=== PATIENT | female | born 1950 | race Caucasian/White ===

== ENCOUNTER → 2016-12-04 | Outpatient (CLI) | payer OTHER ==
[~2016-12-04] MED LIST: ATOR10TA88 PO; CALC600T9 PO; FLVHFA110 INH; GLIM2TAB2 PO; LOSA50TA6 PO; METF-384 PO; OXYC1TAB3 PO; PRLSR20 PO; TRAM-10 PO; VOLTAREN GEL TOP
[2016-12-04 12:40] LABS: ESTIMATED AVERAGE GLUCOSE 166 mg/dl; HA1C FLAG Normal (Normal)
[2016-12-04 12:48] LABS: CHOLESTEROL/HDL RATIO 3.1
== END | disposition home or self-care (01) ==
LOC: C.LABBFT 09:33
PROVIDERS: ATTEND Internal Medicine
DX: E11.9 Type 2 diabetes mellitus without complications (principal); E78.5 Hyperlipidemia, unspecified

== ENCOUNTER 2017-03-27 18:40 | Emergency (ER) | payer OTHER ==
[~2017-03-27 18:40] MED LIST changes: +ATOR10TA82 PO; -ATOR10TA88 PO; -OXYC1TAB3 PO
[2017-03-27 18:45] VITALS: TEMP 36.5
[2017-03-27] MEDS ORDERED: MoRPHine SULFATE 10 MG/ML CARP/VIAL IM STA (19:02)
[2017-03-27] MEDS ORDERED: ONDANSETRON 4MG OD TAB PO ONE (19:15)
--- NOTE | 2017-03-27 19:55 | DIAGNOSTIC IMAGING REPORT ---
LUMBAR SPINE 5 VIEWS CLINICAL HISTORY: Low back pain. FINDINGS: 5 views of the lumbar spine are correlated with MRI of the lumbar spine dated 10/23/2010. The skeletal structures are osteopenic. There is no radiographic evidence of fracture or malalignment. Vertebral body height and alignment are maintained throughout the lumbar spine. The transverse and spinous processes appear intact. There is no evidence of spondylolysis. Small anterior osteophytes are seen in the lower lumbar region. Mild facet arthropathy is present in the lower lumbar spine. Mild multilevel degenerative disc space narrowing is noted. The bony pelvis is intact as imaged. Mild sclerotic change is noted in the sacroiliac joints. There is a nonobstructed abdominal bowel gas pattern. IMPRESSION: 1. No acute bony abnormality is seen involving the lumbosacral spine. 2. Osteopenia and mild spondylotic change as above. Dictated: 03/27/2017 7:52 PM Transcribed: 03/27/2017 7:55 PM ALAYNA_Alcira Electronically signed by: Joseph Dong M.D. 03/27/2017 7:55 PM Dictated Date/Time: 03/27/2017 7:52 PM
[2017-03-27] MEDS ORDERED: OXYC1TAB3 PO (20:37)
[2017-03-27 20:57] VITALS: BP 146/94; PULSE 73; O2SAT 96
[2017-03-27] MEDS ORDERED: OXYCODONE IR HOME PACK PO ONE (21:00)
--- NOTE | 2017-03-27 22:05 | EMERGENCY ROOM VISIT NOTE ---
History Report prepared by Hamzah: Eliseo Garces Under the Supervision of: Dr. Yung Mattson D.O. First contact with patient: 18:51 Chief Complaint: BACK PAIN Stated Complaint: PAIN FROM MIDDLE OF BACK TO FOOT History of Present Illness The patient is a 66 year old female who presents to the Emergency Room with complaints of constant right lower back pain beginning two days ago. She has a history of back pain. She has a history of two back injuries and spinal stenosis. She states that her right leg feels like it's twisting outward. She describes her current pain as feeling "sharp" and states that it radiates down her right leg. She states the pain in her right leg is a "burning" pain. The patient states that her right knee feels numb as well and she describes the sensation as "a pins and needles" feeling. She denies any recent falls or trauma. She denies any loss of continence, fevers, chest pain, SOB, abdominal pain, pelvic numbness, or urinary symptoms. The patient has taken ibuprofen for her pain. She does have a history of hypertension and states that she took her antihypertensive medications this morning. She states that her blood pressures normally read very high when an automatic cuff was used. She states that her doctor says she should only have manual pressures done. Source of History: patient Onset: two days ago Position: back (right lower) Quality: sharp Timing: constant Modifying Factors (Worsening): movement Associated Symptoms: + numbness ("pins and needles" in the right knee), No SOB, No abdominal pain, No chest pain, No fevers, No urinary symptoms Note: The patient denies any loss of continence, or numbness in her pelvis. Review of Systems See HPI for pertinent positives & negatives. A total of 10 systems reviewed and were otherwise negative. Past Medical & Surgical Medical Problems: (1) Diab Izabel Wo Compl, Type Ii Or Unspec Type, Not Uncntrld (2) Hyperlipidemia Nec/Nos (3) Hypertension Nos (4) Hypothyroidism Nos (5) Obesity, Nos (6) Osteoarthro Nos-Oth Site Family History No pertinent family history stated. Social History Smoking Status: Never Smoker Alcohol Use: none Marital Status: Current/Historical Medications Scheduled Atorvastatin (Lipitor), 10 MG PO QPM Calcium Carbonate-Vitamin D (Calcium + D), 1 TAB PO QAM Glimepiride (Glimepiride), 1 TAB PO QAM Losartan Potassium (Cozaar), 50 MG PO QAM Metformin Hcl (Glucophage), 1,000 MG PO BID Omeprazole (Prilosec), 20 MG PO QAM Scheduled PRN Fluticasone Propionate (Flovent Hfa), 2 PUFFS INH BID PRN for PRN Oxycodone Ir (Roxicodone Ir), 5 MG PO Q4H PRN for Pain Allergies Coded Allergies: Triamcinolone (Verified Allergy, Severe, DIFFICULTY BREATHING W/ KENALOG, 03/27/17) Flu Virus Vaccine (Verified Allergy, Unknown, DUE TO HX SARCOIDOSIS TOLD TO AVOID FLU VACCINE, 03/27/17) Food (Verified Allergy, Unknown, PEPPERS (HOT, CAYENNE, BLACK)-SWELLING THROAT,SOB, RED NOSE, 03/27/17) Pravastatin (Verified Allergy, Unknown, URINARY RETENTION,SOB, 03/27/17) Physical Exam Vital Signs Date Time Temp Pulse Resp B/P Pulse Ox O2 Delivery O2 Flow Rate FiO2 03/27/17 20:57 73 16 146/94 96 03/27/17 19:16 160/90 NIBP 03/27/17 18:45 36.5 80 20 202/98 96 Room Air Physical Exam Constitutional: Vital signs reviewed. Eyes: Pupils are equal round reactive to light. Conjunctiva are noninjected. ENT: Pharynx is clear without erythema or exudate. Mucous membranes are moist. Neck supple without meningeal signs. Respiratory: Clear to auscultation bilaterally. Breath sounds are equal bilaterally. Cardiovascular: Regular rate and rhythm. No rubs or gallops. GI: Soft, nondistended and nontender. Bowel sounds are present. Musculoskeletal: No peripheral edema. No lower extremity tenderness. No CVA tenderness. Integumentary: No cyanosis. Neurological: The patient is awake and alert. No focal deficits. Motor and sensation are intact in the lower extremities bilaterally. Proprioception is intact bilaterally. Positive straight leg raise at 30 on the right side. Negative on the left side. Psychiatric: Normal affect. Medical Decision & Procedures ER Provider Diagnostic Interpretation: X-ray results as stated below per interpretation by me and the radiologist: LUMBAR SPINE 5 VIEWS FINDINGS: 5 views of the lumbar spine are correlated with MRI of the lumbar spine dated 10/23/2010. The skeletal structures are osteopenic. There is no radiographic evidence of fracture or malalignment. Vertebral body height and alignment are maintained throughout the lumbar spine. The transverse and spinous processes appear intact. There is no evidence of spondylolysis. Small anterior osteophytes are seen in the lower lumbar region. Mild facet arthropathy is present in the lower lumbar spine. Mild multilevel degenerative disc space narrowing is noted. The bony pelvis is intact as imaged. Mild sclerotic change is noted in the sacroiliac joints. There is a nonobstructed abdominal bowel gas pattern. IMPRESSION: 1. No acute bony abnormality is seen involving the lumbosacral spine. 2. Osteopenia and mild spondylotic change as above. Dictated: 03/27/2017 7:52 PM Transcribed: 03/27/2017 7:55 PM ALAYNA_Alcira Electronically signed by: Joseph Dong M.D. Medications Administered Medications (Trade) Dose Ordered Sig/Jorge Luis Route Start Time Stop Time Status Last Admin Dose Admin Morphine Sulfate (MoRPHine SULFATE INJ) 6 mg NOW STAT IM 03/27/17 19:02 03/27/17 19:04 DC 03/27/17 19:16 6 MG Ondansetron HCl (Zofran Odt) 4 mg ONE ONCE PO 03/27/17 19:15 03/27/17 19:16 DC 03/27/17 19:16 4 MG Oxycodone HCl (Roxicodone Immediate Rel 5MG Home Pack) 1 homepack UD ONCE PO 03/27/17 21:00 03/27/17 21:01 DC 03/27/17 20:58 1 HOMEPACK ED Course 1854: The patient was evaluated in room A9. A complete history and physical exam was performed. 1901: Ordered Morphine Sulfate 6 mg IM. 1914: Ordered Zofran 4 mg PO. 2030: Upon reevaluation, the patient appeared to have improvement of her symptoms. She is feeling better. I discussed tonight's findings with her. She verbalized agreement of the treatment plan. The patient will follow up with her PCP. She was discharged home. Medical Decision This is a 66-year-old female who presents with back pain. Differential diagnosis includes lumbar disc disease, spinal stenosis, radiculopathy, strain, compression fracture. I did perform a limited focused review of portions of the patient's old chart on the electronic medical record. The patient had an MRI of the lumbar spine in 2009 which showed degenerative disc disease with disc bulging in multiple levels. I did evaluate the patient as noted above. The patient is presenting with low back pain radiating down her right leg. She is neurologically intact and has no signs of spinal cord injury. I did treat her with IM morphine and Zofran ODT. I did order and personally review the patient's lumbar spine x-rays as described above. I did reassess the patient. She is feeling better. I did discuss the test results with her. I did recommend she follow closely with her doctor. I did give her a prescription for OxyIR for breakthrough pain. She was given precautions regarding this medication. She was given return instructions as outlined below and discharged in good condition. [place] Drug Monitoring Program Search Results: patient reviewed within database, no issues identified Impression Primary Impression: Low back pain Scribe Attestation The scribe's documentation has been prepared under my direct and personally reviewed by me in its entirety. I confirm that the note above accurately reflects all work, treatment, procedures, and medical decision making performed by me. Departure Information Dispostion Home / Self-Care Prescriptions Oxycodone Ir (Roxicodone Ir) 5 Mg Tab 5 MG PO Q4H Y for Pain, #14 TAB Prov: Patrick Cowan M.D. 03/27/17 Referrals Gucci Vallceillo M.D. (PCP) Forms HOME CARE DOCUMENTATION FORM, IMPORTANT VISIT INFORMATION Patient Instructions ED Back Pain Acute Chronic, My [facility] Additional Instructions You have been examined and treated today on an emergency basis only. This is not a substitute for, or an effort to provide, complete comprehensive medical care. It is impossible to recognize and treat all injuries or illnesses in a single emergency department visit. It is therefore important that you follow up closely with your physician. Call as soon as possible for an appointment. Return for worsening symptoms or if you develop fever, vomiting, abdominal pain , loss of control of your bowel or bladder, numbness or weakness to your legs, numbness to your private area, difficulty urinating, or any other concerning symptoms. Problem Qualifiers Primary Impression: Low back pain Chronicity: acute Back pain laterality: right Sciatica presence: with sciatica Sciatica laterality: sciatica of right side Qualified Codes: M54.41 - Lumbago with sciatica, right side
== END 2017-03-27 20:58 | disposition home or self-care (01) ==
LOC: C.EDB 18:40 → C.EDA 20:58
DX: M54.41 Lumbago with sciatica, right side (principal); M79.671 Pain in right foot; R20.0 Anesthesia of skin; E11.9 Type 2 diabetes mellitus without complications; I10 Essential (primary) hypertension; E78.5 Hyperlipidemia, unspecified; E03.9 Hypothyroidism, unspecified; Z79.84 Long term (current) use of oral hypoglycemic drugs; Z79.899 Other long term (current) drug therapy; Z87.828 Personal history of other (healed) physical injury and trauma

== ENCOUNTER → 2017-10-18 | Outpatient (CLI) | payer OTHER ==
[~2017-10-18] MED LIST changes: -TRAM-10 PO; -VOLTAREN GEL TOP
[2017-10-18 12:57] LABS: BASO % 0.4 %; BASO ABS # 0.03 K/uL (0-0.2); COMPLETE YES; EOS % 1.6 %; HEMATOCRIT 36.3 % (37-47); IG% 0.2 %; LYMPH % 32.2 %; LYMPH ABS # 2.66 K/uL (1.2-3.4); MEAN CELL VOLUME 84.4 fL (80-100); MEAN CORPUSCULAR HEMOGLOBIN 26.7 pg (25-34); MEAN CORPUSCULAR HGB CONC 31.7 g/dl (32-36); MEAN PLATELET VOLUME 10.7 fL (7.4-10.4); MONO % 9.2 %; NEUT % 56.4 %; PLATELET COUNT 240 K/uL (130-400); WHITE BLOOD COUNT 8.25 K/uL (4.8-10.8)
[2017-10-18 14:07] LABS: ALT/SGPT 30 U/L (12-78); AST/SGOT 24 U/L (15-37); BLOOD UREA NITROGEN 16 mg/dl (7-18); BUN/CREATININE RATIO 22.6 (10-20); CALCIUM 9.2 mg/dl (8.5-10.1); CARBON DIOXIDE 29 mmol/L (21-32); CHLORIDE 103 mmol/L (98-107); CREATININE 0.71 mg/dl (0.60-1.20); GLUCOSE 127 mg/dl (70-99); HDL CHOLESTEROL 52 mg/dl; POTASSIUM 4.3 mmol/L (3.5-5.1); SODIUM 136 mmol/L (136-145)
[2017-10-18 14:23] LABS: ALKALINE PHOSPHATASE 51 U/L (45-117); CHOLESTEROL 173 mg/dl (0-200); CHOLESTEROL/HDL RATIO 3.3; LDL CHOLESTEROL CALCULATED 94 mg/dl; TRIGLYCERIDES 137 mg/dl (0-150); VERY LOW DENSITY LIPOPROT CALC 27 mg/dl
[2017-10-19 07:05] LABS: ESTIMATED AVERAGE GLUCOSE 163 mg/dl; HA1C FLAG Normal (Normal)
== END | disposition home or self-care (01) ==
LOC: C.LABBFT 10:33
PROVIDERS: ATTEND Internal Medicine
DX: Z00.00 Encounter for general adult medical examination without abnormal findings (principal); E78.5 Hyperlipidemia, unspecified; E11.9 Type 2 diabetes mellitus without complications; M17.10 Unilateral primary osteoarthritis, unspecified knee; K52.9 Noninfective gastroenteritis and colitis, unspecified

== ENCOUNTER → 2017-12-15 | Day surgery (SDC) | payer OTHER ==
[2017-12-07 13:50] VITALS: BMI 47.0
[~2017-12-15] VITALS: Ht 167.6 cm; Wt 131.8 kg
[~2017-12-15] MED LIST changes: -CALC600T9 PO; +CHOL100010 PO; +CYAN100020 PO; -FLVHFA110 INH; -GLIM2TAB2 PO; +LIDOCAINE HCL 2% 2 ML VIAL (20MG/ML) ONE; +LOSA1TAB38 PO; -LOSA50TA6 PO; +MELO15TA4 PO; +MULTTAB58 PO; +PROPOFOL IV EMULSION 10 MG/ML 20 ML VIAL IV ONE; +SODIUM CHLORIDE 0.9% 500ML 500 ML IV ONE; +TRAM-10 PO
[2017-12-15 09:27] VITALS: Ht 167.6 cm; Wt 131.8 kg
--- NOTE | 2017-12-15 09:40 | Endo History and Physical ---
History & Physical Date of Service: Dec 15, 2017. Chief Complaint: SCREENING/ANEMIA HX OF DUODENAL AND GASTRIC POLYPS Referring Physician: DR CERDA History of Present Illness chronic diarrhea; dysphagia Past Surgical History Hx Cardiac Surgery: No Hx Internal Defibrillator: No Hx Pacemaker: No Hx Abdominal Surgery: Yes (TUBAL LIGATION, HYSTERECTOMY AND REPAIR OF URETHRA) Hx of Implantable Prosthesis: No Hx Post-Op Nausea and Vomiting: No Hx Cancer Surgery: No Hx Thoracic Surgery: Yes (LUNG BIOPSY/BRONCHOSCOPY) Hx Orthopedic: Yes (LEFT HAND TRIGGER FINGER ) Hx Urinary Tract Surgery: No Family History Colon CA Social History Smoking Status: Never Smoker Hx Substance Use: No Hx Alcohol Use: Yes (RARELY) Allergies Coded Allergies: Triamcinolone (Verified Allergy, Severe, DIFFICULTY BREATHING W/ KENALOG, 12/15/17) Flu Virus Vaccine (Verified Allergy, Unknown, DUE TO HX SARCOIDOSIS TOLD TO AVOID FLU VACCINE, 12/15/17) Food (Verified Allergy, Unknown, PEPPERS (HOT, CAYENNE, BLACK)-SWELLING THROAT,SOB, RED NOSE, 12/15/17) Pravastatin (Verified Allergy, Unknown, URINARY RETENTION,SOB, 12/15/17) Current Medications Reported Home Medications Medications Dose Route/Sig Max Daily Dose Days Date Category Ultram (Tramadol HCl) 50 Mg Tab 50 Mg PO Q8H PRN 12/07/17 Reported Multivitamin (Multiple Vitamin) 1 Tab Tab 1 Tab PO QAM 12/07/17 Reported Vitamin D (Cholecalciferol) 1,000 Unit Tab 1 Tab PO QAM 12/07/17 Reported Vitamin B12 (Cyanocobalamin) 1,000 Mcg Tab 1 Tab PO QAM 12/07/17 Reported Cozaar (Losartan Potassium) 100 Mg Tab 100 Mg PO QAM 12/07/17 Reported Mobic (Meloxicam) 15 Mg Tab 15 Mg PO DAILY WITH FOOD 12/07/17 Reported Prilosec (Omeprazole) 20 Mg Capcr 20 Mg PO QAM 08/18/16 Reported Lipitor (Atorvastatin Calcium) 10 Mg Tab 10 Mg PO QPM 08/18/16 Reported Glucophage (Metformin Hcl) 1,000 Mg Tab 1,000 Mg PO BID 11/25/13 Reported Vital Signs Weight (Kilograms): 131.82 Height (Feet): 5 Height (Inches): 6 Physical Exam General Appearance: WD/WN, no apparent distress Assessment and Plan EGD and colonoscopy today
--- NOTE | 2017-12-15 10:27 | GI REPORT ---
Procedure Date: 12/15/2017 9:28 AM Procedure: Upper GI endoscopy Indications: Dysphagia Medicines: Propofol per Anesthesia Complications: No immediate complications. Estimated blood loss: None. Estimated Blood Loss: Estimated blood loss: none. Procedure: Pre-Anesthesia Assessment: - Prior to the procedure, a History and Physical was performed, and patient medications, allergies and sensitivities were reviewed. The patient's tolerance of previous anesthesia was reviewed. - The risks and benefits of the procedure and the sedation options and risks were discussed with the patient. All questions were answered and informed consent was obtained. - Patient identification and proposed procedure were verified prior to the procedure by the physician and the nurse. The procedure was verified in the pre-procedure area in the procedure room. - Mental Status Examination: alert and oriented. Airway Examination: normal oropharyngeal airway and neck mobility. Respiratory Examination: clear to auscultation. CV Examination: normal. Abdominal Examination: bowel sounds present, abdomen soft and non-tender, no masses or organomegaly noted. - ASA Grade Assessment: III - A patient with severe systemic disease. After obtaining informed consent, the endoscope was passed under direct vision. Throughout the procedure, the patient's blood pressure, pulse, and oxygen saturations were monitored continuously. The scope was introduced through the mouth, and advanced to the second part of duodenum. The upper GI endoscopy was accomplished without difficulty. The patient tolerated the procedure well. Findings: The examined esophagus was normal. A guidewire was placed and the scope was withdrawn. Dilation was performed with a Savary dilator with mild resistance at 54 Fr. The stomach was normal. The examined duodenum was normal. Impression: - Normal esophagus. Dilated. - Normal stomach. - Normal examined duodenum. - No specimens collected. Recommendation: - Follow an antireflux regimen. - Continue present medications. - Return to primary care physician as previously scheduled. - Discharge patient to home. Eliza Sousa D.O. Eliza Sousa, 12/15/2017 10:27:08 AM This report has been signed electronically. Note Initiated On: 12/15/2017 9:28 AM I attest to the content of the Intraoperative Record and orders documented therein, exceptions below
--- NOTE | 2017-12-15 10:28 | Anesthesiology Progress Note ---
Anesthesia Post Op Note Date & Time Dec 15, 2017 at 10:28 Vital Signs Vital Signs Past 12 Hours Date Time Temp Pulse Resp B/P (MAP) Pulse Ox O2 Delivery O2 Flow Rate FiO2 12/15/17 09:34 36.6 78 22 188/77 (114) 96 Room Air Notes Mental Status: alert / awake / arousable, participated in evaluation Pt Amnestic to Procedure: Yes Nausea / Vomiting: adequately controlled Pain: adequately controlled Airway Patency, RR, SpO2: stable & adequate BP & HR: stable & adequate Hydration State: stable & adequate Anesthetic Complications: no major complications apparent
--- NOTE | 2017-12-15 10:29 | GI REPORT ---
Procedure Date: 12/15/2017 9:28 AM Procedure: Colonoscopy Indications: Screening patient at increased risk: Family history of 1st-degree relative with colorectal cancer at age 60 years (or older) Medicines: Propofol per Anesthesia Complications: No immediate complications. Estimated blood loss: Minimal. Estimated Blood Loss: Estimated blood loss was minimal. Procedure: Pre-Anesthesia Assessment: - Prior to the procedure, a History and Physical was performed, and patient medications, allergies and sensitivities were reviewed. The patient's tolerance of previous anesthesia was reviewed. - The risks and benefits of the procedure and the sedation options and risks were discussed with the patient. All questions were answered and informed consent was obtained. - Patient identification and proposed procedure were verified prior to the procedure by the physician and the nurse. The procedure was verified in the pre-procedure area in the procedure room. - Mental Status Examination: alert and oriented. Airway Examination: normal oropharyngeal airway and neck mobility. Respiratory Examination: clear to auscultation. CV Examination: normal. Abdominal Examination: bowel sounds present, abdomen soft and non-tender, no masses or organomegaly noted. - ASA Grade Assessment: III - A patient with severe systemic disease. After I obtained informed consent, the scope was passed under direct vision. Throughout the procedure, the patient's blood pressure, pulse, and oxygen saturations were monitored continuously. The scope was introduced through the anus and advanced to the terminal ileum. The colonoscopy was performed without difficulty. The patient tolerated the procedure well. The quality of the bowel preparation was good. Findings: The perianal and digital rectal examinations were normal. Pertinent negatives include normal sphincter tone and no palpable rectal lesions. The terminal ileum appeared normal. The colon (entire examined portion) appeared normal. Biopsies for histology were taken with a cold forceps from the right colon and left colon for evaluation of microscopic colitis. Verification of patient identification for the specimen was done by the physician and nurse using the patient's name and date. Estimated blood loss was minimal. The retroflexed view of the distal rectum and anal verge was normal and showed no anal or rectal abnormalities. Impression: - The examined portion of the ileum was normal. - The entire examined colon is normal. Biopsied. - The distal rectum and anal verge are normal on retroflexion view. Recommendation: - Await pathology results. - Repeat colonoscopy in 5 years for screening purposes. - Return to referring physician. - Discharge patient to home. ElizaIan Schrader, 12/15/2017 10:28:52 AM This report has been signed electronically. Note Initiated On: 12/15/2017 9:28 AM I attest to the content of the Intraoperative Record and orders documented therein, exceptions below
--- NOTE | 2017-12-15 10:41 | Discharge Instructions ---
Endoscopy Patient Instructions Date / Procedure(s) Performed Dec 15, 2017. Colonoscopy, EGD Allergy Information Coded Allergies: Triamcinolone (Verified Allergy, Severe, DIFFICULTY BREATHING W/ KENALOG, 12/15/17) Flu Virus Vaccine (Verified Allergy, Unknown, DUE TO HX SARCOIDOSIS TOLD TO AVOID FLU VACCINE, 12/15/17) Food (Verified Allergy, Unknown, PEPPERS (HOT, CAYENNE, BLACK)-SWELLING THROAT,SOB, RED NOSE, 12/15/17) Pravastatin (Verified Allergy, Unknown, URINARY RETENTION,SOB, 12/15/17) Discharge Date / Findings Dec 15, 2017. normal EGD and colonoscopy Medication Instructions Stopped Medication(s): METFORMIN Restart Stopped Medication(s): OK to resume home medications as above Provider Instructions Activity Restrictions - No exercising or heavy lifting for 24 hours. - Do not drink alcohol the day of the procedure. - Do not drive a car or operate machinery until the day after the procedure. - Do not make any important decisions or sign important papers in 24 hours after the procedure. Following Day: - Return to full activity which may include returning to work/school. Diet Start your diet with liquids and light foods (jello, soup, juice, toast). Then eat your usual diet if not nauseated. Treatment For Common After Affects For mild abdominal pain, bloating, or excessive gas: - Rest - Eat lightly - Lie on right side Follow-Up Information Follow-up with DR CERDA as scheduled Anesthesia Information What You Should Know You have had a procedure that required some medicine to reduce anxiety and discomfort. This treatment is called moderate sedation. After receiving the treatment, you may be sleepy, but you will be able to breathe on your own. The effects of the treatment may last for several hours. Follow these instructions along with Activity/Diet recommendations noted above: * Do NOT do anything where dizziness or clumsiness would be dangerous. * Rest quietly at home today, then you can be up and about tomorrow. * Have a responsible person stay with you the rest of today. * You may have had an I.V. today. If so, you may take the dressing off later today. Recommendations Call your doctor if: * Trouble breathing * Continuous vomiting for more than 24 hours * Temperature above 101 degrees * Severe abdominal pain or bloating * Pain not relieved by pain medicine ordered * There is increased drainage or redness from any incision * A large amount of rectal bleeding greater than 2-3 tablespoons. (If you had a polyp/s removed or have hemorrhoids, a small amount of blood - from the rectum is to be expected.) * You have any unanswered questions or concerns. IN THE EVENT OF A SERIOUS EMERGENCY, GO TO THE NEAREST EMERGENCY ROOM Your discharge instructions were prepared by provider Eliza Sousa. Patient Instructions Signature Page Aminah Klein Patient (or Guardian) Signature/Date: I have read and understand the instructions given to me by my caregivers. Caregiver/RN/Doctor Signature/Date: The above-named patient and/or guardian has received patient instructions on this date. + Original Patient Signature Page (only) stays with chart. Please make copy for patient.
[2017-12-15 11:05] VITALS: BP 164/64; PULSE 74; O2SAT 98
== END | disposition home or self-care (01) ==
LOC: C.GI 08:39
PROVIDERS: ATTEND Internal Medicine
DX: Z12.11 Encounter for screening for malignant neoplasm of colon (principal); K64.8 Other hemorrhoids; Z86.018 Personal history of other benign neoplasm; Z80.0 Family history of malignant neoplasm of digestive organs; Z79.84 Long term (current) use of oral hypoglycemic drugs; Z79.899 Other long term (current) drug therapy

== ENCOUNTER 2020-08-21 06:13 | Inpatient (IN) ==
--- NOTE | 2020-08-07 19:54 | PAT Medication Instructions ---
Medication Instructions Date of Service August 07, 2020 Home Medications Medication Instructions Recorded losartan 100 mg tablet 100 mg PO QAM #90 tab 07/12/19 CPAP Machine #1 ea 10/05/19 compress.stocking,knee,reg,med #2 ea 12/06/19 CPAP Machine #1 ea 12/28/19 pen needle, diabetic 32 gauge x #100 ea 03/05/20 1/6" metformin 1,000 mg tablet 1,000 mg PO BID #180 tab 04/22/20 omeprazole 20 mg capsule,delayed 20 mg PO QAM #30 cap 05/28/20 release tramadol 50 mg tablet 50 mg PO Q8H PRN #90 tab 05/28/20 blood sugar diagnostic #100 ea 05/30/20 cyclobenzaprine 5 mg tablet 5 mg PO TID PRN #30 tab 05/30/20 gabapentin 300 mg capsule 300 mg PO .COMPLEX #90 cap 07/15/20 insulin human U-100 NPH-regulr 40 unit SUBCUT BID #30 ml 08/07/20 70-30 mix 100 unit/mL subcutaneous susp insulin syringe-needle U-100 0.5 #100 ea 08/07/20 mL 31 gauge x 03/30" cyanocobalamin (vitamin B-12) [Vitamin B-12] 1,000 mcg PO QAM multivitamin 1 tab PO QAM acetaminophen 650 mg tablet,extended release 650 mg PO BID PRN losartan 100 mg tablet 100 mg PO QAM metformin 1,000 mg tablet 1,000 mg PO BID pentoxifylline 400 mg tablet,extended release 400 mg PO Q2D cholecalciferol (vitamin D3) [Vitamin D3] 125 mcg PO QAM qvgcqusy-phjtq-pwzjx-CF borate [[facility]] 2 tab PO QAM omeprazole 20 mg capsule,delayed release 20 mg PO QAM tramadol 50 mg tablet 50 mg PO Q8H PRN vitamin B complex 1 tab PO QAM cyclobenzaprine 5 mg tablet 5 mg PO TID PRN gabapentin 300 mg capsule 300 mg PO .COMPLEX ascorbic acid (vitamin C) [Vitamin C] 1 g PO QAM atorvastatin 10 mg PO HS chlorthalidone 25 mg PO QAM diclofenac sodium [Voltaren] 2 g TOPICAL HS diltiazem HCl [Tiadylt ER] 240 mg PO QPM fluocinonide 1 applic TOPICAL BID insulin human U-100 NPH-regulr 70-30 mix 100 unit/mL subcutaneous susp 40 unit SUBCUT BID ASK your prescriber and surgeon pentoxifylline 400 mg tablet,extended release 400 mg PO Q2D STOP taking 2 weeks before surgery (or as soon as possible if surgery is within 2 weeks) kpmrymqd-igobs-zuhgm-CF borate [[facility]] 2 tab PO QAM STOP taking 24 hours before surgery diclofenac sodium [Voltaren] 2 g TOPICAL HS fluocinonide 1 applic TOPICAL BID DO NOT take the morning of surgery cyanocobalamin (vitamin B-12) [Vitamin B-12] 1,000 mcg PO QAM multivitamin 1 tab PO QAM losartan 100 mg tablet 100 mg PO QAM metformin 1,000 mg tablet 1,000 mg PO BID cholecalciferol (vitamin D3) [Vitamin D3] 125 mcg PO QAM vitamin B complex 1 tab PO QAM cyclobenzaprine 5 mg tablet 5 mg PO TID PRN ascorbic acid (vitamin C) [Vitamin C] 1 g PO QAM chlorthalidone 25 mg PO QAM Take morning of surgery With a small sip of water, OTHERWISE NOTHING TO EAT OR DRINK AFTER MIDNIGHT: acetaminophen 650 mg tablet,extended release 650 mg PO BID PRN (okay to take up to 4 hours prior to surgery if needed) omeprazole 20 mg capsule,delayed release 20 mg PO QAM tramadol 50 mg tablet 50 mg PO Q8H PRN (okay to take up to 4 hours prior to surgery if needed) gabapentin 300 mg capsule 300 mg PO .COMPLEX Take evening before surgery acetaminophen 650 mg tablet,extended release 650 mg PO BID PRN (if needed) metformin 1,000 mg tablet 1,000 mg PO BID tramadol 50 mg tablet 50 mg PO Q8H PRN (if needed) cyclobenzaprine 5 mg tablet 5 mg PO TID PRN (if needed) gabapentin 300 mg capsule 300 mg PO .COMPLEX atorvastatin 10 mg PO HS diltiazem HCl [Tiadylt ER] 240 mg PO QPM insulin human U-100 NPH-regulr 70-30 mix 100 unit/mL subcutaneous susp 40 unit SUBCUT BID Insulin Dependent Diabetic Patients * Test your blood sugar the morning of surgery * If Blood Sugar is GREATER THAN 150, take HALF of your regular dose of: insulin human U-100 NPH-regulr 70-30 mix 100 unit/mL subcutaneous susp take 20 units * If Blood Sugar is LESS THAN 150, DO NOT TAKE ANY: insulin human U-100 NPH- regulr 70-30 mix 100 unit/mL subcutaneous susp Other Notes If you have any questions please call us at [phone] or [phone] or [phone] or [phone]
--- NOTE | 2020-08-08 15:07 | Anesthesiology Consultation ---
Date of Service August 08, 2020 Assessment & Plan (1) Encounter for pre-operative examination: - Per assessment on 08/08: Travel screen negative. No known COVID-19 positive contacts or current COVID-19 related symptoms. Surgeon arranging preop COVID testing (scheduled 08/16; [facility]). Awaiting results. - Check BSG AM DOS (patient was given specific perioperative instructions regarding long-acting insulin from endocrinology. Patient advised to follow endocrine instructions) Chart Review Chart Review: Acceptable Risk for Surgery (pending surgeon-ordered PCP clearance) and Patient seen in Pre Admission Testing Teaching & Discussion Pre-Anesthesia Teaching/Discussion Notes: Instructed NPO after midnight before surgery,except medications with 15 cc of water. Medication instructions pro vided according to the PAT guidelines. History Surgery Operation Date: 08/21/20 07:45 Proposed Procedures p L2-S1 Decompression and Fusion, Spinal Cord Monitoring - Julio Rapp, Height/Weight Height: 5 ft 6 in Weight: 132 kg Allergies Allergy/AdvReac Type Severity Reaction Status Date / Time pravastatin Allergy Severe urinary Verified 08/08/20 16:04 retention, SOB triamcinolone Allergy Severe anaphylaxis Verified 08/08/20 16:04 turmeric Allergy Severe throat Verified 08/08/20 16:04 swelling, SOB, red nose Food Allergy Severe Peppers Uncoded 08/08/20 16:04 (hot,cayenne,black)- throat swelling, SOB, red nose Flu Virus Vaccine Allergy Unknown told to Uncoded 08/08/20 16:04 avoid (d/t hx sarcoidosis) Medications Home Medications Medication Instructions Recorded Confirmed Last Taken cyanocobalamin (vitamin B-12) 1,000 mcg PO QAM 03/27/19 08/01/20 05/28/20 [Vitamin B-12] multivitamin 1 tab PO QAM 03/27/19 08/01/20 05/28/20 acetaminophen 650 mg 650 mg PO BID PRN tab 04/26/19 08/01/20 05/28/20 tablet,extended release losartan 100 mg tablet 100 mg PO QAM #90 tab 07/12/19 08/01/20 05/28/20 CPAP Machine #1 ea 10/05/19 07/15/20 Unknown compress.stocking,knee,reg,med #2 ea 12/06/19 07/15/20 Unknown CPAP Machine #1 ea 12/28/19 07/15/20 Unknown pen needle, diabetic 32 gauge x #100 ea 03/05/20 07/15/20 Unknown /" metformin 1,000 mg tablet 1,000 mg PO BID #180 tab 04/22/20 08/01/20 05/28/20 08:00 pentoxifylline 400 mg 400 mg PO Q2D tab 05/08/20 08/01/20 05/28/20 08:00 tablet,extended release cholecalciferol (vitamin D3) 125 mcg PO QAM 05/28/20 08/01/20 05/28/20 [Vitamin D3] lyhkbsfr-blfvi-ydbvb-CF borate 2 tab PO QAM 05/28/20 08/01/20 05/28/20 [[facility]] omeprazole 20 mg capsule,delayed 20 mg PO QAM #30 cap 05/28/20 08/01/20 05/28/20 release tramadol 50 mg tablet 50 mg PO Q8H PRN #90 tab 05/28/20 08/01/20 Unknown vitamin B complex 1 tab PO QAM 05/28/20 08/01/20 05/28/20 blood sugar diagnostic #100 ea 05/30/20 07/15/20 Unknown cyclobenzaprine 5 mg tablet 5 mg PO TID PRN #30 tab 05/30/20 08/01/20 Unknown gabapentin 300 mg capsule 300 mg PO .COMPLEX #90 cap 07/15/20 08/01/20 Unknown ascorbic acid (vitamin C) [Vitamin 1 g PO QAM 08/01/20 08/01/20 Unknown C] atorvastatin 10 mg PO HS 08/01/20 08/01/20 Unknown chlorthalidone 25 mg PO QAM 08/01/20 08/01/20 Unknown diclofenac sodium [Voltaren] 2 g TOPICAL HS 08/01/20 08/01/20 Unknown diltiazem HCl [Tiadylt ER] 240 mg PO QPM 08/01/20 08/01/20 Unknown fluocinonide 1 applic TOPICAL BID 08/01/20 08/01/20 Unknown insulin human U-100 NPH-regulr 40 unit SUBCUT BID #30 ml 08/07/20 Unknown 70-30 mix 100 unit/mL subcutaneous susp insulin syringe-needle U-100 0.5 #100 ea 08/07/20 Unknown mL 31 gauge x 5/16" Past Medical History Medical History Anemia baseline hgb in the 11-12 range per chart review Chronic diarrhea Diabetes mellitus, type 2 IDDM Diabetic neuropathy Esophageal reflux controlled Fatty liver disease, nonalcoholic Fibromyalgia Frequent UTI most recent 05/2020, currently asymptomatic Gout Hyperlipidemia Hypertension Lipodermatosclerosis Lumbar spinal stenosis Severe at L3-S1 Morbid obesity Obstructive sleep apnea CPAP Osteoarthritis PAD (peripheral artery disease) Peptic ulcer hx Periodic limb movement disorder Sarcoidosis controlled, monitored by PCP Temporomandibular joint disorder left side occasional clicking, no locking Exercise / Class Metabolic Activity III < 4 Walking/Shop/Light housework Past Family History Family History Father , age 86 - infection after heart surgery. GENEVIEVE. Diabetes Coronary heart disease Mother , age 82 - CHF Diabetes Aunt Family hx of colon cancer Past Surgical History Surgical History H/O tubal ligation H/O vaginal hysterectomy History of bladder surgery urethral repair History of colonoscopy History of esophagogastroduodenoscopy (EGD) History of hand surgery left trigger finger History of neck surgery biopsy- dx sarcoidosis Past Anesthesia History No Hx of Anesthesia Complications and No Family Hx of Anesthesia Complications History of PONV No Hx of PONV and Hx of Motion Sickness (remote hx) Social History Smoking Status: Never smoker Do You Dip or Chew Tobacco: No Hx Alcohol Use: Yes Alcohol type: wine alcohol intake frequency: holidays/special occasions only Hx Substance Use: No substance use type: painkillers and prescription drug Review of Systems Patient denies chest pain, shortness of breath, fever, chills, cough, wheezing, palpitations. Physical Exam Vital Signs VITALS BP 142/63 P 69 TEMP 98.0 SP02 96%RA RESP 16 PHYSICAL Full neck and c-spine range of motion (mild cervicalgia with extension). Full TMJ range of motion. TMD 3 finger breaths Mallampati Score 2 Dentition: upper right canine tooth chipped Lungs: clear throughout to auscultation Cardiac: regular rate and rhythm, no murmurs noted Spine: normal Carotid arteries: negative bruit Extremities: no edema Testing Laboratory Results 08/08/20 15:37 08/08/20 15:37 PT 10.9 Seconds (9.0-12.0) 08/08/20 15:37 INR 1.0 (0.9-1.1) 08/08/20 15:37 APTT 29.6 Seconds (21.0-31.0) 08/08/20 15:37 Hemoglobin A1c 7.2 % (4.5-5.6) H 08/08/20 15:37 Urine Color Dark Yellow 08/08/20 15:37 Urine Appearance Clear (Clear) 08/08/20 15:37 Urine pH 5.0 (4.5-7.5) 08/08/20 15:37 Ur Specific [place] 1.011 (1.000-1.030) 08/08/20 15:37 Urine Protein Negative (Negative) 08/08/20 15:37 Urine Glucose (UA) Negative (Negative) 08/08/20 15:37 Urine Ketones Negative (Negative) 08/08/20 15:37 Urine Nitrite Negative (Negative) 08/08/20 15:37 Ur Leukocyte Esterase 1+ (Negative) H 08/08/20 15:37 Urine WBC (Auto) >30 /hpf (0-5) H 08/08/20 15:37 Urine RBC (Auto) 0-4 /hpf (0-4) 08/08/20 15:37 U Hyaline Cast (Auto) 1-5 /lpf (0-5) 08/08/20 15:37 U Epithel Cells (Auto) 5-10 /lpf (0-5) H 08/08/20 15:37 Urine Bacteria (Auto) 3+ (Negative) H 08/08/20 15:37 Blood Type O Positive 08/08/20 15:37 Antibody Screen NEGATIVE 08/08/20 15:37 08/08/20 15:37 Urine Culture - Preliminary Urine,Clean Catch Gram negative bacilli Surgeon's office made aware of elevated WBC and abnormal UA* Electrocardiogram Date: 08/08/20 NSR at 65bpm. unconfirmed report. Chest X-Ray Date: 08/08/20 FINDINGS: Cardiomediastinal and hilar silhouettes are within normal limits. Calcified plaque of the thoracic aortic arch. There is no pneumothorax, pleural effusion, airspace consolidation or overt pulmonary edema. Mild mid thoracic dextroscoliosis. Degenerative changes of the shoulders and spine. IMPRESSION: No acute process. Stress Test Date: 06/17/20 Type: exercise Negative exercise stress echo/ekg for ischemia at 99% MPHR. No chest pain. METS 4.6. LVEF 60%. Mild cLVH. Mild LAD. Mild RAD. No significant valvular disease.
--- NOTE | 2020-08-08 16:29 | XRay Report ---
XR chest Pre-admission PA/Lat HISTORY: 70 years-old Female pat preoperative exam. No acute chest complaints COMPARISON: Chest and rib radiographs 06/23/2019 TECHNIQUE: PA and lateral views of the chest FINDINGS: Cardiomediastinal and hilar silhouettes are within normal limits. Calcified plaque of the thoracic ao rtic arch. There is no pneumothorax, pleural effusion, airspace consolidation or overt pulmonary osman a. Mild mid thoracic dextroscoliosis. Degenerative changes of the shoulders and spine. IMPRESSION: No acute process. ACT 112: Negative or not required by law. The above report was generated using voice recognition software. It may contain grammatical, syntax o r spelling errors. Electronically signed by: Michael Romano M.D. 08/08/2020 4:28 PM
[2020-08-08 16:33] LABS: Basophils # (auto) 0.02 K/uL (0-0.2); Basophils % (auto) 0.2 %; Eosinophils # (auto) 0.16 K/uL (0-0.5); Eosinophils % (auto) 1.3 %; Hematocrit (blood only) 35.2 % (37-47); Hemoglobin 11.2 g/dL (12.0-16.0); Immature Granulocytes # (auto) 0.05 K/uL (0.00-0.02); Immature Granulocytes % (auto) 0.4 %; Lymphocytes # (auto) 3.64 K/uL (1.2-3.4); Lymphocytes % (auto) 30.1 %; Mean Corpuscular Hemoglobin 26.9 pg (25-34); Mean Corpuscular Hgb Conc 31.8 g/dL (32-36); Mean Corpuscular Volume 84.6 fL (80-100); Mean Platelet Volume 10.4 fL (7.4-10.4); Monocytes # (auto) 0.84 K/uL (0.11-0.59); Neutrophils # (auto) 7.37 K/uL (1.4-6.5); Platelet Count 311 K/uL (130-400); RDW Coefficient of Variation 14.5 % (11.5-14.5); RDW Standard Deviation 44.7 fL (36.4-46.3); Red Blood Count 4.16 M/uL (4.2-5.4); White Blood Count 12.08 K/uL (4.8-10.8)
[2020-08-08 16:37] LABS: Appearance Urine Clear (Clear); Bacteria Urine Automated 3+ (Negative); Bilirubin Urine Negative (Negative); Blood Urine Negative (Negative); Color Urine Dark Yellow; Glucose Urine UA Negative (Negative); Ketones Urine Negative (Negative); Leukocyte Esterase Urine 1+ (Negative); Nitrite Urine Negative (Negative); Protein Urine Negative (Negative); RBC Urine Automated 0-4 /hpf (0-4); Specific Gravity Urine 1.011 (1.000-1.030); Urobilinogen Urine Negative (Negative); WBC Urine Automated >30 /hpf (0-5)
[2020-08-08 16:40] LABS: Calcium 9.8 mg/dl (8.5-10.1); Creatinine Clr Calc Pharmacy 79.9 ml/min; Est GFR (African American) 72.2; Est GFR (Non-African American) 62.3; Potassium 4.3 mmol/L (3.5-5.1)
[2020-08-08 16:44] LABS: Partial Thromboplastin Ratio 1.1; Partial Thromboplastin Time 29.6 Seconds (21.0-31.0); Prothrombin Time 10.9 Seconds (9.0-12.0)
[2020-08-09 07:53] LABS: Estimated Average Glucose 160 mg/dl; Hemoglobin A1C 7.2 % (4.5-5.6)
--- NOTE | 2020-08-09 13:02 | Electrocardiogram Report ---
Test Reason : Blood Pressure : / mmHG Vent. Rate : 065 BPM Atrial Rate : 065 BPM P-R Int : 122 ms QRS Dur : 102 ms QT Int : 412 ms P-R-T Axes : 036 056 053 degrees QTc Int : 428 ms Normal sinus rhythm Normal ECG When compared with ECG of 30-MAR-2019 10:10, No significant change was found Confirmed by Zachary Elliott ([id number]) on 08/09/2020 1:01:56 PM Referred By: Julio Rapp Confirmed By:Zachary Elliott
[~2020-08-21 06:13] MED LIST changes: +ACETAMINOPHEN 500 MG TAB PO SCH; -ATOR10TA82 PO; -CHOL100010 PO; -CYAN100020 PO; +CeleBREX 200 MG CAP PO SCH; +GABAPENTIN 300 MG CAP PO SCH; -LIDOCAINE HCL 2% 2 ML VIAL (20MG/ML) ONE; -LOSA1TAB38 PO; +LR 15ML/HR IV SCH; -MELO15TA4 PO; -METF-384 PO; -MULTTAB58 PO; -PRLSR20 PO; -PROPOFOL IV EMULSION 10 MG/ML 20 ML VIAL IV ONE; -SODIUM CHLORIDE 0.9% 500ML 500 ML IV ONE; -TRAM-10 PO
[2020-08-21] MEDS ORDERED: NEOSTIGMINE METHYLSULFATE 1 MG/ML 10ML VIAL ONE (06:51)
[2020-08-21] MEDS ORDERED: ONDANSETRON INJ 2 MG/ML 2 ML VIAL ONE (06:51)
[2020-08-21] MEDS ORDERED: LIDOCAINE HCL 2% 2 ML VIAL/AMP(20MG/ML) INFIL ONE (06:51)
[2020-08-21] MEDS ORDERED: GLYCOPYRROLATE 0.2 MG/ML VIAL ONE ×2 (06:51→09:39)
[2020-08-21] MEDS ORDERED: PROPOFOL IV EMULSION 10 MG/ML 20 ML VIAL IV ONE (06:51)
[2020-08-21] MEDS ORDERED: DEXAMETHASONE SOD INJ 4 MG/ML VIAL ONE (06:51)
[2020-08-21] MEDS ORDERED: MIDAZOLAM HCL 1 MG/ML 2ML VIAL ONE (06:51)
[2020-08-21] MEDS ORDERED: fentaNYL citrate 100 MCG/2 ML VIAL ONE ×2 (06:51→10:31)
[2020-08-21] MEDS ORDERED: BUPIVACAINE/EPINEPHRINE 0.25% 1:200,000 30 ML VIAL ONE (06:59)
[2020-08-21] MEDS ORDERED: BACITRACIN INJ 50,000 UNIT VIAL ONE (06:59)
[2020-08-21] MEDS ORDERED: ROCURONIUM BROMIDE 10 MG/ML 5 ML VIAL IV ONE ×4 (07:05→09:39)
--- NOTE | 2020-08-21 07:34 | History & Physical Bridge Note ---
Date of Service August 21, 2020 History & Physical Bridge Note I have examined the patient, reviewed the History & Physical and in the interval since the performance of the History & Physical I have noted the following changes of clinical significance: no changes noted
--- NOTE | 2020-08-21 07:35 | History & Physical Report ---
Date of Service August 21, 2020 Assessment & Plan (1) Neurogenic claudication due to lumbar spinal stenosis: Admission and Anticipated Discharge Date Admission Date: L2-S1 decompression fusion History of Present Illness Chief Complaint: Back and bilateral leg pain Primary Care Provider: Jade Owusu MD This is a 70-year-old female who presents with chronic persistent back and bilateral leg pain. After failing course of nonoperative care is here for surgical invention. Allergies Allergy/AdvReac Type Severity Reaction Status Date / Time pravastatin Allergy Severe urinary Verified 08/21/20 07:01 retention, SOB triamcinolone Allergy Severe anaphylaxis Verified 08/21/20 07:01 turmeric Allergy Severe throat Verified 08/21/20 07:01 swelling, SOB, red nose Food Allergy Severe Peppers Uncoded 08/21/20 07:01 (hot,cayenne,black)- throat swelling, SOB, red nose Flu Virus Vaccine Allergy Unknown told to Uncoded 08/21/20 07:01 avoid (d/t hx sarcoidosis) Home Medications Home Medications Medication Instructions Recorded Confirmed Type cyanocobalamin (vitamin B-12) 1,000 mcg PO QAM 03/27/19 08/21/20 History [Vitamin B-12] multivitamin 1 tab PO QAM 03/27/19 08/21/20 History acetaminophen 650 mg 650 mg PO BID PRN tab 04/26/19 08/21/20 History tablet,extended release CPAP Machine #1 ea 10/05/19 08/14/20 Rx compress.stocking,knee,reg,med #2 ea 12/06/19 08/14/20 Rx CPAP Machine #1 ea 12/28/19 08/14/20 Rx pen needle, diabetic 32 gauge x #100 ea 03/05/20 08/14/20 Rx 1/6" metformin 1,000 mg tablet 1,000 mg PO BID #180 tab 04/22/20 08/21/20 Rx pentoxifylline 400 mg 400 mg PO Q2D tab 05/08/20 08/21/20 History tablet,extended release cholecalciferol (vitamin D3) 125 mcg PO QAM 05/28/20 08/21/20 History [Vitamin D3] tmuzymfa-oxdpu-snsrf-CF borate 2 tab PO QAM 05/28/20 08/21/20 History [[facility]] omeprazole 20 mg capsule,delayed 20 mg PO QAM #30 cap 05/28/20 08/21/20 Rx release tramadol 50 mg tablet 50 mg PO Q8H PRN #90 tab 05/28/20 08/21/20 Rx vitamin B complex 1 tab PO QAM 05/28/20 08/21/20 History blood sugar diagnostic #100 ea 05/30/20 08/14/20 Rx cyclobenzaprine 5 mg tablet 5 mg PO TID PRN #30 tab 05/30/20 08/21/20 Rx ascorbic acid (vitamin C) [Vitamin 1 g PO QAM 08/01/20 08/21/20 History C] atorvastatin 10 mg PO HS 08/01/20 08/21/20 History diclofenac sodium [Voltaren] 2 g TOPICAL HS 08/01/20 08/21/20 History fluocinonide 1 applic TOPICAL BID 08/01/20 08/21/20 History insulin human U-100 NPH-regulr 40 unit SUBCUT BID #30 ml 08/07/20 08/21/20 Rx 70-30 mix 100 unit/mL subcutaneous susp insulin syringe-needle U-100 0.5 #100 ea 08/07/20 08/14/20 Rx mL 31 gauge x 5/16" chlorthalidone 25 mg tablet 25 mg PO DAILY #90 tab 08/12/20 08/21/20 Rx diltiazem HCl 240 mg capsule,24 240 mg PO DAILY #90 cap 08/12/20 08/21/20 Rx hr,extended release losartan 100 mg tablet 100 mg PO QAM #90 tab 08/12/20 08/21/20 Rx gabapentin 300 mg capsule 300 mg PO HS #90 cap 08/14/20 08/21/20 Rx Past Med/Surg History Medical History Anemia baseline hgb in the 11-12 range per chart review Chronic diarrhea Diabetes mellitus, type 2 IDDM Diabetic neuropathy Esophageal reflux controlled Fatty liver disease, nonalcoholic Fibromyalgia Frequent UTI most recent 05/2020, currently asymptomatic Gout Hyperlipidemia Hypertension Lipodermatosclerosis Lumbar spinal stenosis Severe at L3-S1 Morbid obesity Obstructive sleep apnea CPAP Osteoarthritis PAD (peripheral artery disease) Peptic ulcer hx Periodic limb movement disorder Sarcoidosis controlled, monitored by PCP Temporomandibular joint disorder left side occasional clicking, no locking Surgical History H/O tubal ligation H/O vaginal hysterectomy History of bladder surgery urethral repair History of colonoscopy History of esophagogastroduodenoscopy (EGD) History of hand surgery left trigger finger History of neck surgery biopsy- dx sarcoidosis Family History Father , age 86 - infection after heart surgery. GENEVIEVE. Diabetes Coronary heart disease Mother , age 82 - CHF Diabetes Aunt Family hx of colon cancer Social History Smoking Status: Never smoker Second Hand Exposure: Yes (SPOUSE USED TO SMOKE); Do You Dip or Chew Tobacco: No; Hx Alcohol Use: No Hx Substance Use: No Preferred Language: American Communication Ability: Effective Hearing Ability: Normal Geodetic Engineer Required: No Beliefs That Will Affect Care: None marital status: Current Living Situation: Spouse and Family current occupational status: retired Other Information That Helps Us Care for You: No Feels Safe at Home: Yes Safety Concerns: Feels Safe At This Time Seatbelt Use: always Sunscreen Use: No Assistive Devices: Cane and Glasses Assistive Devices Comment: CANE PRN Physical Exam Physical Exam: Patient is alert and oriented Heart regular rate and rhythm Lungs clear to auscultation Results & Data ([facility]) Vital Signs (Past 12 Hours) Vital Signs Temp Pulse Resp BP Pulse Ox 08/21/20 06:40 36.6 C 88 20 194/88 H 96
[2020-08-21] MEDS ORDERED: ePHEDrine sulfate 50 MG/ML AMP IV PRN (07:38)
[2020-08-21] MEDS ORDERED: ATROPINE SULFATE 0.1 MG/ML 10ML SYR IV PRN (07:38)
[2020-08-21] MEDS ORDERED: ONDANSETRON INJ 2 MG/ML 2 ML VIAL IV PRN ×2 (07:38→12:29)
[2020-08-21] MEDS ORDERED: FLOSEAL HEMOSTATIC MATRIX 10ML TOP ONE (10:39)
--- NOTE | 2020-08-21 10:43 | Operative Report ---
Post Operative Report Pre & Post Diagnosis Operation Date: 08/21/20 07:45 Pre-Op Diagnosis: Neurogenic claudication due to lumbar spinal stenosis Post-Op Diagnosis: Neurogenic claudication due to lumbar spinal stenosis I identified the patient and participated in the time-out.: Yes Procedure 1. Operation Date: 08/21/20 07:45 Actual Procedures #1 lumbar decompression with bilateral medial facetectomies and foraminotomies L2-3, L3-4, L4-5 and L5-S1. #2 posterior spinal fusion L2-3, L3-4, L4-5 and L5- S1. #3 placement posterior segmental instrumentation L2-S1. #4 interbody fusion L4-5 per #5 placement peek cage 12 x 26 mm at L4-5. #6 placement locally harvested morselized autograft in the posterior lateral gutters. #7 placement infuse collagen sponge, master graft in the posterior lateral gutters and ostial amp and interbody space. Surgeon Julio Rapp, Charter Coach Driver Leticia Noe Estimated Blood Loss 800 Findings See Below The patient is 5 foot 6 inches tall weighing over 130 kg with a BMI in excess of 46. This combined with an EBL of greater than 800 cc created significant technical difficulty adding at least 50% increase to the operative time. Specimens None Indications This is a 62-year-old female presents above-mentioned diagnosis after failing course of nonoperative care is here for the above-mentioned procedure. Description of Procedure Patient was met with identified informed consent obtained. Patient was then taken to the operative suite underwent intubation placed in a prone position the Fabian table on top Jose frame. All bony prominences well-padded eyes inspected to ensure no external pressure placed upon the. This point the lumbar spine was prepped and draped in normal sterile fashion. Sharp dissection with the assistance of Bovie cautery was performed until exposing the lamina and transverse processes of L2 L3-L4-L5 and sacral ala bilaterally. From a caudal cephalad fashion complete laminectomy of L5 L4 L3 and L2 was performed including bilateral medial facetectomies and foraminotomies addressing severe spinal stenosis. Pedicle screws were then placed in L2 L3-L4-L5 and the S1 levels bilaterally with assistance of fluoroscopy and appropriate size paradise placed. By way of a transforaminal approach on the right complete discectomy of L4-5 was performed endplates curetted to subcortical bleeding bone and a 12 x 26 mm peek cage filled osteo-bone graft tapped in position. The rods were then locked into final position bilaterally. A cross-link was locked into position. The transverse processes of L2 L3-L4-L5 and sacral ala burred to subcortical bleeding bone. Infuse collagen sponge master graft local autograft was placed in the posterior lateral gutters. 15 round SUSHILA drain inserted. The incision was then closed with 1 Vicryl in the fascia 2-0 Vicryl subcutaneously and 4 Monocryl for final skin closure. Steri-Strip sterile dressings placed. Patient waken taken PACU stable condition. Please note spinal cord monitoring was last that the procedure no changes noted. Lastly Leticia Noe was present at the entire surgery involved the patient positioning complex portions of the surgery and final skin closure. I attest to the content of the Intraoperative Record and any orders documented therein. Any exceptions are noted below.
--- NOTE | 2020-08-21 10:58 | Fluoroscopy Report ---
FL lumbar spine 2-3V HISTORY: 70 years-old Female L2-S1 DECOMP/FUSION chronic low back pain with fusion COMPARISON: MRI lumbar spine 06/13/2020 TECHNIQUE: 4 spot fluoroscopic images of the lumbar spine were obtained utilizing 54.4 seconds fluoro scopy time FINDINGS: Posterior interbody paradise and screw fusion is noted at what appears to be the L2-S1 levels. Discectomy changes at L4-L5. The hardware appears intact. Alignment appears satisfactory. No opaque foreign bodi es identified. Mild multilevel spondylitic spurring. IMPRESSION: Fluoroscopic assistance as above. ACT 112: Negative or not required by law. The above report was generated using voice recognition software. It may contain grammatical, syntax o r spelling errors. Electronically signed by: Michael Romano M.D. 08/21/2020 10:57 AM
[2020-08-21] MEDS: fentaNYL citrate 100 MCG/2 ML VIAL IV PRN ×2 (11:13→11:18)
[2020-08-21] MEDS ORDERED: HYDROmorphone INJ 0.5 MG/0.5 ML SYR ONE (11:13)
[2020-08-21] MEDS: HYDROmorphone INJ 1 MG/ML SYRINGE IV PRN ×3 (11:23→11:38)
[2020-08-21] MEDS ORDERED: FAMOTIDINE 20 MG TAB PO PRN (12:29)
[2020-08-21] MEDS ORDERED: LORazepam 0.5 MG/1 ML VIAL IV PRN (12:29)
[2020-08-21] MEDS ORDERED: NALOXONE HCL 0.4 MG/1 ML VIAL/CARP IV PRN (12:29)
[2020-08-21] MEDS ORDERED: CYCLOBENZAPRINE HCL 5 MG TAB PO PRN (12:29)
[2020-08-21] MEDS ORDERED: diphenhydrAMINE Capsule 25 MG CAP PO PRN (12:29)
[2020-08-21] MEDS ORDERED: PROMETHAZINE HCL 12.5 MG in SODIUM CHLORIDE 0.9% 50 ML IV PRN (12:29)
[2020-08-21] MEDS ORDERED: MAGNESIUM HYDROXIDE SUSP 30 ML UDC PO PRN (12:29)
[2020-08-21] MEDS ORDERED: ONDANSETRON 4 MG OD TAB PO PRN (12:29)
[2020-08-21] MEDS ORDERED: SOD PHOSPHATE/SOD BIPHOSPHATE ENEMA 132 ML BTL PR PRN (12:29)
[2020-08-21] MEDS ORDERED: NON-FORMULARY MEDICATION (Acetaminophen 650 MG) PO PRN (12:29)
[2020-08-21] MEDS ORDERED: bisacodyL 10 MG SUPP PR PRN (12:29)
[2020-08-21] MEDS ORDERED: HYDROmorphone INJ 1 MG/ML SYRINGE IV PRN (12:29)
[2020-08-21] MEDS ORDERED: ALUMINUM/MAGNESIUM SUSP 30 ML UDC PO PRN (12:29)
[2020-08-21] MEDS ORDERED: hydrOXYzine HCl 25 MG TAB PO PRN (12:29)
[2020-08-21] MEDS ORDERED: METOCLOPRAMIDE HCL INJ 5 MG/ML 2 ML VIAL IV PRN (12:29)
[2020-08-21] MEDS ORDERED: LORazepam 0.5 MG TAB PO PRN (12:29)
[2020-08-21] MEDS ORDERED: ACETAMINOPHEN 1,000 MG/100 ML VIAL IV PRN (12:29)
[2020-08-21] MEDS ORDERED: ACETAMINOPHEN 500 MG TAB PO PRN (12:29)
[2020-08-21] MEDS ORDERED: DO NOT ADMINISTER PNEUMOCOCCAL VACCINE PRN (12:29)
[2020-08-21] MEDS ORDERED: DO NOT ADMINISTER FLU VACCINE PRN (12:29)
[2020-08-21] MEDS ORDERED: ePHEDrine sulfate 50 MG/ML SYR ONE (12:34)
[2020-08-21] MEDS ORDERED: PHENYLEPHRINE 100MCG/ML 5ML SYR ONE (12:34)
[2020-08-21] MEDS: SODIUM CHLORIDE 0.9% 1000ML 1,000 ML IV SCH ×2 (12:47→19:27)
--- NOTE | 2020-08-21 12:57 | Consultation ---
Date of Consultation August 21, 2020 Assessment & Plan (1) Neurogenic claudication due to lumbar spinal stenosis: s/p extensive lumbar decompression/fusion procedure today by Dr Rapp. see operative note for full details. significant blood loss (800cc) per operative note. expect that BPs may trend lower thus will adjust BP meds - see below. defer pain management, disposition, etc to orthopedics. (2) Diabetes mellitus, type 2: hold 70/30 insulin. convert to lantus / novolog. lantus 25 units BID. novolog correction factor 15; carb ratio 1:5. DM diet. BSGs ac/hs. most recent a1c 7.2% late July. insulins to likely need adjustment due to dexamethasone administration this am. (3) Moderate obstructive sleep apnea: use home CPAP machine, [id number]. (4) Sarcoidosis: history of such about 15-20 years ago. in remission. (5) Urinary tract infection: prior to admission. treated & clinically resolved. (6) Lipodermatosclerosis: cont pentoxifylline q48hr as previous (7) Diabetic neuropathy: cont gabapentin HS (8) Hypertension: given the significant acute blood loss and anticipation of low BPs will hold thiazide diuretic and ARB follow BPs and obtain BMP in am restart these meds as necessary continue diltiazem (9) Esophageal reflux: cont PPI (10) Hyperlipidemia: cont statin (11) Periodic limb movement disorder: cont gabapentin with acute blood loss her symptoms may be much worse may need adjustment in gabapentin dose (12) Morbid obesity with BMI of 45.0-49.9, adult: BMI 46 (13) Acute blood loss anemia: anticipation of such given her EBL of 800cc CBC in am likely to need Fe supplementation (14) DVT prophylaxis: SCDs chemical means contraindication in the face of lumbar spine surgery Thank you for the consult. We will follow with you. History of Present Illness Requesting Physician: Grover Rapp DO Reason for Consultation: post-operative medical management, DM management Attending Physician: Ena Mccall History of Present Illness 70yo female with morbid obesity, GENEVIEVE, T2DM on insulin, and HTN who presented today for elective lumbar back surgery with Dr Rapp. She underwent the following --- lumbar decompression with bilateral medial facetectomies and foraminotomies at L2-3, L3-4, L4-5 and L5-S1 along with posterior spinal fusion L2-3, L3-4, L4-5 and L5-S1. EBL was ~800cc according to the operative note. I saw the patient post-op on the orthopedic floor. She was resting comfortably. She tolerated a clear liquid diet for lunch. Denied any dyspnea, chest pain, abd pain, nausea, vomiting. She mentioned she did bring her CPAP unit from home (records indicate she is on [id number]). She also reports BSGs of "about 200" at home on consistent basis. Prior to the operation denies any COVID symptoms (no cough, change or loss of taste/smell, dyspnea, fevers, etc). Allergies Allergy/AdvReac Type Severity Reaction Status Date / Time pravastatin Allergy Severe urinary Verified 08/21/20 07:01 retention, SOB triamcinolone Allergy Severe anaphylaxis Verified 08/21/20 07:01 turmeric Allergy Severe throat Verified 08/21/20 07:01 swelling, SOB, red nose black pepper Allergy Difficulty Verified 08/21/20 19:40 Breathing cayenne pepper fruits Allergy Swelling Verified 08/21/20 19:40 of Lip/Tongue/Throat pepper (genus Capsicum) Allergy Swelling Verified 08/21/20 19:40 of Lip/Tongue/Throat Food Allergy Severe Peppers Uncoded 08/21/20 07:01 (hot,cayenne,black)- throat swelling, SOB, red nose Flu Virus Vaccine Allergy Unknown told to Uncoded 08/21/20 07:01 avoid (d/t hx sarcoidosis) Home Medications Home Medications Medication Instructions Recorded Confirmed Type cyanocobalamin (vitamin B-12) 1,000 mcg PO QAM 03/27/19 08/21/20 History [Vitamin B-12] multivitamin 1 tab PO QAM 03/27/19 08/21/20 History acetaminophen 650 mg 650 mg PO BID PRN tab 04/26/19 08/21/20 History tablet,extended release CPAP Machine #1 ea 10/05/19 08/14/20 Rx compress.stocking,knee,reg,med #2 ea 12/06/19 08/14/20 Rx CPAP Machine #1 ea 12/28/19 08/14/20 Rx pen needle, diabetic 32 gauge x #100 ea 03/05/20 08/14/20 Rx 1/6" metformin 1,000 mg tablet 1,000 mg PO BID #180 tab 04/22/20 08/21/20 Rx pentoxifylline 400 mg 400 mg PO Q2D tab 05/08/20 08/21/20 History tablet,extended release cholecalciferol (vitamin D3) 125 mcg PO QAM 05/28/20 08/21/20 History [Vitamin D3] ersgpxjs-yolot-fzfqv-CF borate 2 tab PO QAM 05/28/20 08/21/20 History [[facility]] omeprazole 20 mg capsule,delayed 20 mg PO QAM #30 cap 05/28/20 08/21/20 Rx release tramadol 50 mg tablet 50 mg PO Q8H PRN #90 tab 05/28/20 08/21/20 Rx vitamin B complex 1 tab PO QAM 05/28/20 08/21/20 History blood sugar diagnostic #100 ea 05/30/20 08/14/20 Rx cyclobenzaprine 5 mg tablet 5 mg PO TID PRN #30 tab 05/30/20 08/21/20 Rx ascorbic acid (vitamin C) [Vitamin 1 g PO QAM 08/01/20 08/21/20 History C] atorvastatin 10 mg PO HS 08/01/20 08/21/20 History diclofenac sodium [Voltaren] 2 g TOPICAL HS 08/01/20 08/21/20 History fluocinonide 1 applic TOPICAL BID 08/01/20 08/21/20 History insulin human U-100 NPH-regulr 40 unit SUBCUT BID #30 ml 08/07/20 08/21/20 Rx 70-30 mix 100 unit/mL subcutaneous susp insulin syringe-needle U-100 0.5 #100 ea 08/07/20 08/14/20 Rx mL 31 gauge x 5/16" chlorthalidone 25 mg tablet 25 mg PO DAILY #90 tab 08/12/20 08/21/20 Rx diltiazem HCl 240 mg capsule,24 240 mg PO DAILY #90 cap 08/12/20 08/21/20 Rx hr,extended release losartan 100 mg tablet 100 mg PO QAM #90 tab 08/12/20 08/21/20 Rx gabapentin 300 mg capsule 300 mg PO HS #90 cap 08/14/20 08/21/20 Rx Patient History Medical History Anemia baseline hgb in the 11-12 range per chart review Chronic diarrhea Diabetic neuropathy Esophageal reflux Fatty liver disease, nonalcoholic Fibromyalgia Gout Hyperlipidemia Hypertension Lipodermatosclerosis Lumbar spinal stenosis Severe at L3-S1 Morbid obesity Obstructive sleep apnea CPAP Osteoarthritis Peptic ulcer hx Periodic limb movement disorder Sarcoidosis controlled, monitored by PCP Temporomandibular joint disorder left side occasional clicking, no locking Surgical History H/O tubal ligation H/O vaginal hysterectomy History of bladder surgery urethral repair History of colonoscopy History of esophagogastroduodenoscopy (EGD) History of hand surgery left trigger finger History of neck surgery biopsy- dx sarcoidosis Family History (Updated 08/22/20 @ 06:47 by Aidan Mcgee) Father , age 86 - infection after heart surgery. GENEVIEVE. Diabetes Coronary heart disease Mother , age 82 - CHF Heart disease CHF (congestive heart failure) Aunt Family hx of colon cancer Social History Smoking Status: Never smoker Second Hand Exposure: Yes (SPOUSE USED TO SMOKE); Do You Dip or Chew Tobacco: No; Hx Alcohol Use: No Hx Substance Use: No Preferred Language: Italian Communication Ability: Effective Hearing Ability: Normal Glue Clamp Operator Required: No Beliefs That Will Affect Care: None marital status: Current Living Situation: Spouse and Family current occupational status: retired Other Information That Helps Us Care for You: No Feels Safe at Home: Yes Safety Concerns: Feels Safe At This Time Seatbelt Use: always Sunscreen Use: No Assistive Devices: Walker Assistive Devices Comment: CANE PRN Review of Systems Constitutional: no fever, no chills, no fatigue and no anorexia Eyes: no worsening vision Ear, Nose, Mouth, Throat: no nasal congestion, no sore throat and no dysphagia Respiratory: no cough and no dyspnea Cardiovascular: no chest pain Gastrointestinal: no abdominal pain, no nausea, no vomiting and no blood in stools Genitourinary: no dysuria recent UTI seen on preop labs -- never had symptoms of UTI, however. Musculoskeletal: + back pain and + neck pain Integumentary: no rash Neurologic: no localized weakness Psychiatric: + anxiety Endocrine: diabetes - uncontrolled Hematologic / Lymphatic: no easy bruising Physical Exam Constitutional: well developed, well nourished and + morbidly obese; no acute distress and no altered mental status Eyes: PERRL ENMT: Mouth: + dry oral mucous membranes Neck: trachea midline, no thyromegaly Respiratory: no respiratory distress Auscultation: + diminished lung sounds (Bases ); no crackles (Scant course BS bases ) and no wheezes Cardiovascular: Rate/Rhythm: regular rate and regular rhythm Heart Sounds: normal S1 and normal S2; no murmur Vessels: posterior tibial pulses present and dorsalis pedis pulses present; no JVD Extremities: no edema Gastrointestinal (Abdomen): normal bowel sounds, soft, nontender, no hepatosplenomegaly Musculoskeletal: no cyanosis or clubbing, extremities motor strength 5/5 Skin: + pallor Neurologic: deep tendon reflexes 2+ bilaterally and moves all extremities Psychiatric: A+Ox3, euthymic affect Lymphatic: no cervical lymphadenopathy Results & Data ([facility]) Vital Signs (Past 12 Hours) Vital Signs Temp Pulse Resp BP BP Pulse Ox 08/21/20 12:48 65 18 145/61 H 100 08/21/20 12:12 36.7 C 66 16 167/75 H 95 08/21/20 11:50 36.6 C 71 16 152/71 H 99 08/21/20 11:40 66 16 153/61 H 98 08/21/20 11:30 72 16 159/68 H 98 08/21/20 11:20 69 16 145/71 H 98 08/21/20 11:10 73 16 137/58 L 100 08/21/20 11:03 36.6 C 85 16 143/70 H 99 08/21/20 06:40 36.6 C 88 20 194/88 H 96 Laboratory Results pre-op labs reviewed pre-op urine cx reviewed and noted pre-op cxr wnl pre-op EKG w/o ischemic changes PG Care Time/CCT Total # of Minutes Spent Total Time Spent with Patient: Total time spent is greater than 50% in coordination of care (as documented) at patient's floor/unit and/or counseling patient: Coding Level of Care Code 78225 Subseq Hosp Care Lvl 3 Diagnoses Neurogenic claudication due to lumbar spinal stenosis M48.062 Diabetes mellitus, type 2 E11.9 Moderate obstructive sleep apnea G47.33 Sarcoidosis D86.9 Urinary tract infection N39.0 Lipodermatosclerosis I83.10 Diabetic neuropathy E11.40 Hypertension I10 Esophageal reflux K21.9 Hyperlipidemia E78.5 Periodic limb movement disorder G47.61 Morbid obesity with BMI of 45.0-49.9, adult E66.01; Z68.42 Acute blood loss anemia D62 DVT prophylaxis Z29.9
[2020-08-21] MEDS: oxyCODONE HCL IR 5 MG TAB (IMMEDIATE RELEASE) PO PRN ×2 (13:02→17:54)
[2020-08-21] MEDS ORDERED: DEXTROSE 50% 50 ML SYRINGE IV PRN (13:15)
[2020-08-21] MEDS ORDERED: CARBOHYDRATES FOR HYPOGLYCEMIA PO PRN (13:15)
[2020-08-21] MEDS ORDERED: GLUCOSE 10 TABS/TUBE PO PRN (13:15)
[2020-08-21] MEDS ORDERED: GLUCOSE 40% GEL 15 GM TUBE PO PRN (13:15)
[2020-08-21] MEDS ORDERED: GLUCAGON FOR INJ 1 MG VIAL IM PRN (13:15)
[2020-08-21] MEDS: INSULIN ASPART 100 UNITS/ML 3 ML PEN SC SCH ×3 (13:21→20:51)
--- NOTE | 2020-08-21 14:39 | Anesthesiology Progress Note ---
Date of Service August 21, 2020 Anesthesia Post Procedure Vital Signs Vital Signs: Temp Pulse Resp BP BP Pulse Ox 08/21/20 14:08 36.3 C L 67 18 151/78 H 100 08/21/20 12:48 65 18 145/61 H 100 08/21/20 12:12 36.7 C 66 16 167/75 H 95 08/21/20 11:50 36.6 C 71 16 152/71 H 99 08/21/20 11:40 66 16 153/61 H 98 08/21/20 11:30 72 16 159/68 H 98 08/21/20 11:20 69 16 145/71 H 98 08/21/20 11:10 73 16 137/58 L 100 08/21/20 11:03 36.6 C 85 16 143/70 H 99 08/21/20 06:40 36.6 C 88 20 194/88 H 96 Pain Intensity Lower Back: Pain Intensity: 6 Transfer of Care Handoff Completed per policy Notes Mental Status: alert / awake / arousable and participated in evaluation Patient Amnestic to Procedure: Yes Nausea / Vomiting: adequately controlled Pain: adequately controlled Airway Patency, RR, SpO2: stable & adequate BP & HR: stable & adequate Hydration State: stable & adequate Anesthetic Complications: no major complications apparent and Pt Satisfied with anesthetic care
[2020-08-21] MEDS: ceFAZolin 2000MG 2,000 MG/15 ML SYR IV SCH ×2 (15:28→23:29)
[2020-08-21] MEDS: HYDROmorphone INJ 0.5 MG/0.5 ML SYR IV PRN ×2 (15:31→20:49)
[2020-08-21] MEDS: traMADol HCL 50 MG TABLET PO PRN (19:28)
[2020-08-21] MEDS: GABAPENTIN 300 MG CAP PO SCH (20:35)
[2020-08-21] MEDS: ATORVASTATIN 10 MG TAB PO SCH (20:35)
[2020-08-21] MEDS: DOCUSATE SODIUM/SENNA 50/8.6MG TAB PO SCH (20:36)
[2020-08-21] MEDS ORDERED: INSULIN GLARGINE SOLOSTAR 100 UNITS/ML 3 ML PEN SC SCH (21:00)
[2020-08-22] MEDS: SODIUM CHLORIDE 0.9% 1000ML 1,000 ML IV SCH ×2 (02:14→08:45)
[2020-08-22] MEDS: POLYETHYLENE (MIRALAX) 17 GM PACK PO SCH ×3 (05:46→17:36)
[2020-08-22] MEDS: oxyCODONE HCL IR 5 MG TAB (IMMEDIATE RELEASE) PO PRN ×4 (06:05→19:40)
[2020-08-22 06:38] LABS: Basophils # (auto) 0.01 K/uL (0-0.2); Basophils % (auto) 0.1 %; Eosinophils # (auto) 0.15 K/uL (0-0.5); Eosinophils % (auto) 1.4 %; Hematocrit (blood only) 27.7 % (37-47); Hemoglobin 8.7 g/dL (12.0-16.0); Immature Granulocytes # (auto) 0.04 K/uL (0.00-0.02); Immature Granulocytes % (auto) 0.4 %; Lymphocytes # (auto) 2.29 K/uL (1.2-3.4); Lymphocytes % (auto) 21.2 %; Mean Corpuscular Hemoglobin 27.1 pg (25-34); Mean Corpuscular Hgb Conc 31.4 g/dL (32-36); Mean Corpuscular Volume 86.3 fL (80-100); Mean Platelet Volume 10.2 fL (7.4-10.4); Monocytes # (auto) 0.93 K/uL (0.11-0.59); Monocytes % (auto) 8.6 %; Neutrophils # (auto) 7.39 K/uL (1.4-6.5); Neutrophils % (auto) 68.3 %; Platelet Count 241 K/uL (130-400); RDW Standard Deviation 47.4 fL (36.4-46.3); Red Blood Count 3.21 M/uL (4.2-5.4); White Blood Count 10.81 K/uL (4.8-10.8)
[2020-08-22 07:09] LABS: BUN Creatinine Ratio 20.4 (10-20); Calcium 8.8 mg/dl (8.5-10.1); Creatinine Clr Calc Pharmacy 95.7 ml/min; Est GFR (African American) 90.5; Est GFR (Non-African American) 78.1; Magnesium 1.6 mg/dl (1.8-2.4); Potassium 4.8 mmol/L (3.5-5.1)
[2020-08-22] MEDS: MAGNESIUM SULFATE / D5W 1 GM/100 ML BAG IV SCH ×2 (08:33→10:54)
[2020-08-22] MEDS ORDERED: CHLORTHALIDONE 25 MG TAB PO SCH (09:00)
--- NOTE | 2020-08-22 09:08 | Hospitalist Progress Note ---
Date of Service August 22, 2020 Assessment & Plan (1) Neurogenic claudication due to lumbar spinal stenosis: * POD #1 s/p extensive L2-S1 lumbar decompression/fusion by Dr Rapp. EBL 800cc. Pre-op h/h 11.2/35 * H/h dropped to 8.7/27 on AM labs -- combination of acute blood anemia from surgery (800mL EBL and 350mL from SUSHILA) in addition to fluids that had been running at 150cc/hr * PT/OT/pain management/DVT prophylaxis per primary service * Resumed losartan for BP 160/77 this morning, improved to 138/78 and will continue to hold chlorthalidone as with constipation and acceptable BP * Patient planning on rehab at discharge in next 1-2 days (2) Diabetes mellitus, type 2: * A1c 7.2 Jul 2020 * hold 70/30 insulin. * Utilizing lantus / novolog -- lantus 25 units BID. Novolog CF 15, CR1:5 * Did not receive morning insulin and to cover just carbs at lunch, although bsg controlled and 140 at lunch * BSG AC/HS * Diabetic diet * Will likely need further adjustments due to dexamethasone administration * Continue to monitor and adjust as needed (3) Moderate obstructive sleep apnea: * use home CPAP machine, [id number]. (4) Sarcoidosis: * history of such about 15-20 years ago. In remission (5) Urinary tract infection: * Noted prior to admission and treated. Clinically without symptoms (6) Lipodermatosclerosis: * Continue pentoxifylline q48hr as previous (7) Diabetic neuropathy: * Continue gabapentin HS (8) Hypertension: * Lower BPs and significant blood loss following surgery, but increased to 162/79 this morning and lisinopril was resumed * Continue diltiazem 240mg po daily * BP currently 138/78 * Will continue to hold thiazide for now * Continue to monitor (9) Esophageal reflux: * Continue protonix (10) Hyperlipidemia: * Last lipid panel Dec 2019 -- Cholesterol 190, LDL 107, HDL 49, Triglycerides elevated at 172 * Continue atorvastatin * Encourage diet/exercise. Possible benefit from gemfibrozil or similar at discretion of PCP outpatient (11) Periodic limb movement disorder: * Continue gabapentin * with acute blood loss her symptoms may be much worse but none reported today --> if increased would adjust gabapentin dose (12) Morbid obesity with BMI of 45.0-49.9, adult: * BMI 46 (13) Acute blood loss anemia: * As above * Started on once daily ferrous sulfate for now (14) Hypomagnesemia: * Mag 1.6 -- ordered 2gm * Repeat in AM (15) DVT prophylaxis: * SCDs * chemical means contraindication in the face of lumbar spine surgery Dispo: rehab at discharge per patient and primary service. additional 1-2 days inpatient Thank you for allowing medicine team to participate in the care of Ms Klein. medicine will follow along. Admission and Anticipated Discharge Date Admission Date: August 21, 2020 Supervising Physician Co-Signing Physician Notes PA Supervision Note: I did not personally see or examine the patient today, but I verified all diaz points of RAFAEL Castor's assessment and plan with the following exceptions/additions: None Subjective Patient evaluated this morning. Worked with therapy but was only able to walk up half the hallway with walker and therapy. No numbness/tingling. Eating/drinking without difficulty. Gas earlier but no BM. She states had issues with constipation in the past with her chlorthalidone but once she holds it at home for a couple days she then has a bowel movement. With regards to a different BP agent, she notes adverse reaction and inflammation in tissues to her R leg, followed with Dr. Ty, after amlodipine and this has resolved since discontinuation. Did have significant blood loss during surgery but denies any chest pain, shortness of breath, or increased fatigue. Will only utilize once daily iron to boost stores given constipation but that she also had fluids running at 150cc/hr and some dilutional effect. No fever, chills, nausea, vomiting. Does have some pain to back of left thigh in the wheelchair sitting eating lunch, but on a towel as placed by therapy and will ask nursing to adjust/grab blanket for comfort. Plans for additional 1-2 days in the hospital prior to rehab for a week. Review of Systems Review of Systems: All systems reviewed & are unremarkable except as noted in HPI & below Physical Exam Constitutional: well developed, well nourished and + morbidly obese; no acute distress and no altered mental status Eyes: PERRL ENMT: Mouth: + dry oral mucous membranes Neck: trachea midline, no thyromegaly Respiratory: no respiratory distress Auscultation: + diminished lung sounds (Bases ); no crackles and no wheezes Cardiovascular: Rate/Rhythm: regular rate and regular rhythm Heart Sounds: normal S1 and normal S2; no murmur Vessels: posterior tibial pulses present and dorsalis pedis pulses present; no JVD Extremities: no edema Gastrointestinal (Abdomen): normal bowel sounds, soft, nontender, no hepatosplenomegaly Musculoskeletal: no cyanosis or clubbing, extremities motor strength 5/5 dressing to lumbar spine c/d/i drain in place with bloody drainage NVI 2+ dp, pt pulses bilaterally strength 5/5 with dorsiflexion/plantar flexion calves non-tender to palpation Skin: + pallor Neurologic: deep tendon reflexes 2+ bilaterally and moves all extremities Psychiatric: A+Ox3, euthymic affect Genitourinary: herron draining light yellow urine Lymphatic: no cervical lymphadenopathy Results & Data Results & Data ([facility]) Vital Signs (Past 12 Hours) Vital Signs Temp Pulse Pulse Resp BP Pulse Ox 08/22/20 07:30 36.7 C 97 H 18 135/73 94 08/22/20 02:17 36.4 C L 84 18 116/57 L 98 08/21/20 23:50 36.5 C 66 16 131/73 97 Laboratory Results 08/22/20 08/22/20 08/22/20 Range/Units 08:27 05:41 05:41 WBC 10.81 H (4.8-10.8) K/uL RBC 3.21 L (4.2-5.4) M/uL Hgb 8.7 L (12.0-16.0) g/dL Hct 27.7 L (37-47) % MCV 86.3 (80-100) fL MCH 27.1 (25-34) pg MCHC 31.4 L (32-36) g/dL RDW Std Deviation 47.4 H (36.4-46.3) fL RDW Coeff of Cecile 15.0 H (11.5-14.5) % Plt Count 241 (130-400) K/uL MPV 10.2 (7.4-10.4) fL Immature Gran % (Auto) 0.4 % Neut % (Auto) 68.3 % Lymph % (Auto) 21.2 % Cross % (Auto) 8.6 % Eos % (Auto) 1.4 % Baso % (Auto) 0.1 % Neut # (Auto) 7.39 H (1.4-6.5) K/uL Lymph # (Auto) 2.29 (1.2-3.4) K/uL Cross # (Auto) 0.93 H (0.11-0.59) K/uL Eos # (Auto) 0.15 (0-0.5) K/uL Baso # (Auto) 0.01 (0-0.2) K/uL Immature Gran # (Auto) 0.04 H (0.00-0.02) K/uL Sodium 137 (136-145) mmol/L Potassium 4.8 (3.5-5.1) mmol/L Chloride 106 (98-107) mmol/L Carbon Dioxide 30 (21-32) mmol/L Anion Gap 2.0 L (3-11) BUN 16 (7-18) mg/dl Creatinine 0.78 (0.6-1.2) mg/dl Est Cr Clr Drug Dosing 95.7 ml/min Est GFR ( Amer) 90.5 Est GFR (Non-Af Amer) 78.1 BUN/Creatinine Ratio 20.4 H (10-20) Glucose 120 H (70-99) mg/dl POC Glucose 142 H (70-99) mg/dl Calcium 8.8 (8.5-10.1) mg/dl Magnesium 1.6 L (1.8-2.4) mg/dl 08/21/20 08/21/20 08/21/20 Range/Units 20:41 17:21 12:50 WBC (4.8-10.8) K/uL RBC (4.2-5.4) M/uL Hgb (12.0-16.0) g/dL Hct (37-47) % MCV (80-100) fL MCH (25-34) pg MCHC (32-36) g/dL RDW Std Deviation (36.4-46.3) fL RDW Coeff of Cecile (11.5-14.5) % Plt Count (130-400) K/uL MPV (7.4-10.4) fL Immature Gran % (Auto) % Neut % (Auto) % Lymph % (Auto) % Cross % (Auto) % Eos % (Auto) % Baso % (Auto) % Neut # (Auto) (1.4-6.5) K/uL Lymph # (Auto) (1.2-3.4) K/uL Cross # (Auto) (0.11-0.59) K/uL Eos # (Auto) (0-0.5) K/uL Baso # (Auto) (0-0.2) K/uL Immature Gran # (Auto) (0.00-0.02) K/uL Sodium (136-145) mmol/L Potassium (3.5-5.1) mmol/L Chloride (98-107) mmol/L Carbon Dioxide (21-32) mmol/L Anion Gap (3-11) BUN (7-18) mg/dl Creatinine (0.6-1.2) mg/dl Est Cr Clr Drug Dosing ml/min Est GFR ( Amer) Est GFR (Non-Af Amer) BUN/Creatinine Ratio (10-20) Glucose (70-99) mg/dl POC Glucose 205 H 146 H 191 H (70-99) mg/dl Calcium (8.5-10.1) mg/dl Magnesium (1.8-2.4) mg/dl 08/21/20 Range/Units 11:07 WBC (4.8-10.8) K/uL RBC (4.2-5.4) M/uL Hgb (12.0-16.0) g/dL Hct (37-47) % MCV (80-100) fL MCH (25-34) pg MCHC (32-36) g/dL RDW Std Deviation (36.4-46.3) fL RDW Coeff of Cecile (11.5-14.5) % Plt Count (130-400) K/uL MPV (7.4-10.4) fL Immature Gran % (Auto) % Neut % (Auto) % Lymph % (Auto) % Cross % (Auto) % Eos % (Auto) % Baso % (Auto) % Neut # (Auto) (1.4-6.5) K/uL Lymph # (Auto) (1.2-3.4) K/uL Cross # (Auto) (0.11-0.59) K/uL Eos # (Auto) (0-0.5) K/uL Baso # (Auto) (0-0.2) K/uL Immature Gran # (Auto) (0.00-0.02) K/uL Sodium (136-145) mmol/L Potassium (3.5-5.1) mmol/L Chloride (98-107) mmol/L Carbon Dioxide (21-32) mmol/L Anion Gap (3-11) BUN (7-18) mg/dl Creatinine (0.6-1.2) mg/dl Est Cr Clr Drug Dosing ml/min Est GFR ( Amer) Est GFR (Non-Af Amer) BUN/Creatinine Ratio (10-20) Glucose (70-99) mg/dl POC Glucose 187 H (70-99) mg/dl Calcium (8.5-10.1) mg/dl Magnesium (1.8-2.4) mg/dl PG Care Time/CCT Total # of Minutes Spent Total Time Spent with Patient: Total time spent is greater than 50% in coordination of care (as documented) at patient's floor/unit and/or counseling patient: Coding Level of Care Code 09254 Subseq Hosp Care Lvl 3 Diagnoses Neurogenic claudication due to lumbar spinal stenosis M48.062 Diabetes mellitus, type 2 E11.9 Moderate obstructive sleep apnea G47.33 Sarcoidosis D86.9 Urinary tract infection N39.0 Lipodermatosclerosis I83.10 Diabetic neuropathy E11.40 Hypertension I10 Esophageal reflux K21.9 Hyperlipidemia E78.5 Periodic limb movement disorder G47.61 Morbid obesity with BMI of 45.0-49.9, adult E66.01; Z68.42 Acute blood loss anemia D62 Hypomagnesemia E83.42 DVT prophylaxis Z29.9
[2020-08-22] MEDS: PENTOXIFYLLINE 400MG EXT REL TAB PO SCH (09:19)
[2020-08-22] MEDS: PANTOprazole 40 MG TAB PO SCH (09:19)
[2020-08-22] MEDS: MULTIVITAMIN TAB PO SCH (09:19)
[2020-08-22] MEDS: dilTIAZem ER 120 MG CAPCR PO SCH (09:20)
[2020-08-22] MEDS: VITAMIN B COMPLEX TAB PO SCH (09:20)
[2020-08-22] MEDS: CYANOCOBALAMIN 500 MCG TABLET (VITAMIN B-12) PO SCH (09:21)
[2020-08-22] MEDS: CHOLECALCIFEROL 1,000 UNITS 25 MCG TAB PO SCH (09:22)
[2020-08-22] MEDS: ASCORBIC ACID 500 MG TAB PO SCH (09:23)
[2020-08-22] MEDS: INSULIN GLARGINE SOLOSTAR 100 UNITS/ML 3 ML PEN SC SCH ×2 (09:25→21:08)
[2020-08-22] MEDS: FERROUS SULFATE 325 MG TAB PO SCH (09:28)
--- NOTE | 2020-08-22 10:22 | Orthopedic Progress Note ---
Date of Service August 22, 2020 Assessment & Plan (1) Neurogenic claudication due to lumbar spinal stenosis: Admission and Anticipated Discharge Date Admission Date: August 21, 2020 This time continue physical therapy occupational therapy assess her progress con cash office worker possible rehab placement pending her progress. Subjective Back pain controlled leg symptoms improved. Physical Exam Physical Exam: Patient is in the chair at the bedside. Appears comfortable. Is good strength testing. Results & Data ([facility]) Vital Signs (Past 12 Hours) Vital Signs Temp Pulse Pulse Resp BP Pulse Ox 08/22/20 09:16 97 H 160/77 H 08/22/20 07:30 36.7 C 97 H 18 135/73 94 08/22/20 02:17 36.4 C L 84 18 116/57 L 98 08/21/20 23:50 36.5 C 66 16 131/73 97
[2020-08-22] MEDS: INSULIN ASPART 100 UNITS/ML 3 ML PEN SC SCH ×4 (10:45→21:08)
[2020-08-22] MEDS: DOCUSATE SODIUM/SENNA 50/8.6MG TAB PO SCH (17:36)
[2020-08-22] MEDS: GABAPENTIN 300 MG CAP PO SCH (19:41)
[2020-08-22] MEDS: ATORVASTATIN 10 MG TAB PO SCH (19:41)
[2020-08-23] MEDS: POLYETHYLENE (MIRALAX) 17 GM PACK PO SCH ×4 (00:16→18:41)
[2020-08-23] MEDS: traMADol HCL 50 MG TABLET PO PRN (00:16)
[2020-08-23 07:07] LABS: Basophils # (auto) 0.03 K/uL (0-0.2); Basophils % (auto) 0.2 %; Eosinophils # (auto) 0.36 K/uL (0-0.5); Eosinophils % (auto) 2.7 %; Hematocrit (blood only) 27.6 % (37-47); Hemoglobin 8.4 g/dL (12.0-16.0); Immature Granulocytes # (auto) 0.05 K/uL (0.00-0.02); Immature Granulocytes % (auto) 0.4 %; Lymphocytes # (auto) 3.02 K/uL (1.2-3.4); Lymphocytes % (auto) 22.4 %; Mean Corpuscular Hemoglobin 26.3 pg (25-34); Mean Corpuscular Hgb Conc 30.4 g/dL (32-36); Mean Corpuscular Volume 86.3 fL (80-100); Monocytes # (auto) 1.29 K/uL (0.11-0.59); Monocytes % (auto) 9.6 %; Neutrophils # (auto) 8.72 K/uL (1.4-6.5); Neutrophils % (auto) 64.7 %; Platelet Count 261 K/uL (130-400); RDW Coefficient of Variation 14.9 % (11.5-14.5); RDW Standard Deviation 47.3 fL (36.4-46.3); White Blood Count 13.47 K/uL (4.8-10.8)
[2020-08-23 07:32] LABS: BUN Creatinine Ratio 14.8 (10-20); Calcium 8.7 mg/dl (8.5-10.1); Creatinine Clr Calc Pharmacy 84.8 ml/min; Est GFR (African American) 78.2; Est GFR (Non-African American) 67.5; Magnesium 1.8 mg/dl (1.8-2.4); Potassium 4.4 mmol/L (3.5-5.1)
[2020-08-23] MEDS: oxyCODONE HCL IR 5 MG TAB (IMMEDIATE RELEASE) PO PRN ×2 (07:43→17:20)
[2020-08-23] MEDS: LOSARTAN POTASSIUM 50 MG TAB PO SCH (08:52)
[2020-08-23] MEDS: FERROUS SULFATE 325 MG TAB PO SCH (08:53)
[2020-08-23] MEDS: MULTIVITAMIN TAB PO SCH (08:54)
[2020-08-23] MEDS: PANTOprazole 40 MG TAB PO SCH (08:54)
[2020-08-23] MEDS: dilTIAZem ER 120 MG CAPCR PO SCH (08:54)
[2020-08-23] MEDS: CHOLECALCIFEROL 1,000 UNITS 25 MCG TAB PO SCH (08:55)
[2020-08-23] MEDS: VITAMIN B COMPLEX TAB PO SCH (08:55)
[2020-08-23] MEDS: ASCORBIC ACID 500 MG TAB PO SCH (08:55)
[2020-08-23] MEDS: CYANOCOBALAMIN 500 MCG TABLET (VITAMIN B-12) PO SCH (08:55)
[2020-08-23] MEDS: INSULIN GLARGINE SOLOSTAR 100 UNITS/ML 3 ML PEN SC SCH ×2 (08:57→20:56)
[2020-08-23] MEDS: INSULIN ASPART 100 UNITS/ML 3 ML PEN SC SCH ×4 (08:59→20:54)
[2020-08-23] MEDS ORDERED: DEXAMETHASONE SOD PHOSPHATE 8 MG in SYRINGE 0 ML IV SCH (09:00)
[2020-08-23] MEDS: [UNRECOGNIZED DRUG - REMARK] TOP SCH ×2 (09:04→20:41)
--- NOTE | 2020-08-23 10:36 | Orthopedic Progress Note ---
Date of Service August 23, 2020 Assessment & Plan (1) Neurogenic claudication due to lumbar spinal stenosis: Admission and Anticipated Discharge Date Admission Date: August 21, 2020 Continue physical therapy monitor SUSHILA output anticipate discharge to rehab in the next day or so. Subjective Back pain controlled leg pain improving Physical Exam Physical Exam: Patient is ambulating halls appears comfortable. Results & Data ([facility]) Vital Signs (Past 12 Hours) Vital Signs Temp Pulse Pulse Resp BP Pulse Ox 08/23/20 08:51 97 H 135/84 08/23/20 07:10 36.7 C 91 H 16 149/76 H 95 08/22/20 23:28 36.6 C 89 20 146/73 H 96
--- NOTE | 2020-08-23 12:57 | Hospitalist Progress Note ---
Date of Service August 23, 2020 Assessment & Plan (1) Neurogenic claudication due to lumbar spinal stenosis: * POD #2 s/p extensive L2-S1 lumbar decompression/fusion by Dr Rapp. EBL 800cc. Pre-op h/h 11.2/35 * H/h dropped slightly further to 8.4/27.6 from 8.7. SUSHILA also with 180cc output -- acute blood loss anemia as combination of acute blood anemia from surgery (800mL EBL and 350mL from SUSHILA) in addition to fluids that had been running at 150cc/hr * PT/OT/pain management/DVT prophylaxis per primary service * Discontinued dexamethasone per conversation with Dr. Rapp * Patient planning on [facility] at discharge (already accepted, CM following) in next day or so per primary service, possibly tomorrow (2) Diabetes mellitus, type 2: * A1c 7.2 Jul 2020 * hold 70/30 insulin. * Utilizing lantus / novolog -- lantus 25 units BID. Novolog CF 15, CR1:5 * BSG AC/HS * Diabetic diet * Will likely need further adjustments due to dexamethasone administration * --> adjustments made for today to SSI but will likely need adjusted tomorrow as we are discontinuing her dexamethasone as she had felt clammy after administration * Continue to monitor (3) Moderate obstructive sleep apnea: * use home CPAP machine, [id number]. (4) Sarcoidosis: * history of such about 15-20 years ago. In remission (5) Urinary tract infection: * Noted prior to admission and treated. Clinically without symptoms (6) Lipodermatosclerosis: * Continue pentoxifylline q48hr as previous (7) Diabetic neuropathy: * Continue gabapentin HS (8) Hypertension: * Continue diltiazem 240mg po daily, losartan 100mg * Will resume chlorthalidone as with constipation and acceptable BP currently, BP 131/72 * Continue to monitor (9) Esophageal reflux: * Continue protonix (10) Hyperlipidemia: * Last lipid panel Dec 2019 -- Cholesterol 190, LDL 107, HDL 49, Triglycerides elevated at 172 * Continue atorvastatin * Encourage diet/exercise. Possible benefit from gemfibrozil or similar at discretion of PCP outpatient (11) Periodic limb movement disorder: * Continue gabapentin * with acute blood loss her symptoms may be much worse but none reported today --> if increased would adjust gabapentin dose (12) Morbid obesity with BMI of 45.0-49.9, adult: * BMI 46 (13) Acute blood loss anemia: * As above * Started on once daily ferrous sulfate for now (14) Hypomagnesemia: * Mag 1.6 -- ordered 2gm * Repeat 1.8, resolved (15) DVT prophylaxis: * SCDs * chemical means contraindication in the face of lumbar spine surgery Dispo: rehab at discharge per patient and primary service. possible discharge tomorrow Thank you for allowing medicine team to participate in the care of Ms Klein. medicine will follow along. Admission and Anticipated Discharge Date Admission Date: August 21, 2020 Supervising Physician Co-Signing Physician Notes PA Supervision Note: I did not personally see or examine the patient today, but I verified all diaz points of RAFAEL Castro's assessment and plan with the following exceptions/additions: Noted severe hyperglycemia here. Dexamethasone stopped and will adjust insulin Subjective Patient evaluated this morning. [place] out last evening, voiding without difficulty since. Back pain controlled with ordered medications. States she was able to ambulate twice as far today with therapy. Eating/drinking without difficulty. Did feel a little clammy this morning after getting her steroid injection as ordered. No fever. BSG wnl. Discussed with Dr. Rapp and we will discontinue this moving forward. Patient noted she is planning for discharge with rehab this weekend; she has been accepted to [facility]. Denies fever, chills, chest pain, shortness of breath, cough, sputum production, nausea, vomiting or abdominal pain, dysuria at this time. Now is passing gas, but no BM yet. Encouraged more frequent ambulation Slightly sore throat this afternoon and was ordered cough drops prn. Review of Systems Review of Systems: All systems reviewed & are unremarkable except as noted in HPI & below Physical Exam Constitutional: well developed, well nourished and + morbidly obese; no acute distress and no altered mental status Eyes: PERRL ENMT: mmm Neck: trachea midline, no thyromegaly Respiratory: no respiratory distress Auscultation: + diminished lung sounds (Bases ); no crackles and no wheezes Cardiovascular: Rate/Rhythm: regular rate and regular rhythm Heart Sounds: normal S1 and normal S2; no murmur Vessels: posterior tibial pulses present and dorsalis pedis pulses present; no JVD Extremities: no edema Gastrointestinal (Abdomen): normal bowel sounds, soft, nontender, no hepatosplenomegaly Musculoskeletal: no cyanosis or clubbing, extremities motor strength 5/5 dressing c/d/i with SUSHILA with bloody drainage NVI 2+ dp, pt bilaterally calves non-tender to palpation Skin: + pallor Neurologic: deep tendon reflexes 2+ bilaterally and moves all extremities Psychiatric: A+Ox3, euthymic affect Lymphatic: no cervical lymphadenopathy Results & Data Results & Data ([facility]) Vital Signs (Past 12 Hours) Vital Signs Temp Pulse Pulse Resp BP Pulse Ox 08/23/20 11:26 36.5 C 80 18 138/79 97 08/23/20 08:51 97 H 135/84 08/23/20 07:10 36.7 C 91 H 16 149/76 H 95 Laboratory Results 08/23/20 08/23/20 08/23/20 Range/Units 12:13 11:30 08:14 WBC (4.8-10.8) K/uL RBC (4.2-5.4) M/uL Hgb (12.0-16.0) g/dL Hct (37-47) % MCV (80-100) fL MCH (25-34) pg MCHC (32-36) g/dL RDW Std Deviation (36.4-46.3) fL RDW Coeff of Cecile (11.5-14.5) % Plt Count (130-400) K/uL MPV (7.4-10.4) fL Immature Gran % (Auto) % Neut % (Auto) % Lymph % (Auto) % [place] % (Auto) % Eos % (Auto) % Baso % (Auto) % Neut # (Auto) (1.4-6.5) K/uL Lymph # (Auto) (1.2-3.4) K/uL [place] # (Auto) (0.11-0.59) K/uL Eos # (Auto) (0-0.5) K/uL Baso # (Auto) (0-0.2) K/uL Immature Gran # (Auto) (0.00-0.02) K/uL Sodium (136-145) mmol/L Potassium (3.5-5.1) mmol/L Chloride (98-107) mmol/L Carbon Dioxide (21-32) mmol/L Anion Gap (3-11) BUN (7-18) mg/dl Creatinine (0.6-1.2) mg/dl Est Cr Clr Drug Dosing ml/min Est GFR ( Amer) Est GFR (Non-Af Amer) BUN/Creatinine Ratio (10-20) Glucose (70-99) mg/dl POC Glucose 200 H 177 H 141 H (70-99) mg/dl Calcium (8.5-10.1) mg/dl Magnesium (1.8-2.4) mg/dl 08/23/20 08/23/20 08/22/20 Range/Units 06:24 06:24 20:31 WBC 13.47 H (4.8-10.8) K/uL RBC 3.20 L (4.2-5.4) M/uL Hgb 8.4 L (12.0-16.0) g/dL Hct 27.6 L (37-47) % MCV 86.3 (80-100) fL MCH 26.3 (25-34) pg MCHC 30.4 L (32-36) g/dL RDW Std Deviation 47.3 H (36.4-46.3) fL RDW Coeff of Cecile 14.9 H (11.5-14.5) % Plt Count 261 (130-400) K/uL MPV 10.0 (7.4-10.4) fL Immature Gran % (Auto) 0.4 % Neut % (Auto) 64.7 % Lymph % (Auto) 22.4 % [place] % (Auto) 9.6 % Eos % (Auto) 2.7 % Baso % (Auto) 0.2 % Neut # (Auto) 8.72 H (1.4-6.5) K/uL Lymph # (Auto) 3.02 (1.2-3.4) K/uL [place] # (Auto) 1.29 H (0.11-0.59) K/uL Eos # (Auto) 0.36 (0-0.5) K/uL Baso # (Auto) 0.03 (0-0.2) K/uL Immature Gran # (Auto) 0.05 H (0.00-0.02) K/uL Sodium 136 (136-145) mmol/L Potassium 4.4 (3.5-5.1) mmol/L Chloride 102 (98-107) mmol/L Carbon Dioxide 31 (21-32) mmol/L Anion Gap 3.0 (3-11) BUN 13 (7-18) mg/dl Creatinine 0.88 (0.6-1.2) mg/dl Est Cr Clr Drug Dosing 84.8 ml/min Est GFR ( Amer) 78.2 Est GFR (Non-Af Amer) 67.5 BUN/Creatinine Ratio 14.8 (10-20) Glucose 99 (70-99) mg/dl POC Glucose 144 H (70-99) mg/dl Calcium 8.7 (8.5-10.1) mg/dl Magnesium 1.8 (1.8-2.4) mg/dl 08/22/20 Range/Units 17:18 WBC (4.8-10.8) K/uL RBC (4.2-5.4) M/uL Hgb (12.0-16.0) g/dL Hct (37-47) % MCV (80-100) fL MCH (25-34) pg MCHC (32-36) g/dL RDW Std Deviation (36.4-46.3) fL RDW Coeff of Cecile (11.5-14.5) % Plt Count (130-400) K/uL MPV (7.4-10.4) fL Immature Gran % (Auto) % Neut % (Auto) % Lymph % (Auto) % [place] % (Auto) % Eos % (Auto) % Baso % (Auto) % Neut # (Auto) (1.4-6.5) K/uL Lymph # (Auto) (1.2-3.4) K/uL [place] # (Auto) (0.11-0.59) K/uL Eos # (Auto) (0-0.5) K/uL Baso # (Auto) (0-0.2) K/uL Immature Gran # (Auto) (0.00-0.02) K/uL Sodium (136-145) mmol/L Potassium (3.5-5.1) mmol/L Chloride (98-107) mmol/L Carbon Dioxide (21-32) mmol/L Anion Gap (3-11) BUN (7-18) mg/dl Creatinine (0.6-1.2) mg/dl Est Cr Clr Drug Dosing ml/min Est GFR ( Amer) Est GFR (Non-Af Amer) BUN/Creatinine Ratio (10-20) Glucose (70-99) mg/dl POC Glucose 115 H (70-99) mg/dl Calcium (8.5-10.1) mg/dl Magnesium (1.8-2.4) mg/dl PG Care Time/CCT Total # of Minutes Spent Total Time Spent with Patient: Total time spent is greater than 50% in coordinat ion of care (as documented) at patient's floor/unit and/or counseling patient: Coding Level of Care Code 09625 Subseq Hosp Care Lvl 2 Diagnoses Neurogenic claudication due to lumbar spinal stenosis M48.062 Diabetes mellitus, type 2 E11.9 Moderate obstructive sleep apnea G47.33 Sarcoidosis D86.9 Urinary tract infection N39.0 Lipodermatosclerosis I83.10 Diabetic neuropathy E11.40 Hypertension I10 Esophageal reflux K21.9 Hyperlipidemia E78.5 Periodic limb movement disorder G47.61 Morbid obesity with BMI of 45.0-49.9, adult E66.01; Z68.42 Acute blood loss anemia D62 Hypomagnesemia E83.42 DVT prophylaxis Z29.9
[2020-08-23] MEDS ORDERED: Nursing to Pharmacy Communication SCH (14:30)
[2020-08-23] MEDS ORDERED: COUGH DROP (SUGAR FREE) LOZ 24 LOZ/1 BOX BUCCAL PRN (14:32)
[2020-08-23 20:16] LABS: Appearance Urine Clear (Clear); Bilirubin Urine Negative (Negative); Blood Urine Negative (Negative); Color Urine Yellow; Glucose Urine UA 2+ (Negative); Ketones Urine Negative (Negative); Leukocyte Esterase Urine Negative (Negative); Nitrite Urine Negative (Negative); Protein Urine Negative (Negative); Specific Gravity Urine 1.014 (1.000-1.030); Urobilinogen Urine Negative (Negative)
[2020-08-23] MEDS: DOCUSATE SODIUM/SENNA 50/8.6MG TAB PO SCH (20:41)
[2020-08-23] MEDS: GABAPENTIN 300 MG CAP PO SCH (20:41)
[2020-08-23] MEDS: ATORVASTATIN 10 MG TAB PO SCH (20:41)
[2020-08-24] MEDS: oxyCODONE HCL IR 5 MG TAB (IMMEDIATE RELEASE) PO PRN ×2 (00:11→08:22)
[2020-08-24] MEDS: POLYETHYLENE (MIRALAX) 17 GM PACK PO SCH ×2 (00:11→06:23)
[2020-08-24 06:15] LABS: Hematocrit (blood only) 25.3 % (37-47); Hemoglobin 8.2 g/dL (12.0-16.0); Mean Corpuscular Hemoglobin 27.3 pg (25-34); Mean Corpuscular Hgb Conc 32.4 g/dL (32-36); Mean Corpuscular Volume 84.3 fL (80-100); Platelet Count 295 K/uL (130-400); RDW Coefficient of Variation 14.7 % (11.5-14.5); RDW Standard Deviation 45.3 fL (36.4-46.3); White Blood Count 16.85 K/uL (4.8-10.8)
[2020-08-24 06:46] LABS: BUN Creatinine Ratio 21.7 (10-20); Creatinine Clr Calc Pharmacy 88.8 ml/min; Est GFR (African American) 82.8; Est GFR (Non-African American) 71.4; Potassium 4.8 mmol/L (3.5-5.1)
--- NOTE | 2020-08-24 08:00 | Hospitalist Progress Note ---
Date of Service August 24, 2020 Assessment & Plan (1) Neurogenic claudication due to lumbar spinal stenosis: * POD #3 s/p extensive L2-S1 lumbar decompression/fusion by Dr Rapp. EBL 800cc. Pre-op h/h 11.2/35 * H/h dropped slightly further to 8.4/27.6 from 8.7. SUSHILA also with 180cc output -- acute blood loss anemia as combination of acute blood anemia from surgery (800mL EBL and 350mL from SUSHILA) in addition to fluids that had been running at 150cc/hr. * SUSHILA output slowed to 15cc. Came out this morning. * h/h 8.2/25.3 * PT/OT/pain management/DVT prophylaxis per primary service * Discontinued dexamethasone per conversation with Dr. Rapp * Patient planning on [facility] at discharge (already accepted, CM following) later this afternoon (2) Diabetes mellitus, type 2: * A1c 7.2 Jul 2020 * hold 70/30 insulin. * Utilizing lantus / novolog -- lantus 25 units BID. Novolog CF 15, CR1:5 * BSG AC/HS * Diabetic diet * BSGs elevated last evening and adjustments made to SSI (received dexamethasone yesterday morning)-- BSG 169 on last check. * Resume home medications at discharge (3) Moderate obstructive sleep apnea: * use home CPAP machine, [id number]. (4) Sarcoidosis: * history of such about 15-20 years ago. In remission (5) Urinary tract infection: * Noted prior to admission and treated. Clinically without symptoms (6) Lipodermatosclerosis: * Continue pentoxifylline q48hr as previous (7) Diabetic neuropathy: * Continue gabapentin HS (8) Hypertension: * Continue diltiazem 240mg po daily, losartan 100mg * Resume chlorthalidone tomorrow * BP 119/74 (9) Esophageal reflux: * Continue protonix (10) Hyperlipidemia: * Last lipid panel Dec 2019 -- Cholesterol 190, LDL 107, HDL 49, Triglycerides elevated at 172 * Continue atorvastatin * Encourage diet/exercise. Possible benefit from gemfibrozil or similar at discretion of PCP outpatient (11) Periodic limb movement disorder: * Continue gabapentin * with acute blood loss her symptoms may be much worse but none reported today --> if increased would adjust gabapentin dose (12) Morbid obesity with BMI of 45.0-49.9, adult: * BMI 46 (13) Acute blood loss anemia: * As above * Started on once daily ferrous sulfate (14) Hypomagnesemia: * Mag 1.6 -- ordered 2gm * Repeat 1.8, resolved (15) DVT prophylaxis: * SCDs * chemical means contraindication in the face of lumbar spine surgery Dispo: discharge to [facility] planned for this afternoon. Thank you for allowing medicine team to participate in the care of Ms Klein. Medicine will sign off. Admission and Anticipated Discharge Date Admission Date: August 21, 2020 Supervising Physician Co-Signing Physician Notes PA Supervision Note: I did not personally see or examine the patient today, but I verified all diaz points of RAFAEL Castro's assessment and plan with the following exceptions/additions: None Subjective Patient evaluated this morning. Up to restroom and had successful BM following suppository and enema. SUSHILA drain dislodged and removed this morning as she was getting up and moving around. Drainage had slowed and already evaluated this morning by Dr. Rapp. Patient feeling much better after discontinuation of the dexamethasone. Eating/drinking without issue. No fever, chills, clamminess, chest pain, shortness of breath, numbness/tingling, abdominal pain, nausea or vomiting. Plans for discharge to [facility] later today but requesting ride after 2 as her son is to be bringing in her belongings prior to discharge. Review of Systems Review of Systems: All systems reviewed & are unremarkable except as noted in HPI & below Physical Exam Constitutional: well developed, well nourished and + morbidly obese; no acute distress and no altered mental status Eyes: PERRL ENMT: mmm Neck: trachea midline, no thyromegaly Respiratory: no respiratory distress Auscultation: + diminished lung sounds (Bases ); no crackles and no wheezes Cardiovascular: Rate/Rhythm: regular rate and regular rhythm Heart Sounds: normal S1 and normal S2; no murmur Vessels: posterior tibial pulses present and dorsalis pedis pulses present; no JVD Extremities: no edema Gastrointestinal (Abdomen): normal bowel sounds, soft, nontender, no hepatosplenomegaly Musculoskeletal: no cyanosis or clubbing, extremities motor strength 5/5 Skin: dressing to lumbar spine c/d/i minimally tender around incision Neurologic: deep tendon reflexes 2+ bilaterally and moves all extremities Psychiatric: A+Ox3, euthymic affect Lymphatic: no cervical lymphadenopathy Results & Data Results & Data ([facility]) Vital Signs (Past 12 Hours) Vital Signs Temp Pulse Resp BP Pulse Ox 08/24/20 06:36 36.4 C L 79 16 119/74 96 08/23/20 23:04 36.5 C 74 16 113/65 98 Laboratory Results 08/24/20 08/24/20 08/24/20 Range/Units 06:22 05:18 05:18 WBC 16.85 H (4.8-10.8) K/uL RBC 3.00 L (4.2-5.4) M/uL Hgb 8.2 L (12.0-16.0) g/dL Hct 25.3 L (37-47) % MCV 84.3 (80-100) fL MCH 27.3 (25-34) pg MCHC 32.4 (32-36) g/dL RDW Std Deviation 45.3 (36.4-46.3) fL RDW Coeff of Cecile 14.7 H (11.5-14.5) % Plt Count 295 (130-400) K/uL MPV 10.0 (7.4-10.4) fL Sodium 134 L (136-145) mmol/L Potassium 4.8 (3.5-5.1) mmol/L Chloride 100 (98-107) mmol/L Carbon Dioxide 29 (21-32) mmol/L Anion Gap 5.0 (3-11) BUN 18 (7-18) mg/dl Creatinine 0.84 (0.6-1.2) mg/dl Est Cr Clr Drug Dosing 88.8 ml/min Est GFR ( Amer) 82.8 Est GFR (Non-Af Amer) 71.4 BUN/Creatinine Ratio 21.7 H (10-20) Glucose 149 H (70-99) mg/dl POC Glucose 169 H (70-99) mg/dl Calcium 9.0 (8.5-10.1) mg/dl Urine Color Urine Appearance (Clear) Urine pH (4.5-7.5) Ur Specific [place] (1.000-1.030) Urine Protein (Negative) Urine Glucose (UA) (Negative) Urine Ketones (Negative) Urine Blood (Negative) Urine Nitrite (Negative) Urine Bilirubin (Negative) Urine Urobilinogen (Negative) Ur Leukocyte Esterase (Negative) 08/23/20 08/23/20 08/23/20 Range/Units 20:49 19:49 17:10 WBC (4.8-10.8) K/uL RBC (4.2-5.4) M/uL Hgb (12.0-16.0) g/dL Hct (37-47) % MCV (80-100) fL MCH (25-34) pg MCHC (32-36) g/dL RDW Std Deviation (36.4-46.3) fL RDW Coeff of Cecile (11.5-14.5) % Plt Count (130-400) K/uL MPV (7.4-10.4) fL Sodium (136-145) mmol/L Potassium (3.5-5.1) mmol/L Chloride (98-107) mmol/L Carbon Dioxide (21-32) mmol/L Anion Gap (3-11) BUN (7-18) mg/dl Creatinine (0.6-1.2) mg/dl Est Cr Clr Drug Dosing ml/min Est GFR ( Amer) Est GFR (Non-Af Amer) BUN/Creatinine Ratio (10-20) Glucose (70-99) mg/dl POC Glucose 298 H 249 H (70-99) mg/dl Calcium (8.5-10.1) mg/dl Urine Color Yellow Urine Appearance Clear (Clear) Urine pH 5.0 (4.5-7.5) Ur Specific [place] 1.014 (1.000-1.030) Urine Protein Negative (Negative) Urine Glucose (UA) 2+ H (Negative) Urine Ketones Negative (Negative) Urine Blood Negative (Negative) Urine Nitrite Negative (Negative) Urine Bilirubin Negative (Negative) Urine Urobilinogen Negative (Negative) Ur Leukocyte Esterase Negative (Negative) 08/23/20 08/23/20 08/23/20 Range/Units 12:13 11:30 08:14 WBC (4.8-10.8) K/uL RBC (4.2-5.4) M/uL Hgb (12.0-16.0) g/dL Hct (37-47) % MCV (80-100) fL MCH (25-34) pg MCHC (32-36) g/dL RDW Std Deviation (36.4-46.3) fL RDW Coeff of Cecile (11.5-14.5) % Plt Count (130-400) K/uL MPV (7.4-10.4) fL Sodium (136-145) mmol/L Potassium (3.5-5.1) mmol/L Chloride (98-107) mmol/L Carbon Dioxide (21-32) mmol/L Anion Gap (3-11) BUN (7-18) mg/dl Creatinine (0.6-1.2) mg/dl Est Cr Clr Drug Dosing ml/min Est GFR ( Amer) Est GFR (Non-Af Amer) BUN/Creatinine Ratio (10-20) Glucose (70-99) mg/dl POC Glucose 200 H 177 H 141 H (70-99) mg/dl Calcium (8.5-10.1) mg/dl Urine Color Urine Appearance (Clear) Urine pH (4.5-7.5) Ur Specific [place] (1.000-1.030) Urine Protein (Negative) Urine Glucose (UA) (Negative) Urine Ketones (Negative) Urine Blood (Negative) Urine Nitrite (Negative) Urine Bilirubin (Negative) Urine Urobilinogen (Negative) Ur Leukocyte Esterase (Negative) PG Care Time/CCT Total # of Minutes Spent Total Time Spent with Patient: Total time spent is greater than 50% in coordina tion of care (as documented) at patient's floor/unit and/or counseling patient: Coding Level of Care Code 72704 Subseq Hosp Care Lvl 2 Diagnoses Neurogenic claudication due to lumbar spinal stenosis M48.062 Diabetes mellitus, type 2 E11.9 Moderate obstructive sleep apnea G47.33 Sarcoidosis D86.9 Urinary tract infection N39.0 Lipodermatosclerosis I83.10 Diabetic neuropathy E11.40 Hypertension I10 Esophageal reflux K21.9 Hyperlipidemia E78.5 Periodic limb movement disorder G47.61 Morbid obesity with BMI of 45.0-49.9, adult E66.01; Z68.42 Acute blood loss anemia D62 Hypomagnesemia E83.42 DVT prophylaxis Z29.9
[2020-08-24] MEDS: [UNRECOGNIZED DRUG - REMARK] TOP SCH (08:12)
[2020-08-24] MEDS: CHOLECALCIFEROL 1,000 UNITS 25 MCG TAB PO SCH (08:13)
[2020-08-24] MEDS: CYANOCOBALAMIN 500 MCG TABLET (VITAMIN B-12) PO SCH (08:13)
[2020-08-24] MEDS: MULTIVITAMIN TAB PO SCH (08:13)
[2020-08-24] MEDS: PENTOXIFYLLINE 400MG EXT REL TAB PO SCH (08:13)
[2020-08-24] MEDS: ASCORBIC ACID 500 MG TAB PO SCH (08:13)
[2020-08-24] MEDS: PANTOprazole 40 MG TAB PO SCH (08:13)
[2020-08-24] MEDS: VITAMIN B COMPLEX TAB PO SCH (08:14)
[2020-08-24] MEDS: dilTIAZem ER 120 MG CAPCR PO SCH (08:14)
[2020-08-24] MEDS: FERROUS SULFATE 325 MG TAB PO SCH (08:14)
[2020-08-24] MEDS: LOSARTAN POTASSIUM 50 MG TAB PO SCH (08:14)
[2020-08-24] MEDS: INSULIN GLARGINE SOLOSTAR 100 UNITS/ML 3 ML PEN SC SCH (08:18)
[2020-08-24] MEDS: INSULIN ASPART 100 UNITS/ML 3 ML PEN SC SCH ×2 (08:19→12:58)
[2020-08-24 08:44] LABS: Magnesium 2.1 mg/dl (1.8-2.4)
--- NOTE | 2020-08-24 10:42 | Discharge Summary ---
Date of Service August 24, 2020 Admission HPI Per Admitting Provider This is a 70-year-old female who presents with chronic persistent back and bilateral leg pain. After failing course of nonoperative care is here for surgical invention. Principal Diagnosis Lumbar spinal stenosis with neurogenic claudication Discharge Data Allergies Allergy/AdvReac Type Severity Reaction Status Date / Time pravastatin Allergy Severe urinary Verified 08/21/20 07:01 retention, SOB triamcinolone Allergy Severe anaphylaxis Verified 08/21/20 07:01 turmeric Allergy Severe throat Verified 08/21/20 07:01 swelling, SOB, red nose black pepper Allergy Difficulty Verified 08/21/20 19:40 Breathing cayenne pepper fruits Allergy Swelling Verified 08/21/20 19:40 of Lip/Tongue/Throat pepper (genus Capsicum) Allergy Swelling Verified 08/21/20 19:40 of Lip/Tongue/Throat Food Allergy Severe Peppers Uncoded 08/21/20 07:01 (hot,cayenne,black)- throat swelling, SOB, red nose Flu Virus Vaccine Allergy Unknown told to Uncoded 08/21/20 07:01 avoid (d/t hx sarcoidosis) Consultations 08/21/20 12:29 Consult Case Management - Discharge Planning Routine Consult Hospitalist Routine Procedures Performed Operation Date: 08/21/20 07:45 Actual Procedures p L2-S1 Decompression and Fusion, Interbody cage L4-L5, application of Infuse, Spinal Cord Monitoring(Not Applicable) - Julio Rapp, Ordered Studies 08/21/20 07:45 FL fluoroscopy <1hr Routine FL lumbar spine 2-3V Routine Hospital Course (1) Neurogenic claudication due to lumbar spinal stenosis: Patient went multilevel lumbar decompression fusion tolerated this well was taken to orthopedic for postoperative. Postop day 1 she was up and ambulating progressed approximately postop day 2 and 3 SUSHILA drain decreasing probably. Strength improving. Pain well controlled. Strength intact to testing. Subsequently discharged to inpatient rehab. Discharge orders and instructions were on the chart for further review. Total Time Total Time Spent Total Time Spent (In Minutes): 20 minutes Discharge Plan Discharge Items Patient Disposition: Transfer Inpatient Rehab Fac Reason For Visit: Low Back Pain Discharge Diagnosis: Lumbar spinal stenosis with neurogenic claudication Activity: As commented below Non-emergency contact: Primary Care Provider Call non-emergency contact if: you have any medication questions Follow-up/Referrals: Jade Owusu MD [Primary Care Provider] - Diet: Regular Addtl Attending Provider Instructions: ACTIVITY RECOMMENDATIONS: SELF CARE INSTRUCTIONS AFTER THORACIC/LUMBAR FUSIONS 1. You may walk to your tolerance. It is good exercise for your legs and back. Expect some back and intermittent leg aches and pains. 2. You may perform "counter-top" level activities (make a sandwich, baljit with a project, etc.). 3. No bending or lifting of more than 10 pounds or back twisting of any nature (roll like a log when turning in bed). 4. You may ride in a car for 20-30 minutes at a time. No driving until after your first visit with your doctor. 5. Frequent changes of position and restricting sitting to 30 minutes at a time will help limit the amount of back spasms and stiffness you may experience. 6. You may discontinue the use of ambulatory aids (cane, crutches, etc.) once your strength and confidence allow. 7. You may television schedule coordinator the shower and let water strike your incision when you arrive home at least once daily. Do not take a tub bath, sit in a hot tub or go into a swimming pool until after your first recheck in the office. SPECIAL CARE INSTRUCTIONS: VERY IMPORTANT TO READ AND REVIEW A. Your surgical incision has been closed with a cosmetic suture under the skin that will dissolve in about 6 weeks. In 14 days, you can use a pair of clean scissors and cut the suture that is left outside of the skin at the ends of your incision. 1. The small skin tapes can be removed 7 days after surgery if they have not fallen off by that point. 2. You may keep the wound open to air as much as possible to promote healing after post-op day number 5 unless told otherwise by your doctor. 3. If you think the wound looks like it is becoming infected (redness or worsening drainage) and/or you are experiencing fever, chill or worsening back pain and muscle spasms, contact the office so that we may evaluate you as soon as possible. B. Complications are uncommon, but please contact us if you have any signs or symptoms of: 1. wound infection (fever higher than 102.5 degrees F, redness, separation of wound, drainage, or increasing pain from the incision) 2. blood clots in legs (pain, swelling, redness and warmth in legs) 3. urinary tract infection (fever higher than 102.5 degrees F, burning upon urination or increased frequency of urination) 4. nerve problems (inability to walk on your toes or heels, numbness, loss of bowel or bladder control) 5. any other symptoms that concern you C. Please call the office at if you have any concerns or questions about your operation or recovery. D. No smoking! Smoking drastically decreases the chance of a solid fusion. E. Do not take any anti-inflammatory medications (Indocin, Advil, Motrin, Aspirin, Naprosyn, etc.) as these may inhibit the chance of a solid fusion. Tylenol is okay to take for pain. MANAGING PAIN AFTER SPINAL SURGERY 1. Narcotic medication is intended for short-term use and will be provided for surgical pain. Surgical pain usually lasts for a period of 4-6 weeks. Narcotic medication includes Percocet, Vicodin, Darvocet, Tylenol #3 or Lortab. 2. Longer-term pain is more appropriately treated with non-narcotic medication such as Tylenol ES. 3. Muscle spasm is not appropriately treated with narcotics. Muscle relaxers such as Soma, Flexeril or Skelaxin can be used along with Tylenol ES. 4. Remember that we all live with some "aches and pains". This is not unusual or uncommon after an injury or as we get older. a. Back pain is expected and may include muscle spasms for 4 to 6 weeks after surgery. The pain should gradually improve. If the pain worsens for no apparent reason, please contact the office. b. Intermittent leg pain may also be experienced and should not be concerned about unless it worsens for no apparent reason. If so, please contact the office. 5. We will provide appropriate medication within the normal guidelines of their prescribed use. We will also be very cautious and aware of potential abuse and extended duration of patients' medication needs. a. Pain medications are for your comfort and to assist with sleep and rest so that the tissue can heal. They are not provided in order to return to normal activity and should not be used through the day. To do so or worsening pain at night can result from ongoing tissue damage and development of tolerance to the prescribed medicine. 6. Please allow 2-3 days to process refills. Prescriptions will not be mailed but must be picked up at the office. FOLLOW UP VISIT: Keep your scheduled follow-up appointment. Any questions, please call the office at . Pending Studies at Discharge: No Stand-Alone Forms: My [facility] Skilled Items Patient informed of condition?: Yes DNR: No Discharge Level of Care: Acute rehab Communicable Disease: No Discharge Prognosis: Improving Lines: None Urinary Catheter: No Medications and DC Order Prescriptions: New oxycodone 5 mg tablet 5 mg PO Q6H PRN (Reason: pain, severe) Qty: 30 RF: 0 tramadol 50 mg tablet 50 mg PO Q6H PRN (Reason: pain, moderate) Qty: 30 RF: 0 Continued (DME) NovoFine Plus 32 gauge x 1/6" needle See Rx Instructions .ROUTE .MEDSUPPLY Qty: 100 RF: 3 metformin 1,000 mg tablet 1,000 mg PO BID Qty: 180 RF: 3 omeprazole 20 mg capsule,delayed release(DR/EC) 20 mg PO QAM Qty: 30 RF: 11 tramadol 50 mg tablet 50 mg PO Q8H PRN (Reason: pain) Qty: 90 RF: 1 Novolin 70/30 U-100 Insulin 100 unit/mL (70-30) suspension 40 unit subcut BID Qty: 30 RF: 5 (DME) insulin syringe-needle U-100 [BD Insulin Syringe Ultra-Fine] 0.5 mL 31 gauge x 5/16" syringe See Rx Instructions .ROUTE .MEDSUPPLY Qty: 100 RF: 3 chlorthalidone 25 mg tablet 25 mg PO DAILY Qty: 90 RF: 3 diltiazem HCl [Tiadylt ER] 240 mg capsule,extended release 24 hr 240 mg PO DAILY Qty: 90 RF: 3 losartan 100 mg tablet 100 mg PO QAM Qty: 90 RF: 3 acetaminophen 650 mg tablet extended release 650 mg PO BID PRN (Reason: Pain) RF: 0 (DME) CPAP Machine Misc See Rx Instructions .ROUTE .MEDSUPPLY Qty: 1 RF: 0 pentoxifylline 400 mg tablet extended release 400 mg PO Q2D RF: 0 cyclobenzaprine 5 mg tablet 5 mg PO TID PRN (Reason: muscle spasm) Qty: 30 RF: 0 (DME) OneTouch Ultra Blue Test Strip Strip See Dose Instructions .ROUTE .MEDSUPPLY Qty: 100 RF: 3 (DME) compress.stocking,knee,reg,med Misc See Rx Instructions .ROUTE .MEDSUPPLY Qty: 2 RF: 1 (DME) CPAP Machine Misc See Rx Instructions .ROUTE .MEDSUPPLY Qty: 1 RF: 0 gabapentin 300 mg capsule 300 mg PO HS Qty: 90 RF: 0 vitamin B complex Tablet 1 tab PO QAM RF: 0 cholecalciferol (vitamin D3) [Vitamin D3] 125 mcg (5,000 unit) Tablet 125 mcg PO QAM RF: 0 [facility] 750 mg-100 mg- 1.65 mg-108 mg Tablet 2 tab PO QAM RF: 0 multivitamin Tablet 1 tab PO QAM RF: 0 cyanocobalamin (vitamin B-12) [Vitamin B-12] 1,000 mcg Tablet 1,000 mcg PO QAM RF: 0 atorvastatin 10 mg tablet 10 mg PO HS RF: 0 ascorbic acid (vitamin C) [Vitamin C] 1,000 mg Tablet 1 g PO QAM RF: 0 fluocinonide 0.05 % Gel 1 applic TOPICAL BID RF: 0 diclofenac sodium [Voltaren] 1 % Gel 2 g TOPICAL HS RF: 0 Discharge Orders: Discharge Order (Routine); Ordered 08/24/20 Ordered By: Julio Perez/Other Patient Handouts: Managing Type 2 Diabetes, Managing Diabetes: The A1C Test Admission Data Admit Date/Time: 08/21/20 11:20 Attending Provider: Julio Rapp Admit Provider: Julio Rapp Primary Care Provider: Jade Owusu Other Providers: Alicia May ; [facility]
== END 2020-08-24 16:08 | DRG 454 ==
LOC: ASU 06:13 → 3E 11:20

== ENCOUNTER 2022-06-03 17:26 | Inpatient (IN) ==
[2022-06-03] MEDS ORDERED: HYDROmorphone INJ 1 MG/ML SYRINGE IV STA (17:30)
[2022-06-03] MEDS ORDERED: ONDANSETRON INJ 2 MG/ML 2 ML VIAL IV STA ×2 (17:30→20:05)
--- NOTE | 2022-06-03 17:36 | ED Triage Note ---
Date of Service June 03, 2022 History of Present Illness This patient was briefly evaluated while in triage. An abbreviated physical exam was performed. This patient is a 71-year-old Female who presents to the ED for evaluation of a kidney stone. Patient has had pain intermittently for 1 month. She had a CT scan this morning that showed a kidney stone. For the past 2 hours, she has had severe pain in the left side of the abdomen and back with vomiting. Physical Exam VITALS: Vitals are noted on the nurse's note and reviewed by myself. GENERAL: This is a 71-year-old female, uncomfortable appearing, vomiting into an emesis bag. SKIN: The skin was without rashes. LUNGS: Clear to auscultation bilaterally without wheezes, rales or rhonchi. ABDOMEN: Tenderness in the left lower quadrant and left CVA tenderness. NEURO: Patient was alert and oriented to person place and time. Initial orders for labs and / or imaging were placed and patient was placed in the waiting area until a bed is available. Please see further documentation for the full ED course.
[2022-06-03] MEDS ORDERED: SODIUM CHLORIDE 0.9% 500 ML IV ONE (18:30)
[2022-06-03 18:33] LABS: Basophils # (auto) 0.03 K/uL (0-0.2); Basophils % (auto) 0.3 %; Eosinophils # (auto) 0.08 K/uL (0-0.50); Eosinophils % (auto) 0.7 %; Hematocrit (blood only) 35.7 % (34.1-44.9); Hemoglobin 11.1 g/dl (12.0-16.0); Immature Granulocytes # (auto) 0.06 K/uL (0.00-0.02); Immature Granulocytes % (auto) 0.5 %; Lymphocytes % (auto) 17.2 %; Mean Corpuscular Hemoglobin 26.4 pg (25.0-34.0); Mean Corpuscular Hgb Conc 31.1 g/dL (32.0-36.0); Mean Platelet Volume 10.5 fL (9.4-12.3); Monocytes # (auto) 0.82 K/uL (0.24-0.82); Monocytes % (auto) 7.1 %; Neutrophils # (auto) 8.61 K/uL (1.4-6.5); Neutrophils % (auto) 74.2 %; Platelet Count 262 K/uL (130-400); RDW Coefficient of Variation 14.6 % (11.5-14.5); RDW Standard Deviation 45.2 fL (36.4-46.3)
--- NOTE | 2022-06-03 18:34 | Emergency Department Note ---
Impression & Plan Kidney stone on left side, Nausea, Type 2 diabetes mellitus, Hypertension ED Provider Note Provider: Gato Musa MD DATE OF SERVICE: 06/03/2022 CHIEF COMPLAINT: Left flank pain. HISTORY OF PRESENT ILLNESS: Patient is a 71-year-old female history of fibromyalgia, fatty liver, diabetic neuropathy with history of type 2 diabetes, hypertension, and sarcoidosis presenting here today after imaging today showed a 6 mm left-sided kidney stone. Significantly worsened pain since around 3 PM th is evening. She is intermittently been having some left flank pain for some time. Saw her PCP several weeks ago and had basic blood work obtained. Some renal dysfunction noted at that time and urinalysis were concerning for resistant infection. She is been on a course of Levaquin finishing her last dose this morning. Patient states he been having significant pain more recently in the left flank as well as nausea and vomiting. Patient has tried some home medications for pain [id number] without significant improvement. No trauma reported. Denies fever or chills. REVIEW OF SYSTEMS: A total of 10 review of systems was obtained and negative except as stated above in the HPI. PAST MEDICAL HISTORY: As noted above and prior back surgery. MEDICATIONS: Reviewed home medications daily gabapentin and tramadol to help with sleep SOCIAL HISTORY: Recently PHYSICAL EXAM: GENERAL: alert and oriented uncomfortable appearing and at times dry heaving Head: normocephalic and atraumatic EYES: No injection, discharge or icterus. NECK: Trachea midline. ENT: Mucous membranes pink and moist. LUNGS: Airway patent. No retractions but occasionally tachypneic with dry heaving. HEART: Regular rate and rhythm. ABDOMEN: Soft and non-tender, without guarding or rebound. Minimal left flank tenderness. SKIN: Acyanotic, warm, dry, without rashes EXTREMITIES: Without swelling, tenderness or deformity NEUROLOGICAL: No focal deficits. No aphasia. No facial droop or slurred speech. Ambulatory. PDMP was checked without noted issue. Patient's laboratory studies and imaging reviewed. Differential includes Renal colic, UTI, appendicitis, diverticulitis, mesenteric ischemia, aortic pathology, infections, inflammatory bowel disease, PUD, biliary pathology, as well as other pathologies. IMPRESSION/MEDICAL DECISION MAKING: Reviewed prior medical records and abdominal CT from this morning with mild left hydronephrosis with 6 mm kidney stone in the distal left ureter. No other significant findings in the CT are noted. Patient with significant nausea and pain and dry retching/vomiting upon my exam. Given some Zofran and hydromorphone. Some IV fluid ordered. Patient did holding her metformin and Celebrex over the last week. No prior history of kidney stone reported. Given the diagnostic testing available I do not believe that she is suffering from acute cardiac injury/ACS/OR or PE. Doubt dissection. CBC here with minimal anemia and slight leukocytosis 11.6 not far off prior from May 20 of this month. Creatinine today continues to improve from the ninth n ow at 1.26 with a baseline of around 0.8-1.0. Very mild hyponatremia. No signs of liver dysfunction. Patient pain began to return little bit and given some additional hydromorphone. Later additional Tylenol was given as pain still continues to return. Did take levofloxacin this morning and again doubt sepsis or systemic infection but urinalysis was sent. Given her uncontrolled pain discussed with her and then later the hospitalist for further care here. Being cautious with NSAIDs such as Toradol given the patient's just resolving NELLY. Blood pressure is in to be elevated secondary to her discomfort and pain. DIAGNOSIS: Left-sided kidney stone, nausea, HTN, type 2 DM DISPOSITION: Hospitalist will evaluate Patient was agreeable with this plan. Past Med/Surg History Medical History (Updated 06/03/22 @ 20:15 by Gato Musa M.D.) Chronic diarrhea Diabetic neuropathy Esophageal reflux Fatty liver disease, nonalcoholic Fibromyalgia Hyperlipidemia Hypertension Lipodermatosclerosis Lumbar spinal stenosis Moderate obstructive sleep apnea CPAP Morbid obesity Osteoarthritis Periodic limb movement disorder Sarcoidosis history of - no active disease Type 2 diabetes mellitus Surgical History H/O tubal ligation H/O vaginal hysterectomy History of bladder surgery urethral repair History of colonoscopy History of esophagogastroduodenoscopy (EGD) History of hand surgery left trigger finger History of neck surgery biopsy- dx sarcoidosis History of temporal artery biopsy (09/25/21) Right Temporal Artery Biopsy(Right) - Aubrey Rubio DO 09-25-2021 Status post lumbar spine surgery for decompression of spinal cord L2-S1 decompression/fusion (08/21/20): Unable to pass ETT under DL. Glidescope 3 used easily + atraumatic (Grade view 1 with glidescope) Family History Father Diabetes Coronary heart disease Mother Heart disease CHF (congestive heart failure) Aunt Family hx of colon cancer Colorectal cancer Sister Breast cancer Denies family history of Ovarian cancer Social History (Updated 01/14/22 @ 08:40 by Kiley Templeton LPN) Smoking Status: Unknown if ever smoked Second Hand Exposure: Yes ( used to smoke); Hx Alcohol Use: Yes Alcohol type: wine Hx Substance Use: No Preferred Language: [place] Citizen Communication Ability: Effective Hearing Ability: Normal Electronic News Gathering Editor Required: No Beliefs That Will Affect Care: None marital status: Current Living Situation: Spouse current occupational status: retired Feels Safe at Home: Yes caffeine: Yes Seatbelt Use: always Sunscreen Use: No Assistive Devices: Cane and Glasses Allergies Allergies Allergy/AdvReac Type Severity Reaction Status Date / Time black pepper Allergy Severe Difficulty Verified 06/03/22 20:21 Breathing cayenne pepper fruits Allergy Severe Swelling Verified 06/03/22 20:21 of Lip/Tongue/Throat pepper (genus Capsicum) Allergy Severe Swelling Verified 06/03/22 20:21 of Lip/Tongue/Throat pravastatin Allergy Severe urinary Verified 06/03/22 20:21 retention, SOB triamcinolone Allergy Severe anaphylaxis Verified 06/03/22 20:21 turmeric Allergy Severe throat Verified 06/03/22 20:21 swelling, SOB, red nose lactose Allergy Intermediate Diarrhea Verified 06/03/22 20:21 Food Allergy Severe Peppers Uncoded 06/03/22 20:21 (hot,cayenne,black)- throat swelling, SOB, red nose injectable steroird Allergy Severe Anaphylaxis Uncoded 06/03/22 20:21 Flu Virus Vaccine Allergy Unknown told to Uncoded 06/03/22 20:21 avoid (d/t hx sarcoidosis) VACCINES Allergy Unknown TOLD TO Uncoded 06/03/22 20:21 AVOID D/T SARCOIDOSIS Home Meds Home Medications Medication Instructions Recorded Confirmed cyanocobalamin (vitamin B-12) 1,000 mcg PO QAM 03/27/19 06/03/22 1,000 mcg tablet (Vitamin B-12) multivitamin 1 tab PO QAM 03/27/19 06/03/22 acetaminophen 650 mg 650 mg PO BID PRN Pain 04/26/19 06/03/22 tablet,extended release cholecalciferol (vitamin D3) 125 125 mcg PO QAM 05/28/20 06/03/22 mcg (5,000 unit) tablet (Vitamin D3) ascorbic acid (vitamin C) 1,000 mg 1 g PO QAM 08/01/20 06/03/22 tablet (Vitamin C) ferrous sulfate 325 mg (65 mg 325 mg PO QAM 09/03/20 06/03/22 iron) tablet diclofenac sodium 1 % topical gel 2 g topical HS 07/02/21 06/03/22 chlorthalidone 25 mg tablet 25 mg PO QAM PRN Fluid Retention 09/22/21 06/03/22 Previous Rx's Medication Instructions Recorded Saccharomyces boulardii 250 mg 250 mg PO BID #20 caps 03/07/21 capsule (Florastor) fluocinonide 0.05 % topical gel 1 applic topical BID PRN rash #30 06/17/21 grams pen needle, diabetic 32 gauge x #200 ea 11/27/2111/20" (NovoFine Plus) cyclobenzaprine 5 mg tablet 5 mg PO TID PRN muscle spasm #30 12/03/21 tabs gabapentin 300 mg capsule 300 mg PO HS #90 caps 01/07/22 pentoxifylline 400 mg 400 mg PO DAILY #90 tabs 01/09/22 tablet,extended release celecoxib 200 mg capsule (Celebrex) 200 mg PO DAILY #90 caps 01/14/22 metformin 500 mg tablet 500 mg PO BID #180 tabs 01/14/22 blood sugar diagnostic #400 ea 02/06/22 tramadol 50 mg tablet 50 mg PO TID PRN pain #90 tabs 02/18/22 sucralfate 1 gram tablet 1 g PO BID #60 tabs 04/03/22 atorvastatin 10 mg tablet 10 mg PO DAILY #90 tabs 05/12/22 diltiazem HCl 240 mg capsule,24 240 mg PO DAILY #90 caps 05/12/22 hr,extended release (Tiadylt ER) losartan 100 mg tablet 100 mg PO DAILY #90 tabs 05/12/22 omeprazole 20 mg capsule,delayed 20 mg PO BID #180 caps 05/12/22 release levofloxacin 500 mg tablet 500 mg PO DAILY #7 tabs 05/28/22 insulin aspar prot-insulin aspart 20 - 30 unit (0.2 - 0.3 mL) subcut 06/01/22 100 unit/mL (70-30) subcutaneous BID #60 mL pen (Novolog Mix 70-30FlexPen U-100) Results & Data (ED) Vital Signs Vital Signs - 24 hr 06/03/22 17:29 06/03/22 18:23 06/03/22 20:00 Temperature 36.4 C L Temperature Source Temporal Artery Scan Pulse Rate 98 H Pulse Rate [Radial] 87 69 Pulse Rhythm [Radial] Regular Respiratory Rate 22 18 19 Respiratory Effort / Characteristics Non-Labored Spontaneous Non-Labored Respiratory Depth Normal Normal Respiratory Pattern Regular Regular Blood Pressure 226/78 H Blood Pressure [Left Arm] 210/88 H 161/56 H Blood Pressure Mean 127 Blood Pressure Mean [Left Arm] 128 91 Blood Pressure Position Sitting Pulse Oximetry 99 100 95 Oxygen Delivery Method Room Air Room Air Room Air Sepsis Recent Fever Within 48 Hours No Sepsis New/Unexplained Change in Mental Status No Sepsis Action Taken by Nursing No Action Required Laboratory Data Result diagrams: 06/03/22 18:10 06/03/22 18:10 Lab Results 06/03/22 06/03/22 06/03/22 Range/Units 18:10 18:10 19:47 WBC 11.60 H (4.8-10.8) K/ul RBC 4.20 (3.93-5.22) M/uL Hgb 11.1 L (12.0-16.0) g/dl Hct 35.7 (34.1-44.9) % MCV 85.0 (80.0-100.0) fL MCH 26.4 (25.0-34.0) pg MCHC 31.1 L (32.0-36.0) g/dL RDW Std Deviation 45.2 (36.4-46.3) fL RDW Coeff of Cecile 14.6 H (11.5-14.5) % Plt Count 262 (130-400) K/uL MPV 10.5 (9.4-12.3) fL Immature Gran % (Auto) 0.5 % Neut % (Auto) 74.2 % Lymph % (Auto) 17.2 % [place] % (Auto) 7.1 % Eos % (Auto) 0.7 % Baso % (Auto) 0.3 % Neut # (Auto) 8.61 H (1.4-6.5) K/uL Lymph # (Auto) 2.00 (1.2-3.4) K/uL [place] # (Auto) 0.82 (0.24-0.82) K/uL Eos # (Auto) 0.08 (0-0.50) K/uL Baso # (Auto) 0.03 (0-0.2) K/uL Immature Gran # (Auto) 0.06 H (0.00-0.02) K/uL Sodium 133 L (136-145) mmol/L Potassium 4.0 (3.5-5.1) mmol/L Chloride 98 (98-107) mmol/L Carbon Dioxide 27 (21-32) mmol/L Anion Gap 8 (3-11) BUN 22 (6-23) mg/dl Creatinine 1.26 H (0.6-1.2) mg/dl Est Cr Clr Drug Dosing Not Reportable Est GFR ( Amer) 50.3 ml/min Est GFR (Non-Af Amer) 43.4 ml/min BUN/Creatinine Ratio 17.5 (10-20) Glucose 195 H (70-99(Fasting)) mg/dl Calcium 8.8 (8.5-10.1) mg/dl Total Bilirubin 0.4 (0.2-1.0) mg/dl AST 15 (13-39) U/L ALT 9 (7-52) U/L Alkaline Phosphatase 56 (34-104) U/L Total Protein 7.8 (6.0-8.3) gm/dl Albumin 4.0 (3.4-5.0) gm/dl Globulin 3.8 (2.5-4.0) gm/dl Albumin/Globulin Ratio 1.1 (0.9-2) SARS-CoV-2, RNA, NAAT NEGATIVE (NEGATIVE) Administered Medications Discontinued Medications Acetaminophen (Acetaminophen 500 Mg Tab) 1,000 mg PO NOW STA Stop: 06/03/22 20:06 Last Admin: 06/03/22 20:16 Dose: 1,000 mg Documented By: BELINDA Hydromorphone HCl (Hydromorphone Inj 1 Mg/Ml Syringe) 1 mg IV NOW STA Stop: 06/03/22 17:31 Last Admin: 06/03/22 18:22 Dose: 1 mg Documented By: VICTORIA Hydromorphone HCl (Hydromorphone Inj 0.5 Mg/0.5 Ml Syr) 0.5 mg IV NOW STA Stop: 06/03/22 19:16 Last Admin: 06/03/22 19:45 Dose: 0.5 mg Documented By: TARAS Sodium Chloride (Nss) 500 mls @ 999 mls/hr IV .Q31M ONE Stop: 06/03/22 19:00 Last Infusion: 06/03/22 19:54 Dose: 0 mls/hr Documented By: Admin: 06/03/22 18:47 Dose: 999 mls/hr Documented By: VICTORIA Ondansetron HCl (Ondansetron Inj 2 Mg/Ml 2 Ml Vial) 4 mg IV NOW STA Stop: 06/03/22 17:31 Last Admin: 06/03/22 18:22 Dose: 4 mg Documented By: VICTORIA Ondansetron HCl (Ondansetron Inj 2 Mg/Ml 2 Ml Vial) 4 mg IV NOW STA Stop: 06/03/22 20:06 Last Admin: 06/03/22 20:16 Dose: 4 mg Documented By: BELINDA Discharge Plan Visit Data Chief Complaint: Kidney Stone Stated Complaint: KIDNEY STONES ED Provider: Gato Musa Discharge Problem: Kidney stone on left side, Nausea, Type 2 diabetes mellitus, Hypertension Patient Disposition: Being Evaluated by Hospitalist Forms Stand Alone Forms: [facility] Prescriptions Prescriptions: No Action cyclobenzaprine 5 mg tablet 5 mg PO TID PRN (Reason: muscle spasm) Qty: 30 0RF gabapentin 300 mg capsule 300 mg PO HS Qty: 90 3RF pentoxifylline 400 mg tablet extended release 400 mg PO DAILY Qty: 90 3RF Rx Instructions: administer with meals (DME) blood sugar diagnostic Strip See Dose Instructions .ROUTE .MEDSUPPLY Qty: 400 3RF Rx Instructions: Use to test 4-5 times daily, DX: E11.9 tramadol 50 mg tablet 50 mg PO TID PRN (Reason: pain) Qty: 90 3RF diltiazem HCl [Tiadylt ER] 240 mg capsule,extended release 24 hr 240 mg PO DAILY Qty: 90 3RF atorvastatin 10 mg tablet 10 mg PO DAILY Qty: 90 3RF losartan 100 mg tablet 100 mg PO DAILY Qty: 90 3RF omeprazole 20 mg capsule,delayed release(DR/EC) 20 mg PO BID Qty: 180 3RF levofloxacin 500 mg tablet 500 mg PO DAILY Qty: 7 0RF Rx Instructions: STARTED 05/28/22 FOR 7 DAYS. insulin asp prt-insulin aspart [Novolog Mix 70-30FlexPen U-100] 100 unit/mL (70-30) insulin pen 20 - 30 unit subcut BID Qty: 60 2RF Rx Instructions: SLIDING SCALE PER PT, MAX OF 30 UNITS. acetaminophen 650 mg tablet extended release 650 mg PO BID PRN (Reason: Pain) ferrous sulfate 325 mg (65 mg iron) tablet 325 mg PO QAM fluocinonide 0.05 % gel 1 applic TOPICAL BID PRN (Reason: rash) Qty: 30 1RF metformin 500 mg tablet 500 mg PO BID Qty: 180 3RF Hold Instructions: Home Medication placed on hold at Doctor's office Rx Instructions: ON HOLD D/T CT SCAN celecoxib [Celebrex] 200 mg capsule 200 mg PO DAILY Qty: 90 3RF Hold Instructions: Home Medication placed on hold at Doctor's office Rx Instructions: ON HOLD D/T KIDNEY ISSUES sucralfate 1 gram tablet 1 g PO BID Qty: 60 2RF (DME) NovoFine Plus 32 gauge x 1/6" needle See Rx Instructions .ROUTE .MEDSUPPLY Qty: 200 3RF Rx Instructions: inject insulin BID cholecalciferol (vitamin D3) [Vitamin D3] 125 mcg (5,000 unit) Tablet 125 mcg PO QAM multivitamin Tablet 1 tab PO QAM cyanocobalamin (vitamin B-12) [Vitamin B-12] 1,000 mcg Tablet 1,000 mcg PO QAM ascorbic acid (vitamin C) [Vitamin C] 1,000 mg Tablet 1 g PO QAM diclofenac sodium 1 % Gel 2 g TOPICAL HS chlorthalidone 25 mg tablet 25 mg PO QAM PRN (Reason: Fluid Retention) Saccharomyces boulardii [Florastor] 250 mg capsule 250 mg PO BID Qty: 20 0RF Rx Instructions: swallow whole Referrals Referrals: Jade Owusu MD [Primary Care Provider] -
[2022-06-03 18:59] LABS: Alanine Aminotransferase 9 U/L (7-52); Albumin Globulin Ratio 1.1 (0.9-2); Alkaline Phosphatase 56 U/L (34-104); Anion Gap 8 (3-11); Aspartate Aminotransferase 15 U/L (13-39); BUN Creatinine Ratio 17.5 (10-20); Bilirubin,Total 0.4 mg/dl (0.2-1.0); Blood Urea Nitrogen 22 mg/dl (6-23); Calcium 8.8 mg/dl (8.5-10.1); Carbon Dioxide 27 mmol/L (21-32); Chloride 98 mmol/L (98-107); Est GFR (African American) 50.3 ml/min; Est GFR (Non-African American) 43.4 ml/min; Globulin 3.8 gm/dl (2.5-4.0); Glucose 195 mg/dl (70-99(Fasting)); Sodium 133 mmol/L (136-145); Total Protein 7.8 gm/dl (6.0-8.3)
[2022-06-03] MEDS ORDERED: HYDROmorphone INJ 0.5 MG/0.5 ML SYR IV STA (19:15)
[2022-06-03] MEDS ORDERED: ACETAMINOPHEN 500 MG TAB PO STA (20:05)
--- NOTE | 2022-06-03 21:01 | History & Physical Report ---
Date of Service June 03, 2022 Assessment & Plan (1) Kidney stone on left side: Plan: Worsening symptoms x >1 month, with CT A/P showing mild left hydroureteronephrosis secondary to an obstructing 6 mm stone at the distal left ureter. - s/p NSS 500cc bolus - continue with rocael maintenance IVFs: Normosol-R @175cc/hr - Levofloxacin 750mg IV daily for ppx and ?further treatment of UTI (see below) - gave Flomax 0.4mg PO, continue this daily for now - graduated PRN pain regimen: Tylenol 1g IV Q8H; Dilaudid 0.5mg IV Q3H - consult Urology - appreciate recs - NPO pending Urology consultation - strain urine - send for analysis if passes stone (2) UTI due to extended-spectrum beta lactamase (ESBL) producing Escherichia coli: Plan: History of ESBL UTI x2, most recently several week ago. Just finished Levofloxacin 1 week course today. Does have mild leukocytosis which may be due to ongoing infection. No sepsis. - continue Levofloxacin IV as stated above - obtain blood/urine cx - adjust abx as necessary - trend CBC in AM (3) NELLY (acute kidney injury): Plan: Cr 1.26, improved from 3.71 several weeks ago. Suspect post-renal injury due to obstruction in setting of above. Pre-renal injury due to decreased PO intake also may be playing a role. - IVFs - Urology consulted as stated above - avoid nephrotoxic agents - trend BMP in AM (4) Hyponatremia: Plan: Na 133, likely hypotonic hypovolemic hyponatremia due to dehdyration. - IVFs, trend in AM (5) Type 2 diabetes mellitus: Plan: A1c 7.6 in 05/2022). - SSI while hospitalized (6) Hypertension: Plan: Continue Diltiazem. Hold Losartan due to NELLY. (7) Hyperlipidemia: Plan: Continue home statin. (8) Esophageal reflux: Plan: Protonix per hospital formulary. Continue home Sucralfate. (9) Fibromyalgia: Plan: Continue home Gabapentin (10) Moderate obstructive sleep apnea: Plan: CPAP HS (11) Anemia: Plan: Hgb 11.1, ~at baseline. Has history of iron deficiency. - continue home ferrous sulfate Plan FEN/GI: NPO, Normosol-R @175cc/hr DVT Prophylaxis: SCDs, hold chemoppx pending Urology evaluation Code Status: full code Disposition: med/surg History of Present Illness Chief Complaint: kidney stone Primary Care Provider: Jade Owusu MD Aminah Klein is a 71yo female with PMHx significant for morbid obesity, T2DM (A1c 7.6 in 05/2022), h/o ESBL UTI, osteoarthritis, moderate GENEVIEVE, HTN, HLD, GERD, lumbar spinal stenosis (s/p decompression/fusion) and fibromyalgia who presented to [facility] ED on 06/03 for a kidney stone. Patient reports ~1-2 months of intermittent left flank pain that radiates to lower left abdomen. She saw her PCP on 05/20 and had blood work showing mild leukocytosis, significant NELLY with Cr 3.71 (normal baseline), and urine positive for ESBL E. coli. Patient was started on Levofloxacin on 05/27 x1 week - finished last dose earlier today. Patient reports that her pains have significantly increased and remained persistent throughout the day today, in addition with associated dysuria x1 day and nausea without vomiting, so she came in for evaluation. Patient denies fever/chills. Denies gross hematuria or malodorous urine. Denies chest pain, palpitations, vomiting, or rash. Patient denies alcohol/ smoking/drugs. Proficient in ADLs/iADLs. In the ED the patient was initially hypertensive to 226/78 but improved to 161/56 without medications. Also was borderline tachycardic at 98. Afebrile. Labs significant for WBC 11.6 (neutrophilic predominance and L shift). Hgb 11.1 (baseline). Na 133 (from 139 several weeks ago). Cr 1.26 (improved from 3.71 several weeks ago). CT A/P (done earlier in the day) showed mild left hydroureteronephrosis secondary to an obstructing 6 mm stone at the distal left ureter. (Also incidentally showed 9 mm left lower lobe pulmonary nodule dating back to 2019 - likely benign). Patient was given Tylenol 1g PO, Dilaudid total 1.5g, Zofran 4mg IV x2, and NSS 500cc bolus. Allergies Allergy/AdvReac Type Severity Reaction Status Date / Time black pepper Allergy Severe Difficulty Verified 06/03/22 20:21 Breathing cayenne pepper fruits Allergy Severe Swelling Verified 06/03/22 20:21 of Lip/Tongue/Throat pepper (genus Capsicum) Allergy Severe Swelling Verified 06/03/22 20:21 of Lip/Tongue/Throat pravastatin Allergy Severe urinary Verified 06/03/22 20:21 retention, SOB triamcinolone Allergy Severe anaphylaxis Verified 06/03/22 20:21 turmeric Allergy Severe throat Verified 06/03/22 20:21 swelling, SOB, red nose Food Allergy Severe Peppers Uncoded 06/03/22 20:21 (hot,cayenne,black)- throat swelling, SOB, red nose injectable steroird Allergy Severe Anaphylaxis Uncoded 06/03/22 20:21 Flu Virus Vaccine Allergy Unknown told to Uncoded 06/03/22 20:21 avoid (d/t hx sarcoidosis) VACCINES Allergy Unknown TOLD TO Uncoded 06/03/22 20:21 AVOID D/T SARCOIDOSIS Home Medications Medication Instructions Recorded Confirmed Type cyanocobalamin (vitamin B-12) 1,000 mcg PO QAM 03/27/19 06/03/22 History 1,000 mcg tablet (Vitamin B-12) multivitamin 1 tab PO QAM 03/27/19 06/03/22 History acetaminophen 650 mg 650 mg PO BID PRN Pain 04/26/19 06/03/22 History tablet,extended release cholecalciferol (vitamin D3) 125 125 mcg PO QAM 05/28/20 06/03/22 History mcg (5,000 unit) tablet (Vitamin D3) ascorbic acid (vitamin C) 1,000 mg 1 g PO QAM 08/01/20 06/03/22 History tablet (Vitamin C) ferrous sulfate 325 mg (65 mg 325 mg PO QAM 09/03/20 06/03/22 History iron) tablet Saccharomyces boulardii 250 mg 250 mg PO BID #20 caps 03/07/21 06/03/22 Rx capsule (Florastor) fluocinonide 0.05 % topical gel 1 applic topical BID PRN rash #30 06/17/21 06/03/22 Rx grams diclofenac sodium 1 % topical gel 2 g topical HS 07/02/21 06/03/22 History chlorthalidone 25 mg tablet 25 mg PO QAM PRN Fluid Retention 09/22/21 06/03/22 History pen needle, diabetic 32 gauge x #200 ea 11/27/21 04/03/22 Rx 1/6" (NovoFine Plus) cyclobenzaprine 5 mg tablet 5 mg PO TID PRN muscle spasm #30 12/03/21 06/03/22 Rx tabs gabapentin 300 mg capsule 300 mg PO HS #90 caps 01/07/22 06/03/22 Rx pentoxifylline 400 mg 400 mg PO DAILY #90 tabs 01/09/22 06/03/22 Rx tablet,extended release celecoxib 200 mg capsule (Celebrex) 200 mg PO DAILY #90 caps 01/14/22 06/03/22 Rx metformin 500 mg tablet 500 mg PO BID #180 tabs 01/14/22 06/03/22 Rx blood sugar diagnostic #400 ea 02/06/22 04/03/22 Rx tramadol 50 mg tablet 50 mg PO TID PRN pain #90 tabs 02/18/22 06/03/22 Rx sucralfate 1 gram tablet 1 g PO BID #60 tabs 04/03/22 06/03/22 Rx atorvastatin 10 mg tablet 10 mg PO DAILY #90 tabs 05/12/22 06/03/22 Rx diltiazem HCl 240 mg capsule,24 240 mg PO DAILY #90 caps 05/12/22 06/03/22 Rx hr,extended release (Tiadylt ER) losartan 100 mg tablet 100 mg PO DAILY #90 tabs 05/12/22 06/03/22 Rx omeprazole 20 mg capsule,delayed 20 mg PO BID #180 caps 05/12/22 06/03/22 Rx release levofloxacin 500 mg tablet 500 mg PO DAILY #7 tabs 05/28/22 06/03/22 Rx insulin aspar prot-insulin aspart 20 - 30 unit (0.2 - 0.3 mL) subcut 06/01/22 06/03/22 Rx 100 unit/mL (70-30) subcutaneous BID #60 mL pen (Novolog Mix 70-30FlexPen U-100) Past Med/Surg History Medical History Anemia Chronic diarrhea Diabetic neuropathy Esophageal reflux Fatty liver disease, nonalcoholic Fibromyalgia Hyperlipidemia Hypertension Lipodermatosclerosis Lumbar spinal stenosis Moderate obstructive sleep apnea CPAP Morbid obesity Osteoarthritis Periodic limb movement disorder Sarcoidosis history of - no active disease Type 2 diabetes mellitus Surgical History H/O tubal ligation H/O vaginal hysterectomy History of bladder surgery urethral repair History of colonoscopy History of esophagogastroduodenoscopy (EGD) History of hand surgery left trigger finger History of neck surgery biopsy- dx sarcoidosis History of temporal artery biopsy (09/25/21) Right Temporal Artery Biopsy(Right) - Aubrey Rubio DO 09-25-2021 Status post lumbar spine surgery for decompression of spinal cord L2-S1 decompression/fusion (08/21/20): Unable to pass ETT under DL. Glidescope 3 used easily + atraumatic (Grade view 1 with glidescope) Family History Father , age 86 - infection after heart surgery. GENEVIEVE. Diabetes Coronary heart disease Mother , age 82 - CHF Heart disease CHF (congestive heart failure) Aunt Family hx of colon cancer Colorectal cancer Sister Breast cancer Denies family history of Ovarian cancer Social History Smoking Status: Never smoker Second Hand Exposure: Yes ( used to smoke); Hx Alcohol Use: Yes Alcohol type: wine Hx Substance Use: No Preferred Language: Macedonian Communication Ability: Effective Hearing Ability: Normal Director Of Sustainability Programs Required: No Beliefs That Will Affect Care: None marital status: Current Living Situation: Alone current occupational status: retired Feels Safe at Home: Yes Safety Concerns: Feels Safe At This Time caffeine: Yes Seatbelt Use: always Sunscreen Use: No Assistive Devices: Cane Review of Systems Review of Systems: All systems reviewed & are unremarkable except as noted in HPI & below Physical Exam Physical Exam: General: A&Ox3. NAD. Cooperative. Morbidly obese. HEENT: Atraumatic, normocephalic. Pulm: CTAB A&P. -wheezes, -rales, -rhonchi. Symmetrical chest rise. No increase work of breathing. No respiratory distress. Cardiac: RRR, -mrg. Radial pulses intact and symmetrical. Abdominal: soft, non-distended, moderate tenderness to palpation of LLQ without rebound or guarding, BS x 4 Back: +left CVA tenderness Skin: warm, dry, no rash Results & Data Results & Data ([facility]) Vital Signs (Past 12 Hours) Vital Signs Temp Pulse Pulse Resp BP BP Pulse Ox 06/03/22 20:00 69 19 161/56 H 95 06/03/22 18:23 87 18 210/88 H 100 06/03/22 17:29 36.4 C L 98 H 22 226/78 H 99 O2 Del Method 06/03/22 20:00 Room Air 06/03/22 18:23 Room Air 06/03/22 17:29 Room Air Code Status & VTE Plan VTE Prophylaxis Plan VTE Prophylaxis will be ordered: Yes Supervising Physician Co-Signing Physician Notes Attending addendum: I have physically seen this patient, have supervised the medical residents activities, and agree with the H&P unless as otherwise noted. Assessment and Plan: Mild left hydroureteronephrosis/6 mm distal left ureteral stone- NPO Follow urine culture and sensitivity Tamsulosin 0.4 mg p.o. daily Acetaminophen 1 g IV every 8 hours as needed mild pain or fever Dilaudid 0.5 mg IV every 3 hours as needed moderate to severe pain History of ESBL UTI Levofloxacin 750 mg IV daily Urology consultation Remaining orders and notations as noted Resident Activity Tracking Resident Involvement: Resident Care Provided Care Provided: Adult Hospital Medicine
[2022-06-03] MEDS ORDERED: TAMSULOSIN HCL 0.4 MG CAP PO ONE (21:27)
[2022-06-03] MEDS ORDERED: ACETAMINOPHEN 1000 MG/100 ML IV IV PRN (22:14)
[2022-06-03] MEDS ORDERED: HYDROmorphone INJ 0.5 MG/0.5 ML SYR IV PRN (22:14)
[2022-06-03 22:35] LABS: Appearance Urine Clear (Clear); Bacteria Urine Automated Negative (Negative); Bilirubin Urine Negative (Negative); Blood Urine Negative (Negative); Cast Urine Automated 0 /lpf (0-5); Color Urine Yellow; Epithelial Cell Urine Auto 20-30 /lpf (0-5); Glucose Urine UA Negative (Negative); Ketones Urine Negative (Negative); Leukocyte Esterase Urine Negative (Negative); Nitrite Urine Negative (Negative); Protein Urine Trace (Negative); RBC Urine Automated 0-4 /hpf (0-4); Specific Gravity Urine 1.014 (1.000-1.030); Urobilinogen Urine Negative (Negative); pH Urine 5.5 (4.5-7.5)
[2022-06-03] MEDS: NORMOSOL-R 1,000 ML IV SCH (22:39)
[2022-06-03] MEDS ORDERED: GLUCAGON FOR INJ 1 MG VIAL SQ PRN (22:51)
[2022-06-03] MEDS ORDERED: GLUCOSE 40% GEL 15 GM TUBE PO PRN (22:51)
[2022-06-03] MEDS ORDERED: GLUCOSE 10 TAB/TUBE PO PRN (22:51)
[2022-06-03] MEDS ORDERED: CARBOHYDRATES FOR HYPOGLYCEMIA PO PRN (22:51)
[2022-06-03] MEDS ORDERED: DEXTROSE 50% 50 ML SYRINGE IV PRN (22:51)
[2022-06-03] MEDS ORDERED: Nursing to Pharmacy Communication SCH (23:15)
[2022-06-04] MEDS: INSULIN ASPART PER UNIT SC SCH ×5 (00:10→21:20)
[2022-06-04] MEDS: dilTIAZem ER 120 MG CAPCR PO SCH ×2 (00:37→21:25)
[2022-06-04] MEDS: SUCRALFATE 1 GM TAB PO SCH ×3 (00:37→21:25)
[2022-06-04] MEDS: GABAPENTIN 300 MG CAP PO SCH ×2 (00:38→21:25)
[2022-06-04] MEDS: levoFLOXacin/D5W 750 MG/150 ML BAG IV SCH ×2 (01:01→22:55)
[2022-06-04] MEDS: NORMOSOL-R 1,000 ML IV SCH ×3 (04:11→16:15)
[2022-06-04 06:23] LABS: Basophils # (auto) 0.03 K/uL (0-0.2); Basophils % (auto) 0.3 %; Eosinophils # (auto) 0.09 K/uL (0-0.50); Eosinophils % (auto) 0.8 %; Hematocrit (blood only) 33.3 % (34.1-44.9); Hemoglobin 10.5 g/dl (12.0-16.0); Immature Granulocytes # (auto) 0.05 K/uL (0.00-0.02); Immature Granulocytes % (auto) 0.4 %; Lymphocytes # (auto) 2.23 K/uL (1.2-3.4); Lymphocytes % (auto) 20.1 %; Mean Corpuscular Hemoglobin 26.6 pg (25.0-34.0); Mean Corpuscular Hgb Conc 31.5 g/dL (32.0-36.0); Mean Corpuscular Volume 84.3 fL (80.0-100.0); Mean Platelet Volume 10.4 fL (9.4-12.3); Monocytes % (auto) 7.2 %; Neutrophils # (auto) 7.92 K/uL (1.4-6.5); Neutrophils % (auto) 71.2 %; Platelet Count 224 K/uL (130-400); RDW Coefficient of Variation 14.5 % (11.5-14.5); RDW Standard Deviation 44.6 fL (36.4-46.3); Red Blood Count 3.95 M/uL (3.93-5.22); White Blood Count 11.12 K/ul (4.8-10.8)
[2022-06-04 06:54] LABS: Calcium 8.4 mg/dl (8.5-10.1); Creatinine Clr Calc Pharmacy 71.5 ml/min; Est GFR (Non-African American) 53.5 ml/min; Magnesium 1.5 mg/dl (1.7-2.4); Potassium 4.1 mmol/L (3.5-5.1)
[2022-06-04] MEDS ORDERED: INSULIN ASPART PER UNIT SC SCH (07:30)
--- NOTE | 2022-06-04 08:13 | Urology Consultation ---
Date of Consultation June 04, 2022 Assessment & Plan (1) Left ureteral stone: (2) Flank pain: Plan 71 y/o F admitted with intractable left flank pain secondary to a 6 mm left distal ureteral stone with hydronephrosis -Plan of care and imaging reviewed with Dr. Lewis. -Patient feeling well, currently asymptomatic. Denies any stone passage. -Afebrile, hemodynamically stable, non-toxic appearing. -Labs reviewed-White count 11.12, creatinine down to 1.06. -Recent urine culture from 05/26 with E. coli ESBL. Treated as outpatient x1 week with Levofloxacin. -Blood cultures pending. On IV levofloxacin, follow cultures. -Discussed option for acute stone management with cystoscopy and stent placement. Ureteral stents were discussed as well as postoperative issues and pain management. Also discussed trial of passage with max expulsion therapy and symptom control given size and location of stone. Risks and benefits of each discussed. All questions were answered. -Patient elects trial of passage with max expulsion therapy and symptom control. -No acute intervention planned at this time. Okay to have diet back. -Continue supportive care, tamsulosin, and prn pain control. -Will arrange outpatient follow-up with our service for stone management. -Worrisome signs/symptoms reviewed. She verbalized an understanding, all questions were answered. -Urology will follow peripherally. Please contact us with any further questions, concerns, or changes in patient status. Supervising Physician Co-Signing Physician Notes Discussed patient with HALIMA. Agree with plan. Patient showing no signs of infection and voices desire to not have a stent placed. There is a reasonable likelihood that she will pass this on her own. We will follow her in the hospital to ensure no infection and if she remains stable, can attempt to pass the stone on her own when we will see her in short follow-up with repeat imaging. History of Present Illness Reason for Consultation: Left ureteral stone with hydronephrosis Attending Physician: Florin Leyva MD History of Present Illness 71yo female with PMHx significant for morbid obesity, T2DM, h/o ESBL UTI, osteoarthritis, moderate GENEVIEVE, HTN, HLD, GERD, lumbar spinal stenosis (s/p decompression/fusion) and fibromyalgia who presented to the ED with severe left flank pain that radiates to lower left abdomen. Patient reported approximately 1 to 2 months of intermittent left flank pain. She saw her PCP earlier this month and had lab work showing mild leukocytosis, significant NELLY with creatinine 3.71, and a urine culture positive for ESBL E. coli. She was treated with levofloxacin x1 week which she finished yesterday. Her pain significantly increased and remained persistent yesterday which prompted her visit to the ED. A CTAP was obtained on arrival and notable for a 6 mm stone at the distal left ureter with mild left-sided hydronephrosis. In ED, she was initially hypertensive but improved without medications. Afebrile. Labs significant for white blood cell 11.6, creatinine 1.26. Urinalysis was unremarkable. She was treated with analgesics, antiemetics, and admitted to medicine for further management. Urology consulted for ureteral stone with hydronephrosis. Patient examined at bedside this AM. Awake, resting in bed on arrival. Appears comfortable, in no acute distress. Reports she is feeling much better. Denies any pain or discomfort at present. Denies any stone passage. Denies hematuria or dysuria. Feels she is emptying her bladder without difficulty. No fevers or chills. No nausea or vomiting. Has been NPO. Patient denies a history of stones. History of urethral repair at [facility] in 2004. Reports her daughter has a history of stones. CT abdomen pelvis - 1. Mild left hydroureteronephrosis secondary to an obstructing 6 mm stone at the distal left ureter. 2. No bowel wall thickening or obstruction. 3. Normal appendix. 4. Stable 9 mm left lower lobe pulmonary nodule dating back to 2019. Therefore, this is likely benign. Allergies Allergy/AdvReac Type Severity Reaction Status Date / Time black pepper Allergy Severe Difficulty Verified 06/03/22 20:21 Breathing cayenne pepper fruits Allergy Severe Swelling Verified 06/03/22 20:21 of Lip/Tongue/Throat pepper (genus Capsicum) Allergy Severe Swelling Verified 06/03/22 20:21 of Lip/Tongue/Throat pravastatin Allergy Severe urinary Verified 06/03/22 20:21 retention, SOB triamcinolone Allergy Severe anaphylaxis Verified 06/03/22 20:21 turmeric Allergy Severe throat Verified 06/03/22 20:21 swelling, SOB, red nose Food Allergy Severe Peppers Uncoded 06/03/22 20:21 (hot,cayenne,black)- throat swelling, SOB, red nose injectable steroird Allergy Severe Anaphylaxis Uncoded 06/03/22 20:21 Flu Virus Vaccine Allergy Unknown told to Uncoded 06/03/22 20:21 avoid (d/t hx sarcoidosis) VACCINES Allergy Unknown TOLD TO Uncoded 06/03/22 20:21 AVOID D/T SARCOIDOSIS Home Medications Medication Instructions Recorded Confirmed Type cyanocobalamin (vitamin B-12) 1,000 mcg PO QAM 03/27/19 06/03/22 History 1,000 mcg tablet (Vitamin B-12) multivitamin 1 tab PO QAM 03/27/19 06/03/22 History acetaminophen 650 mg 650 mg PO BID PRN Pain 04/26/19 06/03/22 History tablet,extended release cholecalciferol (vitamin D3) 125 125 mcg PO QAM 05/28/20 06/03/22 History mcg (5,000 unit) tablet (Vitamin D3) ascorbic acid (vitamin C) 1,000 mg 1 g PO QAM 08/01/20 06/03/22 History tablet (Vitamin C) ferrous sulfate 325 mg (65 mg 325 mg PO QAM 09/03/20 06/03/22 History iron) tablet Saccharomyces boulardii 250 mg 250 mg PO BID #20 caps 03/07/21 06/03/22 Rx capsule (Florastor) fluocinonide 0.05 % topical gel 1 applic topical BID PRN rash #30 06/17/21 06/03/22 Rx grams diclofenac sodium 1 % topical gel 2 g topical HS 07/02/21 06/03/22 History chlorthalidone 25 mg tablet 25 mg PO QAM PRN Fluid Retention 09/22/21 06/03/22 History pen needle, diabetic 32 gauge x #200 ea 11/27/21 04/03/22 Rx 1/6" (NovoFine Plus) cyclobenzaprine 5 mg tablet 5 mg PO TID PRN muscle spasm #30 12/03/21 06/03/22 Rx tabs gabapentin 300 mg capsule 300 mg PO HS #90 caps 01/07/22 06/03/22 Rx pentoxifylline 400 mg 400 mg PO DAILY #90 tabs 01/09/22 06/03/22 Rx tablet,extended release celecoxib 200 mg capsule (Celebrex) 200 mg PO DAILY #90 caps 01/14/22 06/03/22 Rx metformin 500 mg tablet 500 mg PO BID #180 tabs 01/14/22 06/03/22 Rx blood sugar diagnostic #400 ea 02/06/22 04/03/22 Rx tramadol 50 mg tablet 50 mg PO TID PRN pain #90 tabs 02/18/22 06/03/22 Rx sucralfate 1 gram tablet 1 g PO BID #60 tabs 04/03/22 06/03/22 Rx atorvastatin 10 mg tablet 10 mg PO DAILY #90 tabs 05/12/22 06/03/22 Rx diltiazem HCl 240 mg capsule,24 240 mg PO DAILY #90 caps 05/12/22 06/03/22 Rx hr,extended release (Tiadylt ER) losartan 100 mg tablet 100 mg PO DAILY #90 tabs 05/12/22 06/03/22 Rx omeprazole 20 mg capsule,delayed 20 mg PO BID #180 caps 05/12/22 06/03/22 Rx release levofloxacin 500 mg tablet 500 mg PO DAILY #7 tabs 05/28/22 06/03/22 Rx insulin aspar prot-insulin aspart 20 - 30 unit (0.2 - 0.3 mL) subcut 06/01/22 06/03/22 Rx 100 unit/mL (70-30) subcutaneous BID #60 mL pen (Novolog Mix 70-30FlexPen U-100) Patient History Medical History Anemia Chronic diarrhea Diabetic neuropathy Esophageal reflux Fatty liver disease, nonalcoholic Fibromyalgia Hyperlipidemia Hypertension Lipodermatosclerosis Lumbar spinal stenosis Moderate obstructive sleep apnea CPAP Morbid obesity Osteoarthritis Periodic limb movement disorder Sarcoidosis history of - no active disease Type 2 diabetes mellitus Surgical History H/O tubal ligation H/O vaginal hysterectomy History of bladder surgery urethral repair History of colonoscopy History of esophagogastroduodenoscopy (EGD) History of hand surgery left trigger finger History of neck surgery biopsy- dx sarcoidosis History of temporal artery biopsy (09/25/21) Right Temporal Artery Biopsy(Right) - Aubrey Rubio DO 09-25-2021 Status post lumbar spine surgery for decompression of spinal cord L2-S1 decompression/fusion (08/21/20): Unable to pass ETT under DL. Glidescope 3 used easily + atraumatic (Grade view 1 with glidescope) Family History Father , age 86 - infection after heart surgery. GENEVIEVE. Diabetes Coronary heart disease Mother , age 82 - CHF Heart disease CHF (congestive heart failure) Aunt Family hx of colon cancer Colorectal cancer Sister Breast cancer Denies family history of Ovarian cancer Social History Smoking Status: Never smoker Second Hand Exposure: Yes ( used to smoke); Hx Alcohol Use: Yes Alcohol type: wine Hx Substance Use: No Preferred Language: Wolof Communication Ability: Effective Hearing Ability: Normal Ground Host/Hostess Required: No Beliefs That Will Affect Care: None marital status: Current Living Situation: Alone current occupational status: retired Feels Safe at Home: Yes Safety Concerns: Feels Safe At This Time caffeine: Yes Seatbelt Use: always Sunscreen Use: No Assistive Devices: Cane Review of Systems Review of Systems: All systems reviewed & are unremarkable except as noted in HPI & below Physical Exam Constitutional: well developed, well nourished and + obese; no acute distress Neck: normal visual inspection Respiratory: normal respiratory effort; no respiratory distress and no labored breathing Gastrointestinal (Abdomen): Inspection/Auscultation: abdomen normal to inspection; abdomen not distended Musculoskeletal: Head/Neck/Chest: normocephalic Extremities: extremities normal to inspection Skin: No visible rashes or lesions to exposed skin areas Neurologic: awake Psychiatric: A+Ox3, euthymic affect Genitourinary: no CVA tenderness Results & Data ([facility]) Vital Signs (Past 12 Hours) Vital Signs Temp Pulse Resp BP Pulse Ox O2 Del Method 06/04/22 07:50 36.4 C L 65 16 166/68 H 97 Room Air 06/04/22 05:52 77 148/78 H 06/03/22 22:25 36.6 C 75 18 189/81 H 98 Room Air PG Care Time/CCT Total # of Minutes Spent Total Time Spent with Patient: Total time spent is greater than 50% in coordination of care (as documented) at patient's floor/unit and/or counseling patient: Coding Level of Care Code 49915 Initial Inpt Care Lvl 2 Diagnoses Left ureteral stone N20.1 Flank pain R10.9
[2022-06-04] MEDS: PENTOXIFYLLINE 400MG EXT REL TAB PO SCH (08:15)
[2022-06-04] MEDS: CYANOCOBALAMIN (B-12) 500 MCG TABLET PO SCH (08:15)
[2022-06-04] MEDS: CHOLECALCIFEROL 5,000 UNITS 125 MCG TAB PO SCH (08:15)
[2022-06-04] MEDS: FERROUS SULFATE 325 MG TAB PO SCH (08:15)
[2022-06-04] MEDS: TAMSULOSIN HCL 0.4 MG CAP PO SCH (08:15)
[2022-06-04] MEDS ORDERED: ATORVASTATIN 10 MG TAB PO SCH (09:00)
[2022-06-04] MEDS: MAGNESIUM SULFATE / D5W 1 GM/100 ML BAG IV SCH ×3 (09:51→13:48)
[2022-06-04] MEDS ORDERED: Nursing to Pharmacy Communication SCH (11:00)
[2022-06-04] MEDS ORDERED: hydrALAZINE HCL 25 MG TAB PO STA (16:21)
--- NOTE | 2022-06-04 17:49 | Hospitalist Progress Note ---
Date of Service June 04, 2022 Assessment & Plan (1) Left ureteral stone: Plan: Urology consult noted and appreciated; noted plancut back IV fluid and observe (2) Anemia: Plan: Slightly lower hemoglobin noted, follow, outpatient follow-up (3) NELLY (acute kidney injury): Plan: Improved, continue volume, unilateral obstruction should not do it but may be multifactorialhypovolemia, possibly infective physiology, and some urinary tract obstruction (4) Type 2 diabetes mellitus: Plan: Fluctuating sugars, continue SSI and observe (5) Morbid obesity: Plan: Adds to risks and complexitylifestyle modification (6) Moderate obstructive sleep apnea: Plan: Continue NIV at night (7) Hypertension: Plan: Losartan on hold, hydralazine added (8) Esophageal reflux: Plan: Continue home PPI and sucralfate (9) Fibromyalgia: Plan: Continue gabapentin (10) Hyperlipidemia: Plan: Continue statin (11) UTI due to extended-spectrum beta lactamase (ESBL) producing Escherichia coli: Plan: At present not symptomatic as such; complete course Admission and Anticipated Discharge Date Admission Date: June 03, 2022 Physical Exam Physical Exam: Constitutional and general: No acute distress, looks biologic age Head and face: No puffiness, atraumatic Eyes: No scleral icterus, extraocular movements normal Neck: Supple, no JVD Musculoskeletal: No acute joint swelling, no bony abnormalities Skin/dermatologic/integument: No rash, no purpura Hematologic and lymphatic: pallor +, no petechia Gastrointestinal/abdomen: Nondistended, soft, nonacute Neurologic: Cranial nerves intact, nonfocal Psychiatry: Awake, alert, pleasant, communicative Cardiovascular: Heart rhythm regular, no rub, no murmur, no gallop Respiratory: Chest movements equal, no use of accessory muscles, no adventitious sounds Extremities: No edema, no cyanosis Results & Data Results & Data ([facility]) Vital Signs (Past 12 Hours) Vital Signs Temp Pulse Resp BP Pulse Ox O2 Del Method 06/04/22 15:57 36.6 C 73 16 190/74 H 97 Room Air 06/04/22 07:50 36.4 C L 65 16 166/68 H 97 Room Air 06/04/22 05:52 77 148/78 H Laboratory Results Laboratory Results - last 24 hr 06/03/22 06/03/22 06/03/22 18:10 18:10 18:10 WBC 11.60 H RBC 4.20 Hgb 11.1 L Hct 35.7 MCV 85.0 MCH 26.4 MCHC 31.1 L RDW Std Deviation 45.2 RDW Coeff of Cecile 14.6 H Plt Count 262 MPV 10.5 Immature Gran % (Auto) 0.5 Neut % (Auto) 74.2 Lymph % (Auto) 17.2 [place] % (Auto) 7.1 Eos % (Auto) 0.7 Baso % (Auto) 0.3 Neut # (Auto) 8.61 H Lymph # (Auto) 2.00 [place] # (Auto) 0.82 Eos # (Auto) 0.08 Baso # (Auto) 0.03 Immature Gran # (Auto) 0.06 H Sodium 133 L Potassium 4.0 Chloride 98 Carbon Dioxide 27 Anion Gap 8 BUN 22 Creatinine 1.26 H Est Cr Clr Drug Dosing Not Reportable Est GFR ( Amer) 50.3 Est GFR (Non-Af Amer) 43.4 BUN/Creatinine Ratio 17.5 Glucose 195 H POC Glucose Calcium 8.8 Magnesium 1.5 L Total Bilirubin 0.4 AST 15 ALT 9 Alkaline Phosphatase 56 Total Protein 7.8 Albumin 4.0 Globulin 3.8 Albumin/Globulin Ratio 1.1 Urine Color Urine Appearance Urine pH Ur Specific Smiley Urine Protein Urine Glucose (UA) Urine Ketones Urine Blood Urine Nitrite Urine Bilirubin Urine Urobilinogen Ur Leukocyte Esterase Urine WBC (Auto) Urine RBC (Auto) U Hyaline Cast (Auto) U Epithel Cells (Auto) Urine Bacteria (Auto) SARS-CoV-2, RNA, NAAT 06/03/22 06/03/22 06/04/22 19:47 19:47 00:00 WBC RBC Hgb Hct MCV MCH MCHC RDW Std Deviation RDW Coeff of Cecile Plt Count MPV Immature Gran % (Auto) Neut % (Auto) Lymph % (Auto) [place] % (Auto) Eos % (Auto) Baso % (Auto) Neut # (Auto) Lymph # (Auto) [place] # (Auto) Eos # (Auto) Baso # (Auto) Immature Gran # (Auto) Sodium Potassium Chloride Carbon Dioxide Anion Gap BUN Creatinine Est Cr Clr Drug Dosing Est GFR ( Amer) Est GFR (Non-Af Amer) BUN/Creatinine Ratio Glucose POC Glucose 182 H Calcium Magnesium Total Bilirubin AST ALT Alkaline Phosphatase Total Protein Albumin Globulin Albumin/Globulin Ratio Urine Color Yellow Urine Appearance Clear Urine pH 5.5 Ur Specific [place]iley 1.014 Urine Protein Trace H Urine Glucose (UA) Negative Urine Ketones Negative Urine Blood Negative Urine Nitrite Negative Urine Bilirubin Negative Urine Urobilinogen Negative Ur Leukocyte Esterase Negative Urine WBC (Auto) 1-5 Urine RBC (Auto) 0-4 U Hyaline Cast (Auto) 0 U Epithel Cells (Auto) 20-30 H Urine Bacteria (Auto) Negative SARS-CoV-2, RNA, NAAT NEGATIVE 06/04/22 06/04/22 06/04/22 05:51 06:07 06:07 WBC 11.12 H RBC 3.95 Hgb 10.5 L Hct 33.3 L MCV 84.3 MCH 26.6 MCHC 31.5 L RDW Std Deviation 44.6 RDW Coeff of Cecile 14.5 Plt Count 224 MPV 10.4 Immature Gran % (Auto) 0.4 Neut % (Auto) 71.2 Lymph % (Auto) 20.1 [place] % (Auto) 7.2 Eos % (Auto) 0.8 Baso % (Auto) 0.3 Neut # (Auto) 7.92 H Lymph # (Auto) 2.23 [place] # (Auto) 0.80 Eos # (Auto) 0.09 Baso # (Auto) 0.03 Immature Gran # (Auto) 0.05 H Sodium 137 Potassium 4.1 Chloride 103 Carbon Dioxide 28 Anion Gap 6 BUN 18 Creatinine 1.06 Est Cr Clr Drug Dosing 71.5 Est GFR ( Amer) 62.0 Est GFR (Non-Af Amer) 53.5 BUN/Creatinine Ratio 17.0 Glucose 150 H POC Glucose 152 H Calcium 8.4 L Magnesium 1.5 L Total Bilirubin AST ALT Alkaline Phosphatase Total Protein Albumin Globulin Albumin/Globulin Ratio Urine Color Urine Appearance Urine pH Ur Specific Smiley Urine Protein Urine Glucose (UA) Urine Ketones Urine Blood Urine Nitrite Urine Bilirubin Urine Urobilinogen Ur Leukocyte Esterase Urine WBC (Auto) Urine RBC (Auto) U Hyaline Cast (Auto) U Epithel Cells (Auto) Urine Bacteria (Auto) SARS-CoV-2, RNA, NAAT 06/04/22 06/04/22 11:57 17:00 WBC RBC Hgb Hct MCV MCH MCHC RDW Std Deviation RDW Coeff of Cecile Plt Count MPV Immature Gran % (Auto) Neut % (Auto) Lymph % (Auto) [place] % (Auto) Eos % (Auto) Baso % (Auto) Neut # (Auto) Lymph # (Auto) [place] # (Auto) Eos # (Auto) Baso # (Auto) Immature Gran # (Auto) Sodium Potassium Chloride Carbon Dioxide Anion Gap BUN Creatinine Est Cr Clr Drug Dosing Est GFR ( Amer) Est GFR (Non-Af Amer) BUN/Creatinine Ratio Glucose POC Glucose 230 H 146 H Calcium Magnesium Total Bilirubin AST ALT Alkaline Phosphatase Total Protein Albumin Globulin Albumin/Globulin Ratio Urine Color Urine Appearance Urine pH Ur Specific Smiley Urine Protein Urine Glucose (UA) Urine Ketones Urine Blood Urine Nitrite Urine Bilirubin Urine Urobilinogen Ur Leukocyte Esterase Urine WBC (Auto) Urine RBC (Auto) U Hyaline Cast (Auto) U Epithel Cells (Auto) Urine Bacteria (Auto) SARS-CoV-2, RNA, NAAT PG Care Time/CCT Total # of Minutes Spent Total Time Spent with Patient: Total time spent is greater than 50% in coordination of care (as documented) at patient's floor/unit and/or counseling patient: Coding Level of Care Code 46391 Subseq Hosp Care Lvl 2 Diagnoses Left ureteral stone N20.1 Anemia D64.9 NELLY (acute kidney injury) N17.9 Type 2 diabetes mellitus E11.9 Morbid obesity E66.01 Moderate obstructive sleep apnea G47.33 Hypertension I10 Esophageal reflux K21.9 Fibromyalgia M79.7 Hyperlipidemia E78.5 UTI due to extended-spectrum beta lactamase (ESBL) producing Escherichia coli N39.0; B96.29; Z16.12
[2022-06-04] MEDS: ATORVASTATIN 10 MG TAB PO SCH (21:24)
--- NOTE | 2022-06-04 21:33 | Billing Data ---
Date of Service June 04, 2022 Coding Level of Care Code 27246 Initial Inpt Care Lvl 2
[2022-06-04] MEDS: hydrALAZINE HCL 25 MG TAB PO SCH (22:09)
[2022-06-05] MEDS: NORMOSOL-R 1,000 ML IV SCH (02:06)
[2022-06-05 06:22] LABS: Basophils # (auto) 0.04 K/uL (0-0.2); Basophils % (auto) 0.4 %; Eosinophils # (auto) 0.12 K/uL (0-0.50); Eosinophils % (auto) 1.2 %; Hemoglobin 10.3 g/dl (12.0-16.0); Immature Granulocytes # (auto) 0.05 K/uL (0.00-0.02); Immature Granulocytes % (auto) 0.5 %; Lymphocytes # (auto) 2.94 K/uL (1.2-3.4); Lymphocytes % (auto) 30.4 %; Mean Corpuscular Hemoglobin 26.8 pg (25.0-34.0); Mean Corpuscular Hgb Conc 32.2 g/dL (32.0-36.0); Mean Corpuscular Volume 83.3 fL (80.0-100.0); Mean Platelet Volume 10.6 fL (9.4-12.3); Monocytes # (auto) 0.78 K/uL (0.24-0.82); Monocytes % (auto) 8.1 %; Neutrophils # (auto) 5.73 K/uL (1.4-6.5); Neutrophils % (auto) 59.4 %; Platelet Count 234 K/uL (130-400); RDW Coefficient of Variation 14.7 % (11.5-14.5); RDW Standard Deviation 45.1 fL (36.4-46.3); Red Blood Count 3.84 M/uL (3.93-5.22); White Blood Count 9.66 K/ul (4.8-10.8)
[2022-06-05 06:51] LABS: BUN Creatinine Ratio 16.5 (10-20); Calcium 8.7 mg/dl (8.5-10.1); Creatinine Clr Calc Pharmacy 78.1 ml/min; Est GFR (African American) 69.1 ml/min; Est GFR (Non-African American) 59.6 ml/min; Potassium 4.2 mmol/L (3.5-5.1)
[2022-06-05] MEDS ORDERED: NITROGLYCERIN SL 0.4 MG/TAB TAB SL STA (07:55)
[2022-06-05] MEDS ORDERED: ASPIRIN 81 MG CHEW PO STA (07:55)
[2022-06-05] MEDS ORDERED: MoRPHine SULFATE 2 MG/ML CARP IV STA (07:55)
[2022-06-05] MEDS: SUCRALFATE 1 GM TAB PO SCH ×2 (08:21→20:37)
[2022-06-05] MEDS: FERROUS SULFATE 325 MG TAB PO SCH (08:21)
[2022-06-05] MEDS: CHOLECALCIFEROL 5,000 UNITS 125 MCG TAB PO SCH (08:21)
[2022-06-05] MEDS: hydrALAZINE HCL 25 MG TAB PO SCH ×3 (08:21→20:37)
[2022-06-05] MEDS: CYANOCOBALAMIN (B-12) 500 MCG TABLET PO SCH (08:21)
[2022-06-05] MEDS: TAMSULOSIN HCL 0.4 MG CAP PO SCH (08:21)
[2022-06-05] MEDS: PENTOXIFYLLINE 400MG EXT REL TAB PO SCH (08:21)
--- NOTE | 2022-06-05 08:38 | Hospitalist Progress Note ---
Date of Service June 05, 2022 Assessment & Plan (1) Chest pain: Plan: Clinically noncardiac; EKG nonacute per troponin, D-dimer, telemetry, aspirin given; lipid panel in a.m., echo (2) Kidney stone on left side: Plan: Worsening symptoms x >1 month, with CT A/P showing mild left hydroureteronephrosis secondary to an obstructing 6 mm stone at the distal left ureter. - s/p NSS 500cc bolus - continue with rocael maintenance IVFs: Normosol-R @175cc/hr - Levofloxacin 750mg IV daily for ppx and ?further treatment of UTI (see below) - gave Flomax 0.4mg PO, continue this daily for now - graduated PRN pain regimen: Tylenol 1g IV Q8H; Dilaudid 0.5mg IV Q3H - consult Urology - appreciate recs - NPO pending Urology consultation - strain urine - send for analysis if passes stone (3) UTI due to extended-spectrum beta lactamase (ESBL) producing Escherichia coli: Plan: Provisionally complete about 10 days treatment (4) NELLY (acute kidney injury): Plan: Improved, remains off ARB, observe (5) Type 2 diabetes mellitus: Plan: A1c 7.6 in 05/2022). - SSI while hospitalized (6) Hypertension: Plan: HiatalContinue Diltiazem. Hold Losartan due to NELLY; added hydralazineincreased dose (7) Hyperlipidemia: Plan: Continue home statin. (8) Esophageal reflux: Plan: Protonix per hospital formulary. Continue home Sucralfate. (9) Fibromyalgia: Plan: Continue home Gabapentin (10) Moderate obstructive sleep apnea: Plan: CPAP HS (11) Anemia: Plan: Hgb 11.1, ~at baseline. Has history of iron deficiency. - continue home ferrous sulfate; no overt bleeding; follow Admission and Anticipated Discharge Date Admission Date: June 03, 2022 Subjective Follow-up of original presentation with left flank painsame resolved but chest pain this a.m.; resolved by the time I went; no clear shortness of breath Physical Exam Physical Exam: Constitutional and general: No acute distress, looks biologic age Head and face: No puffiness, atraumatic Eyes: No scleral icterus, extraocular movements normal Neck: Supple, no JVD Musculoskeletal: No acute joint swelling, no bony abnormalities Skin/dermatologic/integument: No rash, no purpura Hematologic and lymphatic: pallor +, no petechia Gastrointestinal/abdomen: Nondistended, soft, nonacute Neurologic: Cranial nerves intact, nonfocal Psychiatry: Awake, alert, pleasant, communicative Cardiovascular: Heart rhythm regular, no rub, no murmur, no gallop Respiratory: Chest movements equal, no use of accessory muscles, no adventitious sounds Extremities: No edema, no cyanosis Results & Data Results & Data ([facility]) Vital Signs (Past 12 Hours) Vital Signs Temp Pulse Pulse Resp BP Pulse Ox O2 Del Method 06/05/22 08:09 36.4 C L 76 18 183/68 H 93 Room Air 06/05/22 07:32 36.5 C 68 18 159/73 H 96 Room Air 06/05/22 03:30 70 16 95 06/04/22 21:58 77 16 96 06/04/22 23:03 71 161/78 H 06/04/22 21:09 36.6 C 77 16 182/90 H 96 Room Air Laboratory Results Laboratory Results - last 24 hr 06/04/22 06/04/22 06/04/22 11:57 17:00 20:26 WBC RBC Hgb Hct MCV MCH MCHC RDW Std Deviation RDW Coeff of Cecile Plt Count MPV Immature Gran % (Auto) Neut % (Auto) Lymph % (Auto) [place] % (Auto) Eos % (Auto) Baso % (Auto) Neut # (Auto) Lymph # (Auto) [place] # (Auto) Eos # (Auto) Baso # (Auto) Immature Gran # (Auto) Sodium Potassium Chloride Carbon Dioxide Anion Gap BUN Creatinine Est Cr Clr Drug Dosing Est GFR ( Amer) Est GFR (Non-Af Amer) BUN/Creatinine Ratio Glucose POC Glucose 230 H 146 H 199 H Calcium 06/05/22 06/05/22 06/05/22 05:49 05:49 07:57 WBC 9.66 RBC 3.84 L Hgb 10.3 L Hct 32.0 L MCV 83.3 MCH 26.8 MCHC 32.2 RDW Std Deviation 45.1 RDW Coeff of Cecile 14.7 H Plt Count 234 MPV 10.6 Immature Gran % (Auto) 0.5 Neut % (Auto) 59.4 Lymph % (Auto) 30.4 [place] % (Auto) 8.1 Eos % (Auto) 1.2 Baso % (Auto) 0.4 Neut # (Auto) 5.73 Lymph # (Auto) 2.94 [place] # (Auto) 0.78 Eos # (Auto) 0.12 Baso # (Auto) 0.04 Immature Gran # (Auto) 0.05 H Sodium 137 Potassium 4.2 Chloride 102 Carbon Dioxide 29 Anion Gap 6 BUN 16 Creatinine 0.97 Est Cr Clr Drug Dosing 78.1 Est GFR ( Amer) 69.1 Est GFR (Non-Af Amer) 59.6 BUN/Creatinine Ratio 16.5 Glucose 165 H POC Glucose 173 H Calcium 8.7 PG Care Time/CCT Total # of Minutes Spent Total Time Spent with Patient: Total time spent is greater than 50% in coordination of care (as documented) at patient's floor/unit and/or counseling patient: Coding Level of Care Code 44979 Subseq Hosp Care Lvl 2 Diagnoses Chest pain R07.9 Kidney stone on left side N20.0 UTI due to extended-spectrum beta lactamase (ESBL) producing Escherichia coli N39.0; B96.29; Z16.12 NELLY (acute kidney injury) N17.9 Type 2 diabetes mellitus E11.9 Hypertension I10 Hyperlipidemia E78.5 Esophageal reflux K21.9 Fibromyalgia M79.7 Moderate obstructive sleep apnea G47.33 Anemia D64.9
[2022-06-05] MEDS: PANTOprazole 40 MG TAB PO SCH (09:20)
[2022-06-05] MEDS: ENOXAPARIN INJ 40 MG/0.4 ML SYR SQ SCH ×2 (09:20→20:39)
[2022-06-05] MEDS: INSULIN ASPART PER UNIT SC SCH ×4 (09:25→20:37)
--- NOTE | 2022-06-05 09:31 | Urology Progress Note ---
Date of Service June 05, 2022 Assessment & Plan (1) Left ureteral stone: (2) Flank pain: Plan 71 y/o F admitted with intractable left flank pain secondary to a 6 mm left distal ureteral stone with hydronephrosis -Afebrile, hemodynamically stable, non-toxic appearing. -Labs reviewed-White count 9.66, creatinine 0.97. -Recent urine culture from 05/26 with E. coli ESBL. Treated as outpatient x1 week with Levofloxacin. -Blood cultures no growth x 24 hours. On IV levofloxacin, follow cultures. -Patient remains stable and asymptomatic from a standpoint. She prefers to continue with trial of passage with max expulsion therapy and symptom control. -No acute intervention planned at this time. -Continue supportive care, tamsulosin, and prn pain control. -Will arrange outpatient follow-up with our service for stone management. -Worrisome signs/symptoms reviewed. She verbalized an understanding, all questions were answered. -Urology will sign-off for now. Please contact us with any further questions, concerns, or changes in patient status. Admission and Anticipated Discharge Date Admission Date: June 03, 2022 Supervising Physician Co-Signing Physician Notes Discussed patient with HALIMA. Agree with plan. Subjective Patient examined at bedside this AM. Awake, sitting in bed on arrival. No acute distress. Remains asymptomatic from standpoint. Denies any flank, abdominal, or back pain at present. Does report passing what looked to be a few small stones last night. Voiding without issue. Denies hematuria or dysuria. Denies f/c/n/v. Patient did develop chest pain earlier this morning. Currently pending further work-up and transfer to telemetry unit. Review of Systems Constitutional: as per Subjective / HPI Cardiovascular: as per Subjective / HPI Genitourinary: as per Subjective / HPI Physical Exam Constitutional: well developed, well nourished and + obese; no acute distress Neck: normal visual inspection Respiratory: normal respiratory effort; no respiratory distress and no labored breathing Gastrointestinal (Abdomen): Inspection/Auscultation: abdomen normal to inspection; abdomen not distended Musculoskeletal: Head/Neck/Chest: normocephalic Extremities: extremities normal to inspection Neurologic: awake Psychiatric: A+Ox3, euthymic affect Genitourinary: no CVA tenderness Results & Data ([facility]) Vital Signs (Past 12 Hours) Vital Signs Temp Pulse Pulse Resp BP Pulse Ox O2 Del Method 06/05/22 08:09 36.4 C L 76 18 183/68 H 93 Room Air 06/05/22 07:32 36.5 C 68 18 159/73 H 96 Room Air 06/05/22 03:30 70 16 95 06/04/22 21:58 77 16 96 06/04/22 23:03 71 161/78 H PG Care Time/CCT Total # of Minutes Spent Total Time Spent with Patient: Total time spent is greater than 50% in coordination of care (as documented) at patient's floor/unit and/or counseling patient: Coding Level of Care Code 97235 Subseq Hosp Care Lvl 2 Diagnoses Left ureteral stone N20.1 Flank pain R10.9
[2022-06-05 09:45] LABS: D Dimer 590 ug/L FEU (0-500)
[2022-06-05] MEDS ORDERED: ACETAMINOPHEN 325 MG TAB PO PRN (11:49)
[2022-06-05] MEDS: METOPROLOL TARTRATE 25 MG TAB PO SCH ×2 (13:16→20:39)
--- NOTE | 2022-06-05 13:44 | Electrocardiogram Report ---
Test Reason : Blood Pressure : / mmHG Vent. Rate : 066 BPM Atrial Rate : 066 BPM P-R Int : 136 ms QRS Dur : 098 ms QT Int : 408 ms P-R-T Axes : 043 024 020 degrees QTc Int : 427 ms Normal sinus rhythm Normal ECG When compared with ECG of 02-JUL-2021 15:10, No significant change Confirmed by Yung Adamson ([id number]) on 06/05/2022 1:43:57 PM Referred By: REFERRED SELF Confirmed By:Yung Adamson
--- NOTE | 2022-06-05 16:08 | XCELERA ---
[id number]
[2022-06-05] MEDS: dilTIAZem ER 120 MG CAPCR PO SCH (20:36)
[2022-06-05] MEDS: ATORVASTATIN 10 MG TAB PO SCH (20:36)
[2022-06-05] MEDS: GABAPENTIN 300 MG CAP PO SCH (20:38)
[2022-06-05] MEDS: levoFLOXacin/D5W 750 MG/150 ML BAG IV SCH (23:10)
[2022-06-06] MEDS: INSULIN ASPART PER UNIT SC SCH ×2 (08:39→12:38)
[2022-06-06 08:40] LABS: Basophils # (auto) 0.02 K/uL (0-0.2); Basophils % (auto) 0.2 %; Eosinophils # (auto) 0.14 K/uL (0-0.50); Eosinophils % (auto) 1.6 %; Hematocrit (blood only) 32.9 % (34.1-44.9); Hemoglobin 10.1 g/dl (12.0-16.0); Immature Granulocytes # (auto) 0.05 K/uL (0.00-0.02); Immature Granulocytes % (auto) 0.6 %; Lymphocytes # (auto) 2.36 K/uL (1.2-3.4); Lymphocytes % (auto) 27.5 %; Mean Corpuscular Hgb Conc 30.7 g/dL (32.0-36.0); Mean Corpuscular Volume 84.8 fL (80.0-100.0); Mean Platelet Volume 10.8 fL (9.4-12.3); Monocytes # (auto) 0.73 K/uL (0.24-0.82); Monocytes % (auto) 8.5 %; Neutrophils # (auto) 5.29 K/uL (1.4-6.5); Neutrophils % (auto) 61.6 %; Platelet Count 239 K/uL (130-400); RDW Coefficient of Variation 14.6 % (11.5-14.5); RDW Standard Deviation 44.8 fL (36.4-46.3); Red Blood Count 3.88 M/uL (3.93-5.22); White Blood Count 8.59 K/ul (4.8-10.8)
[2022-06-06] MEDS: SUCRALFATE 1 GM TAB PO SCH (08:40)
[2022-06-06] MEDS: METOPROLOL TARTRATE 25 MG TAB PO SCH (08:40)
[2022-06-06] MEDS: hydrALAZINE HCL 25 MG TAB PO SCH (08:40)
[2022-06-06] MEDS: ENOXAPARIN INJ 40 MG/0.4 ML SYR SQ SCH (08:40)
[2022-06-06] MEDS: TAMSULOSIN HCL 0.4 MG CAP PO SCH (08:41)
[2022-06-06] MEDS: PANTOprazole 40 MG TAB PO SCH (08:42)
[2022-06-06] MEDS: CHOLECALCIFEROL 5,000 UNITS 125 MCG TAB PO SCH (08:42)
[2022-06-06] MEDS: PENTOXIFYLLINE 400MG EXT REL TAB PO SCH (08:42)
[2022-06-06] MEDS: FERROUS SULFATE 325 MG TAB PO SCH (08:42)
[2022-06-06] MEDS: CYANOCOBALAMIN (B-12) 500 MCG TABLET PO SCH (08:43)
[2022-06-06 09:09] LABS: BUN Creatinine Ratio 17.6 (10-20); Calcium 8.9 mg/dl (8.5-10.1); Chol HDL Ratio 4.9 (0-5); Creatinine Clr Calc Pharmacy 74.5 ml/min; Est GFR (Non-African American) 56.1 ml/min; Potassium 4.2 mmol/L (3.5-5.1)
--- NOTE | 2022-06-06 13:26 | Discharge Summary ---
Date of Service June 06, 2022 Admission HPI Per Admitting Provider Aminah Klein is a 71yo female with PMHx significant for morbid obesity, T2DM (A1c 7.6 in 05/2022), h/o ESBL UTI, osteoarthritis, moderate GENEVIEVE, HTN, HLD, GERD, lumbar spinal stenosis (s/p decompression/fusion) and fibromyalgia who presented to [facility] ED on 06/03 for a kidney stone. Patient reports ~1-2 months of intermittent left flank pain that radiates to lower left abdomen. She saw her PCP on 05/20 and had blood work showing mild leukocytosis, significant NELLY with Cr 3.71 (normal baseline), and urine positive for ESBL E. coli. Patient was started on Levofloxacin on 05/27 x1 week - finished last dose earlier today. Patient reports that her pains have significantly increased and remained persistent throughout the day today, in addition with associated dysuria x1 day and nausea without vomiting, so she came in for evaluation. Patient denies fever/chills. Denies gross hematuria or malodorous urine. Denies chest pain, palpitations, vomiting, or rash. Patient denies alcohol/smoking/drugs. Proficient in ADLs/iADLs. In the ED the patient was initially hypertensive to 226/78 but improved to 161/56 without medications. Also was borderline tachycardic at 98. Afebrile. Labs significant for WBC 11.6 (neutrophilic predominance and L shift). Hgb 11.1 (baseline). Na 133 (from 139 several weeks ago). Cr 1.26 (improved from 3.71 several weeks ago). CT A/P (done earlier in the day) showed mild left hydroureteronephrosis secondary to an obstructing 6 mm stone at the distal left ureter. (Also incidentally showed 9 mm left lower lobe pulmonary nodule dating back to 2019 - likely benign). Patient was given Tylenol 1g PO, Dilaudid total 1.5g, Zofran 4mg IV x2, and NSS 500cc bolus. Principal Diagnosis Left ureteric colic Discharge Exam No acute distress Abdomen benign Looks very well Vital Signs Temp Pulse Pulse Resp BP BP Pulse Ox 06/06/22 13:21 36.8 C 57 L 16 162/70 H 96 06/06/22 11:18 57 L 16 172/78 H 96 06/06/22 07:25 36.8 C 65 18 162/70 H 95 06/06/22 07:18 78 06/06/22 04:00 36.9 C 68 20 132/63 96 06/06/22 02:30 66 21 96 06/05/22 23:08 65 06/06/22 01:01 06/06/22 00:00 36.6 C 66 18 159/77 H 97 06/05/22 21:55 65 20 98 06/05/22 20:00 36.8 C 73 18 174/74 H 96 06/05/22 15:14 36.5 C 66 16 159/71 H 98 O2 Del Method FiO2 06/06/22 13:21 06/06/22 11:18 Room Air 06/06/22 07:25 Room Air 06/06/22 07:18 06/06/22 04:00 CPAP 06/06/22 02:30 21 06/05/22 23:08 06/06/22 01:01 CPAP 06/06/22 00:00 CPAP 06/05/22 21:55 21 06/05/22 20:00 Room Air 06/05/22 15:14 Room Air Intake and Output 06/05/22 06/06/22 06/06/22 22:59 06:59 14:59 Intake Total 500 / 1826.667 350 / 1826.667 Output Total 1250 / 1250 Balance 500 / 576.667 -900 / 576.667 Intake: IV 150 / 1126.667 levoFLOXacin/D5W 750 mg In 150 150 / 150 ml @ 100 mls/hr IV Q24H [facility] Rx# :[id number] Oral 500 / 700 200 / 700 Output: Urine 1250 / 1250 Other: # Unmeasured Voids 4 Weight 137.6 kg 137.6 kg Weight Measurement Method Built in [facility] Patient Weight 06/07/22 06:59 Weight 137.6 kg Discharge Data Allergies Allergy/AdvReac Type Severity Reaction Status Date / Time black pepper Allergy Severe Difficulty Verified 06/03/22 20:21 Breathing cayenne pepper fruits Allergy Severe Swelling Verified 06/03/22 20:21 of Lip/Tongue/Throat pepper (genus Capsicum) Allergy Severe Swelling Verified 06/03/22 20:21 of Lip/Tongue/Throat pravastatin Allergy Severe urinary Verified 06/03/22 20:21 retention, SOB triamcinolone Allergy Severe anaphylaxis Verified 06/03/22 20:21 turmeric Allergy Severe throat Verified 06/03/22 20:21 swelling, SOB, red nose Food Allergy Severe Peppers Uncoded 06/03/22 20:21 (hot,cayenne,black)- throat swelling, SOB, red nose injectable steroird Allergy Severe Anaphylaxis Uncoded 06/03/22 20:21 Flu Virus Vaccine Allergy Unknown told to Uncoded 06/03/22 20:21 avoid (d/t hx sarcoidosis) VACCINES Allergy Unknown TOLD TO Uncoded 06/03/22 20:21 AVOID D/T SARCOIDOSIS Consultations 06/03/22 20:13 ED Decision to Admit Stat 06/03/22 22:14 Consult Urology Routine Hospital Course (1) Chest pain: Single episode lasting a few minutesresolved; discussed further testing that could be as outpatient versus PCP follow-up and then decide; she said she will follow-up with PCP; did add low-dose aspirin, and increase statin given LDL value; clinically noncardiac but does have risk factors and risk modification appropriate (2) Kidney stone on left side: Symptoms resolved; continue Flomax and urology follow-up (3) UTI due to extended-spectrum beta lactamase (ESBL) producing Escherichia coli: Finished treatmentno more antibiotics needed (4) NELLY (acute kidney injury): Improved; though unlikely related stop ARB for now, reassess given DM (5) Type 2 diabetes mellitus: A1c 7.6 in 05/2022). - SSI while hospitalized (6) Hypertension: Given chest pain added metoprolol, also new med of hydralazine, no change; resume thiazide on discharge (7) Hyperlipidemia: LDL 140statin increased (8) Esophageal reflux: Protonix per hospital formulary. Continue home Sucralfate. (9) Fibromyalgia: Continue home Gabapentin (10) Moderate obstructive sleep apnea: CPAP HS (11) Anemia: Stable but impressive; PCP follow-up Total Time Total Time Spent Total Time Spent (In Minutes): 35 Discharge Plan Discharge Items Patient Disposition: Home - Self-Care Reason For Visit: LEFT KIDNEY STONE Discharge Diagnosis: Left ureteric colic Activity: As commented below Activity Comment: As tolerated Non-emergency contact: Primary Care Provider Call non-emergency contact if: your symptoms worsen Follow-up/Referrals: Jade Owusu MD [Primary Care Provider] - Domenico Lewis MD [Physician] - (2-week, left renal colic, seen in the hospital) Diet: Carb Consistent or DM2 and Heart Healthy Addtl Attending Provider Instructions: Keep a record of your blood pressure if possible, about 2-3 times a day and take a written record to your doctors office Pending Studies at Discharge: No Stand-Alone Forms: My [facility] [employer], Smoking Cessation Medications and DC Order Prescriptions: New metoprolol tartrate 25 mg Tablet 25 mg PO BID Qty: 60 1RF hydralazine 50 mg Tablet 25 mg PO TID Qty: 90 1RF atorvastatin 40 mg Tablet 40 mg PO HS Qty: 30 1RF Rx Instructions: New dose of this medication aspirin 81 mg tablet,delayed release (DR/EC) 81 mg PO DAILY Qty: 30 0RF tamsulosin 0.4 mg Capsule 0.4 mg PO HS Qty: 30 0RF Continued cyclobenzaprine 5 mg tablet 5 mg PO TID PRN (Reason: muscle spasm) Qty: 30 0RF gabapentin 300 mg capsule 300 mg PO HS Qty: 90 3RF pentoxifylline 400 mg tablet extended release 400 mg PO DAILY Qty: 90 3RF Rx Instructions: administer with meals (DME) blood sugar diagnostic Strip See Dose Instructions .ROUTE .MEDSUPPLY Qty: 400 3RF Rx Instructions: Use to test 4-5 times daily, DX: E11.9 tramadol 50 mg tablet 50 mg PO TID PRN (Reason: pain) Qty: 90 3RF diltiazem HCl [Tiadylt ER] 240 mg capsule,extended release 24 hr 240 mg PO DAILY Qty: 90 3RF omeprazole 20 mg capsule,delayed release(DR/EC) 20 mg PO BID Qty: 180 3RF insulin asp prt-insulin aspart [Novolog Mix 70-30FlexPen U-100] 100 unit/mL (70-30) insulin pen 20 - 30 unit subcut BID Qty: 60 2RF Rx Instructions: SLIDING SCALE PER PT, MAX OF 30 UNITS. acetaminophen 650 mg tablet extended release 650 mg PO BID PRN (Reason: Pain) ferrous sulfate 325 mg (65 mg iron) tablet 325 mg PO QAM fluocinonide 0.05 % gel 1 applic TOPICAL BID PRN (Reason: rash) Qty: 30 1RF metformin 500 mg tablet 500 mg PO BID Qty: 180 3RF Hold Instructions: Home Medication placed on hold at Doctor's office Rx Instructions: ON HOLD D/T CT SCAN sucralfate 1 gram tablet 1 g PO BID Qty: 60 2RF (DME) NovoFine Plus 32 gauge x 1/6" needle See Rx Instructions .ROUTE .MEDSUPPLY Qty: 200 3RF Rx Instructions: inject insulin BID cholecalciferol (vitamin D3) [Vitamin D3] 125 mcg (5,000 unit) Tablet 125 mcg PO QAM multivitamin Tablet 1 tab PO QAM cyanocobalamin (vitamin B-12) [Vitamin B-12] 1,000 mcg Tablet 1,000 mcg PO QAM ascorbic acid (vitamin C) [Vitamin C] 1,000 mg Tablet 1 g PO QAM chlorthalidone 25 mg tablet 25 mg PO QAM PRN (Reason: Fluid Retention) Saccharomyces boulardii [Florastor] 250 mg capsule 250 mg PO BID Qty: 20 0RF Rx Instructions: swallow whole Discontinued atorvastatin 10 mg tablet 10 mg PO DAILY Qty: 90 3RF losartan 100 mg tablet 100 mg PO DAILY Qty: 90 3RF levofloxacin 500 mg tablet 500 mg PO DAILY Qty: 7 0RF Rx Instructions: STARTED 05/28/22 FOR 7 DAYS. celecoxib [Celebrex] 200 mg capsule 200 mg PO DAILY Qty: 90 3RF Hold Instructions: Home Medication placed on hold at Doctor's office Rx Instructions: ON HOLD D/T KIDNEY ISSUES diclofenac sodium 1 % Gel 2 g TOPICAL HS Discharge Orders: Discharge Order (Routine); Ordered 06/06/22 Ordered By: Florin Leyva Admission Data Admit Date/Time: 06/03/22 20:59 Attending Provider: Florin Leyva Admit Provider: Cody Donohue Primary Care Provider: Jade Owusu Other Providers: Cody Donohue ; Ananth Dietrich Other Interventions: Discharge Summary Assessment (RN) Last Done: 06/06/22 13:21 Coding Level of Care Code D/C DAY MANAGEMENT >30 MINS Diagnoses Chest pain R07.9 Kidney stone on left side N20.0 UTI due to extended-spectrum beta lactamase (ESBL) producing Escherichia coli N39.0; B96.29; Z16.12 NELLY (acute kidney injury) N17.9 Type 2 diabetes mellitus E11.9 Hypertension I10 Hyperlipidemia E78.5 Esophageal reflux K21.9 Fibromyalgia M79.7 Moderate obstructive sleep apnea G47.33 Anemia D64.9
[2022-06-06] MEDS ORDERED: hydrALAZINE TAB 50 MG TAB PO SCH (14:00)
[2022-06-06] MEDS ORDERED: ATORVASTATIN 40 MG TAB PO SCH (21:00)
== END 2022-06-06 14:16 | disposition home or self-care (01) | DRG 690 ==
LOC: ED 17:26 → SUATTDRO 20:59 → 3E 20:59 → 2W 06-05 10:08

== ENCOUNTER 2023-07-15 09:51 | Inpatient (IN) ==
[2023-07-15] MEDS ORDERED: ADENOSINE IV SOLN 3 MG/ML 2 ML VIAL IV ONE (10:08)
[2023-07-15] MEDS ORDERED: ACETAMINOPHEN 1,000 MG/100 ML VIAL IV STA ×2 (10:16→15:58)
[2023-07-15] MEDS ORDERED: SODIUM CHLORIDE 0.9% 1,000 ML IV ONE (10:16)
[2023-07-15] MEDS ORDERED: FAMOTIDINE 20MG IV PUSH 20 MG/5 ML SYR IV STA (10:16)
--- NOTE | 2023-07-15 10:46 | XRay Report ---
SINGLE VIEW CHEST CLINICAL HISTORY: Atypical chest pain. FINDINGS: An AP, portable, upright chest radiograph is compared to study dated 09/23/2021. The examina tion is degraded by portable technique and apical lordotic positioning. The heart is top normal for p rojection noting atherosclerotic calcification of the thoracic aorta. Chronic interstitial thickening is similar previous. No airspace consolidation or large pleural effusion is identified. No pneumotho rax is seen. The skeletal structures are osteopenic. The bony thorax is grossly intact. IMPRESSION: No acute cardiopulmonary abnormality. ACT 112: Negative or not required by law. Electronically signed by: Joseph Dong M.D. 07/15/2023 10:44 AM
[2023-07-15 10:50] LABS: Basophils # (auto) 0.03 K/uL (0.00-0.20); Basophils % (auto) 0.2 %; Hematocrit (blood only) 38.7 % (37.0-47.0); Hemoglobin 12.9 g/dl (12.0-16.0); Immature Granulocytes # (auto) 0.17 K/uL (0.01-0.20); Immature Granulocytes % (auto) 1.2 %; Lymphocytes # (auto) 1.07 K/uL (1.20-3.40); Lymphocytes % (auto) 7.3 %; Mean Corpuscular Hgb Conc 33.3 g/dL (32.0-36.0); Mean Platelet Volume 10.5 fL (9.4-12.4); Monocytes # (auto) 0.77 K/uL (0.11-0.59); Monocytes % (auto) 5.3 %; Neutrophils # (auto) 12.56 K/uL (1.40-6.50); Platelet Count 224 K/uL (130-400); RDW Coefficient of Variation 14.8 % (11.5-14.5); RDW Standard Deviation 43.1 fL (36.4-46.3); Red Blood Count 4.78 M/uL (4.20-5.40)
[2023-07-15] MEDS ORDERED: STAT IV Infusion **Titration per Protocol STA (10:50)
[2023-07-15] MEDS ORDERED: dilTIAZem HCl 5 MG/ML 5 ML VIAL IV STA (10:50)
--- NOTE | 2023-07-15 11:04 | Emergency Department Note ---
Impression & Plan Abdominal pain, Atrial fibrillation with rapid ventricular response, Hyponatremia, Hypomagnesemia, Elevated troponin ED Provider Note ED Provider Note NAME: MAGGIE HOANG AGE:73 SEX: Female : 1950 ARRIVES VIA: EMS INFORMANT: Patient ED PROVIDER(s): Merissa Westbrook DO CHIEF COMPLAINT: Abdominal pain HPI: This is a 73-year-old female who presents emergency department due to concern for abdominal pain, nausea/vomiting, and diarrhea. Patient states symptoms began 2 days ago. She states pain was initially intermittent but now has become more constant. She denies overt fevers or chills. No recent change in medication or diet. She states she does have a history of PUD, GERD. Patient denies any known sick contacts or recent travel. She states in the last 24 hours the pain has been more constant. She states it is in her upper abdomen. She states no blood in the emesis or stools. PAST MEDICAL HISTORY:See Below PAST SURGICAL HISTORY:See Below FAMILY HISTORY:See Below SOCIAL HISTORY:See Below HOME MEDICATIONS:See Below ALLERGIES:See Below VITALS:See Below PHYSICAL EXAMINATION: GENERAL: alert, unwell appearing, well nourished, mild distress, non-toxic, BMI>53 EYE EXAM: normal conjunctiva, PERRL and EOM's grossly intact OROPHARYNX: no exudate, no erythema, lips, buccal mucosa, and tongue normal and mucous membranes are dry NECK: supple, no nuchal rigidity, no adenopathy, non-tender LUNGS: Clear to auscultation. Normal chest wall mechanics, no w/r/r HEART: no murmurs, S1 normal and S2 normal ABDOMEN: abdomen soft, tenderness with palpation in the epigastric and right u pper quadrant, normo-active bowel sounds, no masses, no rebound or guarding. BACK: Back is symmetrical on inspection and there is no deformity, no midline tenderness, no CVA tenderness. SKIN: no rashes, petechiae, orbruising UPPER EXTREMITIES: upper extremities are grossly normal. FROM, nml pulses b/l. LOWER EXTREMITIES: No pitting edema. FROM, nml pulses b/l. NEURO EXAM: Normal sensorium, cranial nerves II-XII grossly intact, normal speech, no facial droop,nogross weakness of arms, no gross weakness of legs. Gross sensation intact. No ataxia. Vital Signs: reviewed and remarkable Differential Diagnosis: gastritis, peptic ulcer disease, GERD, gallbladder disease, pancreatitis, small bowel obstruction, ischemic bowel, irritable bowel disease, appendicitis, diverticulitis, malignancy, hernia, perforation, GI bleed, as well as others were considered MEDICAL DECISION MAKING: This is a 73-year-old female who presents to the emergency department due to concern for abdominal pain, nausea/vomiting and diarrhea. Patient unwell appearing on arrival. Labs drawn and sent, IV established, EKG and chest x-ray performed at bedside and interpreted by me showing rapid A-fib, and patient placed on telemetry. She was started on IV fluids and given IV Tylenol for pain. Patient with no prior history of atrial fibrillation. Patient sent for CT imaging which did not show any acute abdominal process. Patient's heart rate mildly improved with IV fluids and Tylenol although still in rapid A-fib so Cardizem bolus and drip was started. Patient did have some improvement of her heart rate, blood pressure remained stable. IV fluids were continued for volume repletion. IV magnesium was added due to her hypomagnesemia. I suspect the elevated troponin likely related to demand given the rapid irregular heart rate. Consultation(s): [] ER Treatment Provided: See below Diagnostics Interpreted By Me: -ECG: Rate of 180 with appearance of atrial fibrillation, normal axis, normal QRS and QTc, T wave inversion and ST depression noted -Cardiac Monitoring: An order was placed for continuous cardiac monitoring. The monitor shows a rate of 177 with atrial fibrillation rhythm. -Laboratory studies: As stated above and show below. -Imaging studies: X-ray Chest: A single view study of the chest was reviewed and was negative for cardiomegaly, focal infiltrate, effusion, pulmonary edema, or wide mediastinum. Triage Nursing Note Reviewed Prior/Outside Records Reviewed -reviewed EGD from earlier this year Critical Care: Critical care of 43 min performed to assess and manage high likelihood of life- threatening dysrhythmia, involving labs and imaging performed with assessment to evaluate dysrhythmia diagnosis with frequent reassessment. This time includes bedside time, treatment discussions with patient/family/consultants, documentation time and excludes procedure time. Past Med/Surg History Medical History Anemia Chronic diarrhea Diabetic neuropathy Esophageal reflux Fatty liver disease, nonalcoholic Fibromyalgia History of nephrolithiasis Hyperlipidemia Hypertension Lipodermatosclerosis Lumbar spinal stenosis Moderate obstructive sleep apnea CPAP Morbid obesity Osteoarthritis Periodic limb movement disorder Sarcoidosis History of - no active disease Type 2 diabetes mellitus Surgical History H/O tubal ligation H/O vaginal hysterectomy History of bladder surgery urethral repair History of colonoscopy History of cystoscopy Cystoscopy, Left Ureteronephroscopy, Left Retrograde Pyelogram with radiographic interpretation, Laser Lithotripsy, Basket Extraction of Stone, Left Insertion of Stent Catheter(Left) History of esophagogastroduodenoscopy (EGD) History of hand surgery left trigger finger History of neck surgery biopsy- dx sarcoidosis History of temporal artery biopsy (09/25/21) Right Temporal Artery Biopsy(Right) - Aubrey Rubio DO 09-25-2021 Status post lumbar spine surgery for decompression of spinal cord L2-S1 decompression/fusion (08/21/20): Unable to pass ETT under DL. Glidescope 3 used easily + atraumatic (Grade view 1 with glidescope) Family History Father , age 86 - infection after heart surgery. GENEVIEVE. 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 Beliefs That Will Affect Care: None marital status: Current Living Situation: Alone current occupational status: retired Feels Safe at Home: Yes Diet: regular caffeine: Yes Seatbelt Use: always Sunscreen Use: No Assistive Devices: Glasses Allergies Allergies Allergy/AdvReac Type Severity Reaction Status Date / Time black pepper Allergy Severe Difficulty Verified 07/15/23 12:59 Breathing cayenne pepper fruits Allergy Severe Swelling Verified 07/15/23 12:59 of Lip/Tongue/Throat pepper (genus Capsicum) Allergy Severe Swelling Verified 07/15/23 12:59 of Lip/Tongue/Throat pravastatin Allergy Severe urinary Verified 07/15/23 12:59 retention, SOB triamcinolone Allergy Severe anaphylaxis Verified 07/15/23 12:59 turmeric Allergy Severe throat Verified 07/15/23 12:59 swelling, SOB, red nose Food Allergy Severe Peppers Uncoded 07/15/23 12:59 (hot,cayenne,black)- throat swelling, SOB, red nose steroid injections Allergy Severe Anaphylaxis Uncoded 07/15/23 12:59 VACCINES Allergy Unknown TOLD TO Uncoded 07/15/23 12:59 AVOID ALL D/T SARCOIDOSIS Home Meds Home Medications Medication Instructions Recorded Confirmed cyanocobalamin (vitamin B-12) 1,000 mcg PO QAM 03/27/19 07/15/23 1,000 mcg tablet (Vitamin B-12) multivitamin 1 tab PO QAM 03/27/19 07/15/23 cholecalciferol (vitamin D3) 125 125 mcg PO QAM 05/28/20 07/15/23 mcg (5,000 unit) tablet (Vitamin D3) ascorbic acid (vitamin C) 1,000 mg 1 g PO QAM 08/01/20 07/15/23 tablet (Vitamin C) ferrous sulfate 325 mg (65 mg 325 mg PO QAM 09/03/20 07/15/23 iron) tablet aspirin 81 mg tablet,delayed 81 mg PO QAM 06/12/22 07/15/23 release chlorthalidone 25 mg tablet 25 mg PO QAM 03/05/23 07/15/23 pentoxifylline 400 mg 400 mg PO Q OTHER DAY 03/05/23 07/15/23 tablet,extended release Saccharomyces boulardii 250 mg 250 mg PO DAILY 07/15/23 07/15/23 capsule (Florastor) acetaminophen 500 mg tablet 1,000 mg PO Q6H PRN Pain 07/15/23 07/15/23 (Tylenol Extra Strength) insulin aspart U-100 100 unit/mL 0 unit subcut TID 07/15/23 07/15/23 (3 mL) subcutaneous pen (Novolog FlexPen U-100 Insulin aspart) Previous Rx's Medication Instructions Recorded cyclobenzaprine 5 mg tablet 5 mg PO TID PRN muscle spasm #60 12/22/22 tabs gabapentin 300 mg capsule 300 mg PO HS #90 caps 12/22/22 insulin glargine 100 unit/mL (3 60 - 75 unit (0.6 - 0.75 mL) 03/04/23 mL) subcutaneous pen (Lantus subcut HS #75 mL Solostar U-100 Insulin) atorvastatin 40 mg tablet 40 mg PO DAILY #90 tabs 03/08/23 diltiazem HCl 240 mg capsule,24 240 mg PO DAILY #90 caps 04/13/23 hr,extended release omeprazole 20 mg capsule,delayed 20 mg PO QAM #180 caps 04/22/23 release losartan 50 mg tablet 50 mg PO DAILY #90 tabs 07/08/23 metoprolol tartrate 25 mg tablet 25 mg PO BID #180 tabs 07/08/23 Results & Data (ED) Vital Signs Vital Signs - 24 hr 07/15/23 09:55 07/15/23 10:05 07/15/23 10:03 Temperature 36.8 C 37.3 C Temperature Source Temporal Artery Scan Oral Pulse Rate 174 H 190 H Pulse Rate from SpO2 Sensor Respiratory Rate 20 Respiratory Effort / Characteristics Non-Labored Respiratory Depth Normal Blood Pressure 144/72 H Blood Pressure Mean 96 Pulse Oximetry 97 Oxygen Delivery Method Room Air Sepsis Recent Fever Within 48 Hours No Sepsis New/Unexplained Change in Mental Status N/A Sepsis Action Taken by Nursing No Action Required 07/15/23 10:16 07/15/23 10:30 07/15/23 10:57 Temperature Temperature Source Pulse Rate 173 H 168 H 157 H Pulse Rate from SpO2 Sensor 168 H 186 H Respiratory Rate 26 H 32 H 22 Respiratory Effort / Characteristics Respiratory Depth Blood Pressure 151/77 H 136/111 H Blood Pressure Mean 101 119 Pulse Oximetry 97 97 98 Oxygen Delivery Method Room Air Room Air Room Air Sepsis Recent Fever Within 48 Hours Sepsis New/Unexplained Change in Mental Status Sepsis Action Taken by Nursing 07/15/23 11:02 07/15/23 11:38 07/15/23 12:09 Temperature Temperature Source Pulse Rate 151 H 146 H 149 H Pulse Rate from SpO2 Sensor 181 H 146 H Respiratory Rate 18 23 27 H Respiratory Effort / Characteristics Respiratory Depth Blood Pressure 123/71 134/110 H 123/66 Blood Pressure Mean 88 118 85 Pulse Oximetry 96 96 92 Oxygen Delivery Method Room Air Room Air Room Air Sepsis Recent Fever Within 48 Hours Sepsis New/Unexplained Change in Mental Status Sepsis Action Taken by Nursing 07/15/23 12:29 07/15/23 12:30 07/15/23 12:46 Temperature Temperature Source Pulse Rate 134 H 146 H 147 H Pulse Rate from SpO2 Sensor 136 H 145 H 145 H Respiratory Rate 20 22 24 Respiratory Effort / Characteristics Respiratory Depth Blood Pressure 116/95 131/80 116/80 Blood Pressure Mean 102 97 92 Pulse Oximetry 91 92 95 Oxygen Delivery Method Sepsis Recent Fever Within 48 Hours Sepsis New/Unexplained Change in Mental Status Sepsis Action Taken by Nursing 07/15/23 13:00 07/15/23 13:16 07/15/23 13:30 Temperature Temperature Source Pulse Rate 138 H 163 H 147 H Pulse Rate from SpO2 Sensor 143 H 137 H Respiratory Rate 21 17 21 Respiratory Effort / Characteristics Respiratory Depth Blood Pressure 116/88 144/68 H 140/92 Blood Pressure Mean 97 93 108 Pulse Oximetry 96 97 99 Oxygen Delivery Method Sepsis Recent Fever Within 48 Hours Sepsis New/Unexplained Change in Mental Status Sepsis Action Taken by Nursing 07/15/23 13:45 07/15/23 14:00 07/15/23 14:13 Temperature Temperature Source Pulse Rate 142 H 126 H 140 H Pulse Rate from SpO2 Sensor 146 H 131 H Respiratory Rate 24 24 Respiratory Effort / Characteristics Respiratory Depth Blood Pressure 128/95 117/86 Blood Pressure Mean 106 96 Pulse Oximetry 98 98 Oxygen Delivery Method Sepsis Recent Fever Within 48 Hours Sepsis New/Unexplained Change in Mental Status Sepsis Action Taken by Nursing Laboratory Data 07/15/23 10:12 07/15/23 10:12 Lab Results 07/15/23 07/15/23 07/15/23 Range/Units 10:12 10:12 10:12 WBC 14.60 H (4.8-10.8) K/ul RBC 4.78 (4.20-5.40) M/uL Hgb 12.9 (12.0-16.0) g/dl Hct 38.7 (37.0-47.0) % MCV 81.0 (80.0-100.0) fL MCH 27.0 (25.0-34.0) pg MCHC 33.3 (32.0-36.0) g/dL RDW Std Deviation 43.1 (36.4-46.3) fL RDW Coeff of Cecile 14.8 H (11.5-14.5) % Plt Count 224 (130-400) K/uL MPV 10.5 (9.4-12.4) fL Immature Gran % (Auto) 1.2 % Neut % (Auto) 86.0 % Lymph % (Auto) 7.3 % Ward % (Auto) 5.3 % Eos % (Auto) 0.0 % Baso % (Auto) 0.2 % Neut # (Auto) 12.56 H (1.40-6.50) K/uL Lymph # (Auto) 1.07 L (1.20-3.40) K/uL Ward # (Auto) 0.77 H (0.11-0.59) K/uL Eos # (Auto) 0.00 (0.00-0.50) K/uL Baso # (Auto) 0.03 (0.00-0.20) K/uL Immature Gran # (Auto) 0.17 (0.01-0.20) K/uL PT 12.2 H (9.0-12.0) Seconds INR 1.1 (0.9-1.1) Sodium 129 L (136-145) mmol/L Potassium 3.6 (3.5-5.1) mmol/L Chloride 93 L (98-107) mmol/L Carbon Dioxide 24 (21-32) mmol/L Anion Gap 12 H (3-11) BUN 24 H (6-23) mg/dl Creatinine 1.28 H (0.6-1.2) mg/dl Est Cr Clr Drug Dosing 62.8 ml/min Est GFR ( Amer) 48.7 ml/min Est GFR (Non-Af Amer) 42.0 ml/min BUN/Creatinine Ratio 18.8 (10-20) Glucose 205 H (70-99(Fasting)) mg/dl Calcium 8.9 (8.6-10.3) mg/dl Magnesium 1.5 L (1.7-2.4) mg/dl Total Bilirubin 1.7 H (0.2-1.0) mg/dl AST 33 (13-39) U/L ALT 19 (7-52) U/L Alkaline Phosphatase 53 (34-104) U/L Troponin I High Sens 543.8 H* (0-14) pg/ml Total Protein 7.7 (6.0-8.3) gm/dl Albumin 4.1 (3.4-5.0) gm/dl Globulin 3.6 (2.5-4.0) gm/dl Albumin/Globulin Ratio 1.1 (0.9-2) Lipase 11 (11-82) U/L Urine Color Urine Appearance (Clear) Urine pH (4.5-7.5) Ur Specific [place] (1.000-1.030) Urine Protein (Negative) Urine Glucose (UA) (Negative) Urine Ketones (Negative) Urine Blood (Negative) Urine Nitrite (Negative) Urine Bilirubin (Negative) Urine Urobilinogen (Negative) Ur Leukocyte Esterase (Negative) Urine WBC (Auto) (0-5) /hpf Urine RBC (Auto) (0-4) /hpf U Hyaline Cast (Auto) (0-5) /lpf U Epithel Cells (Auto) (0-5) /lpf Urine Bacteria (Auto) (Negative) Lyme Disease IgG Ab (Negative) Lyme Disease IgM Ab (Negative) SARS-CoV-2 (PCR) (Negative) Influenza Type A (PCR) (Neg) Influenza Type B (PCR) (Neg) RSV (RT-PCR) (Neg) 07/15/23 07/15/23 07/15/23 Range/Units 10:12 13:38 14:30 WBC (4.8-10.8) K/ul RBC (4.20-5.40) M/uL Hgb (12.0-16.0) g/dl Hct (37.0-47.0) % MCV (80.0-100.0) fL MCH (25.0-34.0) pg MCHC (32.0-36.0) g/dL RDW Std Deviation (36.4-46.3) fL RDW Coeff of Cecile (11.5-14.5) % Plt Count (130-400) K/uL MPV (9.4-12.4) fL Immature Gran % (Auto) % Neut % (Auto) % Lymph % (Auto) % Ward % (Auto) % Eos % (Auto) % Baso % (Auto) % Neut # (Auto) (1.40-6.50) K/uL Lymph # (Auto) (1.20-3.40) K/uL Ward # (Auto) (0.11-0.59) K/uL Eos # (Auto) (0.00-0.50) K/uL Baso # (Auto) (0.00-0.20) K/uL Immature Gran # (Auto) (0.01-0.20) K/uL PT (9.0-12.0) Seconds INR (0.9-1.1) Sodium (136-145) mmol/L Potassium (3.5-5.1) mmol/L Chloride (98-107) mmol/L Carbon Dioxide (21-32) mmol/L Anion Gap (3-11) BUN (6-23) mg/dl Creatinine (0.6-1.2) mg/dl Est Cr Clr Drug Dosing ml/min Est GFR ( Amer) ml/min Est GFR (Non-Af Amer) ml/min BUN/Creatinine Ratio (10-20) Glucose (70-99(Fasting)) mg/dl Calcium (8.6-10.3) mg/dl Magnesium (1.7-2.4) mg/dl Total Bilirubin (0.2-1.0) mg/dl AST (13-39) U/L ALT (7-52) U/L Alkaline Phosphatase (34-104) U/L Troponin I High Sens (0-14) pg/ml Total Protein (6.0-8.3) gm/dl Albumin (3.4-5.0) gm/dl Globulin (2.5-4.0) gm/dl Albumin/Globulin Ratio (0.9-2) Lipase (11-82) U/L Urine Color Yellow Urine Appearance Clear (Clear) Urine pH 5.5 (4.5-7.5) Ur Specific [place] 1.026 (1.000-1.030) Urine Protein 1+ H (Negative) Urine Glucose (UA) Negative (Negative) Urine Ketones Negative (Negative) Urine Blood 1+ H (Negative) Urine Nitrite Positive A (Negative) Urine Bilirubin Negative (Negative) Urine Urobilinogen Negative (Negative) Ur Leukocyte Esterase Negative (Negative) Urine WBC (Auto) 5-10 H (0-5) /hpf Urine RBC (Auto) 0-4 (0-4) /hpf U Hyaline Cast (Auto) 0 (0-5) /lpf U Epithel Cells (Auto) >30 H (0-5) /lpf Urine Bacteria (Auto) 2+ H (Negative) Lyme Disease IgG Ab Negative (Negative) Lyme Disease IgM Ab Negative (Negative) SARS-CoV-2 (PCR) NEGATIVE (Negative) Influenza Type A (PCR) Negative (Neg) Influenza Type B (PCR) Negative (Neg) RSV (RT-PCR) Negative (Neg) Administered Medications Diltiazem HCl 125 mg/ Dextrose 125 mls @ 15 mls/hr IV .Q8H20M PHIL; Protocol Stop: 08/14/23 10:59 Last Titration: 07/15/23 12:55 Dose: 15 mg/hr, 15 mls/hr Documented By: AIDEE Co-signed By: DEBBIE Titration: 07/15/23 12:05 Dose: 10 mg/hr, 10 mls/hr Documented By: AIDEE Co-signed By: ANURADHA Admin: 07/15/23 11:07 Dose: 5 mg/hr, 5 mls/hr Documented By: AIDEE Co-signed By: DEBBIE Sodium Chloride (Nss 1000ml) 1,000 mls @ 125 mls/hr IV .Q8H [facility] Stop: 08/14/23 11:29 Last Admin: 07/15/23 12:03 Dose: 125 mls/hr Documented By: AIDEE Metoprolol Tartrate (Metoprolol Tartrate 1 Mg/Ml Vial) 5 mg IV Q4H PRN PRN Reason: sbp > 185, dbp >95, HR >120 Stop: 08/14/23 16:59 Last Admin: 07/15/23 17:17 Dose: 5 mg Documented By: Discontinued Medications Adenosine (Adenosine Iv Soln 3 Mg/Ml 2 Ml Vial) Confirm Administered Dose 18 mg IV .STK-MED ONE Stop: 07/15/23 10:09 Last Admin: 07/15/23 11:09 Dose: Not Given Documented By: AIDEE Diltiazem HCl (Diltiazem Hcl 5 Mg/Ml 5 Ml Vial) 20 mg IV NOW STA Stop: 07/15/23 10:51 Last Admin: 07/15/23 10:57 Dose: 20 mg Documented By: AIDEE Co-signed By: DEBBIE Sodium Chloride (Nss 1000ml) 1,000 mls @ 999 mls/hr IV .Q1H1M ONE Stop: 07/15/23 11:16 Last Infusion: 07/15/23 11:44 Dose: 0 mls/hr Documented By: Admin: 07/15/23 10:22 Dose: 999 mls/hr Documented By: AIDEE Acetaminophen (Ofirmev) 1,000 mg in 100 mls @ 400 mls/hr IV NOW STA Stop: 07/15/23 10:30 Last Infusion: 07/15/23 10:50 Dose: 0 mls/hr Documented By: Admin: 07/15/23 10:23 Dose: 400 mls/hr Documented By: AIDEE Famotidine (Pepcid 20mg Iv Push) 20 mg in 5 mls @ 2.5 mls/min IV NOW STA Stop: 07/15/23 10:17 Last Admin: 07/15/23 10:22 Dose: 2.5 mls/min Documented By: AIDEE Magnesium Sulfate/Dextrose (Magnesium Sulfate / D5w) 1 gm in 100 mls @ 100 mls/hr IV NOW STA Stop: 07/15/23 12:13 Last Infusion: 07/15/23 13:33 Dose: 0 mls/hr Documented By: Admin: 07/15/23 12:01 Dose: 100 mls/hr Documented By: AIDEE Ceftriaxone Sodium (Rocephin) 2,000 mg in 70 mls @ 140 mls/hr IV NOW STA Stop: 07/15/23 15:34 Last Infusion: 07/15/23 15:57 Dose: 0 mls/hr Documented By: Admin: 07/15/23 15:22 Dose: 140 mls/hr Documented By: Acetaminophen (Ofirmev) 1,000 mg in 100 mls @ 400 mls/hr IV NOW STA Stop: 07/15/23 16:12 Last Admin: 07/15/23 16:00 Dose: 400 mls/hr Documented By: Ioversol (Ioversol 350 Mg 125ml Prefilled Syringe) 119 ml IV ONCE ONE Stop: 07/15/23 12:02 Last Admin: 07/15/23 11:51 Dose: 119 ml Documented By: Imaging Data Radiologist's Impression: Abdomen/Pelvis CT 07/15/23 10:16 CT OF THE ABDOMEN AND PELVIS WITH CONTRAST CLINICAL HISTORY: Upper abdominal pain and diarrhea. COMPARISON STUDY: CT of the abdomen and pelvis June 03, 2022 and renal ultrasound August 17, 2022. TECHNIQUE: Following IV administration of 119 mL of Optiray, axial images of the abdomen and pelvis were obtained from the lung bases to the proximal femurs. Images were reviewed in the axial, sagittal, and coronal planes. IV contrast was administered without complication. Automated exposure control was utilized for the study. A dose lowering technique was utilized adhering to the principles of ALARA. CT DOSE: 1688.68 mGy.cm FINDINGS: A 9 mm left lower lobe nodule is unchanged since chest CT of August 23, 2010. This is benign given stability. No pneumatosis, free air or portal venous gas is present. There are no hepatic lesions. There is no biliary or pancreatic ductal dilatation. No peripancreatic or pericholecystic stranding is present. Spleen, adrenal glands and right kidney are unremarkable. There is a 3.6 cm left renal cyst. No urinary calculi are present. There is no hydronephrosis. There is no lymphadenopathy or ascites. The appendix is normal. The caliber and wall thickness of small and large bowel are normal. Postoperative findings within the lumbosacral spine are incidentally noted. IMPRESSION: 1. No acute process within the abdomen or pelvis. 2. No bowel obstruction. No bowel wall thickening. 3. No urinary calculi or hydronephrosis. ACT 112: Negative or not required by law. Electronically signed by: Chace Owusu M.D. 07/15/2023 12:19 PM Chest X-Ray 07/15/23 10:16 SINGLE VIEW CHEST CLINICAL HISTORY: Atypical chest pain. FINDINGS: An AP, portable, upright chest radiograph is compared to study dated 09/23/2021. The examination is degraded by portable technique and apical lordotic positioning. The heart is top normal for projection noting atherosclerotic calcification of the thoracic aorta. Chronic interstitial thickening is similar previous. No airspace consolidation or large pleural effusion is identified. No pneumothorax is seen. The skeletal structures are osteopenic. The bony thorax is grossly intact. IMPRESSION: No acute cardiopulmonary abnormality. ACT 112: Negative or not required by law. Electronically signed by: Joseph Dong M.D. 07/15/2023 10:44 AM Discharge Plan Visit Data Chief Complaint: Abdominal Pain Stated Complaint: sick since wednesday, abd pain, dehydration ED Provider: Merissa Westbrook Discharge Problem: Abdominal pain, Atrial fibrillation with rapid ventricular response, Hyponatremia, Hypomagnesemia, Elevated troponin Patient Disposition: Admitted As Inpatient Discharge Instructions Interventions: ED Discharge Assessment Last Done: 07/15/23 16:35 Abdominal pain Qualifiers: Abdominal location: generalized Qualified Code(s): R10.84 - Generalized abdo tala pain
[2023-07-15 11:05] LABS: Albumin Globulin Ratio 1.1 (0.9-2); Albumin Level 4.1 gm/dl (3.4-5.0); BUN Creatinine Ratio 18.8 (10-20); Bilirubin,Total 1.7 mg/dl (0.2-1.0); Calcium 8.9 mg/dl (8.6-10.3); Creatinine Clr Calc Pharmacy 62.8 ml/min; Est GFR (African American) 48.7 ml/min; Globulin 3.6 gm/dl (2.5-4.0); Magnesium 1.5 mg/dl (1.7-2.4); Potassium 3.6 mmol/L (3.5-5.1); Total Protein 7.7 gm/dl (6.0-8.3)
[2023-07-15] MEDS: dilTIAZem HCL 125 MG in DEXTROSE 5% 100 ML IV SCH ×2 (11:07→20:22)
[2023-07-15 11:14] LABS: Troponin I High Sensitivity 543.8 pg/ml (0-14)
[2023-07-15] MEDS ORDERED: MAGNESIUM SULFATE / D5W 1 GM/100 ML BAG IV STA (11:14)
[2023-07-15 11:17] LABS: INR 1.1 (0.9-1.1); Prothrombin Time 12.2 Seconds (9.0-12.0)
[2023-07-15 11:29] LABS: Lyme Ab IgG w/WB Rflx Negative (Negative); Lyme Ab IgM w/WB Rflx Negative (Negative)
[2023-07-15] MEDS ORDERED: IOVERSOL 350 MG 125mL Prefilled Syringe IV ONE (12:01)
[2023-07-15] MEDS: SODIUM CHLORIDE 0.9% 1,000 ML IV SCH ×2 (12:03→20:03)
--- NOTE | 2023-07-15 12:20 | CT Scan Report ---
CT OF THE ABDOMEN AND PELVIS WITH CONTRAST CLINICAL HISTORY: Upper abdominal pain and diarrhea. COMPARISON STUDY: CT of the abdomen and pelvis June 03, 2022 and renal ultrasound August 17, 2022. TECHNIQUE: Following IV administration of 119 mL of Optiray, axial images of the abdomen and pelvis w ere obtained from the lung bases to the proximal femurs. Images were reviewed in the axial, sagittal, and coronal planes. IV contrast was administered without complication. Automated exposure control w as utilized for the study. A dose lowering technique was utilized adhering to the principles of ALAR A. CT DOSE: 1688.68 mGy.cm FINDINGS: A 9 mm left lower lobe nodule is unchanged since chest CT of August 23, 2010. This is benig n given stability. No pneumatosis, free air or portal venous gas is present. There are no hepatic les ions. There is no biliary or pancreatic ductal dilatation. No peripancreatic or pericholecystic stran ding is present. Spleen, adrenal glands and right kidney are unremarkable. There is a 3.6 cm left aditya al cyst. No urinary calculi are present. There is no hydronephrosis. There is no lymphadenopathy or a scites. The appendix is normal. The caliber and wall thickness of small and large bowel are normal. P ostoperative findings within the lumbosacral spine are incidentally noted. IMPRESSION: 1. No acute process within the abdomen or pelvis. 2. No bowel obstruction. No bowel wall thickening. 3. No urinary calculi or hydronephrosis. ACT 112: Negative or not required by law. Electronically signed by: Chace Owusu M.D. 07/15/2023 12:19 PM
--- NOTE | 2023-07-15 13:46 | History & Physical Report ---
Date of Service July 15, 2023 Assessment & Plan (1) Atrial fibrillation with rapid ventricular response: Plan: New diagnosis, obtain echo Unclear of onset Heparin for anticoagulation: [id number] greater than 1 (2) Abdominal pain: Plan: Likely related to gastroenteritis Stool studies pending Continue outpatient Pepcid Physical exam pain is mild doubt embolic phenomenon/mesenteric ischemia from atrial fibrillation Leukocytosis is likely related to acute phase reaction (3) Hyperlipidemia: Plan: Atorvastatin 40 mg daily (4) Moderate obstructive sleep apnea: Plan: Patient may wear on CPAP -Otherwise 11 cm of water (5) Morbid obesity: Plan: Weight loss would help with cardiovascular pathology -Possible referral to medical weight loss (6) Type 2 diabetes mellitus: Plan: Insulin-dependent, hemoglobin A1c in April was 7.5 Sliding scale insulin with basal: Lantus 60 to 75 units nightly (7) Hypertension: Plan: Chlorthalidone 25 mg daily: On hold Patient reports diltiazem 240 mg extended release daily for hypertension: Continue -Reports previously on Norvasc however the artist's manager she was seeing reported they could cause a inflammation of her lower extremities which she reports she was experiencing Metoprolol 25 mg twice daily Losartan 50 mg daily: Holding with mild increase in creatinine (8) Dehydration: Plan: Mild dehydration secondary to volume loss and poor intake Hyponatremia and hyperchloremia -Continue normal saline at 125 MLS per hour (9) Hypomagnesemia: Plan: 2 g magnesium sulfate IV History of Present Illness Chief Complaint: Difficulty with ambulation this morning Primary Care Provider: Jade Owusu MD Patient is a 73-year-old female without a diagnosis of atrial fibrillation who reports she had been feeling intermittent episodes of chest heaviness however today she was increasingly short of breath and having episodes of diarrhea which prompted her to seek evaluation in the emergency department. In the emergency department she was found to be relative Mallampati hydrated, and atrial fibrillation with rapid ventricular response started on diltiazem and volume expanded with crystalloid. With regard to the chest heaviness she reports that it comes on intermittently and last for 3 to 4 minutes, it is not associated with any particular triggers it is not associated with dizziness lightheadedness or palpitations. She normally sits and it resolves spontaneously. Again she has never been diagnosed with atrial fibrillation nor told that she ever needs to be on blood thinners. She reports that she does have a longstanding history of swelling in the legs. The abdominal pain is crampy in nature and associated with diarrhea/loose stools. No hematochezia or melena otherwise. She also reports that she has not been able to keep hydrated. She reports an allergy to injectable steroids which it makes her have difficulty breathing. Had discussion with patient regarding CODE STATUS and statistics regarding probability of success. She has not had that question asked of her nor does she have a living will indicating long-term wishes. Discussion with statistics of cardiac arrest, rate of survival is approximately 20% for in-house, of those survivors 90% suffer significant neurologic injury. Patient reported she would not want heroics undertaken in event of cardiac arrest and accordingly we have made her DNR/DNI Allergies Allergy/AdvReac Type Severity Reaction Status Date / Time black pepper Allergy Severe Difficulty Verified 07/15/23 12:59 Breathing cayenne pepper fruits Allergy Severe Swelling Verified 07/15/23 12:59 of Lip/Tongue/Throat pepper (genus Capsicum) Allergy Severe Swelling Verified 07/15/23 12:59 of Lip/Tongue/Throat pravastatin Allergy Severe urinary Verified 07/15/23 12:59 retention, SOB triamcinolone Allergy Severe anaphylaxis Verified 07/15/23 12:59 turmeric Allergy Severe throat Verified 07/15/23 12:59 swelling, SOB, red nose Food Allergy Severe Peppers Uncoded 07/15/23 12:59 (hot,cayenne,black)- throat swelling, SOB, red nose steroid injections Allergy Severe Anaphylaxis Uncoded 07/15/23 12:59 VACCINES Allergy Unknown TOLD TO Uncoded 07/15/23 12:59 AVOID ALL D/T SARCOIDOSIS Home Medications Medication Instructions Recorded Confirmed Type cyanocobalamin (vitamin B-12) 1,000 mcg PO QAM 03/27/19 07/15/23 History 1,000 mcg tablet (Vitamin B-12) multivitamin 1 tab PO QAM 03/27/19 07/15/23 History cholecalciferol (vitamin D3) 125 125 mcg PO QAM 05/28/20 07/15/23 History mcg (5,000 unit) tablet (Vitamin D3) ascorbic acid (vitamin C) 1,000 mg 1 g PO QAM 08/01/20 07/15/23 History tablet (Vitamin C) ferrous sulfate 325 mg (65 mg 325 mg PO QAM 09/03/20 07/15/23 History iron) tablet aspirin 81 mg tablet,delayed 81 mg PO QAM 06/12/22 07/15/23 History release cyclobenzaprine 5 mg tablet 5 mg PO TID PRN muscle spasm #60 12/22/22 07/15/23 Rx tabs gabapentin 300 mg capsule 300 mg PO HS #90 caps 12/22/22 07/15/23 Rx insulin glargine 100 unit/mL (3 60 - 75 unit (0.6 - 0.75 mL) 03/04/23 07/15/23 Rx mL) subcutaneous pen (Lantus subcut HS #75 mL Solostar U-100 Insulin) chlorthalidone 25 mg tablet 25 mg PO QAM 03/05/23 07/15/23 History pentoxifylline 400 mg 400 mg PO Q OTHER DAY 03/05/23 07/15/23 History tablet,extended release atorvastatin 40 mg tablet 40 mg PO DAILY #90 tabs 03/08/23 07/15/23 Rx diltiazem HCl 240 mg capsule,24 240 mg PO DAILY #90 caps 04/13/23 07/15/23 Rx hr,extended release omeprazole 20 mg capsule,delayed 20 mg PO QAM #180 caps 04/22/23 07/15/23 Rx release losartan 50 mg tablet 50 mg PO DAILY #90 tabs 07/08/23 07/15/23 Rx metoprolol tartrate 25 mg tablet 25 mg PO BID #180 tabs 07/08/23 07/15/23 Rx Saccharomyces boulardii 250 mg 250 mg PO DAILY 07/15/23 07/15/23 History capsule (Florastor) acetaminophen 500 mg tablet 1,000 mg PO Q6H PRN Pain 07/15/23 07/15/23 History (Tylenol Extra Strength) insulin aspart U-100 100 unit/mL 0 unit subcut TID 07/15/23 07/15/23 History (3 mL) subcutaneous pen (Novolog FlexPen U-100 Insulin aspart) Past Med/Surg History Medical History Anemia Chronic diarrhea Diabetic neuropathy Esophageal reflux Fatty liver disease, nonalcoholic Fibromyalgia History of nephrolithiasis Hyperlipidemia Hypertension Lipodermatosclerosis Lumbar spinal stenosis Moderate obstructive sleep apnea CPAP Morbid obesity Osteoarthritis Periodic limb movement disorder Sarcoidosis History of - no active disease Type 2 diabetes mellitus Surgical History H/O tubal ligation H/O vaginal hysterectomy History of bladder surgery urethral repair History of colonoscopy History of cystoscopy Cystoscopy, Left Ureteronephroscopy, Left Retrograde Pyelogram with radiographic interpretation, Laser Lithotripsy, Basket Extraction of Stone, Left Insertion of Stent Catheter(Left) History of esophagogastroduodenoscopy (EGD) History of hand surgery left trigger finger History of neck surgery biopsy- dx sarcoidosis History of temporal artery biopsy (09/25/21) Right Temporal Artery Biopsy(Right) - Aubrey Rubio DO 09-25-2021 Status post lumbar spine surgery for decompression of spinal cord L2-S1 decompression/fusion (08/21/20): Unable to pass ETT under DL. Glidescope 3 used easily + atraumatic (Grade view 1 with glidescope) Family History Father , age 86 - infection after heart surgery. GENEVIEVE. Diabetes Coronary heart disease Mother , age 82 - CHF Heart disease CHF (congestive heart failure) Aunt Family hx of colon cancer Colorectal cancer Sister Breast cancer Denies family history of Ovarian cancer Social History Smoking Status: Never smoker Second Hand Exposure: No; Do You Dip or Chew Tobacco: No; Hx Alcohol Use: No Hx Substance Use: No Preferred Language: [place] Communication Ability: Effective Hearing Ability: Normal Oil [employer] Pumper Required: No Beliefs That Will Affect Care: None marital status: Current Living Situation: Alone current occupational status: retired Feels Safe at Home: Yes Diet: regular caffeine: Yes Seatbelt Use: always Sunscreen Use: No Assistive Devices: Glasses Review of Systems Review of Systems: As per the HPI otherwise A 10 point review of systems has been obtained and is otherwise negative. Physical Exam Physical Exam: General: Alert. nontoxic. Skin: Warm, dry, lips are dry Head: Atraumatic Ears, nose, mouth and throat: airway patent, lips are dry Cardiovascular: Normal peripheral perfusion, tachycardic irregularly irregular rhythm, atrial fibrillation with rapid ventricular response on bedside monitor Respiratory: no respiratory distress Gastrointestinal: Non distended, no hepatosplenomegaly, rotund abdomen no guarding no rebound nonsurgical abdomen Musculoskeletal: No deformity, no edema Results & Data Results & Data Vital Signs (Past 12 Hours) Vital Signs Temp Pulse Resp BP Pulse Ox O2 Del Method 07/15/23 13:30 147 H 21 140/92 99 07/15/23 13:16 163 H 17 144/68 H 97 07/15/23 13:00 138 H 21 116/88 96 07/15/23 12:46 147 H 24 116/80 95 07/15/23 12:30 146 H 22 131/80 92 07/15/23 12:29 134 H 20 116/95 91 07/15/23 12:09 149 H 27 H 123/66 92 Room Air 07/15/23 11:38 146 H 23 134/110 H 96 Room Air 07/15/23 11:02 151 H 18 123/71 96 Room Air 07/15/23 10:57 157 H 22 136/111 H 98 Room Air 07/15/23 10:30 168 H 32 H 97 Room Air 07/15/23 10:16 173 H 26 H 151/77 H 97 Room Air 07/15/23 10:03 190 H 07/15/23 10:05 37.3 C 07/15/23 09:55 36.8 C 174 H 20 144/72 H 97 Room Air Critical Care Results & Data Vital Signs (Past 12 Hours) Vital Signs Temp Pulse Resp BP Pulse Ox O2 Del Method 07/15/23 13:30 147 H 21 140/92 99 07/15/23 13:16 163 H 17 144/68 H 97 07/15/23 13:00 138 H 21 116/88 96 07/15/23 12:46 147 H 24 116/80 95 07/15/23 12:30 146 H 22 131/80 92 07/15/23 12:29 134 H 20 116/95 91 07/15/23 12:09 149 H 27 H 123/66 92 Room Air 07/15/23 11:38 146 H 23 134/110 H 96 Room Air 07/15/23 11:02 151 H 18 123/71 96 Room Air 07/15/23 10:57 157 H 22 136/111 H 98 Room Air 07/15/23 10:30 168 H 32 H 97 Room Air 07/15/23 10:16 173 H 26 H 151/77 H 97 Room Air 07/15/23 10:03 190 H 07/15/23 10:05 37.3 C 07/15/23 09:55 36.8 C 174 H 20 144/72 H 97 Room Air Lab & Micro Results (Past 24 Hours) RBC 4.78 M/uL (4.20-5.40) 07/15/23 WBC 14.60 K/ul (4.8-10.8) H 07/15/23 Hgb 12.9 g/dl (12.0-16.0) 07/15/23 Hct 38.7 % (37.0-47.0) 07/15/23 MCV 81.0 fL (80.0-100.0) 07/15/23 MCH 27.0 pg (25.0-34.0) 07/15/23 MCHC 33.3 g/dL (32.0-36.0) 07/15/23 RDW Standard Deviation 43.1 fL (36.4-46.3) 07/15/23 RDW Coefficient of Variation 14.8 % (11.5-14.5) H 07/15/23 Plt Count 224 K/uL (130-400) 07/15/23 MPV 10.5 fL (9.4-12.4) 07/15/23 Neutrophils (%) (Auto) 86.0 % 07/15/23 Lymphocytes (%) (Auto) 7.3 % 07/15/23 Monocytes # (Auto) 0.77 K/uL (0.11-0.59) H 07/15/23 Eosinophils # (Auto) 0.00 K/uL (0.00-0.50) 07/15/23 Immature Granulocyte % (Auto) 1.2 % 07/15/23 Neutrophils # (Auto) 12.56 K/uL (1.40-6.50) H 07/15/23 Lymphocytes # (Auto) 1.07 K/uL (1.20-3.40) L 07/15/23 Monocytes # (Auto) 0.77 K/uL (0.11-0.59) H 07/15/23 Eosinophils # (Auto) 0.00 K/uL (0.00-0.50) 07/15/23 Basophils # (Auto) 0.03 K/uL (0.00-0.20) 07/15/23 Immature Granulocyte # (Auto) 0.17 K/uL (0.01-0.20) 3 Na 129 mmol/L (136-145) L 07/15/23 K 3.6 mmol/L (3.5-5.1) 07/15/23 Cl 93 mmol/L (98-107) L 07/15/23 CO2 24 mmol/L (21-32) 07/15/23 Anion Gap 12 (3-11) H 07/15/23 BUN 24 mg/dl (6-23) H 07/15/23 Creatinine 1.28 mg/dl (0.6-1.2) H 07/15/23 Estimated GFR ( Amer) 48.7 ml/min 07/15/23 Estimated GFR (Non-Af Amer) 42.0 ml/min 07/15/23 BUN/Creatinine Ratio 18.8 (10-20) 07/15/23 Glu 205 mg/dl (70-99(Fasting)) H 07/15/23 Ca 8.9 mg/dl (8.6-10.3) 07/15/23 Total Bilirubin 1.7 mg/dl (0.2-1.0) H 07/15/23 AST 33 U/L (13-39) 07/15/23 ALT 19 U/L (7-52) 07/15/23 Alkaline Phosphatase 53 U/L (34-104) 07/15/23 TP 7.7 gm/dl (6.0-8.3) 07/15/23 Albumin 4.1 gm/dl (3.4-5.0) 07/15/23 Globulin 3.6 gm/dl (2.5-4.0) 07/15/23 Albumin/Globulin Ratio 1.1 (0.9-2) 07/15/23 Mg 1.5 mg/dl (1.7-2.4) L 07/15/23 10:12 Calcium Level 8.9 mg/dl (8.6-10.3) 07/15/23 10:12 Prothromb Time International Ratio 1.1 (0.9-1.1) 07/15/23 10:1 2 Diagnostic Findings (Past 24 Hours) Abdomen/Pelvis CT 07/15/23 10:16 CT OF THE ABDOMEN AND PELVIS WITH CONTRAST CLINICAL HISTORY: Upper abdominal pain and diarrhea. COMPARISON STUDY: CT of the abdomen and pelvis June 03, 2022 and renal ultrasound August 17, 2022. TECHNIQUE: Following IV administration of 119 mL of Optiray, axial images of the abdomen and pelvis were obtained from the lung bases to the proximal femurs. Images were reviewed in the axial, sagittal, and coronal planes. IV contrast was administered without complication. Automated exposure control was utilized for the study. A dose lowering technique was utilized adhering to the principles of ALARA. CT DOSE: 1688.68 mGy.cm FINDINGS: A 9 mm left lower lobe nodule is unchanged since chest CT of August 23, 2010. This is benign given stability. No pneumatosis, free air or portal venous gas is present. There are no hepatic lesions. There is no biliary or pancreatic ductal dilatation. No peripancreatic or pericholecystic stranding is present. Spleen, adrenal glands and right kidney are unremarkable. There is a 3.6 cm left renal cyst. No urinary calculi are present. There is no hydronephrosis. There is no lymphadenopathy or ascites. The appendix is normal. The caliber and wall thickness of small and large bowel are normal. Postoperative findings within the lumbosacral spine are incidentally noted. IMPRESSION: 1. No acute process within the abdomen or pelvis. 2. No bowel obstruction. No bowel wall thickening. 3. No urinary calculi or hydronephrosis. ACT 112: Negative or not required by law. Electronically signed by: Cahce Owusu M.D. 07/15/2023 12:19 PM Chest X-Ray 07/15/23 10:16 SINGLE VIEW CHEST CLINICAL HISTORY: Atypical chest pain. FINDINGS: An AP, portable, upright chest radiograph is compared to study dated 09/23/2021. The examination is degraded by portable technique and apical lordotic positioning. The heart is top normal for projection noting atherosclerotic calcification of the thoracic aorta. Chronic interstitial thickening is similar previous. No airspace consolidation or large pleural effusion is identified. No pneumothorax is seen. The skeletal structures are osteopenic. The bony thorax is grossly intact. IMPRESSION: No acute cardiopulmonary abnormality. ACT 112: Negative or not required by law. Electronically signed by: Joseph Dong M.D. 07/15/2023 10:44 AM I & O Totals 24 Hours 07/14/23 07/15/2323 06:59 06:59 06:59 Intake Total 1213.166 / 1213.166 Balance 1213.166 / 1213.166 Cumulative 07/15/23 09:51 thru 07/15/23 13:33 Intake Total 1213.166 Balance 1213.166 RT Ventilator Mngmt (Last Documented) Ventilator Ordered Settings Respiratory Rate 21 07/15/23 13:30 Ventilator - PT Measurements Respiratory Rate 21 PG Care Time/CCT Total # of Minutes Spent Total Time Spent with Patient: Total time spent is greater than 50% in coordination of care (as documented) at patient's floor/unit and/or counseling patient: Coding Level of Care Code 85495 INT INP/OBS CARE 3/75MIN Diagnoses Atrial fibrillation with rapid ventricular response I48.91 Abdominal pain R10.84 Abdominal location: generalized Hyperlipidemia E78.5 Moderate obstructive sleep apnea G47.33 Morbid obesity E66.01 Type 2 diabetes mellitus E11.9 Hypertension I10 Dehydration E86.0 Hypomagnesemia E83.42 (2) Abdominal pain Abdominal location: generalized Qualified Code(s): R10.84 - Generalized abdominal pain
[2023-07-15 14:45] LABS: Influenza A virus by PCR Negative (Neg); Influenza B virus by PCR Negative (Neg); RSV by PCR Negative (Neg); SARS CoV2 RNA(COVID-19) Ceph NEGATIVE (Negative)
[2023-07-15 15:00] LABS: Appearance Urine Clear (Clear); Bacteria Urine Automated 2+ (Negative); Bilirubin Urine Negative (Negative); Blood Urine 1+ (Negative); Cast Urine Automated 0 /lpf (0-5); Color Urine Yellow; Epithelial Cell Urine Auto >30 /lpf (0-5); Glucose Urine UA Negative (Negative); Ketones Urine Negative (Negative); Leukocyte Esterase Urine Negative (Negative); Nitrite Urine Positive (Negative); Protein Urine 1+ (Negative); RBC Urine Automated 0-4 /hpf (0-4); Specific Gravity Urine 1.026 (1.000-1.030); Urobilinogen Urine Negative (Negative); pH Urine 5.5 (4.5-7.5)
[2023-07-15] MEDS ORDERED: cefTRIAXone SODIUM 2,000 MG/70 ML BAG IV STA (15:05)
[2023-07-15] MEDS ORDERED: CYCLOBENZAPRINE HCL 5 MG TAB PO PRN (16:57)
[2023-07-15] MEDS ORDERED: Heparin IV Adult Wt-Based Standard *NO* Bolus Protocol IV STA (17:04)
[2023-07-15] MEDS: METOPROLOL TARTRATE 1 MG/ML VIAL IV PRN ×2 (17:17→23:43)
[2023-07-15] MEDS ORDERED: CARBOHYDRATES FOR HYPOGLYCEMIA PO PRN (17:30)
[2023-07-15] MEDS ORDERED: GLUCAGON FOR INJ 1 MG VIAL IM PRN (17:30)
[2023-07-15] MEDS ORDERED: DEXTROSE 50% 50 ML SYRINGE IV PRN (17:30)
[2023-07-15] MEDS ORDERED: GLUCOSE 40% GEL 15 GM TUBE PO PRN (17:30)
[2023-07-15] MEDS ORDERED: GLUCOSE 10 TAB/TUBE PO PRN (17:30)
--- NOTE | 2023-07-15 18:13 | XCELERA ---
[id number]
[2023-07-15] MEDS: MAGNESIUM SULFATE / D5W 1 GM/100 ML BAG IV SCH ×2 (18:15→20:15)
[2023-07-15] MEDS: INSULIN ASPART PER UNIT CHARGE SC SCH ×2 (18:26→21:31)
[2023-07-15] MEDS: LANTUS PER UNIT CHARGE SC SCH (18:27)
[2023-07-15] MEDS: HEPARIN SODIUM/DEXTROSE 25,000 UNITS/500 ML BAG IV SCH (18:38)
[2023-07-15 20:07] LABS: Partial Thromboplastin Ratio 1.1; Partial Thromboplastin Time 29.9 Seconds (21.0-31.0)
[2023-07-15] MEDS ORDERED: NON-FORMULARY MEDICATION (Insulin Glargine [Lantus Solostar U-100 Insulin] 100 unit/mL (3 SQ SCH (21:00)
[2023-07-15] MEDS: METOPROLOL TARTRATE 25 MG TAB PO SCH (21:31)
[2023-07-15] MEDS: GABAPENTIN 300 MG CAP PO SCH (21:31)
[2023-07-16 01:36] LABS: Partial Thromboplastin Ratio 1.6
[2023-07-16 02:01] LABS: Partial Thromboplastin Time 44.2 Seconds (21.0-31.0)
[2023-07-16] MEDS: SODIUM CHLORIDE 0.9% 1,000 ML IV SCH ×2 (04:03→10:17)
[2023-07-16] MEDS: dilTIAZem HCL 125 MG in DEXTROSE 5% 100 ML IV SCH ×2 (04:42→16:59)
[2023-07-16 06:33] LABS: Basophils # (auto) 0.04 K/uL (0.00-0.20); Basophils % (auto) 0.4 %; Eosinophils # (auto) 0.01 K/uL (0.00-0.50); Eosinophils % (auto) 0.1 %; Hematocrit (blood only) 35.1 % (37.0-47.0); Hemoglobin 11.2 g/dl (12.0-16.0); Immature Granulocytes # (auto) 0.07 K/uL (0.01-0.20); Immature Granulocytes % (auto) 0.7 %; Lymphocytes # (auto) 1.46 K/uL (1.20-3.40); Lymphocytes % (auto) 13.6 %; Mean Corpuscular Hemoglobin 26.5 pg (25.0-34.0); Mean Corpuscular Hgb Conc 31.9 g/dL (32.0-36.0); Mean Platelet Volume 10.4 fL (9.4-12.4); Monocytes # (auto) 0.88 K/uL (0.11-0.59); Monocytes % (auto) 8.2 %; Platelet Count 189 K/uL (130-400); RDW Coefficient of Variation 14.8 % (11.5-14.5); RDW Standard Deviation 44.6 fL (36.4-46.3); Red Blood Count 4.23 M/uL (4.20-5.40); White Blood Count 10.76 K/ul (4.8-10.8)
[2023-07-16 06:57] LABS: Albumin Level 3.7 gm/dl (3.4-5.0); BUN Creatinine Ratio 17.4 (10-20); Bilirubin Direct 0.3 mg/dl (0-0.2); Bilirubin,Total 0.9 mg/dl (0.2-1.0); Calcium 8.2 mg/dl (8.6-10.3); Creatinine Clr Calc Pharmacy 69.6 ml/min; Est GFR (African American) 55.4 ml/min; Est GFR (Non-African American) 47.8 ml/min; Phosphorus 2.4 mg/dl (2.5-4.9); Potassium 3.3 mmol/L (3.5-5.1); Total Protein 7.4 gm/dl (6.0-8.3)
[2023-07-16] MEDS ORDERED: METOPROLOL TARTRATE 1 MG/ML VIAL IV PRN (08:05)
--- NOTE | 2023-07-16 08:05 | Hospitalist Progress Note ---
Date of Service July 16, 2023 Assessment & Plan (1) Atrial fibrillation with rapid ventricular response: Plan: RVR New diagnosis, elevated troponin with uncontrolled rate, not clear if demand or angina with troponin rise and poor rate control, cardiology consult recommended LHC showing non occlusive disease diltiazen and metoprolol for rate control , convert to higher po doses Echo with preserved EF and no RWMA Heparin for anticoagulation: [id number] greater than 1 (2) Hypertension: Plan: Chlorthalidone 25 mg daily: On hold Patient reports diltiazem 240 mg extended release daily for hypertension: increase dose to 360 -Reports previously on Norvasc however the information security specialist she was seeing reported they could cause a inflammation of her lower extremities which she reports she was experiencing Metoprolol increaased to 50 mg twice daily Losartan 50 mg daily: Holding with mild increase in creatinine (3) Type 2 diabetes mellitus: Plan: Insulin-dependent, hemoglobin A1c in April was 7.5 Sliding scale insulin with basal: Lantus 60 to 75 units nightly (4) Abdominal pain: Plan: Likely related to gastroenteritis Stool studies pending Continue outpatient Pepcid (5) Hyperlipidemia: Plan: Atorvastatin 40 mg daily (6) Moderate obstructive sleep apnea: Plan: Patient may wear on CPAP -Otherwise 11 cm of water (7) Morbid obesity: Plan: Weight loss would help with cardiovascular pathology -Possible referral to medical weight loss (8) Hypomagnesemia: Plan: replete magnesium and potassium Admission and Anticipated Discharge Date Admission Date: July 15, 2023 Subjective Pt is doing well, did have LHC and non occlusive disease was found, cardiology is recommending better rate control Physical Exam Physical Exam: awake and alert in rapid afib cardiac ir irregular and rapid lungs are clear Results & Data Results & Data Vital Signs (Past 12 Hours) Vital Signs Temp Pulse Pulse Resp BP BP Pulse Ox 07/16/23 07:40 125 H 07/16/23 02:52 98.1 F 73 16 153/75 H 93 07/16/23 02:20 124 H 32 H 96 07/15/23 23:58 108 H 128/72 07/15/23 21:58 132 H 07/15/23 20:51 174 H 07/15/23 23:43 136 H 142/66 H 07/15/23 23:00 98.1 F 119 H 24 150/88 H 95 07/15/23 22:19 125 H 22 95 O2 Del Method FiO2 07/16/23 07:40 07/16/23 02:52 Room Air 07/16/23 02:20 21 07/15/23 23:58 07/15/23 21:58 07/15/23 20:51 07/15/23 23:43 07/15/23 23:00 BiPAP 07/15/23 22:19 Laboratory Results review cbc review chemistry PG Care Time/CCT Total # of Minutes Spent Total Time Spent with Patient: Total time spent is greater than 50% in coordination of care (as documented) at patient's floor/unit and/or counseling patient: Coding Level of Care Code 48751 SUB INP/OBS CARE 3/50MIN Diagnoses Atrial fibrillation with rapid ventricular response I48.91 Hypertension I10 Type 2 diabetes mellitus E11.9 Abdominal pain R10.84 Abdominal location: generalized Hyperlipidemia E78.5 Moderate obstructive sleep apnea G47.33 Morbid obesity E66.01 Hypomagnesemia E83.42 (4) Abdominal pain Abdominal location: generalized Qualified Code(s): R10.84 - Generalized abdominal pain
[2023-07-16] MEDS: LANTUS PER UNIT CHARGE SC SCH ×2 (08:06→21:07)
[2023-07-16] MEDS: INSULIN ASPART PER UNIT CHARGE SC SCH ×4 (08:07→21:06)
[2023-07-16] MEDS: ATORVASTATIN 40 MG TAB PO SCH (08:14)
[2023-07-16] MEDS: CYANOCOBALAMIN (B-12) 500 MCG TABLET PO SCH (08:15)
[2023-07-16] MEDS: CHOLECALCIFEROL 5,000 UNITS 125 MCG TAB PO SCH (08:15)
[2023-07-16] MEDS: METOPROLOL TARTRATE 25 MG TAB PO SCH (08:17)
[2023-07-16] MEDS: MULTIVITAMIN TAB PO SCH (08:17)
[2023-07-16] MEDS: PANTOprazole 40 MG TAB PO SCH (08:18)
[2023-07-16 08:33] LABS: Magnesium 2.1 mg/dl (1.7-2.4)
[2023-07-16] MEDS: METOPROLOL TARTRATE 1 MG/ML VIAL IV PRN (08:44)
[2023-07-16] MEDS: POTASSIUM CHLORIDE / WTR 10 MEQ/100 ML PLCT IV SCH ×3 (08:47→12:26)
[2023-07-16] MEDS: POTASSIUM CHLORIDE CRTAB 20 MEQ TABCR PO SCH ×2 (08:47→20:57)
[2023-07-16] MEDS ORDERED: dilTIAZem HCL 240 MG CAPCR PO SCH (09:00)
[2023-07-16] MEDS ORDERED: ASPIRIN 81 MG ECTAB PO SCH (09:00)
[2023-07-16] MEDS: HEPARIN SODIUM/DEXTROSE 25,000 UNITS/500 ML BAG IV SCH (09:42)
--- NOTE | 2023-07-16 11:07 | Cardiology Consultation ---
Date of Consultation July 16, 2023 Assessment & Plan (1) Atrial fibrillation with rapid ventricular response: 2. Elevated troponin 3. Acute GI illness 4. Type 2 diabetes 5. Hypertension 6. Dehydration/hyponatremia 7. Prior dysphagia post esophageal dilation Found to have new A-fib with RVR with heart rates as high as 180. Remains in A-fib, asymptomatic with improved rate control on IV and p.o. diltiazem, metoprolol. Patient with multiple risk factors for AF and suspect acute episode triggered by recent illness, electrolyte abnormalities [id number] Suspect troponin elevation likely demand ischemia but with ASCVD risk factors, ECG changes and exertional chest pressure some concern for possible ACS event. Now post cardiac catheterization -- only has single vessel mild to moderate nonobstructive mid LAD stenosis. No acute, high risk disease. LVEDP 26. Plan: Initial trial of rate control strategy. MARILU-cardioversion considered but will avoid for now with prior dysphagia requiring dilation. -- Additional diltiazem 120 mg tonight and increase daily dose to 360 mg. -- Increase metoprolol to 50mg BID Continue current diltiazem drip today/overnight. Likely discontinue tomorrow. -- Can start eliquis 5mg BID tonight. -- Continue current statin, losartan. Can stop aspirin. HCTZ on hold with hyponatremia. -- 7L in since admit. LVEDP elevated. Hold additional IV fluids. Loop diuretic if worsened dyspnea. Will follow History of Present Illness Attending Physician: Patrick Rendon MD History of Present Illness Mrs. Klein is a very pleasant 73-year-old woman admitted with abdominal pain, nausea, diarrhea and found to have new onset A-fib with RVR. Cardiology consulted for management of A-fib and for rising troponin. No real prior cardiac history. Reports remote stress test years ago. Past medical history includes class IV obesity, type 2 diabetes, hypertension, dyslipidemia, GERD and prior dysphagia post EGD and esophageal dilation 3 months ago. Also with reported sarcoidosis not on therapy. At baseline patient significantly limited by weight, osteoarthritis and chronic back pain post multiple spine surgeries. Able to walk only short distances around her home. Patient reports GI symptoms/abdominal pain beginning 3 days ago. Has been unable to keep any food down and became increasingly fatigued, short of breath. No worsened LE edema, orthopnea. On arrival noted to be in A-fib with heart rates as high as high as 180s. Initial ECG while in AF with RVR showed anterolateral ST depressions. HS TropI initially yesterday 540, next 1100. Echocardiogram yesterday showed preserved LV function with no regional wall motion abnormalities, mild LVH, mildly dilated RV, biatrial enlargement and no significant valve pathology. Of note patient denies any chest pain but does report episodes of chest pressure with exertion predating recent GI illness and more notable chest pressure over the last few days. No new palpitations, presyncope. Shortness of breath with exertion persistent may be more short of breath today than usual. Family history: Noncontributory Social history: Lives independently up near [place]. >1 yr ago. 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 Thinking about moving to [place] to be with daughter. Non-smoker. Denies heavy etoh. Allergies Allergy/AdvReac Type Severity Reaction Status Date / Time black pepper Allergy Severe Difficulty Verified 07/15/23 12:59 Breathing cayenne pepper fruits Allergy Severe Swelling Verified 07/15/23 12:59 of Lip/Tongue/Throat pepper (genus Capsicum) Allergy Severe Swelling Verified 07/15/23 12:59 of Lip/Tongue/Throat pravastatin Allergy Severe urinary Verified 07/15/23 12:59 retention, SOB triamcinolone Allergy Severe anaphylaxis Verified 07/15/23 12:59 turmeric Allergy Severe throat Verified 07/15/23 12:59 swelling, SOB, red nose Food Allergy Severe Peppers Uncoded 07/15/23 12:59 (hot,cayenne,black)- throat swelling, SOB, red nose steroid injections Allergy Severe Anaphylaxis Uncoded 07/15/23 12:59 VACCINES Allergy Unknown TOLD TO Uncoded 07/15/23 12:59 AVOID ALL D/T SARCOIDOSIS Home Medications Medication Instructions Recorded Confirmed Type cyanocobalamin (vitamin B-12) 1,000 mcg PO QAM 03/27/19 07/15/23 History 1,000 mcg tablet (Vitamin B-12) multivitamin 1 tab PO QAM 03/27/19 07/15/23 History cholecalciferol (vitamin D3) 125 125 mcg PO QAM 05/28/20 07/15/23 History mcg (5,000 unit) tablet (Vitamin D3) ascorbic acid (vitamin C) 1,000 mg 1 g PO QAM 08/01/20 07/15/23 History tablet (Vitamin C) ferrous sulfate 325 mg (65 mg 325 mg PO QAM 09/03/20 07/15/23 History iron) tablet aspirin 81 mg tablet,delayed 81 mg PO QAM 06/12/22 07/15/23 History release cyclobenzaprine 5 mg tablet 5 mg PO TID PRN muscle spasm #60 12/22/22 07/15/23 Rx tabs gabapentin 300 mg capsule 300 mg PO HS #90 caps 12/22/22 07/15/23 Rx insulin glargine 100 unit/mL (3 60 - 75 unit (0.6 - 0.75 mL) 03/04/23 07/15/23 Rx mL) subcutaneous pen (Lantus subcut HS #75 mL Solostar U-100 Insulin) chlorthalidone 25 mg tablet 25 mg PO QAM 03/05/23 07/15/23 History pentoxifylline 400 mg 400 mg PO Q OTHER DAY 03/05/23 07/15/23 History tablet,extended release atorvastatin 40 mg tablet 40 mg PO DAILY #90 tabs 03/08/23 07/15/23 Rx diltiazem HCl 240 mg capsule,24 240 mg PO DAILY #90 caps 04/13/23 07/15/23 Rx hr,extended release omeprazole 20 mg capsule,delayed 20 mg PO QAM #180 caps 04/22/23 07/15/23 Rx release losartan 50 mg tablet 50 mg PO DAILY #90 tabs 07/08/23 07/15/23 Rx metoprolol tartrate 25 mg tablet 25 mg PO BID #180 tabs 07/08/23 07/15/23 Rx Saccharomyces boulardii 250 mg 250 mg PO DAILY 07/15/23 07/15/23 History capsule (Florastor) acetaminophen 500 mg tablet 1,000 mg PO Q6H PRN Pain 07/15/23 07/15/23 History (Tylenol Extra Strength) insulin aspart U-100 100 unit/mL 0 unit subcut TID 07/15/23 07/15/23 History (3 mL) subcutaneous pen (Novolog FlexPen U-100 Insulin aspart) Patient History Medical History Anemia Chronic diarrhea Diabetic neuropathy Esophageal reflux Fatty liver disease, nonalcoholic Fibromyalgia History of nephrolithiasis Hyperlipidemia Hypertension Lipodermatosclerosis Lumbar spinal stenosis Moderate obstructive sleep apnea CPAP Morbid obesity Osteoarthritis Periodic limb movement disorder Sarcoidosis History of - no active disease Type 2 diabetes mellitus Surgical History H/O tubal ligation H/O vaginal hysterectomy History of bladder surgery urethral repair History of colonoscopy History of cystoscopy Cystoscopy, Left Ureteronephroscopy, Left Retrograde Pyelogram with radiographic interpretation, Laser Lithotripsy, Basket Extraction of Stone, Left Insertion of Stent Catheter(Left) History of esophagogastroduodenoscopy (EGD) History of hand surgery left trigger finger History of neck surgery biopsy- dx sarcoidosis History of temporal artery biopsy (09/25/21) Right Temporal Artery Biopsy(Right) - Aubrey Rubio DO 09-25-2021 Status post lumbar spine surgery for decompression of spinal cord L2-S1 decompression/fusion (08/21/20): Unable to pass ETT under DL. Glidescope 3 used easily + atraumatic (Grade view 1 with glidescope) Family History Father , age 86 - infection after heart surgery. GENEVIEVE. Diabetes Coronary heart disease Mother , age 82 - CHF Heart disease CHF (congestive heart failure) Aunt Family hx of colon cancer Colorectal cancer Sister Breast cancer Denies family history of Ovarian cancer Social History Smoking Status: Never smoker Second Hand Exposure: No; Do You Dip or Chew Tobacco: No; Hx Alcohol Use: No Hx Substance Use: No Preferred Language: Polish Communication Ability: Effective Hearing Ability: Normal Social Director Required: No Beliefs That Will Affect Care: Lutheran marital status: Current Living Situation: Alone current occupational status: retired Feels Safe at Home: Yes Diet: regular caffeine: Yes Seatbelt Use: always Sunscreen Use: No Assistive Devices: Cane, Walker and Wheelchair Review of Systems Review of Systems: All systems reviewed & are unremarkable except as noted in HPI & below Physical Exam Physical Exam: General: Comfortable at rest, dsypneic with rolling to side HEENT: Sclerae anicteric Lungs: Clear to auscultation bilaterally, few wheezes with exertion Cardiac: Distant heart sounds, irregularly irregular. No murmurs. Vascular: 2+ radial Abdomen: Soft, tender LT flank and RUQ. Extremities: Well perfused, chronic venous stasis changes. Neuro: Nonfocal Psych: Alert orient x3, normal affect and mood Results & Data Vital Signs (Past 12 Hours) Vital Signs Temp Pulse Pulse Resp BP BP Pulse Ox 07/16/23 08:00 07/16/23 10:04 102 H 07/16/23 08:57 118 H 117/77 07/16/23 08:44 128 H 07/16/23 07:38 98.1 F 138 H 21 150/70 H 93 07/16/23 07:40 125 H 07/16/23 02:52 98.1 F 73 16 153/75 H 93 07/16/23 02:20 124 H 32 H 96 07/15/23 23:58 108 H 128/72 07/15/23 23:43 136 H 142/66 H 07/15/23 23:00 98.1 F 119 H 24 150/88 H 95 O2 Del Method FiO2 07/16/23 08:00 Room Air 07/16/23 10:04 07/16/23 08:57 07/16/23 08:44 07/16/23 07:38 Room Air 07/16/23 07:40 07/16/23 02:52 Room Air 07/16/23 02:20 21 07/15/23 23:58 07/15/23 23:43 07/15/23 23:00 BiPAP PG Care Time/CCT Total # of Minutes Spent Total Time Spent with Patient: Total time spent is greater than 50% in coordination of care (as documented) at patient's floor/unit and/or counseling patient: Coding Level of Care Code 77283 INT INP/OBS CARE 3/75MIN Diagnoses Atrial fibrillation with rapid ventricular response I48.91
[2023-07-16] MEDS ORDERED: fentaNYL citrate PF 100 MCG/2 ML VIAL ONE (14:55)
[2023-07-16] MEDS ORDERED: niCARdipine HCL INJ 2.5 MG/ML 10 ML AMP ONE (14:55)
[2023-07-16] MEDS ORDERED: MIDAZOLAM HCL 1 MG/ML 2ML VIAL ONE (14:55)
[2023-07-16] MEDS ORDERED: HEPARIN (PORCINE) 1000 UNIT/ML 10 ML (CATH LAB USE ONLY) ONE (14:55)
[2023-07-16] MEDS ORDERED: NITROGLYCERIN/D5W 100MCG/ML 20ML SYR ONE (14:56)
--- NOTE | 2023-07-16 15:38 | Pre Anesthesia Assessment ---
Date of Service July 16, 2023 Pre Sedation Assessment Vital Signs Temp Pulse Pulse Resp BP BP Pulse Ox 07/16/23 15:13 88 07/16/23 14:36 106 H 18 127/74 93 07/16/23 11:29 98.2 F 97 H 23 144/44 H 94 07/16/23 08:00 07/16/23 10:04 102 H 07/16/23 08:57 118 H 117/77 07/16/23 08:44 128 H 07/16/23 07:38 98.1 F 138 H 21 150/70 H 93 07/16/23 07:40 125 H 07/16/23 02:52 98.1 F 73 16 153/75 H 93 07/16/23 02:20 124 H 32 H 96 07/15/23 19:45 07/15/23 23:58 108 H 128/72 07/15/23 21:58 132 H 07/15/23 20:51 174 H 07/15/23 23:43 136 H 142/66 H 07/15/23 23:00 98.1 F 119 H 24 150/88 H 95 07/15/23 22:19 125 H 22 95 07/15/23 19:00 98.2 F 109 H 16 117/78 94 07/15/23 17:00 163 H 07/15/23 17:32 135 H 99/51 L 07/15/23 17:51 123 H 07/15/23 17:17 153 H 126/80 07/15/23 16:58 98.2 F 173 H 20 126/80 96 07/15/23 16:35 O2 Del Method FiO2 07/16/23 15:13 07/16/23 14:36 Room Air 07/16/23 11:29 Room Air 07/16/23 08:00 Room Air 07/16/23 10:04 07/16/23 08:57 07/16/23 08:44 07/16/23 07:38 Room Air 07/16/23 07:40 07/16/23 02:52 Room Air 07/16/23 02:20 21 07/15/23 19:45 Room Air 07/15/23 23:58 07/15/23 21:58 07/15/23 20:51 07/15/23 23:43 07/15/23 23:00 BiPAP 07/15/23 22:19 07/15/23 19:00 Room Air 07/15/23 17:00 07/15/23 17:32 07/15/23 17:51 07/15/23 17:17 07/15/23 16:58 Room Air 07/15/23 16:35 Room Air Cardiovascular RRR, no murmur, no edema Respiratory normal respiratory effort, lungs clear to auscultation Pre-Sedation Airway Assessment Smoking Status: Never smoker Hx Sleep Apnea: No Hx Difficult Intubation: No Short, Thick Neck: No Thyromental Distance: > or= 3.5 Finger Breadths Oral Cavity: + WNL Mallampati Class: II ASA: ASA3 NPO Status Date of Last Intake of Fluids: 07/16/23 Time of Last Intake of Fluids: 09:00 Last Oral Intake of Fluids Comment: sips Date of Last Intake of Solid Food: 07/15/23 Time of Last Intake of Solid Foods: 07:00 Procedure Planning Contraindications for Sedation: none Current Medications Reviewed: Yes Notes The planned sedation has been discussed with the patient. Informed Consent was obtained. I have identified the patient, determined the appropriateness of sedation and have assessed the patient immediately prior to the procedure. All medicine(s) and interventions are by my order.
--- NOTE | 2023-07-16 16:46 | Cardiac Catheterization ---
[facility] Data: Community Health Education Coordinator Cardiac Status Clinical evaluation leading to the procedure CAD Presenation: Non STEMI Anginal Classification: CCS III Diagnostic Physicians Name: Meng Diaz MD Closure Device Recommendations: Medical Therapy and/or Counseling Cardiac Cath Procedure Full Procedure Date July 16, 2023 Pre-Procedure Diagnosis Pre-Procedure Diagnosis: Non STEMI AUC Score AUC Score: 7 Post-Procedure Diagnosis Post-Procedure Diagnosis: Mild CAD and Elevated Intracardiac Pressures Procedure(s) Performed Procedure(s) Performed: Coronary Angiography and Left Heart Cath Hand Bindery Assembly Worker Meng Diaz MD Train Operations Supervisor(s) [place] Estimated Blood Loss Estimated Blood Loss: 10 Medication(s) Medication(s): Fentanyl, Heparin, Lidocaine 1%, Nicardipine, Nitroglycerin and Versed Summary of Findings Indication: A-fib with RVR, elevated troponin Access: 6 Fr right radial artery Catheters: [place] Findings: LM -normal caliber, no significant disease LAD -medium caliber, earlymid segment is angulated with 40-50% stenosis at take-off of 1st septal. Distal vessel with 30% distal stenosis and myocardial bridging before wrapping around apex. Medium D2 without disease Circumflex -medium caliber, 20% ostial, mid segment luminal regularities. High small OM1 with 50% ostial stenosis RCA -dominant, large caliber, 20% mid segment disease LVEDP -26 Arterial Closure: TR band Summary: 1. Mild to moderate nonobstructive coronary artery disease -40 to 50% earlymid LAD stenosis Small OM1 50% ostial stenosis 2. Elevated intracardiac filling pressure Recommendations: Continue rate control and anticoagulation for AF with RVR Continued ASCVD risk factor modification Hemodynamics Rest Ao:: 130/73/105 Final Ao: 131/80/99 LV: 142/26 Recommendations Recommendations: Medical Therapy and/or Counseling Specimens Specimens: None Radiation Exposure (mGy) 851 Contrast (mls) 40 Anesthesia Moderate 1350 - 1603 Disposition PCU I attest to the content of the Intraoperative Record and any orders documented therein. Any exceptions are noted below. [facility] Card Cath Procedure Codes Cardiac Catheterization Procedure 1: Cardiovascular Cath Procedures: 17144 Coronaries and LHC (+/-LV) Moderate Sedation Procedure 1: Sedation/Anesthesia: 54895 Mod Sedation by the same physician;Init15 Min Child Age 5 & Up PG Care Time/CCT Total # of Minutes Spent Total Time Spent with Patient: Total time spent is greater than 50% in coordination of care (as documented) at patient's floor/unit and/or counseling patient:
[2023-07-16] MEDS ORDERED: METOPROLOL TARTRATE 50 MG TAB PO STA (18:21)
[2023-07-16] MEDS: ACETAMINOPHEN 500 MG TAB PO PRN (18:45)
[2023-07-16] MEDS: GABAPENTIN 300 MG CAP PO SCH (20:57)
[2023-07-16] MEDS: METOPROLOL TARTRATE 50 MG TAB PO SCH (20:57)
[2023-07-16] MEDS ORDERED: dilTIAZem HCL 120 MG CAPCR PO ONE (21:00)
[2023-07-16] MEDS ORDERED: [UNRECOGNIZED DRUG - REMARK] ONE (21:00)
[2023-07-16] MEDS: APIXABAN 5 MG TABLET PO SCH (21:23)
[2023-07-17 07:28] LABS: Basophils # (auto) 0.04 K/uL (0.00-0.20); Basophils % (auto) 0.4 %; Eosinophils # (auto) 0.02 K/uL (0.00-0.50); Eosinophils % (auto) 0.2 %; Hematocrit (blood only) 32.8 % (37.0-47.0); Hemoglobin 10.7 g/dl (12.0-16.0); Immature Granulocytes # (auto) 0.06 K/uL (0.01-0.20); Immature Granulocytes % (auto) 0.6 %; Lymphocytes # (auto) 1.83 K/uL (1.20-3.40); Lymphocytes % (auto) 17.1 %; Mean Corpuscular Hemoglobin 26.4 pg (25.0-34.0); Mean Corpuscular Hgb Conc 32.6 g/dL (32.0-36.0); Mean Corpuscular Volume 80.8 fL (80.0-100.0); Mean Platelet Volume 10.8 fL (9.4-12.4); Monocytes # (auto) 1.04 K/uL (0.11-0.59); Monocytes % (auto) 9.7 %; Neutrophils # (auto) 7.71 K/uL (1.40-6.50); Platelet Count 220 K/uL (130-400); RDW Coefficient of Variation 15.1 % (11.5-14.5); RDW Standard Deviation 44.2 fL (36.4-46.3); Red Blood Count 4.06 M/uL (4.20-5.40)
[2023-07-17] MEDS: PANTOprazole 40 MG TAB PO SCH (07:44)
[2023-07-17] MEDS: CYANOCOBALAMIN (B-12) 500 MCG TABLET PO SCH (07:44)
[2023-07-17] MEDS: dilTIAZem HCL 180 MG CAPCR PO SCH (07:45)
[2023-07-17] MEDS: APIXABAN 5 MG TABLET PO SCH ×2 (07:45→21:13)
[2023-07-17] MEDS: ATORVASTATIN 40 MG TAB PO SCH (07:45)
[2023-07-17] MEDS: CHOLECALCIFEROL 5,000 UNITS 125 MCG TAB PO SCH (07:45)
[2023-07-17] MEDS: METOPROLOL TARTRATE 50 MG TAB PO SCH ×2 (07:45→21:12)
[2023-07-17] MEDS: POTASSIUM CHLORIDE CRTAB 20 MEQ TABCR PO SCH (07:46)
[2023-07-17] MEDS: MULTIVITAMIN TAB PO SCH (07:46)
[2023-07-17 07:54] LABS: Partial Thromboplastin Ratio 1.1; Partial Thromboplastin Time 30.8 Seconds (21.0-31.0)
[2023-07-17] MEDS: METOPROLOL TARTRATE 1 MG/ML VIAL IV PRN (07:56)
[2023-07-17 08:16] LABS: Calcium 8.3 mg/dl (8.6-10.3); Potassium 3.8 mmol/L (3.5-5.1)
[2023-07-17 08:21] LABS: BUN Creatinine Ratio 18.5 (10-20); Creatinine Clr Calc Pharmacy 74.1 ml/min; Est GFR (African American) 59.8 ml/min; Est GFR (Non-African American) 51.6 ml/min; Phosphorus 2.5 mg/dl (2.5-4.9)
[2023-07-17] MEDS: LANTUS PER UNIT CHARGE SC SCH ×2 (08:55→21:13)
[2023-07-17] MEDS: INSULIN ASPART PER UNIT CHARGE SC SCH ×4 (08:55→21:02)
[2023-07-17] MEDS: ACETAMINOPHEN 500 MG TAB PO PRN (10:44)
[2023-07-17] MEDS: cefTRIAXone SODIUM 2,000 MG in DEXTROSE 5% 50 ML IV SCH (12:36)
[2023-07-17 16:00] LABS: Influenza A virus by PCR Negative (Neg); Influenza B virus by PCR Negative (Neg); RSV by PCR Negative (Neg); SARS CoV2 RNA(COVID-19) Ceph NEGATIVE (Negative)
--- NOTE | 2023-07-17 17:40 | Hospitalist Progress Note ---
Date of Service July 17, 2023 Assessment & Plan (1) Atrial fibrillation with rapid ventricular response: Plan: RVR New diagnosis, elevated troponin with uncontrolled rate, angina ruled out confirmed to be demand ischemia with troponin rise and poor rate control, cardiology consult recommended [facility] showing non occlusive disease diltiazen and metoprolol for rate control , convert to higher po doses Echo with preserved EF and no RWMA Heparin for anticoagulation: [id number] greater than 1, will need to convert to eliquis (2) Hypertension: Plan: Chlorthalidone 25 mg daily: On hold Patient reports diltiazem 240 mg extended release daily for hypertension: increase dose to 360 -Reports previously on Norvasc however the remote sensing surveyor she was seeing reported they could cause a inflammation of her lower extremities which she reports she was experiencing Metoprolol increaased to 50 mg twice daily Losartan 50 mg daily: Holding with mild increase in creatinine (3) Type 2 diabetes mellitus: Plan: Insulin-dependent, hemoglobin A1c in April was 7.5 Sliding scale insulin with basal: Lantus 60 to 75 units nightly (4) Abdominal pain: Plan: Likely related to gastroenteritis Stool studies pending Continue outpatient Pepcid (5) Hyperlipidemia: Plan: Atorvastatin 40 mg daily (6) Moderate obstructive sleep apnea: Plan: Patient may wear on CPAP -Otherwise 11 cm of water (7) Morbid obesity: Plan: Weight loss would help with cardiovascular pathology -Possible referral to medical weight loss (8) Hypomagnesemia: Plan: replete magnesium and potassium (9) Urinary tract infection: Plan: pt found to have E coli uti poa started on ceftriaxone as likely impacts afib Admission and Anticipated Discharge Date Admission Date: July 15, 2023 Subjective afib has been variable, found to have uti poa and likely is the physiological stressor to precipitate RVR, did have E Coli that is boudreaux sensitive Physical Exam Physical Exam: afib now with better rate control, no murmur lungs are clear abd is soft and non tender Results & Data Results & Data Vital Signs (Past 12 Hours) Vital Signs Temp Pulse Pulse Resp BP BP Pulse Ox 07/17/23 16:19 97.7 F 82 21 113/77 93 07/17/23 15:46 94 H 07/17/23 07:45 07/17/23 11:01 98.2 F 99 H 21 109/66 95 07/17/23 10:39 106 H 07/17/23 08:11 102 H 121/77 07/17/23 08:04 98.1 F 143 H 26 H 137/75 94 07/17/23 07:56 134 H 122/69 O2 Del Method O2 Flow Rate 07/17/23 16:19 Room Air 07/17/23 15:46 07/17/23 07:45 Room Air 07/17/23 11:01 Room Air 07/17/23 10:39 07/17/23 08:11 07/17/23 08:04 Nasal Cannula 2 07/17/23 07:56 PG Care Time/CCT Total # of Minutes Spent Total Time Spent with Patient: Total time spent is greater than 50% in coordination of care (as documented) at patient's floor/unit and/or counseling patient: Coding Level of Care Code 23689 SUB INP/OBS CARE 3/50MIN Diagnoses Atrial fibrillation with rapid ventricular response I48.91 Hypertension I10 Type 2 diabetes mellitus E11.9 Abdominal pain R10.84 Abdominal location: generalized Hyperlipidemia E78.5 Moderate obstructive sleep apnea G47.33 Morbid obesity E66.01 Hypomagnesemia E83.42 Urinary tract infection N39.0 (4) Abdominal pain Abdominal location: generalized Qualified Code(s): R10.84 - Generalized abdominal pain
--- NOTE | 2023-07-17 19:42 | Cardiology Progress Note ---
Date of Service July 17, 2023 Assessment & Plan (1) Atrial fibrillation with rapid ventricular response: (2) Elevated troponin: (3) Hypertension: (4) CAD (coronary artery disease): Plan ASSESSMENT/PLAN: 1. Atrial fibrillation: New diagnosis this hospital stay. Asymptomatic. May be triggered by her UTI/acute illness. Heart rate reasonably controlled with current rate controlling strategy. Continue oral diltiazem and metoprolol as titrated by Dr. Diaz. Tachycardia also may have been worsened due to UTI. Continue anticoagulation for stroke risk reduction. Could consider cardioversion after 4 weeks of therapeutic anticoagulation therapy if necessary. (Has required esophageal dilation in the past). 2. Elevated troponin: Likely due to demand ischemia. No obstructive CAD noted on cardiac catheterization. 3. CAD: Nonobstructive CAD. Risk factor modification. Continue beta-rush. Continue high intensity statin therapy. 4. Hypertension: Blood pressure mostly normotensive today. Continue current regimen. 5. UTI: As per primary service. 6. Elevated left-sided filling pressure: LVEDP was elevated during cardiac catheterization. She had received IV fluids as she was felt to be hypovolemic on presentation based on documentation. We will try to maintain somewhat net negative fluid balance if possible. If she should become short of breath, would recommend diuretic. Chronically on chlorthalidone. Consider resuming. 7. Disposition: Plan of care discussed with Dr. Rendon of the primary hospitalist service. Please call with any further questions or concerns. Admission and Anticipated Discharge Date Admission Date: July 15, 2023 Subjective Patient seen earlier today. She had some chest discomfort at rest overnight but it resolved spontaneously. She feels much better overall since receiving antibiotics today for UTI. She denies palpitations, shortness of breath, syncope, near syncope, palpitations, edema, or bleeding. She was alone in her hospital room. Physical Exam Physical Exam: Gen.: No acute distress. Alert and oriented. HEENT: Anicteric sclera. Neck: No JVD. Cardiac: No ventricular heave. Irregularly irregular. Normal rate. Normal S1- S2. No murmurs, rubs, or gallops. Pulmonary: Clear to auscultation bilaterally without wheezes, rales, or rhonchi. Abdomen: Soft, nontender, nondistended, with normoactive bowel sounds. No bruits noted. Extremities: 2+ radial pulses bilaterally. 2+ posterior tibialis pulses bilaterally. Trace bilateral lower extremity edema. No cyanosis. Psychiatric: Affect appears appropriate. Results & Data Vital Signs (Past 12 Hours) Vital Signs Temp Pulse Pulse Resp BP BP Pulse Ox 07/17/23 16:19 36.5 C 82 21 113/77 93 07/17/23 15:46 94 H 07/17/23 07:45 07/17/23 11:01 36.8 C 99 H 21 109/66 95 07/17/23 10:39 106 H 07/17/23 08:11 102 H 121/77 07/17/23 08:04 36.7 C 143 H 26 H 137/75 94 07/17/23 07:56 134 H 122/69 O2 Del Method O2 Flow Rate 07/17/23 16:19 Room Air 07/17/23 15:46 07/17/23 07:45 Room Air 07/17/23 11:01 Room Air 07/17/23 10:39 07/17/23 08:11 07/17/23 08:04 Nasal Cannula 2 07/17/23 07:56 Laboratory Results Laboratory Results - last 24 hr 07/16/23 07/17/23 07/17/23 20:09 06:44 06:44 WBC 10.70 RBC 4.06 L Hgb 10.7 L Hct 32.8 L MCV 80.8 MCH 26.4 MCHC 32.6 RDW Std Deviation 44.2 RDW Coeff of Cecile 15.1 H Plt Count 220 MPV 10.8 Immature Gran % (Auto) 0.6 Neut % (Auto) 72.0 Lymph % (Auto) 17.1 Elmore % (Auto) 9.7 Eos % (Auto) 0.2 Baso % (Auto) 0.4 Neut # (Auto) 7.71 H Lymph # (Auto) 1.83 Elmore # (Auto) 1.04 H Eos # (Auto) 0.02 Baso # (Auto) 0.04 Immature Gran # (Auto) 0.06 APTT PTT Ratio Sodium 131 L Potassium 3.8 Chloride 97 L Carbon Dioxide 25 Anion Gap 9 BUN 20 Creatinine 1.08 Est Cr Clr Drug Dosing 74.1 Est GFR ( Amer) 59.8 Est GFR (Non-Af Amer) 51.6 BUN/Creatinine Ratio 18.5 Glucose 137 H POC Glucose 143 H Calcium 8.3 L Phosphorus 2.5 SARS-CoV-2 (PCR) Influenza Type A (PCR) Influenza Type B (PCR) RSV (RT-PCR) 07/17/23 07/17/23 07/17/23 06:44 07:36 11:40 WBC RBC Hgb Hct MCV MCH MCHC RDW Std Deviation RDW Coeff of Cecile Plt Count MPV Immature Gran % (Auto) Neut % (Auto) Lymph % (Auto) Elmore % (Auto) Eos % (Auto) Baso % (Auto) Neut # (Auto) Lymph # (Auto) Elmore # (Auto) Eos # (Auto) Baso # (Auto) Immature Gran # (Auto) APTT 30.8 PTT Ratio 1.1 Sodium Potassium Chloride Carbon Dioxide Anion Gap BUN Creatinine Est Cr Clr Drug Dosing Est GFR ( Amer) Est GFR (Non-Af Amer) BUN/Creatinine Ratio Glucose POC Glucose 156 H 137 H Calcium Phosphorus SARS-CoV-2 (PCR) Influenza Type A (PCR) Influenza Type B (PCR) RSV (RT-PCR) 07/17/23 07/17/23 15:10 16:19 WBC RBC Hgb Hct MCV MCH MCHC RDW Std Deviation RDW Coeff of Cecile Plt Count MPV Immature Gran % (Auto) Neut % (Auto) Lymph % (Auto) Elmore % (Auto) Eos % (Auto) Baso % (Auto) Neut # (Auto) Lymph # (Auto) Elmore # (Auto) Eos # (Auto) Baso # (Auto) Immature Gran # (Auto) APTT PTT Ratio Sodium Potassium Chloride Carbon Dioxide Anion Gap BUN Creatinine Est Cr Clr Drug Dosing Est GFR ( Amer) Est GFR (Non-Af Amer) BUN/Creatinine Ratio Glucose POC Glucose 170 H Calcium Phosphorus SARS-CoV-2 (PCR) NEGATIVE Influenza Type A (PCR) Negative Influenza Type B (PCR) Negative RSV (RT-PCR) Negative Diagnostic Findings Labs reviewed and notable for hyponatremia, stable renal function, mild anemia. Urine culture positive for E. coli. Telemetry personally reviewed: Atrial fibrillation with improved heart rate mostly in the 80s to 90s when reviewed this morning. Cardiac cath 07/16/2023: 1. Mild to moderate nonobstructive coronary artery disease -40 to 50% earlymid LAD stenosis Small OM1 50% ostial stenosis 2. Elevated intracardiac filling pressure ECG personally reviewed 07/17/2023: A-fib 106 bpm. Cannot rule out anterior infarct. Nonspecific T wave abnormality. Medications Administered Current Inpatient Medications Acetaminophen (Acetaminophen 500 Mg Tab) 1,000 mg PO Q8H PRN PRN Reason: Pain Stop: 08/15/23 18:28 Last Admin: 07/17/23 10:44 Dose: 1,000 mg Apixaban (Apixaban 5 Mg Tablet) 5 mg PO BID PHIL Stop: 08/15/23 20:59 Last Admin: 07/17/23 07:45 Dose: 5 mg Atorvastatin Calcium (Atorvastatin 40 Mg Tab) 40 mg PO DAILY PHIL Stop: 08/15/23 08:59 Last Admin: 07/17/23 07:45 Dose: 40 mg Cyanocobalamin (Cyanocobalamin (B-12) 500 Mcg Tablet) 1,000 mcg PO QAM PHIL Stop: 08/15/23 08:59 Last Admin: 07/17/23 07:44 Dose: 1,000 mcg Cyclobenzaprine HCl (Cyclobenzaprine Hcl 5 Mg Tab) 5 mg PO TID PRN PRN Reason: muscle spasm Stop: 08/14/23 16:56 Last Admin: 07/17/23 03:50 Dose: 5 mg Dextrose (Dextrose 50% 50 Ml Syringe) 25 - 50 ml IV UD PRN; Protocol PRN Reason: Hypoglycemia Protocol Stop: 08/14/23 17:29 Diltiazem HCl (Diltiazem Hcl 180 Mg Capcr) 360 mg PO DAILY PHIL Stop: 08/16/23 08:59 Last Admin: 07/17/23 07:45 Dose: 360 mg Gabapentin (Gabapentin 300 Mg Cap) 300 mg PO HS PHIL Stop: 08/14/23 20:59 Last Admin: 07/16/23 20:57 Dose: 300 mg Glucagon (Glucagon For Inj 1 Mg Vial) 1 mg IM UD PRN; Protocol PRN Reason: Hypoglycemia Protocol Stop: 08/14/23 17:29 Glucose (Glucose 40% Gel 15 Gm Tube) 15 - 30 gm PO UD PRN; Protocol PRN Reason: Hypoglycemia Protocol Stop: 08/14/23 17:29 Glucose (Glucose 10 Tab/Tube) 4 - 8 tab PO UD PRN; Protocol PRN Reason: Hypoglycemia Protocol Stop: 08/14/23 17:29 Ceftriaxone Sodium 2,000 mg/ (Dextrose) 70 mls @ 100 mls/hr IV Q24H PHIL; Protocol Stop: 07/22/23 11:59 Last Infusion: 07/17/23 14:10 Dose: Infused Insulin Aspart (Insulin Aspart Per Unit Charge) 0 units SC ACHS [facility] Stop: 08/14/23 17:29 Last Admin: 07/17/23 17:24 Dose: 6 units Insulin Glargine (Lantus Per Unit Charge) 20 units SC BID [facility] Stop: 08/14/23 17:59 Last Admin: 07/17/23 08:55 Dose: 20 units Metoprolol Tartrate (Metoprolol Tartrate 1 Mg/Ml Vial) 5 mg IV Q4 PRN PRN Reason: sbp > 185, dbp >95, HR >120 Stop: 08/15/23 08:04 Metoprolol Tartrate (Metoprolol Tartrate 50 Mg Tab) 50 mg PO BID [facility] Stop: 08/15/23 20:59 Last Admin: 07/17/23 07:45 Dose: 50 mg Miscellaneous (Carbohydrates For Hypoglycemia ) 15 - 30 gm PO UD PRN PRN Reason: Hypoglycemia Treatment Stop: 08/14/23 17:29 Multivitamins (Multivitamin Tab) 1 tab PO [facility] Stop: 08/15/23 08:59 Last Admin: 07/17/23 07:46 Dose: 1 tab Pantoprazole Sodium (Pantoprazole 40 Mg Tab) 40 mg PO [facility]; Protocol Stop: 08/15/23 08:59 Last Admin: 07/17/23 07:44 Dose: 40 mg Vitamin D (Cholecalciferol 5,000 Units 125 Mcg Tab) 5,000 units PO [facility] Stop: 08/15/23 08:59 Last Admin: 07/17/23 07:45 Dose: 5,000 units PG Care Time/CCT Total # of Minutes Spent Total Time Spent with Patient: Total time spent is greater than 50% in coordination of care (as documented) at patient's floor/unit and/or counseling patient: Coding Level of Care Code 06137 SUB INP/OBS CARE 2/35MIN Diagnoses Atrial fibrillation with rapid ventricular response I48.91 Elevated troponin R77.8 Hypertension I10 CAD (coronary artery disease) I25.10
[2023-07-17] MEDS: GABAPENTIN 300 MG CAP PO SCH (21:18)
[2023-07-18 06:59] LABS: Basophils # (auto) 0.03 K/uL (0.00-0.20); Basophils % (auto) 0.3 %; Eosinophils # (auto) 0.06 K/uL (0.00-0.50); Eosinophils % (auto) 0.6 %; Hematocrit (blood only) 32.7 % (37.0-47.0); Hemoglobin 10.4 g/dl (12.0-16.0); Immature Granulocytes # (auto) 0.06 K/uL (0.01-0.20); Immature Granulocytes % (auto) 0.6 %; Lymphocytes # (auto) 2.45 K/uL (1.20-3.40); Lymphocytes % (auto) 25.4 %; Mean Corpuscular Hemoglobin 26.1 pg (25.0-34.0); Mean Corpuscular Hgb Conc 31.8 g/dL (32.0-36.0); Mean Corpuscular Volume 82.2 fL (80.0-100.0); Mean Platelet Volume 10.4 fL (9.4-12.4); Monocytes # (auto) 0.86 K/uL (0.11-0.59); Monocytes % (auto) 8.9 %; Neutrophils # (auto) 6.17 K/uL (1.40-6.50); Neutrophils % (auto) 64.2 %; Platelet Count 234 K/uL (130-400); RDW Coefficient of Variation 14.8 % (11.5-14.5); RDW Standard Deviation 44.7 fL (36.4-46.3); Red Blood Count 3.98 M/uL (4.20-5.40); White Blood Count 9.63 K/ul (4.8-10.8)
[2023-07-18 07:39] LABS: BUN Creatinine Ratio 22.2 (10-20); Calcium 8.5 mg/dl (8.6-10.3); Creatinine Clr Calc Pharmacy 79.7 ml/min; Est GFR (African American) 66.4 ml/min; Est GFR (Non-African American) 57.3 ml/min; Phosphorus 3.4 mg/dl (2.5-4.9); Potassium 3.7 mmol/L (3.5-5.1)
[2023-07-18] MEDS: APIXABAN 5 MG TABLET PO SCH ×2 (08:30→20:38)
[2023-07-18] MEDS: CHOLECALCIFEROL 5,000 UNITS 125 MCG TAB PO SCH (08:30)
[2023-07-18] MEDS: PANTOprazole 40 MG TAB PO SCH (08:31)
[2023-07-18] MEDS: dilTIAZem HCL 180 MG CAPCR PO SCH (08:31)
[2023-07-18] MEDS: ATORVASTATIN 40 MG TAB PO SCH (08:32)
[2023-07-18] MEDS: METOPROLOL TARTRATE 50 MG TAB PO SCH (08:32)
[2023-07-18] MEDS: CYANOCOBALAMIN (B-12) 500 MCG TABLET PO SCH (08:32)
[2023-07-18] MEDS: MULTIVITAMIN TAB PO SCH (08:32)
[2023-07-18] MEDS: INSULIN ASPART PER UNIT CHARGE SC SCH ×4 (08:36→20:39)
[2023-07-18] MEDS: LANTUS PER UNIT CHARGE SC SCH ×2 (08:38→20:39)
[2023-07-18] MEDS ORDERED: METOPROLOL TARTRATE 25 MG TAB PO STA (10:08)
[2023-07-18] MEDS: cefTRIAXone SODIUM 2,000 MG in DEXTROSE 5% 50 ML IV SCH (12:00)
--- NOTE | 2023-07-18 16:24 | Hospitalist Progress Note ---
Date of Service July 18, 2023 Assessment & Plan (1) Atrial fibrillation with rapid ventricular response: Plan: RVR New diagnosis, elevated troponin with uncontrolled rate, angina ruled out confirmed to be demand ischemia with troponin rise and poor rate control, cardiology consult recommended [facility] showing non occlusive disease diltiazen and metoprolol for rate control , convert to higher po doses escalated metoprolol on 07/18 now to 75 twice daily with an additional dose of 25 in the morning Echo with preserved EF and no RWMA Heparin for anticoagulation: [id number] greater than 1, will need to convert to eliquis (2) Hypertension: Plan: Chlorthalidone 25 mg daily: On hold Patient reports diltiazem 240 mg extended release daily for hypertension: increase dose to 360 -Reports previously on Norvas however the inbound sales manager she was seeing reported they could cause a inflammation of her lower extremities which she reports she was experiencing Metoprolol increaased to 50 mg twice daily Losartan 50 mg daily: Holding with mild increase in creatinine (3) Type 2 diabetes mellitus: Plan: Insulin-dependent, hemoglobin A1c in April was 7.5 Sliding scale insulin with basal: Lantus 60 to 75 units nightly (4) Abdominal pain: Plan: Likely related to gastroenteritis Stool studies pending Continue outpatient Pepcid (5) Hyperlipidemia: Plan: Atorvastatin 40 mg daily (6) Moderate obstructive sleep apnea: Plan: Patient may wear on CPAP -Otherwise 11 cm of water (7) Morbid obesity: Plan: Weight loss would help with cardiovascular pathology -Possible referral to medical weight loss (8) Hypomagnesemia: Plan: replete magnesium and potassium hyponatremia improving with rate control (9) Urinary tract infection: Plan: pt found to have E coli uti poa started on ceftriaxone as likely impacts afib Admission and Anticipated Discharge Date Admission Date: July 15, 2023 Subjective patient still with not great rate related control of her atrial fibrillation. She feels much better overall since receiving antibiotics today for UTI. She has some dyspnea with exertion she can feels palpitations and her rates are 12/15/1937. But overall she feels improved Physical Exam Physical Exam: afib now with better rate control, no murmur still with rates in the 140s with exertion lungs are clear abd is soft and non tender Results & Data Results & Data Vital Signs (Past 12 Hours) Vital Signs Temp Pulse Pulse Resp BP BP Pulse Ox 07/18/23 15:27 97.9 F 85 18 119/69 94 07/18/23 15:00 81 07/18/23 11:16 97.7 F 88 16 122/70 95 07/18/23 08:00 07/18/23 08:00 98 H 07/18/23 07:55 97.5 F L 104 H 16 151/68 H 94 O2 Del Method 07/18/23 15:27 Room Air 07/18/23 15:00 07/18/23 11:16 Room Air 07/18/23 08:00 Room Air 07/18/23 08:00 07/18/23 07:55 Room Air Laboratory Results reviewed CBC reviewed chemistry PG Care Time/CCT Total # of Minutes Spent Total Time Spent with Patient: Total time spent is greater than 50% in coordination of care (as documented) at patient's floor/unit and/or counseling patient: Coding Level of Care Code 47788 SUB INP/OBS CARE 3/50MIN Diagnoses Atrial fibrillation with rapid ventricular response I48.91 Hypertension I10 Type 2 diabetes mellitus E11.9 Abdominal pain R10.84 Abdominal location: generalized Hyperlipidemia E78.5 Moderate obstructive sleep apnea G47.33 Morbid obesity E66.01 Hypomagnesemia E83.42 Urinary tract infection N39.0 (4) Abdominal pain Abdominal location: generalized Qualified Code(s): R10.84 - Generalized abdominal pain
[2023-07-18] MEDS: METOPROLOL TARTRATE 25 MG TAB PO SCH (20:39)
[2023-07-18] MEDS: GABAPENTIN 300 MG CAP PO SCH (20:39)
[2023-07-19] MEDS: ACETAMINOPHEN 500 MG TAB PO PRN (05:30)
[2023-07-19 07:58] LABS: Hematocrit (blood only) 35.9 % (37.0-47.0); Hemoglobin 11.2 g/dl (12.0-16.0); Mean Corpuscular Hemoglobin 26.2 pg (25.0-34.0); Mean Corpuscular Hgb Conc 31.2 g/dL (32.0-36.0); Mean Corpuscular Volume 83.9 fL (80.0-100.0); Mean Platelet Volume 10.6 fL (9.4-12.4); Platelet Count 308 K/uL (130-400); RDW Standard Deviation 45.6 fL (36.4-46.3); Red Blood Count 4.28 M/uL (4.20-5.40); White Blood Count 10.82 K/ul (4.8-10.8)
[2023-07-19 08:12] LABS: Creatinine Clr Calc Pharmacy 68.5 ml/min; Est GFR (African American) 55.4 ml/min; Est GFR (Non-African American) 47.8 ml/min; Magnesium 1.8 mg/dl (1.7-2.4); Phosphorus 4.3 mg/dl (2.5-4.9); Potassium 4.4 mmol/L (3.5-5.1)
[2023-07-19 08:22] LABS: Basophils # (auto) 0.05 K/uL (0.00-0.20); Basophils % (auto) 0.5 %; Eosinophils # (auto) 0.12 K/uL (0.00-0.50); Eosinophils % (auto) 1.1 %; Immature Granulocytes # (auto) 0.17 K/uL (0.01-0.20); Immature Granulocytes % (auto) 1.6 %; Lymphocytes # (auto) 3.02 K/uL (1.20-3.40); Lymphocytes % (auto) 27.9 %; Monocytes # (auto) 0.85 K/uL (0.11-0.59); Monocytes % (auto) 7.9 %; Neutrophils # (auto) 6.61 K/uL (1.40-6.50); RBC Morphology Unremarkable
[2023-07-19] MEDS: CHLORTHALIDONE 25 MG TAB PO SCH (08:41)
[2023-07-19] MEDS: APIXABAN 5 MG TABLET PO SCH ×2 (08:41→21:39)
[2023-07-19] MEDS: ATORVASTATIN 40 MG TAB PO SCH (08:41)
[2023-07-19] MEDS: CHOLECALCIFEROL 5,000 UNITS 125 MCG TAB PO SCH (08:41)
[2023-07-19] MEDS: dilTIAZem HCL 180 MG CAPCR PO SCH (08:42)
[2023-07-19] MEDS: CYANOCOBALAMIN (B-12) 500 MCG TABLET PO SCH (08:42)
[2023-07-19] MEDS: PANTOprazole 40 MG TAB PO SCH (08:43)
[2023-07-19] MEDS: MULTIVITAMIN TAB PO SCH (08:43)
[2023-07-19] MEDS: METOPROLOL TARTRATE 25 MG TAB PO SCH ×2 (08:43→21:40)
[2023-07-19] MEDS: LANTUS PER UNIT CHARGE SC SCH ×2 (08:49→21:38)
[2023-07-19] MEDS: INSULIN ASPART PER UNIT CHARGE SC SCH ×4 (08:49→21:38)
[2023-07-19] MEDS: cefTRIAXone SODIUM 2,000 MG in DEXTROSE 5% 50 ML IV SCH (11:42)
--- NOTE | 2023-07-19 14:35 | Electrocardiogram Report ---
Test Reason : Blood Pressure : / mmHG Vent. Rate : 180 BPM Atrial Rate : 000 BPM P-R Int : 000 ms QRS Dur : 086 ms QT Int : 258 ms P-R-T Axes : 000 058 255 degrees QTc Int : 446 ms Atrial fibrillation with rapid ventricular response Cannot rule out Anterior infarct (cited on or before 15-JUL-2023) Abnormal ECG When compared with ECG of 05-JUN-2022 08:18, Atrial fibrillation has replaced Sinus rhythm Vent. rate has increased BY [address]/T abnormality is now present in inferolateral leads Confirmed by Umer Cisneros ([id number]) on 07/19/2023 2:35:29 PM Referred By: REFERRED SELF Confirmed By:Umer Cisneros
--- NOTE | 2023-07-19 15:40 | Hospitalist Progress Note ---
Date of Service July 19, 2023 Assessment & Plan (1) Atrial fibrillation with rapid ventricular response: Plan: RVR New diagnosis, elevated troponin with uncontrolled rate, angina ruled by left heart cath out confirmed to be demand ischemia with troponin rise and poor rate control, cardiology consult recommended [facility] showing non occlusive disease diltiazem and metoprolol for rate control , convert to higher po doses escalated metoprolol on 07/18 now to 75 twice daily with an additional dose of 25 in the morning Echo with preserved EF and no RWMA [id number] greater than 1, now on eliquis (2) Hypertension: Plan: Chlorthalidone 25 mg daily: On hold Patient reports diltiazem 360 mg extended release daily this is a dose increase during this hospital stay -Reports previously on Norvasc however the butt presser she 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 seeing reported they could cause a inflammation of her lower extremities which she reports she was experiencing Metoprolol increaased to 75 mg twice daily Losartan 50 mg daily: Holding with mild increase in creatinine we will try to restart given this is a renal protective effect for diabetes (3) Type 2 diabetes mellitus: Plan: Insulin-dependent, hemoglobin A1c in April was 7.5 Sliding scale insulin with basal: Lantus 60 to 75 units nightly (4) Abdominal pain: Plan: Likely related to gastroenteritis Stool studies pending Continue outpatient Pepcid (5) Hyperlipidemia: Plan: Atorvastatin 40 mg daily (6) Moderate obstructive sleep apnea: Plan: Patient may wear on CPAP -Otherwise 11 cm of water (7) Morbid obesity: Plan: Weight loss would help with cardiovascular pathology -Possible referral to medical weight loss (8) Hypomagnesemia: Plan: replete magnesium and potassium hyponatremia improving with rate control (9) Urinary tract infection: Plan: pt found to have E coli uti poa started on ceftriaxone as likely impacts afib Admission and Anticipated Discharge Date Admission Date: July 15, 2023 Subjective Patient with better rate control on the monitor overnight she feels fatigued today she cannot cite an exact reason why. She does not feel she is ready to go home. She is not having any focal changes on pulmonary examination her atrial fibrillation remains a irregular but rate controlled Physical Exam Physical Exam: afib now with better rate control, no murmur still with rates in the 140s with exertion lungs are clear abd is soft and non tender Results & Data Results & Data Vital Signs (Past 12 Hours) Vital Signs Temp Pulse Resp BP Pulse Ox O2 Del Method 07/19/23 12:01 97.5 F L 92 H 19 149/78 H 94 Room Air 07/19/23 08:00 Room Air 07/19/23 07:56 97.5 F L 79 18 109/73 94 Room Air Laboratory Results Reviewed CBC reviewed chemistry Discussed case with cardiology PG Care Time/CCT Total # of Minutes Spent Total Time Spent with Patient: Total time spent is greater than 50% in coordination of care (as documented) at patient's floor/unit and/or counseling patient: Coding Level of Care Code 68901 SUB INP/OBS CARE 2/35MIN Diagnoses Atrial fibrillation with rapid ventricular response I48.91 Hypertension I10 Type 2 diabetes mellitus E11.9 Abdominal pain R10.84 Abdominal location: generalized Hyperlipidemia E78.5 Moderate obstructive sleep apnea G47.33 Morbid obesity E66.01 Hypomagnesemia E83.42 Urinary tract infection N39.0 (4) Abdominal pain Abdominal location: generalized Qualified Code(s): R10.84 - Generalized abdominal pain
--- NOTE | 2023-07-19 20:07 | Electrocardiogram Report ---
Test Reason : Blood Pressure : / mmHG Vent. Rate : 106 BPM Atrial Rate : 133 BPM P-R Int : 000 ms QRS Dur : 098 ms QT Int : 336 ms P-R-T Axes : 000 055 -60 degrees QTc Int : 446 ms Atrial fibrillation with rapid ventricular response Poor R wave progression, consider anterior IL vs. lead placement vs. LVH Nonspecific T wave abnormality Abnormal ECG When compared with ECG of 15-JUL-2023 10:03, Vent. rate has decreased BY [address] less depressed in Inferolateral leads T wave inversion less evident in Inferolateral leads Confirmed by Umer Cisneros ([id number]) on 07/19/2023 8:06:24 PM Referred By: REFERRED SELF Confirmed By:Umer Cisneros
[2023-07-19] MEDS: GABAPENTIN 300 MG CAP PO SCH (21:40)
[2023-07-20 06:35] LABS: Hematocrit (blood only) 36.6 % (37.0-47.0); Hemoglobin 11.4 g/dl (12.0-16.0); Mean Corpuscular Hemoglobin 26.1 pg (25.0-34.0); Mean Corpuscular Hgb Conc 31.1 g/dL (32.0-36.0); Mean Corpuscular Volume 83.8 fL (80.0-100.0); Mean Platelet Volume 10.2 fL (9.4-12.4); Platelet Count 358 K/uL (130-400); RDW Standard Deviation 45.1 fL (36.4-46.3); Red Blood Count 4.37 M/uL (4.20-5.40); White Blood Count 13.63 K/ul (4.8-10.8)
[2023-07-20 06:51] LABS: BUN Creatinine Ratio 20.5 (10-20); Calcium 8.9 mg/dl (8.6-10.3); Creatinine Clr Calc Pharmacy 62.1 ml/min; Est GFR (African American) 49.2 ml/min; Est GFR (Non-African American) 42.4 ml/min; Magnesium 1.7 mg/dl (1.7-2.4); Potassium 4.4 mmol/L (3.5-5.1)
[2023-07-20] MEDS: LANTUS PER UNIT CHARGE SC SCH (08:06)
[2023-07-20] MEDS: INSULIN ASPART PER UNIT CHARGE SC SCH ×2 (08:06→12:01)
[2023-07-20] MEDS: APIXABAN 5 MG TABLET PO SCH (08:06)
[2023-07-20] MEDS: CHOLECALCIFEROL 5,000 UNITS 125 MCG TAB PO SCH (08:07)
[2023-07-20] MEDS: PANTOprazole 40 MG TAB PO SCH (08:07)
[2023-07-20] MEDS: METOPROLOL TARTRATE 25 MG TAB PO SCH (08:07)
[2023-07-20] MEDS: ATORVASTATIN 40 MG TAB PO SCH (08:07)
[2023-07-20] MEDS: dilTIAZem HCL 180 MG CAPCR PO SCH (08:07)
[2023-07-20] MEDS: CYANOCOBALAMIN (B-12) 500 MCG TABLET PO SCH (08:07)
[2023-07-20] MEDS: CHLORTHALIDONE 25 MG TAB PO SCH (08:07)
[2023-07-20] MEDS: MULTIVITAMIN TAB PO SCH (08:07)
[2023-07-20] MEDS ORDERED: LOSARTAN POTASSIUM 50 MG TAB PO SCH (09:00)
[2023-07-20] MEDS: cefTRIAXone SODIUM 2,000 MG in DEXTROSE 5% 50 ML IV SCH (13:03)
--- NOTE | 2023-07-20 15:37 | Discharge Summary ---
Date of Service July 20, 2023 Admission HPI Per Admitting Provider Patient is a 73-year-old female without a diagnosis of atrial fibrillation who reports she had been feeling intermittent episodes of chest heaviness however today she was increasingly short of breath and having episodes of diarrhea which prompted her to seek evaluation in the emergency department. In the emergency department she was found to be relative Mallampati hydrated, and atrial fibrillation with rapid ventricular response started on diltiazem and volume expanded with crystalloid. With regard to the chest heaviness she reports that it comes on intermittently and last for 3 to 4 minutes, it is not associated with any particular triggers it is not associated with dizziness lightheadedness or palpitations. She normally sits and it resolves spontaneously. Again she has never been diagnosed with atrial fibrillation nor told that she ever needs to be on blood thinners. She reports that she does have a longstanding history of swelling in the legs. The abdominal pain is crampy in nature and associated with diarrhea/loose stools. No hematochezia or melena otherwise. She also reports that she has not been able to keep hydrated. She reports an allergy to injectable steroids which it makes her have difficulty breathing. Had discussion with patient regarding CODE STATUS and statistics regarding probability of success. She has not had that question asked of her nor does she have a living will indicating long-term wishes. Discussion with statistics of cardiac arrest, rate of survival is approximately 20% for in-house, of those survivors 90% suffer significant neurologic injury. Patient reported she would not want heroics undertaken in event of cardiac arrest and accordingly we have made her DNR/DNI Principal Diagnosis Atrial fibrillation rapid ventricular responsenew diagnosis Elevated troponin negative heart catheterization felt to be demand ischemia from A-fib RVR E. coli UTI present on admission treated with 3 days worth of ceftriaxone Discharge Exam Patient awake and alert complains of feeling tired Card exam is irregular but rate controlled Lungs are diminished at the bases but otherwise clear Extremities are with trace edema Discharge Data Allergies Allergy/AdvReac Type Severity Reaction Status Date / Time black pepper Allergy Severe Difficulty Verified 07/15/23 12:59 Breathing cayenne pepper fruits Allergy Severe Swelling Verified 07/15/23 12:59 of Lip/Tongue/Throat pepper (genus Capsicum) Allergy Severe Swelling Verified 07/15/23 12:59 of Lip/Tongue/Throat pravastatin Allergy Severe urinary Verified 07/15/23 12:59 retention, SOB triamcinolone Allergy Severe anaphylaxis Verified 07/15/23 12:59 turmeric Allergy Severe throat Verified 07/15/23 12:59 swelling, SOB, red nose Food Allergy Severe Peppers Uncoded 07/15/23 12:59 (hot,cayenne,black)- throat swelling, SOB, red nose steroid injections Allergy Severe Anaphylaxis Uncoded 07/15/23 12:59 VACCINES Allergy Unknown TOLD TO Uncoded 07/15/23 12:59 AVOID ALL D/T SARCOIDOSIS Consultations 07/15/23 13:28 ED Decision to Admit Stat 07/16/23 08:05 Consult Cardiology Routine Procedures Performed Operation Date: 07/16/23 13:00 Actual Procedures p Cineradiography w/Routine Exam - Andrew Diaz MD p Cath, Left with Cors and Vent - Andrew Diaz MD Ordered Studies 07/15/23 10:16 CT abd pelvis IV con only Stat 07/16/23 11:15 CL Cath Imgs for PACS use only Routine Hospital Course (1) Atrial fibrillation with rapid ventricular response: RVR New diagnosis, elevated troponin with uncontrolled rate, angina ruled by left heart cath out confirmed to be demand ischemia with troponin rise and poor rate control, cardiology consult recommended LHC showing non occlusive disease diltiazem and metoprolol for rate control , convert to higher po doses escalated metoprolol on 07/18 now to 75 twice daily with an additional dose of 25 in the morning Echo with preserved EF and no RWMA [id number] greater than 1, now on eliquis (2) Hypertension: Chlorthalidone 25 mg daily: Restart at discharge Patient reports diltiazem 360 mg extended release daily this is a dose increase during this hospital stay -Reports previously on Norvas however the svp digital sales she was see ing reported they could cause a inflammation of her lower extremities which she reports she was experiencing Metoprolol increaased to 75 mg twice daily Losartan 50 mg daily: restart given this is a renal protective effect for diabetes (3) Type 2 diabetes mellitus: Insulin-dependent, hemoglobin A1c in April was 7.5 Return to home diabetic regimen (4) Abdominal pain: Likely related to gastroenteritis since resolved Stool studies not performed given lack of production of liquid stool sample Continue outpatient Pepcid (5) Hyperlipidemia: Atorvastatin 40 mg daily (6) Moderate obstructive sleep apnea: Patient may wear on CPAP -Otherwise 11 cm of water (7) Morbid obesity: Weight loss would help with cardiovascular pathology -Possible referral to medical weight loss (8) Hypomagnesemia: replete magnesium and potassium hyponatremia improving with rate control (9) Urinary tract infection: pt found to have E coli uti poa started on ceftriaxone as likely impacts afib received 3 doses for uncomplicated UTI present on admission Total Time Total Time Spent Total Time Spent (In Minutes): It required greater than 30 minutes to prepare this patient for discharge Discharge Plan Discharge Items Patient Disposition: Home - Home Health Services Reason For Visit: WEAKNESS Discharge Diagnosis: atrial fibrillation UTI present on admission treated with 3 days of antibiotics deconditioning Activity: Per Instructions section Activity Comment: pr home PT eval Non-emergency contact: Primary Care Provider Call non-emergency contact if: your symptoms worsen Follow-up/Referrals: Jade Owusu MD [Primary Care Provider] - 07/28/23 2:00 pm Diet: Carb Consistent or DM2 Addtl Attending Provider Instructions: take your new medications and follow up with cardiology Medication Instructions: Your condition is typically treated with an anticoagulant. Anticoagulants will thin your blood to help prevent new clots. * You should take her medication exactly as directed. * Never skip a dose. * Never take a double dose. If you miss a dose, take it as soon as you remember. Call your Primary Care doctor if you experience any of the following: * Swelling or Pain in your leg * Sudden, continuous pain deep in a muscle * Pain that worsens when you are active or when you stand still for a long time * Chest Pain * Sudden Shortness of Breath * Rapid or pounding heart beat * Fainting * Dizziness * Cough with blood or bloody sputum * Sweating more than normal * Bruises * Heavy or uncontrolled bleeding * Blood in your urine, stool or vomit * Black or tarry stools Caring for Your Self at Home: * Avoid sitting, standing or lying down for long periods without moving your legs and feet * When traveling by car, stop to get out and move around at least once every 3 hours * On long airplane, train or bus rides, get up and move around when possible * If you can't get up, wiggle your toes and tighten your calves to keep your blood moving Follow Up: It is important for you to keep your follow up appointments with your medical provider. Addtl Meat Hostess Provider Instructions: Home health nursing check for medication and rate control on new afib, anticoaguatoin teaching home PT for deconditioning after prolonged hospital stay Pending Studies at Discharge: No Stand-Alone Forms: My [facility], Smoking Cessation Medications and DC Order Prescriptions: New Eliquis 5 mg Tablet 5 mg PO BID Qty: 60 5RF Continued insulin glargine [Lantus Solostar U-100 Insulin] 100 unit/mL (3 mL) insulin pen 60 - 75 unit subcut HS Qty: 75 2RF Rx Instructions: or as directed atorvastatin 40 mg tablet 40 mg PO DAILY Qty: 90 3RF omeprazole 20 mg capsule,delayed release(DR/EC) 20 mg PO QAM Qty: 180 3RF losartan 50 mg tablet 50 mg PO DAILY Qty: 90 3RF ferrous sulfate 325 mg (65 mg iron) tablet 325 mg PO QAM gabapentin 300 mg capsule 300 mg PO HS Qty: 90 3RF cyclobenzaprine 5 mg tablet 5 mg PO TID PRN (Reason: muscle spasm) Qty: 60 1RF cholecalciferol (vitamin D3) [Vitamin D3] 125 mcg (5,000 unit) Tablet 125 mcg PO QAM multivitamin Tablet 1 tab PO QAM cyanocobalamin (vitamin B-12) [Vitamin B-12] 1,000 mcg Tablet 1,000 mcg PO QAM ascorbic acid (vitamin C) [Vitamin C] 1,000 mg Tablet 1 g PO QAM chlorthalidone 25 mg tablet 25 mg PO QAM acetaminophen [Tylenol Extra Strength] 500 mg Tablet 1,000 mg PO Q6H PRN (Reason: Pain) insulin aspart U-100 [Novolog FlexPen U-100 Insulin] 100 unit/mL (3 mL) insulin pen 0 unit subcut TID Rx Instructions: Per sliding scales, or as directed before meals Saccharomyces boulardii [Florastor] 250 mg capsule 250 mg PO DAILY Rx Instructions: swallow whole aspirin 81 mg tablet,delayed release (DR/EC) 81 mg PO QAM Changed diltiazem HCl 360 mg capsule,extended release 24hr 360 mg PO DAILY Qty: 30 5RF metoprolol tartrate 75 mg tablet 75 mg PO BID Qty: 60 5RF Discontinued pentoxifylline 400 mg tablet extended release 400 mg PO Q OTHER DAY Rx Instructions: IS DUE TODAY, BUT DID NOT TAKE Discharge Orders: Discharge Order (Routine); Ordered 07/20/23 Ordered By: Patrick Perez/Other Patient Handouts: Managing Type 2 Diabetes, Special Foot Care for Diabetes Admission Data Admit Date/Time: 07/15/23 14:31 Attending Provider: Patrick Rendon Admit Provider: Zafar Blake Primary Care Provider: Jade Owusu Other Providers: Patrick Rendon ; Umer Cisneros ; [place] Other Interventions: Discharge Summary Assessment (RN) Last Done: 07/20/23 14:22 Coding Level of Care Code 35996 INP/OBS DISCH >30 MIN Diagnoses Atrial fibrillation with rapid ventricular response I48.91 Hypertension I10 Type 2 diabetes mellitus E11.9 Abdominal pain R10.84 Abdominal location: generalized Hyperlipidemia E78.5 Moderate obstructive sleep apnea G47.33 Morbid obesity E66.01 Hypomagnesemia E83.42 Urinary tract infection N39.0
--- OUTSIDE RECORDS SUMMARY | 2023-07-23 13:36 | External Medical Summary | Summary of Care ---
Author Name Unknown Organization [place] [address] Care Team Providers Care Cheesemaker Name Role Phone Jade Owusu MD Primary Care Provid er Encounter Details Date Type Department Care Team Description 04/20/2022 Orders Only Outcomes Research Department [address] [place] [address] Karthik Miramontes, SILVANA MyCode Research Other*[id number] Allergies Active Allergy Reactions Severity Noted Date Comments Triamcinolone Acetonide 08/12/2016 Triamcinolone 08/12/2016 Triamcinolone Acetonide 08/05/2011 palpitations- in ICU for 2 days chest pains and sob documented as of this encounter (statuses as of 04/20/2022) Medications Medication Sig Dispensed Refills Start Date End Date Status MULTIVITAMIN TABS OR one daily 0 11/06/2004 Active ULTRA THIN LANCETS MISCIndications:DM type 2, goal A1c below 7 use as directed 1 box 5 09/08/2009 Active ONETOUCH ULTRA TEST STRPIndications:DM type 2, goal A1c below 7 TEST 1 OR 2 TIMES DAILY 100 Strip 5 04/14/2011 Active METFORMIN HCL 1000 MG PO TABS 1/2 tablet in the morning and 1 tablet in the evening 0 Active TRAMADOL HCL 50 MG PO TABS 1 tablet 3x daily 0 Active atorvaSTATin (LIPITOR) 10 MG Tablet Take 10 mg by mouth daily. 0 02/07/2015 Active fluticasone (FLOVENT HFA) 110 MCG/ACT inhaler Flovent HFA 110 MCG/ACT Inhalation Aerosol 1 puff twice daily, rinse mouth after Quantity: 1; Refills: 0 Yesi Flores PA-C; Started 06-Apr-2016 [id number] GM Inhaler 0 04/06/2016 Active losartan (COZAAR) 50 MG Tablet Take 50 mg by mouth daily. 0 07/15/2016 Active omeprazole (PRILOSEC) 20 MG CPDR Take 20 mg by mouth daily. 0 07/15/2016 Active glimepiride (AMARYL) 2 MG Tablet 0 09/07/2016 Active documented as of this encounter (statuses as of 04/20/2022) Active Problems Problem Noted Date Encounter for examination fo r normal comparison and control in clinical research program 10/11/2018 Overview: DO NOT DELETE - [facility] CHARLINE Study: Project # [id number], Top Lift Compresser: Keo Lagunas, MS, MPH. SUMMARY: Goal: Establish test characteristics (sensitivity, specificity, PPV, NPV) of a circulating tumor DNA (ctDNA)-based test for cancer. - Hypothesis: Circulating tumor DNA (ctDNA) and elevated protein biomarkers (together, the marker panel) can be detected in asymptomatic individuals with early cancer. - Specific Aim 1: Determine the prevalence of a positive marker panel test in a prospective clinical cohort of 10,000 asymptomatic women ages 65 to 75 years. - Specific Aim 2: Determine the sensitivity, specificity, positive predictive value (PPV) and negative predictive value (NPV) of a marker panel test to identify histologically proven cancers that develop within 5-years of the marker panel evaluation. - CONTACTS: During normal business hours, contact study staff at ; after hours Top Lift Compresser via the [facility] rip and groove machine operator . - Please contact study team before resolving/deleting from patients problem list. Study phone number: [phone]. Diagnosis changed due to Research Module. Go to Snapshot for study details. HTN, GOAL BELOW 140/80 07/04/2012 Overview: Per HTN Protocol #27. Obesity, morbid (more than 100 lbs over ideal weight or BMI > 40) 02/11/2010 Overview: Per Obesity Taxonomy ICD-10 update of inactive term DYSLIPIDEMIA, GOAL LDL BELOW 100 009 Overview: Per Lipid Taxonomy. Type 2 diabetes mellitus with hemoglobin A1c goal of less than 7.0% 09/12/2009 Overview: Per Diabetes Taxonomy. ICD-10 update of inactive term ADVANCE DIRECTIVE INFORMATION 09/03/2005 Overview: Living will information given to pt. Sarcoidosis 08/14/2002 Anxiety state OSTEOARTHROSIS-MULT SITE CHR BLOOD LOSS ANEMIA Sleep apnea documented as of this encounter (statuses as of 04/20/2022) Resolved Problems Problem Noted Date Resolved Date Encounter for examination fo r normal comparison and control in clinical research program 10/11/2018 06/17/2020 Overview: DO NOT DELETE [facility] DETECT Study: Project # [id number], Top Lift Compresser: Tho Nixon, PhD. SUMMARY: Goal: Establish test characteristics (sensitivity, specificity, PPV, NPV) of a circulating tumor DNA (ctDNA)-based test for cancer. Hypothesis: Circulating tumor DNA (ctDNA) and elevated protein biomarkers (together, the marker panel) can be detected in asymptomatic individuals with early cancer. Specific Aim 1: Determine the prevalence of a positive marker panel test in a prospective clinical cohort of 10,000 asymptomatic women ages 65 to 75 years. Specific Aim 2: Determine the sensitivity, specificity, positive predictive value (PPV) and negative predictive value (NPV) of a marker panel test to identify histologically proven cancers that develop within 5-years of the marker panel evaluation. CONTACTS: During normal business hours, contact study staff at ; after hours Top Lift Compresser via the [facility] rip and groove machine operator . Please contact study team before resolving/deleting from patients problem list. Study phone number: [phone]. Diagnosis changed due to Research Module. Go to Snapshot for study details. HTN, GOAL BELOW 130/80 12/11/2009 2 Overview: Per HTN Taxonomy. Dyslipidemia, goal to be determined 05/01/2009 10/24/2009 Overview: Per Lipid Taxonomy. Type 2 diabetes mellitus wit h hemoglobin A1c goal of less than 7.0% 05/04/2007 09/12/2009 Overview: Per Diabetes Taxonomy. ICD-10 update of inactive term CHR BLOOD LOSS ANEMIA 07/10/2004 12/20/2008 Overview: Resolved per Duplicate Protocol #2. OBESITY, UNSPECIFIED 02/11/2010 Overview: Per Obesity Taxonomy HTN, goal below 140/90 0 Overview: Per HTN Taxonomy. documented as of this encounter (statuses as of 04/20/2022) Immunizations Name Administration Dates Next Due Pneumococcal Polysaccharide PPV23 (Pneumovax) 01/15/2010(Deferred: Patient Refused - no insurance) Seasonal Influenza, Split, I IV3, With Preserve, Inj 11/12/2009(Deferred: Patient Refused),12/21/2008(Deferred: Patient Refused - no insurance) TDAP (age 11 and older)(Adacel) 08/07/2008 documented as of this encounter Social History Tobacco Use Types Packs/Day Years Used Date Never Smoker Smokeless Tobacco: Never Used Alcohol Use Standard Drinks/Week Comments No 0 (1 standard drink = 0.6 oz pur e alcohol) Sex Assigned at Date Recorded Not on file documented as of this encounter Plan of Treatment Scheduled Orders Name Type Priority Associated Diagnoses Orde r Schedule MYCODE INITIAL ADULT Lab Routine MyCode Research Other*[id number] Expected: 04/20/2022 (Approximate), Expires: 05/10/2023 Scheduled Procedures Name Priority Associated Diagnoses Date/Ti me COLONOSCOPY FLEXIBLE PROXIMA L DIAGNOSTIC Recall Encounter for screening colonoscopy Health Maintenance Due Date Last Done Comments COVID-19 Vaccine (1) 1955 Pneumococcal Vaccine: 65+ Years (1 - PCV) 1958 Depression Screening, Annual for Pts 12 and Over 1964 Cologuard: Ages 45-75 1997 Sigmoidoscopy: Ages 45-75 1997 Zoster Vaccines (1 of 2) 2002 FOBT: Ages 45-75 08/07/2003 08/07/2002, 01/16/1999 BREAST CANCER SCREENING DISCUSSION YEARLY AGES 40-75 01/01/2010 01/01/2009, 04/21/2005, 07/04/2003, Additional history exists DIABETES-HGBA1C EVERY 6 MONTHS 06/29/2010 12/30/2009, 08/26/2009, 04/25/2009, Additional history exists DIABETES-FOOT EXAM 08/13/2010 08/13/2009, 0 06/05/2008, 05/04/2007, Additional history exists DIABETES-EYE EXAM 12/18/2010 12/18/2009, , 12/02/2006 (Unable to do) DIABETES-URINE ALBUMIN/CREATININE EVERY 12 MONTHS 04/01/2011 04/01/2010, 12/18/2008, 03/29/2007, Additional history exists Dexa Scan 2017 08/11/2005 BASIC METABOLIC PANEL (BMP) FOR HTN YEARLY 08/12/2017 08/12/2016, 01/18/2012, 09/01/2011, Additional history exists DTaP,Tdap,and Td Vaccines (2 - Td or Tdap) 08/07/2018 08/07/2008 Influenza Vaccine (FLU shot) (Season Ended) 2022 Colonoscopy: Ages 45-75 12/15/2027 12/15/2017, 05/16 Colorectal Cancer Screening (Colonoscopy 10 Years; Sigmoidoscopy 5 Years; Cologuard 3 Years; FOBT 1 Year): Ages 45-75 12/15/2027 GARDASIL-HPV IMMUNIZATION SERIES Aged Out No longer eligible based on patient's age to complete this topic MENINGOCOCCAL (MENACTRA/MENVEO) Aged Out No longer eligible based on patient's age to complete this topic documented as of this encounter Implants Not on filedocumented as of this encounter Visit Diagnoses Diagnosis MyCode Research Other*[id number] documented in this encounter Advance Directives Documents on File Type Date Recorded 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
--- OUTSIDE RECORDS SUMMARY | 2023-07-23 13:36 | External Medical Summary ---
Author Name UNSPECIFIED Address Unknown Organization [facility] History of Encounters Reason for Assessment: Discharge from [facility] Inpatient Facility where the patient been admitted: No inpatient facility admission Discharge Disposition: Patient remained in the community (without formal assistive services) Functional Assessment Frequency Of Pain Interferin g With Patient's Activity Or Movement: Patient has pain that does not interfere with activity or movement When Dyspneic: When walking more th an 20 feet, climbing stairs Bowel Incontinence Frequency: Very rarel y or never has bowel incontinence Cognitive and Behavioral and Psychiatric Symptoms: None Current: Management Of Oral Medications: Able to independently take the correct oral medication(s) and proper dosage(s) at the correct time
--- OUTSIDE RECORDS SUMMARY | 2023-07-23 13:36 | External Medical Summary ---
Author Name UNSPECIFIED Address Unknown Organization [facility] History of Encounters Reason for Assessment: Start of care - f urther visits planned Inpatient discharge facility: Past 14 Da ys: Discharged From Inpatient Rehab Facility Most Recent Inpatient Discharge Date: Functional Assessment Patient Living Situation: Patient Lives Alone: Occasional/Short-term assistance Sensory Status: Vision: Partially impair ed: cannot see medication labels or newsprint, but can see obstacles in path, and the surrounding layout; can count fingers at arm's length. Frequency Of Pain Interferin g With Patient's Activity Or Movement: Less often than daily When Dyspneic: With moderate exerti on (e.g., while dressing, using commode or bedpan, walking distances less than 20 feet) Urinary Incontinence or Urin collette Catheter Present: Patient is incontinent Bowel Incontinence Frequency: Very rarel y or never has bowel incontinence Cognitive and Behavioral and Psychiatric Symptoms: None Current Ability: Bathing: Unable to use the shower or tub, but able to participate in bathing self in bed, at the sink, in bedside chair, or on commode, with the assistance or supervision of another person throughout the bath. Current Ability: Ambulation: Requires us e of a two-handed device (e.g., walker or crutches) to walk alone on a level surface and/or requires human supervision or assistance to negotiate stairs or steps or uneven surfaces. Has Patient Had A Multi-fact or Fall Risk Assessment? Yes, and it indicates a risk for falls Current: Management Of Oral Medications: Able to independently take the correct o ral medication(s) and proper dosage(s) at the correct time Procedures Therapies Received at Home: None Treated for Urinary Tract Infection in P ast 14 Days: Yes Problems Primary Home Care Diagnosis ICD Code: Z4 7.89, Encounter for other orthopedic aftercare Home Care Diagnosis 1: ICD Code: Z98.1, Arthrodesis status Home Care Diagnosis 2: ICD Code: E11.42, Type 2 diabetes mellitus with diabetic polyneuropathy Home Care Diagnosis 2: Severity Ratin Home Care Diagnosis 3: ICD Code: I10., E ssential (primary) hypertension Home Care Diagnosis 3: Severity Ratin Home Care Diagnosis 4: ICD Code: E66.01, Morbid (severe) obesity due to excess calories Home Care Diagnosis 4: Severity Ratin Home Care Diagnosis 5: ICD Code: Z68.42, Body mass index (BMI) 45.0-49.9, adult Surgical wound: Yes, patient has at least one (observable) surgical wound
--- OUTSIDE RECORDS SUMMARY | 2023-07-23 13:36 | External Medical Summary | Summary of Care ---
Author Name Unknown Organization [facility] Address [place] [address] Care Team Providers Care Mains And Service Supervisor Name Role Phone Jade Owusu MD Primary Care Provid er Encounter Details Date Type Department Care Team Description 03/30/2019 Documentation Autism & Developmental Medicine - [address] [place] [address] Ava Anna, MILLER Allergies Active Allergy Reactions Severity Noted Date Comments Triamcinolone Acetonide 08/12/2016 Triamcinolone 08/12/2016 Triamcinolone Acetonide 08/05/2011 palpitations- in ICU for 2 days chest pains and sob documented as of this encounter (statuses as of 03/30/2019) Medications Medication Sig Dispensed Refills Start Date [...] Refills: 0 Yesi Flores PA-C; Started 06-Apr-2016 [id number] GM Inhaler 0 04/06/2016 Active losartan (COZAAR) 50 MG Tablet Take 50 mg by mouth daily. 0 07/15/2016 Active omeprazole (PRILOSEC) 20 MG CPDR Take 20 mg by mouth daily. 0 07/15/2016 Active glimepiride (AMARYL) 2 MG Tablet 0 09/07/2016 Active documented as of this encounter (statuses as of 03/30/2019) Active Problems Problem Noted Date DETECT Research Study*[id number] Overview: [facility] DETECT Study: Project # [id number], Therapist Asst: Tho Nixon, PhD. SUMMARY: Goal: Establish test [...] contact study staff at ; after hours Therapist Asst via the [facility] ram car operator . HTN, GOAL BELOW 140/80 07/04/2012 Overview: Per [...] as of this encounter (statuses as of 03/30/2019) Resolved Problems Problem Noted Date Resolved Date HTN, GOAL BELOW 130/80 12/11/2009 2 Overview: [...] as of this encounter (statuses as of 03/30/2019) Immunizations Name Dates Previously Given Next Due Pneumococcal Polysaccharide PPV23 (Pneumovax) 01/15/2010(Deferred: Patient Refused - no insurance) Seasonal Influenza, Trivalen t, with Preserve, 3yr & Above, Split 11/12/2009(Deferred: Patient Refused),12/21/2008(Deferred: Patient Refused - no insurance) TDAP (age 11 and older)(Adacel) 08/07/2008 documented as of this encounter Social History Tobacco Use Types Packs/Day Years Used Date Never Smoker Smokeless Tobacco: Never Used Alcohol Use Drinks/Week oz/Week Comments No Sex Assigned at Date Recorded Not on file Job Start Date Occupation Industry Not on file Not on file Not on file Travel History Travel Start Travel End documented as of this encounter Progress Notes * Ava Anna CRA - 03/30/2019 2:53 PM EDT Consent Documentation Aminah Klein was approached to participate in the Study on Genetics and Medication Use research protocol and consent was given. Date of consent: 03/25/2019 Consent version: 1.8 documented in this encounter Plan of Treatment Health Maintenance Due Date Last Done Comments BREAST CANCER SCREENING DISCUSSION YEARLY AGES 40-75 01/01/2010 01/01/2009, 04/21/2005, 07/04/2003, Additional history exists DIABETES-HGBA1C EVERY 6 MONTHS 06/29/2010 12/30/2009, 08/26/2009, 04/25/2009, Additional history exists DIABETES-FOOT EXAM 08/13/2010 08/13/2009, 0 06/05/2008, 05/04/2007, Additional history exists DIABETES-EYE EXAM 12/18/2010 12/18/2009, , 12/02/2006 (Unable to do) *DEPRESSION SCREENING, ANNUAL FOR PTS 18 AND OVER 08/16/2016 DXA-SCREENING EVERY 7 YRS-USE SMARTSET# 3348 TO ORDER 2017 08/11/2005 PNEUMOCOCCAL ADULT 65 YRS AND OVER (1 of 2 - PCV13) 2017 *BASIC METABOLIC PANEL (BMP) FOR HTN YEARLY 08/19/2017 DTaP,Tdap,and Td Vaccines (2 - Td) 08/07/2018 08/07/2008 Influenza Vaccine (FLU shot) (Season Ended) 2019 MENINGOCOCCAL (MENACTRA) Aged Out No longer eligible based on patient's age to complete this topic documented as of this encounter Implants Not on filedocumented as of this encounter Advance Directives Patient has advance care planning documents on file. For more information, please contact: [place] [phone]
--- OUTSIDE RECORDS SUMMARY | 2023-07-23 13:36 | External Medical Summary | Summary of Care ---
Author Name Unknown Organization [place] [address] Phone Care Team Providers Care Range Master Name Role Phone Jade Owusu MD Primary Care Provider [phone] Encounter Details Date Type Department Care Team Description 04/10/2005 Orders Only Internal Medicine, [facility]er[facility] Mustafa DEPT CLOSED- 01/14/18 [address] [place] [address] Zachary Lynne DO [address] [place] [address] [phone] DM, CONTROLLED, TYPE II* Allergies Active Allergy Reactions Severity Noted Date Comments Triamcinolone Acetonide 08/12/2016 Triamcinolone 08/12/2016 Triamcinolone Acetonide 08/05/2011 palpitations- in ICU for 2 days chest pains and sob as of this encounter Medications Prescription Sig. Disp. Refills Start Date End Date Status MULTIVITAMIN TABS OR one daily 0 11/06/2004 Acti ve ULTRA THIN LANCETS MISCIndications:DM type 2, goal A1c below 7 use as directed qs 5 04/10/2005 05/31/2006 Discontinued ULTRA TEST STRIPS STRP VIIndications:DM type 2, goal A1c below 7 test 1-2 times daily 100 5 04/10/2005 05/31/2006 Discontinued as of this encounter Active Problems Problem Noted Date HTN, GOAL BELOW 140/80 07/04/2012 Overview: Per HTN Protocol #27. Obesity, morbid (more than 100 lbs over ideal weight or BMI > 40) ([facility]) 02/11/2010 Overview: Per Obesity Taxonomy ICD-10 update of inactive term DYSLIPIDEMIA, GOAL LDL BELOW 100 009 Overview: Per Lipid Taxonomy. Type 2 diabetes mellitus with hemoglobin A1c goal of less than 7.0% ([facility]) 09/12/2009 Overview: Per Diabetes Taxonomy. ICD-10 update of inactive term ADVANCE DIRECTIVE INFORMATION 09/03/2005 Overview: Living will information given to pt. SARCOIDOSIS 08/14/2002 ANXIETY STATE NOS OSTEOARTHROSIS-MULT SITE CHR BLOOD LOSS ANEMIA SLEEP APNEA NOS as of this encounter Resolved Problems Problem Noted Date Resolved Date HTN, GOAL BELOW 130/80 12/11/2009 2 Overview: Per HTN Taxonomy. HYPERLIPIDEMIA NEC/NOS 05/01/2009 9 Overview: Per Lipid Taxonomy. Type 2 diabetes mellitus wit h hemoglobin A1c goal of less than 7.0% ([facility]) 05/04/2007 09/12/2009 Overview: Per Diabetes Taxonomy. ICD-10 update of inactive term CHR BLOOD LOSS ANEMIA 07/10/2004 12/20/2008 Overview: Resolved per Duplicate Protocol #2. OBESITY, UNSPECIFIED 02/11/2010 Overview: Per Obesity Taxonomy HTN, goal below 140/90 0 Overview: Per HTN Taxonomy. as of this encounter Social History Tobacco Use Types Packs/Day Years Used Date Never Smoker Alcohol Use Drinks/Week oz/Week Comments No Sex Assigned at Date Recorded Not on file as of this encounter Plan of Treatment Health Maintenance Due Date Last Done Comments BREAST CANCER SCREENING DISC USSION YEARLY AGES 40-75 01/01/2010 01/01/2009, 04/21/2005, 07/04/2003, Additional history exists DIABETES-HGBA1C EVERY 6 MONTHS 06/29/2010 0 12/30/2009, 08/26/2009, 04/25/2009, Additional history exists DIABETES-FOOT EXAM 08/13/2010 08/13/2009, 0 06/05/2008, 05/04/2007, Additional history exists DIABETES-EYE EXAM 12/18/2010 12/18/2009, , 12/02/2006 (Unable to do) DIABETES-LDL EVERY 12 MONTHS 12/30/2010, 08/26/2009, 04/25/2009, Additional history exists *DEPRESSION SCREENING, JAVIER Guerrero FOR PTS 18 AND OVER 08/16/2016 DXA-SCREENING EVERY 7 YRS-US E SMARTSET# 3348 TO ORDER 2017 08/11/2005 PNEUMOCOCCAL ADULT 65 YRS AN D OVER (1 of 2 - PCV13) 2017 *BASIC METABOLIC PANEL (BMP) FOR HTN YEARLY 08/19/2017 *LDL AFTER STARTING A STATIN 03/29/2018 Influenza Vaccine (FLU shot) (#1) 2018 DTaP,Tdap,and Td Vaccines (2 - Td) 08/07/20182007 as of this encounter Implants Not on fileas of this encounter Visit Diagnoses Diagnosis DM type 2, goal A1c below 7 - Primary Type II or unspecified type diabetes mellitus without mention of complication, not stated as uncontrolled in this encounter
--- OUTSIDE RECORDS SUMMARY | 2023-07-23 13:36 | External Medical Summary | Summary of Care ---
Author Name Unknown Organization [place] [address] Phone Care Team Providers Care Crosstie Inspector Name Role Phone Jade Owusu MD Primary Care Provider [phone] [phone] Encounter Details Date Type Department Care Team Description 12/15/2017 Result Scan Gastroenterology, [facility] [address] [place] [address] Eliza Sousa, [address] [place] [address] [phone] <No scans attached> Allergies Active Allergy Reactions Severity Noted Date [...] morning and 1 tablet in the evening Active TRAMADOL HCL 50 MG PO TABS 1 tablet 3x daily Active atorvaSTATin (LIPITOR) 10 MG Tablet Take 10 mg by mouth daily. 02/07/2015 Active fluticasone (FLOVENT HFA) 110 MCG/ACT inhaler Flovent HFA 110 MCG/ACT Inhalation Aerosol1 puff twice daily, rinse mouth after Quantity: 1; Refills: 0 Yesi Flores PA-C; Started [id number] 2 GM Inhaler 04/06/2016 Active losartan (COZAAR) 50 MG Tablet Take 50 mg by mouth daily. 07/15/2016 Active omeprazole (PRILOSEC) 20 MG CPDR Take 20 mg by mouth daily. 07/15/2016 Active glimepiride (AMARYL) 2 MG Tablet 09/07/2016 Active as of this encounter Active Problems Problem Noted Date HTN, GOAL BELOW 140/80 07/04/2012 Overview: Per HTN Protocol #27. Obesity, morbid (more than 100 lbs over ideal weight or BMI > 40) ([facility]) 02/11/2010 Overview: Per Obesity Taxonomy ICD-10 update of inactive term DYSLIPIDEMIA, GOAL LDL BELOW 100 009 Overview: Per Lipid Taxonomy. Type 2 diabetes mellitus with hemoglobin A1c goal of less than 7.0% ([facility]) 09/12/2009 Overview: Per Diabetes Taxonomy. ICD-10 update of inactive term ADVANCE DIRECTIVE INFORMATION 09/03/2005 Overview: Living will information given to pt. Sarcoidosis 08/14/2002 Anxiety state OSTEOARTHROSIS-MULT SITE CHR BLOOD LOSS ANEMIA Sleep apnea as of this encounter Resolved Problems Problem Noted Date Resolved Date HTN, GOAL BELOW 130/80 12/11/2009 2 Overview: Per HTN Taxonomy. Dyslipidemia, goal to be determined 05/01/2009 10/24/2009 Overview: Per Lipid Taxonomy. Type 2 diabetes mellitus wit h hemoglobin A1c goal of less than 7.0% ([facility]) 05/04/2007 09/12/2009 Overview: Per Diabetes Taxonomy. ICD-10 update of inactive term CHR BLOOD LOSS ANEMIA 07/10/2004 12/20/2008 Overview: Resolved per Duplicate Protocol #2. OBESITY, UNSPECIFIED 02/11/2010 Overview: Per Obesity Taxonomy HTN, goal below 140/90 0 Overview: Per HTN Taxonomy. as of this encounter Immunizations Name Dates Previously Given Next Due Pneumococcal Polyvalent Vacc (Pneumovax) 01/15/2010(Deferred: Patient Refused - no insurance) Seasonal Influenza, Trivalen t, with Preserve, 3yr & Above, Split 11/12/2009(Deferred: Patient Refused),12/21/2008(Deferred: Patient Refused - no insurance) TDAP (age 11 and older)(Adacel) 08/07/2008 as of this encounter Social History Tobacco [...] MONTHS 12/30/2010, 08/26/2009, 04/25/2009, Additional history exists DIABETES-URINE MICROALBUMIN EVERY 12 MONTHS 04/01/2011 04/01/2010, 12/18/2008, 03/29/2007, Additional history exists *DEPRESSION SCREENING, ANNUA L FOR PTS 18 AND OVER 08/16/2016 DXA-SCREENING EVERY 7 YRS-US E SMARTSET# 3348 TO ORDER 2017 08/11/2005 PNEUMOCOCCAL ADULT 65 YRS AN D OVER (1 of 2 - PCV13) 2017 *ADVANCE DIRECTIVE NOT ON FILE 06/10/2017 Influenza Vaccine (FLU shot) (#1) 2017 *BASIC METABOLIC PANEL (BMP) FOR HTN YEARLY 08/19/2017 TETANUS EVERY 10 YEARS-TDAP (BOOSTRIX OR ADACEL) SUGGESTED IF NOT RECEIVED IN THE PAST. 08/07/2018 08/07/2008 as of this encounter Implants Not on fileas of this encounter Results * PATHOLOGY SCANNED RESULT (12/15/2017) in this encounter Insurance Payer Benefit Plan / Group Subscriber ID Type Phone Address MEDICARE MEDICARE A AND B [id number] Medicare [place] as of this encounter
--- OUTSIDE RECORDS SUMMARY | 2023-07-23 13:36 | External Medical Summary ---
Author Name Unknown Address Unknown Organization [facility] - [address] [facility] [address] Laboratory Report Ordering Provider Test Date Status HEDY HEATH 10/26/2022 15:05:00 Final Observation Date Value Abnormality Reference (Units ) Status Albumin, Urine 10/26/2022 15:05:00 6.70 (mg/dL) Final Creatinine, Urine 10/26/2022 15:05:00 123 (mg/dL) Final Albumin/Creatinine [Mass Ratio] in Urine 10/26/2022 15:05:00 54 Above high normal <30 (mg/g Creat) Final Performing Location [facility] - [address] [facility] [address]
--- OUTSIDE RECORDS SUMMARY | 2023-07-23 13:36 | External Medical Summary | Summary of Care ---
Author Name Unknown Organization [place] [address] Phone Care Team Providers Care Sonar Technician Name Role Phone Jade Owusu MD Primary Care Provider [phone] Encounter Details Date Type Department Care Team Description 04/21/2005 Orders Only Internal Medicine, [facility] DEPT CLOSED- 01/14/18 [address] [place] [address] Zachary Lynne DO [address] [place] [address] [address] [phone] Allergies Active Allergy Reactions Severity Noted Date Comments Triamcinolone Acetonide 08/12/2016 Triamcinolone 08/12/2016 Triamcinolone Acetonide 08/05/2011 palpitations- in ICU for 2 days chest pains and sob as of this encounter Medications Prescription Sig. Disp. Refills Start Date End Date Status MULTIVITAMIN TABS OR one daily 0 11/06/2004 Acti ve as of this encounter Active Problems Problem Noted Date HTN, GOAL BELOW 140/80 07/04/2012 Overview: Per HTN Protocol #27. Obesity, morbid (more than 100 lbs over ideal weight or BMI > 40) ([facility]) 02/11/2010 Overview: Per Obesity Taxonomy ICD-10 update of inactive term DYSLIPIDEMIA, GOAL LDL BELOW 100 009 Overview: Per Lipid Taxonomy. Type 2 diabetes mellitus with hemoglobin A1c goal of less than 7.0% ([facility]) 09/12/2009 Overview: Per Diabetes Taxonomy. ICD-10 update [...] hemoglobin A1c goal of less than 7.0% ([facility]) 05/04/2007 09/12/2009 Overview: Per Diabetes Taxonomy. ICD-10 [...] Not on file as of this encounter Procedure Notes * Ernst Jimenez MD - 04/22/2005 11:50 AM EDT Associated Order(s): MAMMOGRAM SCREENING-BILATERAL This mammogram has been digitally scanned and analyzed with the computer aided detection system. Comparison is made to films from 07/04/2003 and films from 03/28/2001. Bilateral Breast Findings: The breasts are heterogeneously dense. This may lower the sensitivity of mammography. No significant masses, calcifications or other abnormalities are seen. IMPRESSION: BILATERAL BREASTS - Category 1 Negative, no evidence of malignancy. Normal interval follow-up is recommended in 12 months. OVERALL ASSESSMENT - NEGATIVE END OF IMPRESSION in this encounter Plan of Treatment Health [...] on fileas of this encounter Results * MAMMOGRAM SCREENING-BILATERAL (04/21/2005 9:03 AM) Transcriptions Ernst Jimenez MD - 04/22/2005 11:50 AM EDT This mammogram has been digitally scanned and analyzed with the computer aided detection system. Comparison is made to films from 07/04/2003 and films from 03/28/2001. Bilateral Breast Findings: The breasts are heterogeneously dense. This may lower the sensitivity ofmammography. No significant masses, calcifications or other abnormalities are seen.
--- OUTSIDE RECORDS SUMMARY | 2023-07-23 13:36 | External Medical Summary | Summary of Care ---
Author Name Unknown Organization [place] [address] Phone Care Team Providers Care Game Programer Name Role Phone Jade Owusu MD Primary Care Provider [phone] Encounter Details Date Type Department Care Team Description 04/07/2018 Orders Only Outcomes Research Department [address] [place] [address] Gucci Vallecillo MD [address] [address] [phone] [facility] Research Other*[id number] Allergies Active Allergy Reactions Severity Noted Date [...] Refills: 0 Yesi Flores PA-C; Started 06-Apr-2016 [id number] GM Inhaler 04/06/2016 Active losartan (COZAAR) 50 [...] over ideal weight or BMI > 40) ([facility]) 02/11/2010 Overview: Per Obesity Taxonomy ICD-10 update of inactive term DYSLIPIDEMIA, GOAL LDL BELOW 100 009 Overview: Per Lipid Taxonomy. Type 2 diabetes mellitus with hemoglobin A1c goal of less than 7.0% ([facility]) 09/12/2009 Overview: Per Diabetes Taxonomy. ICD-10 update [...] hemoglobin A1c goal of less than 7.0% ([facility]) 05/04/2007 09/12/2009 Overview: Per Diabetes Taxonomy. ICD-10 [...] of this encounter Plan of Treatment Scheduled Tests Name Priority Associated Diagnoses Order S chedule MYCODE INITIAL ADULT Routine MyCode Research Other*[id number] Expected: 04/07/2018, Expires: 04/27/2019 Health Maintenance Due Date Last Done Comments [...] 12/18/2008, 03/29/2007, Additional history exists *DEPRESSION SCREENING, JAVIER Guerrero FOR PTS 18 AND OVER 08/16/2016 DXA-SCREENING EVERY 7 YRS-US E SMARTSET# 3348 TO ORDER 2017 08/11/2005 PNEUMOCOCCAL ADULT 65 YRS AN D OVER (1 of 2 - PCV13) 2017 *BASIC METABOLIC PANEL (BMP) FOR HTN YEARLY 08/19/2017 *LDL AFTER STARTING A STATIN 03/29/2018 Influenza Vaccine (FLU shot) (Season Ended) 2018 DTaP,Tdap,and Td Vaccines (2 - Td) 08/07/20182007 as of this encounter Implants Not on fileas of this encounter Visit Diagnoses Diagnosis MYCODE RESEARCH OTHER*[id number] in this encounter
--- OUTSIDE RECORDS SUMMARY | 2023-07-23 13:36 | External Medical Summary | Summary of Care ---
Author Name Unknown Organization [place] [address] Care Team Providers Care Assembler Filters Name Role Phone Jade Owusu MD Primary Care Provid er Encounter Details Date Type Department Care Team Description 03/24/2021 Orders Only Outcomes Research Department [address] [place] [address] Karthik Miramontes, SILVANA MyCode Research Other*[id number] Allergies Active Allergy Reactions Severity Noted Date Comments Triamcinolone Acetonide 08/12/2016 Triamcinolone 08/12/2016 Triamcinolone Acetonide 08/05/2011 palpitations- in ICU for 2 days chest pains and sob documented as of this encounter (statuses as of 03/24/2021) Medications Medication Sig Dispensed Refills Start Date [...] Refills: 0 Yesi Flores PA-C; Started 06-Apr-2016 [id number] GM Inhaler 0 04/06/2016 Active losartan (COZAAR) 50 MG Tablet Take 50 mg by mouth daily. 0 07/15/2016 Active omeprazole (PRILOSEC) 20 MG CPDR Take 20 mg by mouth daily. 0 07/15/2016 Active glimepiride (AMARYL) 2 MG Tablet 0 09/07/2016 Active documented as of this encounter (statuses as of 03/24/2021) Active Problems Problem Noted Date Encounter for examination fo r normal comparison and control in clinical research program 10/11/2018 Overview: DO NOT DELETE - [facility] CHARLINE Study: Project # [id number], Medical Staff Manager: Keo Lagunas, MS, MPH. SUMMARY: Goal: Establish [...] contact study staff at ; after hours Medical Staff Manager via the [facility] hospital carving machine operator . - Please contact study team before resolving/deleting from patients problem list. Study phone number: [phone]. Diagnosis changed due to Research Module. Go [...] as of this encounter (statuses as of 03/24/2021) Resolved Problems Problem Noted Date Resolved Date Encounter for examination fo r normal comparison and control in clinical research program 10/11/2018 06/17/2020 Overview: DO NOT DELETE [facility] DETECT Study: Project # [id number], Medical Staff Manager: Tho Nixon, PhD. SUMMARY: Goal: Establish test [...] contact study staff at ; after hours Medical Staff Manager via the [facility] hospital carving machine operator . Please contact study team before resolving/deleting from patients problem list. Study phone number: [phone]. Diagnosis changed due to Research Module. Go [...] as of this encounter (statuses as of 03/24/2021) Immunizations Name Administration Dates Next Due Pneumococcal [...] MYCODE INITIAL ADULT Lab Routine MyCode Research Other*[id number] Expected: 03/24/2021 (Approximate), Expires: 04/13/2022 Health Maintenance Due Date Last Done Comments Pneumococcal Vaccine: 65+ Years (1 of 2 - PPSV23) 1956 Zoster Vaccines (1 of 2) 2002 BREAST CANCER SCREENING DISCUSSION YEARLY AGES 40-75 01/01/2010 01/01/2009, 04/21/2005, 07/04/2003, Additional history exists DIABETES-HGBA1C EVERY 6 MONTHS 06/29/2010 12/30/2009, 08/26/2009, 04/25/2009, Additional history exists DIABETES-FOOT EXAM 08/13/2010 08/13/2009, 0 06/05/2008, 05/04/2007, Additional history exists DIABETES-EYE EXAM 12/18/2010 12/18/2009, , 12/02/2006 (Unable to do) *DEPRESSION SCREENING,ANNUAL FOR PTS 12 AND OVER 08/16/2016 Dexa Scan 2017 08/11/2005 *BASIC METABOLIC PANEL (BMP) FOR HTN YEARLY 08/19/2017 DTaP,Tdap,and Td Vaccines (2 - Td) 08/07/2018 08/07/2008 Influenza Vaccine (FLU shot) (Season Ended) 2021 MENINGOCOCCAL (MENACTRA/MENVEO) Aged Out No longer eligible based on patient's age to complete this topic documented as of this encounter Implants Not on filedocumented as of this encounter Visit Diagnoses Diagnosis MyCode Research Other*[id number] documented in this encounter Advance Directives Documents on File Type Date Recorded Patient Computer Technical Support Specialist Expl anation Advanced Directive service a tom default Advanced Directive Advanced Directive 11/11/2011 12:00 AM Advanced Directive 01/08/2012 12:00 AM Advanced Directive Advanced Directive 11/22/2013 11:43 AM Advanced Directive
--- OUTSIDE RECORDS SUMMARY | 2023-07-23 13:36 | External Medical Summary | Summary of Care ---
Author Name Unknown Organization [place] [address] Phone Care Team Providers Care Fruit I Farmworker Name Role Phone Jade Owusu MD Primary Care Provider [phone] Encounter Details Date Type Department Care Team Description 12/15/2017 Result Scan Gastroenterology, [facility] [address] [place] [address] Eliza Sousa, [address] [place] [address] [phone] <No scans attached> Allergies Active Allergy Reactions [...] 1; Refills: 0 Yesi Flores PA-C; Started [id number] 2 GM Inhaler 04/06/2016 Active losartan (COZAAR) [...] over ideal weight or BMI > 40) ([facility]) 02/11/2010 Overview: Per Obesity Taxonomy ICD-10 update of inactive term DYSLIPIDEMIA, GOAL LDL BELOW 100 009 Overview: Per Lipid Taxonomy. Type 2 diabetes mellitus with hemoglobin A1c goal of less than 7.0% ([facility]) 09/12/2009 Overview: Per Diabetes Taxonomy. ICD-10 update [...] hemoglobin A1c goal of less than 7.0% ([facility]) 05/04/2007 09/12/2009 Overview: Per Diabetes Taxonomy. ICD-10 [...] Phone Address MEDICARE MEDICARE A AND B [id number] Medicare [place] as of this encounter
--- OUTSIDE RECORDS SUMMARY | 2023-07-23 13:36 | External Medical Summary | Summary of Care ---
Author Name Unknown Organization [place] [address] Care Team Providers Care Bottom Scrubber Name Role Phone Jade Owusu MD Primary Care Provid er Encounter Details Date Type Department Care Team Description 02/28/2020 Orders Only Outcomes Research Department [address] [place] [address] Karthik Miramontes CHRA MyCode Research Other*[id number] Allergies Active Allergy Reactions Severity Noted Date Comments Triamcinolone Acetonide 08/12/2016 Triamcinolone 08/12/2016 Triamcinolone Acetonide 08/05/2011 palpitations- in ICU for 2 days chest pains and sob documented as of this encounter (statuses as of 02/28/2020) Medications Medication Sig Dispensed Refills Start Date [...] Refills: 0 Yesi Flores PA-C; Started 06-Apr-2016 [id number] GM Inhaler 0 04/06/2016 Active losartan (COZAAR) 50 MG Tablet Take 50 mg by mouth daily. 0 07/15/2016 Active omeprazole (PRILOSEC) 20 MG CPDR Take 20 mg by mouth daily. 0 07/15/2016 Active glimepiride (AMARYL) 2 MG Tablet 0 09/07/2016 Active documented as of this encounter (statuses as of 02/28/2020) Active Problems Problem Noted Date DETECT Research Study*[id number] Overview: DO NOT DELETE [facility] DETECT Study: Project # [id number], Chain Saw Mechanic: Tho Nixon, PhD. SUMMARY: Goal: Establish test [...] contact study staff at ; after hours Chain Saw Mechanic via the [facility] fishing vessel operator . Please contact study team before resolving/deleting from patients problem list. Study phone number: [phone]. HTN, GOAL BELOW 140/80 07/04/2012 Overview: Per [...] as of this encounter (statuses as of 02/28/2020) Resolved Problems Problem Noted Date Resolved Date [...] as of this encounter (statuses as of 02/28/2020) Immunizations Name Administration Dates Next Due Pneumococcal [...] Travel End documented as of this encounter Plan of Treatment Scheduled Orders Name Type Priority Associated Diagnoses Orde r Schedule MYCODE INITIAL ADULT Lab Routine MyCode Research Other*[id number] Expected: 02/28/2020 (Approximate), Expires: 03/19/2021 Health Maintenance Due Date Last Done Comments Zoster Vaccines (1 of 2) 2002 BREAST CANCER SCREENING DISCUSSION YEARLY AGES 40-75 01/01/2010 01/01/2009, 04/21/2005, 07/04/2003, Additional history exists DIABETES-HGBA1C EVERY 6 MONTHS 06/29/2010 12/30/2009, 08/26/2009, 04/25/2009, Additional history exists DIABETES-FOOT EXAM 08/13/2010 08/13/2009, 0 06/05/2008, 05/04/2007, Additional history exists DIABETES-EYE EXAM 12/18/2010 12/18/2009, , 12/02/2006 (Unable to do) *DEPRESSION SCREENING,ANNUAL FOR PTS 12 AND OVER 08/16/2016 DXA-SCREENING EVERY 7 YRS-USE SMARTSET# 3348 TO ORDER 2017 08/11/2005 Pneumococcal Vaccine: 65+ Years (1 of 2 - PCV13) 2017 *BASIC METABOLIC PANEL (BMP) FOR HTN YEARLY 08/19/2017 DTaP,Tdap,and Td Vaccines (2 - Td) 08/07/2018 08/07/2008 Influenza Vaccine (FLU shot) (#1) 2019 MENINGOCOCCAL (MENACTRA/MENVEO) Aged Out No longer eligible based on patient's age to complete this topic documented as of this encounter Implants Not on filedocumented as of this encounter Visit Diagnoses Diagnosis MyCode Research Other*[id number] documented in this encounter Advance Directives Documents on File Type Date Recorded 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
--- OUTSIDE RECORDS SUMMARY | 2023-07-23 13:36 | External Medical Summary | Summary of Care ---
Author Name Unknown Organization [place] [address] Care Team Providers Care Ornamental Painter Name Role Phone Jade Owusu MD Primary Care Provider [phone] Reason for Visit * Reason Comments Research Study Patient DETECT Consenting Encounter Details Date Type Department Care Team Description 10/11/2018 Office Visit Nerissa Lion [address] [place] [address] TeamJohanny Study [address] [place] [address] DETECT Research Study*[id number]* Allergies Active Allergy Reactions Severity Noted Date Comments Triamcinolone Acetonide 08/12/2016 Triamcinolone 08/12/2016 Triamcinolone Acetonide 08/05/2011 palpitations- in ICU for 2 days chest pains and sob as of this encounter Medications Medication Sig Dispensed Refills Start Date [...] Refills: 0 Yesi Flores PA-C; Started 06-Apr-2016 [id number] GM Inhaler 0 04/06/2016 Active losartan (COZAAR) 50 MG Tablet Take 50 mg by mouth daily. 0 07/15/2016 Active omeprazole (PRILOSEC) 20 MG CPDR Take 20 mg by mouth daily. 0 07/15/2016 Active glimepiride (AMARYL) 2 MG Tablet 0 09/07/2016 Active as of this encounter Active Problems Problem Noted Date DETECT Research Study*[id number] Overview: [facility] DETECT Study: Project # [id number], Roller Man: Tho Nixon, PhD. SUMMARY: Goal: Establish test [...] contact study staff at ; after hours Roller Man via the [facility] hospital dairy powder mixer operator . HTN, GOAL BELOW 140/80 07/04/2012 [...] Diabetes Taxonomy. ICD-10 update of inactive term [facility] BLOOD LOSS ANEMIA 07/10/2004 12/20/2008 Overview: Resolved [...] file Travel History Travel Start Travel End as of this encounter Progress Notes * Mary Hazel, KARLOA - 10/11/2018 1:19 PM EST Aminah Klein is a 68 year old female who is being seen today for possible entry into the DETECT study (Detecting Cancers Earlier Through Elective Mutation-Based Blood Collection and Testing). Informed Consent The consent document for the DETECT study was thoroughly discussed with the patient. Aminah Klein read the consent document and had the opportunity to ask questions regarding the study. All questions were answered to the satisfaction of the patient. Aminah Klein desires to enter the study and signed the IRB-approved consent form, version 07/06/2018 on 10/11/2018 @ 10AM prior to any study procedures. The consent form can be referenced in the following locations: The original signed consent form is located in the patient's research study file. The signed consent form will be scanned into the patient's medical record in [facility]. A copy of the signed consent form was given to the patient. Inclusion/ Exclusion Criteria Were the Inclusion/Exclusion criteria reviewed and documented on the Inclusion Exclusion sheet? Yes [facility] Problem List Was the study added to the subjects Problem List (without a description/overview) in [facility]? Yes Instructions The subject was provided with the following instructions: ? A future visit may be scheduled based on these results. in this encounter Plan of Treatment Health Maintenance Due Date Last Done Comments BREAST CANCER SCREENING DISC USSION YEARLY AGES 40-75 01/01/2010 01/01/2009, 04/21/2005, 07/04/2003, Additional history exists DIABETES-HGBA1C EVERY 6 MONTHS 06/29/2010 0 12/30/2009, 08/26/2009, 04/25/2009, Additional history exists DIABETES-FOOT EXAM 08/13/2010 08/13/2009, 0 06/05/2008, 05/04/2007, Additional history exists DIABETES-EYE EXAM 12/18/2010 12/18/2009, , 12/02/2006 (Unable to do) *DEPRESSION SCREENING, ANNUA L FOR PTS 18 AND OVER 08/16/2016 DXA-SCREENING EVERY 7 YRS-US E SMARTSET# 3348 TO ORDER 2017 08/11/2005 PNEUMOCOCCAL ADULT 65 YRS AN D OVER (1 of 2 - PCV13) 2017 *BASIC METABOLIC PANEL (BMP) FOR HTN YEARLY 08/19/2017 Influenza Vaccine (FLU shot) (#1) 2018 DTaP,Tdap,and Td Vaccines (2 - Td) 08/07/20182007 as of this encounter Implants Not on fileas of this encounter Visit Diagnoses Diagnosis DETECT Research Study*[id number]- Primary in this encounter Advance Directives Patient has advance care planning documents on file. For more information, please contact: RAAFEL Naylor [phone]
--- OUTSIDE RECORDS SUMMARY | 2023-07-23 13:37 | External Medical Summary | Summary of Care ---
Author Name Unknown Organization [place] [address] Phone Care Team Providers Care Telephone Lineman Name Role Phone Jade Owusu MD Primary Care Provider [phone] Encounter Details Date Type Department Care Team Description 12/02/2017 Orders Only Gastroenterology, [facility] [address] [place] [address] Kyra Alicia CRNP [address] [place] [address] [phone] Dysphagia, unspecified type* Allergies Active Allergy Reactions Severity Noted Date [...] 1; Refills: 0 Yesi Flores PA-C; Started [id number] 2 GM Inhaler 04/06/2016 Active losartan (COZAAR) [...] over ideal weight or BMI > 40) ([facility]) 02/11/2010 Overview: Per Obesity Taxonomy ICD-10 update of inactive term DYSLIPIDEMIA, GOAL LDL BELOW 100 009 Overview: Per Lipid Taxonomy. Type 2 diabetes mellitus with hemoglobin A1c goal of less than 7.0% ([facility]) 09/12/2009 Overview: Per Diabetes Taxonomy. ICD-10 update of inactive term ADVANCE DIRECTIVE INFORMATION 09/03/2005 Overview: Living will information given to pt. Sarcoidosis 08/14/2002 Anxiety state [facility] BLOOD LOSS ANEMIA Sleep apnea as of this encounter Resolved Problems Problem Noted Date Resolved Date HTN, GOAL BELOW 130/80 12/11/2009 2 Overview: Per HTN Taxonomy. Dyslipidemia, goal to be determined 05/01/2009 10/24/2009 Overview: Per Lipid Taxonomy. Type 2 diabetes mellitus wit h hemoglobin A1c goal of less than 7.0% ([facility]) 05/04/2007 09/12/2009 Overview: Per Diabetes [...] as of this encounter Plan of Treatment Upcoming Encounters Date Type Specialty Care Team Description 12/15/2017 Procedure Only Endoscopy Eliza Sousa, DO [address] [place] [address] [phone] 12/15/2017 Procedure Only Endoscopy Eliza Sousa, DO [address] [place] [address] [phone] Scheduled Tests Name Priority Associated Diagnoses Order S chedule EGD, Flexible, Diagnostic Routine Dysphagia, unspecified type Ordered: 12/02/2017 Health Maintenance Due Date Last Done Comments [...] Guerrero FOR PTS 18 AND OVER 08/16/2016 COLONOSCOPY-EVERY 10 YRS AGE S 50-75 05/16/2017 05/16/2007 DXA-SCREENING EVERY 7 YRS- E SMARTSET# 3348 TO ORDER 2017 08/11/2005 [...] fileas of this encounter Visit Diagnoses Diagnosis Dysphagia, unspecified type - Primary in this encounter Insurance Payer Benefit Plan / Group Subscriber ID Type Phone Address MEDICARE MEDICARE A AND B [id number] [place] as of this encounter
--- OUTSIDE RECORDS SUMMARY | 2023-07-23 13:37 | External Medical Summary ---
Author Name BEAU CARROLL Organization K01:[facility], [address] [address] Support Name Relationship Address Phone NELSY YANEZ MD [facility] Unknown Unavailable Laboratory Report Ordering Provider Test Date Status NELSY YANEZ MD 01/18/2012 11:08:00-0500 Final Obs # Observation Date Value ABNL Reference Status Pe rforming Location 1 Glucose, Capillary (glucometer) 01/19/2012 12:35-0500 109 70-120 mg/dl Final
--- OUTSIDE RECORDS SUMMARY | 2023-07-23 13:37 | External Medical Summary ---
Author Name ELIANE NEVAREZ DO Organization K09:[facility] Sarita eLeonel Ace Syed, [facility] [address] Support Name Relationship Address Phone ELIANE NEVAREZ DO PROV Unknown Unavailab le Laboratory Report Ordering Provider Test Date Status ELIANE NEVAREZ DO 09/01/2011 10:170400 Final Obs # Observation Date Value ABNL Reference Status Pe rforming Location 1 BUN 1 11:54-040 0 11 6-20 mg/dL Final 2 Creatinine 1 11:54-040 0 0.6 0.5-1.1 mg/dL Final 3 Creatinine 1 11:54-040 0 GFR should be used to assess renal function. Plasma/Serum creatinine may not be able to properly reflect renal function in some cases. Final 4 Sodium 1 11:54-040 0 139 135-146 mmol/L Final 5 Potassium 1 11:54-040 0 4.1 3.5-5.1 mmol/L Final 6 Cl 1 11:54-040 0 101 98-111 mmol/L Final 7 CO2 1 11:54-040 0 28 22-32 mmol/L Final 8 Glucose 1 11:54-040 0 127 H 70-120 mg/dL Final 9 Albumin 1 11:54-040 0 4.5 3.8-5.0 g/dL Final 10 AST (Aspartate aminotransferase ) 1 11:54-040 0 25 10-35 U/L Final 11 Alk Phos 1 11:54-040 0 53 0-153 U/L Final 12 Bilirubin, Total 1 11:54-040 0 0.6 0.3-1.3 mg/dL Final 13 Calcium 1 11:54-040 0 9.3 8.3-10.5 mg/dL Final 14 Protein 1 11:54-040 0 8.2 6.0-8.3 g/dL Final 15 ALT (Alanine aminotransferase ) 1 11:54-040 0 16 10-35 U/L Final 16 Anion gap 1 11:54-040 0 10 7-15 mmol/L Final 17 GFR (estimated) 1 11:54-040 0 >60.0 >60 mL/min Final
--- OUTSIDE RECORDS SUMMARY | 2023-07-23 13:37 | External Medical Summary ---
Author Name ELIANE NEVAREZ DO Organization K01[facility], [address] [address] Support Name Relationship Address Phone ELIANE NEVAREZ DO PROV Unknown Unavailab le Laboratory Report Ordering Provider Test Date Status ELIANE NEVAREZ DO 09/01/2011 10:100400 Final Obs # Observation Date Value ABNL Reference Status Pe rforming Location 1 Tissue transglutaminase IgA 09/02/2011 11:49-0400 2.1 <20 UNITS Final 2 Tissue transglutaminase IgA 09/02/2011 11:49-0400 NEGATIVE Final
--- OUTSIDE RECORDS SUMMARY | 2023-07-23 13:37 | External Medical Summary ---
Author Name NADEGE CARROLL Organization K01:[place] [address] [address] Support Name Relationship Address Phone ALDO LIGTH MD [facility] Unknown Unavailable Laboratory Report Ordering Provider Test Date Status ALDO LIGHT MD 01/18/2012 10:11:00-0500 Final Obs # Observation Date Value ABNL Reference Status Pe rforming Location 1 Potassium 01/18/2012 10:54-0500 4.1 3.5-5.1 mmol/L Final
--- OUTSIDE RECORDS SUMMARY | 2023-07-23 13:37 | External Medical Summary ---
Author Name ELIANE NEVAREZ DO Organization K01:[facility] [address] [address] Support Name Relationship Address Phone ELIANE NEVAREZ DO PROV Unknown Unavailab le Laboratory Report Ordering Provider Test Date Status ELIANE NEVAREZ DO 09/01/2011 10:100400 Final Obs # Observation Date Value ABNL Reference Status Pe rforming Location 1 Hep B surface Ag 09/02/2011 11:-0400 NEGATIVE NEG Final
--- OUTSIDE RECORDS SUMMARY | 2023-07-23 13:37 | External Medical Summary ---
Author Name NADEGE CARROLL Organization K01:[facility] [address] [address] Support Name Relationship Address Phone ALDO LIGHT MD [facility] Unknown Unavailable Laboratory Report Ordering Provider Test Date Status ALDO LIGHT MD 01/18/2012 10:11:00-0500 Final Obs # Observation Date Value ABNL Reference Status Pe rforming Location 1 Creatinine 01/18/2012 10:54-0500 0.6 0.5-1.1 mg/dL Final GFR should be used to assess renal function. Plasma/Serum creatinine may not be able to properly reflect renal function in some cases.
--- OUTSIDE RECORDS SUMMARY | 2023-07-23 13:37 | External Medical Summary ---
Author Name Unknown Address [address] [place] [address] Phone Organization K0G:[facility] [place] [address] Laboratory Report Ordering Provider Test Date Status STEVE SANCHEZ MD 08/12/2016 13:40:00 Final Obs # Observation Date Value Abnormality Reference Status Performing Location 0 BUN 08/12/2016 14:29 14 6-20 Final [facility] [address] [place] [address] 1 Creatinine 08/12/2016 14:29 0.6 0.5-1.0 Final
--- OUTSIDE RECORDS SUMMARY | 2023-07-23 13:37 | External Medical Summary ---
Author Name ELIANE NEVAREZ DO Organization K01[facility], [address] [address] Support Name Relationship Address Phone ELIANE NEVAREZ DO PROV Unknown Unavailab le Laboratory Report Ordering Provider Test Date Status ELIANE NEVAREZ DO 09/01/2011 10: Final Obs # Observation Date Value ABNL Reference Status Pe rforming Location 1 Hep B surface Ab 09/02/2011 11:-0400 NEGATIVE NEG Final 2 Hep B surface Ab 09/02/2011 11:040 Patient is NOT considered to have protective immunity to Hepatitis B Virus Final
--- OUTSIDE RECORDS SUMMARY | 2023-07-23 13:37 | External Medical Summary | Summary of Care ---
Author Name Unknown Organization [place] [address] Phone Care Team Providers Care Silk Washing Machine Operator Name Role Phone Jade Owusu MD Primary Care Provider [phone] Encounter Details Date Type Department Care Team Description 12/15/2017 Orders Only Gastroenterology, [facility] [address] [place] [address] Eliza Sousa, [address] [place] [address] [phone] Allergies Active Allergy Reactions Severity Noted Date [...] 1; Refills: 0 Yesi Flores PA-C; Started 25-[id number] 2 GM Inhaler 04/06/2016 Active losartan (COZAAR) [...] over ideal weight or BMI > 40) ([facility]) 02/11/2010 Overview: Per Obesity Taxonomy ICD-10 update of inactive term DYSLIPIDEMIA, GOAL LDL BELOW 100 009 Overview: Per Lipid Taxonomy. Type 2 diabetes mellitus with hemoglobin A1c goal of less than 7.0% ([facility]) 09/12/2009 Overview: Per Diabetes Taxonomy. ICD-10 update [...] hemoglobin A1c goal of less than 7.0% ([facility]) 05/04/2007 09/12/2009 Overview: Per Diabetes Taxonomy. ICD-10 [...] S 50-75 05/16/2017 05/16/2007 DXA-SCREENING EVERY 7 YRS-US E SMARTSET# 3348 [...] on fileas of this encounter Results * UPPER GI ENDOSCOPY (12/15/2017) in this encounter Insurance Payer Benefit Plan / Group Subscriber ID Type Phone Address MEDICARE MEDICARE A AND B [id number] Medicare [place] as of this encounter
--- OUTSIDE RECORDS SUMMARY | 2023-07-23 13:37 | External Medical Summary ---
Author Name Unknown Address [address] [place] [address] Phone Organization K0G:[facility] [employer] [address] [facility] [place] [address] Laboratory Report Ordering Provider Test Date Status STEVE SANCHEZ MD 08/12/2016 13:40:00 Final Obs # Observation Date Value Abnormality Reference Status Performing Location 0 WBC, Total 08/12/2016 13:49 11.28 Above high normal 4.00-10.80 Final [facility] [address] [place] [place] [address] 1 RBC 08/12/2016 13:49 4.53 3.85-5.15 Final 2 Hemoglobin 08/12/2016 13:49 12.6 12.0-15.3 Final 3 HCT 08/12/2016 13:49 37.7 36.0-45.2 Final 4 MCV 08/12/2016 13:49 83.2 81.5-97.5 Final 5 MCH 08/12/2016 13:49 27.8 27.0-34.0 Final 6 MCHC 08/12/2016 13:49 33.4 32.0-36.0 Final 7 RDW 08/12/2016 13:49 13.9 11.5-15.5 Final 8 Platelets 08/12/2016 13:49 251 140-400 Final 9 MPV 08/12/2016 13:49 9.8 6.6-11.1 Final
--- OUTSIDE RECORDS SUMMARY | 2023-07-23 13:37 | External Medical Summary | Summary of Care ---
Author Name Unknown Organization [place] [address] Phone Care Team Providers Care Truck Service Technician Name Role Phone Jade Owusu MD Primary Care Provider [phone] Encounter Details Date Type Department Care Team Description 12/15/2017 Orders Only Gastroenterology, [facility] [address] [place] [address] Eliza Sousa, [address] [place] [address] [phone] Allergies Active Allergy Reactions Severity Noted Date [...] 1; Refills: 0 Yesi Flores PA-C; Started [id number] 2 GM Inhaler 04/06/2016 Active losartan (COZAAR) [...] weight or BMI > 40) ([facility]) 02/11/2010 Overview: Per Obesity Taxonomy ICD-10 update of inactive term DYSLIPIDEMIA, GOAL LDL BELOW 100 009 Overview: Per Lipid Taxonomy. Type 2 diabetes mellitus with hemoglobin A1c goal of less than 7.0% ([facility]) 09/12/2009 Overview: Per Diabetes Taxonomy. [...] goal of less than 7.0% ([facility]) 05/04/2007 09/12/2009 Overview: Per Diabetes [...] on fileas of this encounter Results * COLONOSCOPY (12/15/2017) in this encounter Insurance Payer Benefit Plan / Group Subscriber ID Type Phone Address MEDICARE MEDICARE A AND B [id number] Medicare [place] as of this encounter
--- OUTSIDE RECORDS SUMMARY | 2023-07-23 13:37 | External Medical Summary ---
Author Name ELIANE NEVAREZ DO Organization K01[facility] [address] [address] Support Name Relationship Address Phone ELIANE NEVAREZ DO PROV Unknown Unavailab le Laboratory Report Ordering Provider Test Date Status ELIANE NEVAREZ DO 09/01/2011 10:10-0400 Final Obs # Observation Date Value ABNL Reference Status Pe rforming Location 1 Hep A, IgG and/or IgM 09/02/2011 11:33-0400 NEGATIVE NEG Final
--- OUTSIDE RECORDS SUMMARY | 2023-07-23 13:37 | External Medical Summary ---
Author Name NADEGE CARROLL Organization K01:[place] [address] [address] Support Name Relationship Address Phone ALDO LIGHT MD Unknown Unavailable Laboratory Report Ordering Provider Test Date Status ALDO LIGHT MD 01/18/2012 10:11:00-0500 Final Obs # Observation Date Value ABNL Reference Status Pe rforming Location 1 Glucose 01/18/2012 10:48-0500 120 70-120 mg/dL Final
== END 2023-07-20 14:23 | disposition home health service (06) | DRG 287 ==
LOC: ED 09:51 → 2S 14:31